=== PATIENT | male | born 1985 | race Two or more races ===

== ENCOUNTER 2021-01-03 19:09 | Outpatient (REF) | payer OTHER, MEDICARE, MEDICAID, SELFPAY ==
--- NOTE | ~2021-01-03 | MR_ITS ---
EXAMINATION: MR SHOULDER WITHOUT CONTRAST, LEFT CLINICAL INFORMATION: Left shoulder pain and weakness. COMPARISON: Left shoulder radiographs dated 07/25/2020 and left clavicle radiographs dated 08/08/2020 TECHNIQUE: Multisequence MR imaging of the left shoulder was performed without contrast on a high-field strength scanner. FINDINGS: ROTATOR CUFF: Intact. No muscle atrophy or fatty infiltration. BICEPS: Normal. CORACOACROMIAL ARCH: The undersurface of the acromion is curved with no subacromial spur. [id number] acromioclavicular osteoarthritis. Prominent associated marrow and capsular edema. Mild subchondral cystic change. No acute fracture. LABRUM/CAPSULE: Thin fluid signal extending through the undersurface of the superior labrum, posterosuperior labrum, and posterior labrum consistent with a nondisplaced undersurface tear. There is a small paralabral cyst at the posterior labrum measuring up to 0.3 cm. GLENOHUMERAL JOINT/MARROW: Normal. MR/MR shoulder LT wo con IMPRESSION: 1. Nondisplaced undersurface tear of the superior, posterosuperior, and posterior labrum. Small posterior paralabral cyst. 2. Kvjj-[id number] acromioclavicular osteoarthritis with prominent marrow and capsular edema. Edema may be related to degenerative arthritis or indicate a nondisplaced capsular injury. No associated fracture. 3. Intact rotator cuff.
== END 2021-01-03 19:10 | disposition home or self-care (01) ==
LOC: HO.MRI 19:09
PROVIDERS: Visit Provider Internal Medicine
DX: M25.512 Pain in left shoulder (principal)
CPT/HCPCS: 73221

== ENCOUNTER → 2021-01-07 09:22 | Outpatient (BNVA) | payer MEDICARE, MEDICAID, SELFPAY | PROVIDERS: PCP Internal Medicine; Visit Provider Orthopaedic Surgery | DX: S49.90XA Unspecified injury of shoulder and upper arm, unspecified arm, initial encounter (principal); E11.9 Type 2 diabetes mellitus without complications | CPT/HCPCS: 20600; 20605; J1100 ==

== ENCOUNTER 2021-07-25 11:25 | Emergency (ER) | payer MEDICARE, MEDICAID, SELFPAY ==
[2021-07-25 11:34] VITALS: BP 119/73; PULSE 109; RESP 18; TEMP 37.1; O2SAT 98; BMI 25.0
[2021-07-25 12:21] LABS: Glucose, Whole Blood 323 mg/dL (60-115)
[2021-07-25] MEDS: chlordiazePOXIDE HCl 25 MG CAPSULE 50 MG PO (13:20)
--- NOTE | 2021-07-25 13:21 | ED_ITS ---
HPI - Psych General Chief Complaint: Psychiatric Symptoms Stated Complaint: crisis, withdrawal - alcohol, pcp Time Seen by Provider: 07/25/21 11:44 Source: patient Mode of arrival: ambulatory Limitations: no limitations History of Present Illness HPI Narrative: Patient presents to the ED for alcohol withdrawal symptoms and wanted detox. Patient denies any suicidal or homicidal ideation. Patient denies hearing voices or seeing things. Related Data Home Medications Medication Instructions Recorded Confirmed aripiprazole 5 mg tablet (Abilify) 5 mg PO DAILY 01/07/21 07/25/21 melatonin 1 mg tablet 1 mg PO BEDTIME PRN 01/07/21 07/25/21 metformin 1,000 mg tablet 1,000 mg PO BID 01/07/21 07/25/21 Allergies Allergy/AdvReac Type Severity Reaction Status Date / Time haloperidol Allergy Mild ITCHING Verified 07/25/21 11:33 Review of Systems Review of Systems: Yes all other systems are reviewed and are negative Constitutional: Constitutional: Reports as per HPI and Reports no additional constitutional complaints Eyes: Eyes: Reports as per HPI and Reports no additional eye complaints ENT: Reports system reviewed and no additional complaints, except as documented and Reports as per HPI Cardiovascular: Cardiovascular: Reports as per HPI and Reports no additional cardiovascular complaints Respiratory: Respiratory: Reports as per HPI and Reports no additional respiratory complaints Gastrointestinal: Gastrointestinal: Reports as per HPI and Reports no additional gastrointestinal complaints Musculoskeletal: Musculoskeletal: Reports no additional musculoskeletal complaints and Reports as per HPI Neurologic: Reports system reviewed and no additional complaints, except as documented and Reports as per HPI Psychiatric: Psychiatric: Reports no additional psychiatric complaints and Reports as per HPI Comments: Wants detox [facility] Past Medical History Medical History Depression Diabetes Surgical History H/O circumcision Family History Family History (Updated 01/07/21 @ 09:29 by RY Aquino) Mother No problems noted. Father No problems noted. Social History Social History (Updated 01/07/21 @ 09:30 by RY Aquino) Alcohol intake: current Substance Use Type: Marijuana Advance Directives: No Advance Directives Information Provided: No Current occupational status: unemployed and disabled Physical Exam Vital Signs: Vital Signs: Last Vital Signs Temp 98.8 F 07/25/21 11:34 Pulse 109 H 07/25/21 11:34 Resp 18 07/25/21 11:34 BP 119/73 07/25/21 11:34 Pulse Ox 98 07/25/21 11:34 Body Mass Index 25.0 Const: General: cooperative, healthy appearing, comfortable, no acute distress, well developed, alert, awake and Physically active Orientation/consciousness: patient oriented x3 HENMT: Head: Yes normal to inspection, Yes No palpable skull fracture present, Yes normocephalic, Yes atraumatic and No abrasion Eyes: General: appearance normal, both eyes and all related structures Neck: Neck: Yes normal visual inspection, Yes full ROM, Yes no lymphadenopathy, Yes no meningeal signs, Yes trachea midline, Yes supple and No tender Chest: Chest palpation & inspection: normal inspection of the chest and normal palpation of entire chest wall Resp: Effort & Inspection: normal respiratory effort and able to speak in complete sentences Auscultation: clear to auscultation bilaterally Cardio: Jugular venous distension: no JVD Heart sounds: S1 normal heart sound present and S2 normal heart sound present GI: Inspection: Yes normal to inspection and No abdominal wall ecchymosis Palpation (GI): Soft to palpation, not firm, nontender and no guarding : General: No CVA tenderness and Yes no CVA tenderness Back/Spine/Pelvis: Back: no CVA tenderness, No CVA tenderness and No back tenderness Skin: General skin exam: no rashes or lesions noted and elasticity normal Neuro: General: patient oriented x3, gait normal, no meningeal signs and CN's II-XI intact bilaterally Cranial nerves: Yes CN's II-XII intact bilaterally Extrem: General: Yes normal to inspection and Yes full ROM Psych: Appearance: grossly normal, well kempt and not disheveled Course Course Course Narrative: Patient will have labs drawn and be evaluated by refinery operator vapor recovery unit. Reevaluation(s) Reevaluation #1: Patient medically cleared. Patient seen by our refinery operator vapor recovery unit Yahir and patient has a bed for detox program in the morning. Patient will be discharged after he received dinner from ED. Time: 18:09 MDM - Psych MDM Narrative Medical decision making narrative: Alcohol abuse Lab Data Result diagrams: 07/25/21 14:23 07/25/21 14:23 Labs: Lab Results 07/25/21 07/25/21 07/25/21 Range/Units 12:18 13:18 13:18 WBC (4.8-10.8) X10*3/uL RBC (4.60-5.80) X10*6/uL Hgb (14.0-18.0) g/dl Hct (42-52) % MCV (80-98) fL MCH (27.0-33.0) pg MCHC (31.0-36.0) g/dl RDW (11.0-16.0) % Plt Count (160-400) X10*3/uL MPV (9.4-12.4) fL Immature Gran % (Auto) (0.0-0.4) % Neut % (Auto) (45-73) % Lymph % (Auto) (20-40) % [place] % (Auto) (2-11) % Eos % (Auto) (0-4) % Baso % (Auto) (0-2) % Lymph # (Auto) (1.2-4.9) X10*3/uL [place] # (Auto) (0.1-1.2) X10*3/uL Eos # (Auto) (0.0-0.4) X10*3/uL Baso # (Auto) (0.0-0.2) X10*3/uL Abs Immat Gran (auto) (0.00-0.03) X10*3/uL Absolute Neuts (auto) (2.0-8.3) X10*3/uL Absolute Nucleated RBC (0.0-0.012) X10*3/uL Nucleated RBC % (auto) (0.0-0.2) /100WBC Sodium (135-145) mmol/L Potassium (3.3-5.1) mmol/L Chloride (96-108) mmol/L Carbon Dioxide (22-29) mmol/L Anion Gap (12-20) BUN (9-16) mg/dL Creatinine (0.5-1.4) mg/dL Estim Creat Clear Calc Estimated GFR POC Glucose 323 H (60-115) mg/dL Random Glucose (60-115) mg/dL Calcium (8.4-10.2) mg/dL Total Bilirubin (0.0-1.0) mg/dL Direct Bilirubin (0.0-0.5) mg/dL AST (5-37) U/L ALT (0-40) U/L Alkaline Phosphatase (39-117) U/L Total Protein (6.5-8.0) g/dL Albumin (3.5-5.0) g/dL Urine Color Urine Appearance Urine pH (5.0-8.0) Ur Specific [place] (1.005-1.025) Urine Protein (NEG-TRACE) MG/DL Urine Glucose (UA) (NEG) MG/DL Urine Ketones (NEG) MG/DL Urine Blood (NEG) Urine Nitrite (NEG) Ur Leukocyte Esterase (NEG) Urine RBC (0) /HPF Urine WBC (0-4) /HPF Ur Squamous Epith Cells /LPF Urine Bacteria /LPF Urine Opiates Screen Not Detected (Not Detect) Urine Fentanyl Screen Not Detected (Not Detect) Ur Barbiturates Screen Not Detected (Not Detect) Ur Phencyclidine Scrn POSITIVE H (Not Detect) Ur Amphetamines Screen Not Detected (Not Detect) U Benzodiazepines Scrn Not Detected (Not Detect) Urine Cocaine Screen POSITIVE H (Not Detect) U Marijuana (THC) Screen Not Detected (Not Detect) Ethyl Alcohol mg/dL COVID-19 (LACI) Negative (Negative) COVID-19 Clin Com See Note 07/25/21 07/25/21 07/25/21 Range/Units 13:18 14:23 14:23 WBC 9.3 (4.8-10.8) X10*3/uL RBC 6.26 H (4.60-5.80) X10*6/uL Hgb 17.7 (14.0-18.0) g/dl Hct 53.2 H (42-52) % MCV 85.0 (80-98) fL MCH 28.3 (27.0-33.0) pg MCHC 33.3 (31.0-36.0) g/dl RDW 12.9 (11.0-16.0) % Plt Count 179 (160-400) X10*3/uL MPV 11.3 (9.4-12.4) fL Immature Gran % (Auto) 0.3 (0.0-0.4) % Neut % (Auto) 62.8 (45-73) % Lymph % (Auto) 28.2 (20-40) % Bow[place] % (Auto) 5.9 (2-11) % Eos % (Auto) 2.5 (0-4) % Baso % (Auto) 0.3 (0-2) % Lymph # (Auto) 2.6 (1.2-4.9) X10*3/uL [place] # (Auto) 0.6 (0.1-1.2) X10*3/uL Eos # (Auto) 0.2 (0.0-0.4) X10*3/uL Baso # (Auto) 0.0 (0.0-0.2) X10*3/uL Abs Immat Gran (auto) 0.03 (0.00-0.03) X10*3/uL Absolute Neuts (auto) 5.9 (2.0-8.3) X10*3/uL Absolute Nucleated RBC 0.000 (0.0-0.012) X10*3/uL Nucleated RBC % (auto) 0.0 (0.0-0.2) /100WBC Sodium 138 (135-145) mmol/L Potassium 4.3 (3.3-5.1) mmol/L Chloride 98 (96-108) mmol/L Carbon Dioxide 25 (22-29) mmol/L Anion Gap 19 (12-20) BUN 18 H (9-16) mg/dL Creatinine 1.17 (0.5-1.4) mg/dL Estim Creat Clear Calc 78.0 Estimated GFR > 60 POC Glucose (60-115) mg/dL Random Glucose 359 H* (60-115) mg/dL Calcium 10.3 H (8.4-10.2) mg/dL Total Bilirubin 0.8 (0.0-1.0) mg/dL Direct Bilirubin 0.2 (0.0-0.5) mg/dL AST 13 (5-37) U/L ALT 20 (0-40) U/L Alkaline Phosphatase 114 (39-117) U/L Total Protein 7.5 (6.5-8.0) g/dL Albumin 4.6 (3.5-5.0) g/dL Urine Color YELLOW Urine Appearance CLEAR Urine pH 6.0 (5.0-8.0) Ur Specific [place] 1.015 (1.005-1.025) Urine Protein NEG (NEG-TRACE) MG/DL Urine Glucose (UA) >=1000 H (NEG) MG/DL Urine Ketones 5 (NEG) MG/DL Urine Blood NEG (NEG) Urine Nitrite NEG (NEG) Ur Leukocyte Esterase NEG (NEG) Urine RBC 0 (0) /HPF Urine WBC 0-2 (0-4) /HPF Ur Squamous Epith Cells TRACE /LPF Urine Bacteria NONE /LPF Urine Opiates Screen (Not Detect) Urine Fentanyl Screen (Not Detect) Ur Barbiturates Screen (Not Detect) Ur Phencyclidine Scrn (Not Detect) Ur Amphetamines Screen (Not Detect) U Benzodiazepines Scrn (Not Detect) Urine Cocaine Screen (Not Detect) U Marijuana (THC) Screen (Not Detect) Ethyl Alcohol mg/dL COVID-19 (LACI) (Negative) COVID-19 Clin Com 07/25/21 07/25/21 Range/Units 14:23 17:51 WBC (4.8-10.8) X10*3/uL RBC (4.60-5.80) X10*6/uL Hgb (14.0-18.0) g/dl Hct (42-52) % MCV (80-98) fL MCH (27.0-33.0) pg MCHC (31.0-36.0) g/dl RDW (11.0-16.0) % Plt Count (160-400) X10*3/uL MPV (9.4-12.4) fL Immature Gran % (Auto) (0.0-0.4) % Neut % (Auto) (45-73) % Lymph % (Auto) (20-40) % Bowman % (Auto) (2-11) % Eos % (Auto) (0-4) % Baso % (Auto) (0-2) % Lymph # (Auto) (1.2-4.9) X10*3/uL [place] # (Auto) (0.1-1.2) X10*3/uL Eos # (Auto) (0.0-0.4) X10*3/uL Baso # (Auto) (0.0-0.2) X10*3/uL Abs Immat Gran (auto) (0.00-0.03) X10*3/uL Absolute Neuts (auto) (2.0-8.3) X10*3/uL Absolute Nucleated RBC (0.0-0.012) X10*3/uL Nucleated RBC % (auto) (0.0-0.2) /100WBC Sodium (135-145) mmol/L Potassium (3.3-5.1) mmol/L Chloride (96-108) mmol/L Carbon Dioxide (22-29) mmol/L Anion Gap (12-20) BUN (9-16) mg/dL Creatinine (0.5-1.4) mg/dL Estim Creat Clear Calc Estimated GFR POC Glucose (60-115) mg/dL Random Glucose (60-115) mg/dL Calcium (8.4-10.2) mg/dL Total Bilirubin (0.0-1.0) mg/dL Direct Bilirubin (0.0-0.5) mg/dL AST (5-37) U/L ALT (0-40) U/L Alkaline Phosphatase (39-117) U/L Total Protein (6.5-8.0) g/dL Albumin (3.5-5.0) g/dL Urine Color YELLOW Urine Appearance CLEAR Urine pH 6.0 (5.0-8.0) Ur Specific [place] 1.020 (1.005-1.025) Urine Protein NEG (NEG-TRACE) MG/DL Urine Glucose (UA) >=1000 H (NEG) MG/DL Urine Ketones 15 (NEG) MG/DL Urine Blood NEG (NEG) Urine Nitrite NEG (NEG) Ur Leukocyte Esterase NEG (NEG) Urine RBC (0) /HPF Urine WBC (0-4) /HPF Ur Squamous Epith Cells /LPF Urine Bacteria /LPF Urine Opiates Screen (Not Detect) Urine Fentanyl Screen (Not Detect) Ur Barbiturates Screen (Not Detect) Ur Phencyclidine Scrn (Not Detect) Ur Amphetamines Screen (Not Detect) U Benzodiazepines Scrn (Not Detect) Urine Cocaine Screen (Not Detect) U Marijuana (THC) Screen (Not Detect) Ethyl Alcohol < 10 mg/dL COVID-19 (LACI) (Negative) COVID-19 Clin Com Discharge Plan Discharge Clinical Impression: Alcohol abuse Patient Disposition: Home, Self-Care Instructions: Abuse of Alcohol (ED) Additional Instructions: Please follow-up with the detox program have a bed for in the morning. Return to the ED immediately for any suicidal/homicidal ideation, auditory/visual hallucinations, any physical complaints, or any other concerning symptoms. Please follow up with PCP. Print Language: Maldivian
[2021-07-25 13:31] LABS: Appearance Urine CLEAR; Color Urine YELLOW; Glucose Urine UA >=1000 MG/DL (NEG); Leukocyte Esterase Urine NEG (NEG); Nitrite Urine NEG (NEG); Specific Gravity - Urine 1.015 (1.005-1.025); Urine Blood NEG (NEG); Urine Ketones 5 MG/DL (NEG); Urine Protein NEG (NEG-TRACE)
[2021-07-25 13:48] LABS: Amphetamine Screen Urine Not Detected (Not Detect); Barbiturates, Urine Not Detected (Not Detect); Benzodiazepines Screen Urine Not Detected (Not Detect); Cannabinoid Screen Urine Not Detected (Not Detect); Cocaine Screen Urine POSITIVE (Not Detect); Fentanyl, urine Not Detected (Not Detect); Opiate Screen Urine Not Detected (Not Detect); Phencyclidine Screen Urine POSITIVE (Not Detect)
[2021-07-25] MEDS: Nicotine Polacrilex 2 MG GUM BUCCAL (13:50)
[2021-07-25 13:51] LABS: RBC Urine 0 /HPF (0); Squamous Epithelial Cell Urine TRACE /LPF; WBC Urine 0-2 /HPF (0-4)
[2021-07-25 13:52] LABS: COVID-19 Test Negative (Negative); IDNOW Serial# 9DD0AD1C
[2021-07-25 14:33] LABS: MANUAL DIFF FLAG NO
[2021-07-25 14:35] LABS: Basophils Percent Auto 0.3 % (0-2); Eosinophils Absolute Auto 0.2 X10*3/uL (0.0-0.4); Eosinophils Percent Auto 2.5 % (0-4); Hematocrit 53.2 % (42-52); Hemoglobin 17.7 g/dl (14.0-18.0); Imm Gran Abs Auto 0.03 X10*3/uL (0.00-0.03); Imm Gran Pct Auto 0.3 % (0.0-0.4); Lymphocytes Absolute Auto 2.6 X10*3/uL (1.2-4.9); Lymphocytes Percent Auto 28.2 % (20-40); Mean Corpuscular HGB Conc 33.3 g/dl (31.0-36.0); Mean Corpuscular Hemoglobin 28.3 pg (27.0-33.0); Mean Platelet Volume 11.3 fL (9.4-12.4); Monocytes Absolute Auto 0.6 X10*3/uL (0.1-1.2); Monocytes Percent Auto 5.9 % (2-11); Neutrophils Absolute Auto 5.9 X10*3/uL (2.0-8.3); Neutrophils Percent Auto 62.8 % (45-73); Platelet Count 179 X10*3/uL (160-400); Red Blood Count 6.26 X10*6/uL (4.60-5.80); Red Cell Distribution Width 12.9 % (11.0-16.0); White Blood Count 9.3 X10*3/uL (4.8-10.8)
[2021-07-25 14:48] LABS: Ethanol < 10 mg/dL
[2021-07-25 15:09] LABS: Alanine Aminotransferase 20 U/L (0-40); Albumin Level 4.6 g/dL (3.5-5.0); Alkaline Phosphatase 114 U/L (39-117); Anion Gap 19 (12-20); Aspartate Amino Transferase 13 U/L (5-37); Bilirubin Direct 0.2 mg/dL (0.0-0.5); Bilirubin Total 0.8 mg/dL (0.0-1.0); Blood Urea Nitrogen 18 mg/dL (9-16); Calcium 10.3 mg/dL (8.4-10.2); Carbon Dioxide 25 mmol/L (22-29); Chloride 98 mmol/L (96-108); Estimated Glomerular Filt Rate > 60; Glucose Random 359 mg/dL (60-115); Potassium 4.3 mmol/L (3.3-5.1); Sodium 138 mmol/L (135-145); Total Protein 7.5 g/dL (6.5-8.0)
--- NOTE | 2021-07-25 17:06 | MHC.CARE ---
CARE team met with pt seeking detox. Pt reports he used PCP, cocaine and alcohol. Pt reports he is seeking detox services. When this advertising writer asked if he withdrawing pt states I have diarrhea .Pt will meet with Yahir on the recovery team and determine level of services. CARE team is available as needed.
--- NOTE | 2021-07-25 17:47 | MHC.RECOVSUP ---
? Reason for consult Recovery Support o Current location: [facility] o Identified substance use concern: Alcohol - Seeking ATS (detox) - Support ? Intervention: o Community resources provided o Harm reduction discussion ? Plan: <del>o</del> <del>Referral</del> <del>to</del> <del>[facility]</del> <del>o</del> <del>Bed</del> <del>search</del> <del>in</del> <del>progress</del> <del>to</del> <del>o</del> <del>Follow</del> <del>up</del> <del>tomorrow</del> <del>o</del> <del>Patient</del> <del>awaiting</del> <del>crisis</del> <del>evaluation</del> o Patient to follow up with [facility] after discharge ? Additional information: Patient stated that he wants to go to detox.. Anand Stevens, and Brandon all said tomorrow. Patient was given resources where to go in the morning to get assistance tomorrow morning
[2021-07-25 18:01] LABS: Appearance Urine CLEAR; Color Urine YELLOW; Glucose Urine UA >=1000 MG/DL (NEG); Leukocyte Esterase Urine NEG (NEG); Nitrite Urine NEG (NEG); Urine Blood NEG (NEG); Urine Ketones 15 MG/DL (NEG); Urine Protein NEG (NEG-TRACE)
[2021-07-25 18:20] LABS: RBC Urine 0 /HPF (0); WBC Urine 0 /HPF (0-4)
[2021-07-25 18:31] LABS: Amphetamine Screen Urine Not Detected (Not Detect); Barbiturates, Urine Not Detected (Not Detect); Benzodiazepines Screen Urine Not Detected (Not Detect); Cannabinoid Screen Urine POSITIVE (Not Detect); Cocaine Screen Urine POSITIVE (Not Detect); Fentanyl, urine Not Detected (Not Detect); Opiate Screen Urine Not Detected (Not Detect); Phencyclidine Screen Urine POSITIVE (Not Detect)
== END 2021-07-25 19:09 | disposition home or self-care (01) ==
PROVIDERS: Physician Assistant; Emergency Provider Emergency Medicine; PCP Internal Medicine
DX: F10.139 Alcohol abuse with withdrawal, unspecified (principal); F12.90 Cannabis use, unspecified, uncomplicated; Z20.822 Contact with and (suspected) exposure to COVID-19; Z79.899 Other long term (current) drug therapy
CPT/HCPCS: 36415; 80053; 80307; 81001; 82077; 82248; 82947; 85025; 87635; 99283

== ENCOUNTER 2021-07-29 12:46 | Emergency (ER) | payer MEDICARE, MEDICAID, SELFPAY ==
--- NOTE | 2021-07-29 14:29 | ED.GENADULT ---
HPI - General Adult General Chief complaint: ETOH/Substance Use Stated complaint: Crisis Time Seen by Provider: 07/29/21 13:58 Source: patient Mode of arrival: ambulatory Limitations: no limitations History of Present Illness HPI narrative: 36-year-old male who presents emergency department for evaluation alcohol use disorder and requesting detox. The patient states that he has been drinking heavily since he was 13 years old. He states that his only period of sobriety was when he was incarcerated for 3 and half years from [id number]. The patient states that last night he drank a pt of Paula evangelina, a sleeve of Fireball whiskey nips, and a 6 pack of Heineken beer. Patient states his last drink was at midnight. He does not feel like he is withdrawing at this time but is very thirsty. The patient was seen here in the emergency department on 07/25/2021 with alcohol withdrawal symptoms and requesting detox. The patient was seen at that time by 1 of our field hockey and lacrosse coach is an there was a detox bed for the patient in the morning however the patient states that he was kicked out of the program and did not complete the treatment plan. The patient had a laboratory evaluation at time which revealed an elevated glucose of 359, normal LFTs, alcohol level below detectable limits, urine tox screen positive for PCP, cocaine and marijuana. Related Data Home Medications Medication Instructions Recorded Confirmed aripiprazole 5 mg tablet (Abilify) 5 mg PO DAILY 01/07/21 07/29/21 melatonin 1 mg tablet 1 mg PO BEDTIME PRN 01/07/21 07/29/21 metformin 1,000 mg tablet 1,000 mg PO BID 01/07/21 07/29/21 Allergies Allergy/AdvReac Type Severity Reaction Status Date / Time haloperidol Allergy Mild ITCHING Verified 07/25/21 11:33 [facility] Past Medical History Medical History (Updated 07/29/21 @ 20:54 by Sloan Padilla MD) Depression Diabetes Surgical History H/O circumcision Family History Family History (Updated 01/07/21 @ 09:29 by Ailyn Avila [facility]) Mother No problems noted. Father No problems noted. Social History Social History (Updated 01/07/21 @ 09:30 by Ailyn Avila Candice) Alcohol intake: current Substance Use Type: Marijuana Advance Directives: No Advance Directives Information Provided: No Current occupational status: unemployed and disabled Physical Exam Vital Signs: Vital Signs: Last Vital Signs Temp 97 F 07/29/21 17:09 Pulse 80 07/29/21 17:09 Resp 16 07/29/21 17:09 BP 108/64 07/29/21 17:09 Pulse Ox 96 07/29/21 17:09 Body Mass Index 28.8 Course Course Course Narrative: 36-year-old male with a history of diabetes who presents emergency department for evaluation of alcohol use disorder and requesting detox. The patient states he drank a large amount of alcohol yesterday with his last drink being at midnight. The patient's physical examination was unremarkable. Patient's laboratory evaluation did reveal an elevated glucose of 420, the patient has been noncompliant with his medical regimen. Given this elevation, the patient will be treated with normal saline IV x2 L and regular insulin 8 units IV. The patient's alcohol level was below detectable limits. The patient's urine tox screen was positive for cocaine, benzodiazepines and PCP. 2047: The patient's repeat point of care glucose was 233. The patient remained stable and has no signs of alcohol withdrawal. There is no field hockey and lacrosse coach available this evening to help the patient get into an alcohol detox program. The patient will be transferred back to the [facility] and will be evaluated by the[facility] in to see if they can get him into a detox program this evening. 2111: Physician observation started at 2111. Patient placed in physician observation because the patient needed more time to see Behavioral Health for help getting into an appropriate detox facility. At the time observation patient's vitals were stable, patient is alert and oriented with no evidence of alcohol withdrawal. Neuro: nonfocal, CV RRR, Lungs clear. The patient will be signed out to my colleague, Dr. Vogel. Medical Decision Making Lab Data Result diagrams: 07/29/21 15:18 07/29/21 15:18 Labs: Lab Results 07/29/21 07/29/21 07/29/21 Range/Units 15:00 15:00 15:18 WBC 8.6 (4.8-10.8) X10*3/uL RBC 5.99 H (4.60-5.80) X10*6/uL Hgb 16.9 (14.0-18.0) g/dl Hct 51.2 (42-52) % MCV 85.5 (80-98) fL MCH 28.2 (27.0-33.0) pg MCHC 33.0 (31.0-36.0) g/dl RDW 13.0 (11.0-16.0) % Plt Count 172 (160-400) X10*3/uL MPV 11.8 (9.4-12.4) fL Immature Gran % (Auto) 0.2 (0.0-0.4) % Neut % (Auto) 62.5 (45-73) % Lymph % (Auto) 26.0 (20-40) % [place] % (Auto) 6.6 (2-11) % Eos % (Auto) 4.5 H (0-4) % Baso % (Auto) 0.2 (0-2) % Lymph # (Auto) 2.2 (1.2-4.9) X10*3/uL [place] # (Auto) 0.6 (0.1-1.2) X10*3/uL Eos # (Auto) 0.4 (0.0-0.4) X10*3/uL Baso # (Auto) 0.0 (0.0-0.2) X10*3/uL Abs Immat Gran (auto) 0.02 (0.00-0.03) X10*3/uL Absolute Neuts (auto) 5.4 (2.0-8.3) X10*3/uL Absolute Nucleated RBC 0.000 (0.0-0.012) X10*3/uL Nucleated RBC % (auto) 0.0 (0.0-0.2) /100WBC Sodium (135-145) mmol/L Potassium (3.3-5.1) mmol/L Chloride (96-108) mmol/L Carbon Dioxide (22-29) mmol/L Anion Gap (12-20) BUN (9-16) mg/dL Creatinine (0.5-1.4) mg/dL Estim Creat Clear Calc Estimated GFR POC Glucose (60-115) mg/dL Random Glucose (60-115) mg/dL Calcium (8.4-10.2) mg/dL Total Bilirubin (0.0-1.0) mg/dL AST (5-37) U/L ALT (0-40) U/L Alkaline Phosphatase (39-117) U/L Total Protein (6.5-8.0) g/dL Albumin (3.5-5.0) g/dL Lipase (8-78) U/L Urine Opiates Screen Not Detected (Not Detect) Urine Fentanyl Screen Not Detected (Not Detect) Ur Barbiturates Screen Not Detected (Not Detect) Ur Phencyclidine Scrn POSITIVE H (Not Detect) Ur Amphetamines Screen Not Detected (Not Detect) U Benzodiazepines Scrn POSITIVE H (Not Detect) Urine Cocaine Screen POSITIVE H (Not Detect) U Marijuana (THC) Screen Not Detected (Not Detect) Ethyl Alcohol mg/dL COVID-19 (LACI) Negative (Negative) COVID-19 Clin Com See Note 07/29/21 07/29/21 07/29/21 Range/Units 15:18 15:18 18:24 WBC (4.8-10.8) X10*3/uL RBC (4.60-5.80) X10*6/uL Hgb (14.0-18.0) g/dl Hct (42-52) % MCV (80-98) fL MCH (27.0-33.0) pg MCHC (31.0-36.0) g/dl RDW (11.0-16.0) % Plt Count (160-400) X10*3/uL MPV (9.4-12.4) fL Immature Gran % (Auto) (0.0-0.4) % Neut % (Auto) (45-73) % Lymph % (Auto) (20-40) % [place] % (Auto) (2-11) % Eos % (Auto) (0-4) % Baso % (Auto) (0-2) % Lymph # (Auto) (1.2-4.9) X10*3/uL [place] # (Auto) (0.1-1.2) X10*3/uL Eos # (Auto) (0.0-0.4) X10*3/uL Baso # (Auto) (0.0-0.2) X10*3/uL Abs Immat Gran (auto) (0.00-0.03) X10*3/uL Absolute Neuts (auto) (2.0-8.3) X10*3/uL Absolute Nucleated RBC (0.0-0.012) X10*3/uL Nucleated RBC % (auto) (0.0-0.2) /100WBC Sodium 134 L (135-145) mmol/L Potassium 4.9 (3.3-5.1) mmol/L Chloride 99 (96-108) mmol/L Carbon Dioxide 25 (22-29) mmol/L Anion Gap 15 (12-20) BUN 15 (9-16) mg/dL Creatinine 1.02 (0.5-1.4) mg/dL Estim Creat Clear Calc 92.4 Estimated GFR > 60 POC Glucose 342 H (60-115) mg/dL Random Glucose 420 H* (60-115) mg/dL Calcium 10.1 (8.4-10.2) mg/dL Total Bilirubin 0.9 (0.0-1.0) mg/dL AST 14 (5-37) U/L ALT 23 (0-40) U/L Alkaline Phosphatase 106 (39-117) U/L Total Protein 6.6 (6.5-8.0) g/dL Albumin 4.2 (3.5-5.0) g/dL Lipase 147 H (8-78) U/L Urine Opiates Screen (Not Detect) Urine Fentanyl Screen (Not Detect) Ur Barbiturates Screen (Not Detect) Ur Phencyclidine Scrn (Not Detect) Ur Amphetamines Screen (Not Detect) U Benzodiazepines Scrn (Not Detect) Urine Cocaine Screen (Not Detect) U Marijuana (THC) Screen (Not Detect) Ethyl Alcohol < 10 mg/dL COVID-19 (LACI) (Negative) COVID-19 Clin Com 07/29/21 Range/Units 19:26 WBC (4.8-10.8) X10*3/uL RBC (4.60-5.80) X10*6/uL Hgb (14.0-18.0) g/dl Hct (42-52) % MCV (80-98) fL MCH (27.0-33.0) pg MCHC (31.0-36.0) g/dl RDW (11.0-16.0) % Plt Count (160-400) X10*3/uL MPV (9.4-12.4) fL Immature Gran % (Auto) (0.0-0.4) % Neut % (Auto) (45-73) % Lymph % (Auto) (20-40) % [place] % (Auto) (2-11) % Eos % (Auto) (0-4) % Baso % (Auto) (0-2) % Lymph # (Auto) (1.2-4.9) X10*3/uL [place] # (Auto) (0.1-1.2) X10*3/uL Eos # (Auto) (0.0-0.4) X10*3/uL Baso # (Auto) (0.0-0.2) X10*3/uL Abs Immat Gran (auto) (0.00-0.03) X10*3/uL Absolute Neuts (auto) (2.0-8.3) X10*3/uL Absolute Nucleated RBC (0.0-0.012) X10*3/uL Nucleated RBC % (auto) (0.0-0.2) /100WBC Sodium (135-145) mmol/L Potassium (3.3-5.1) mmol/L Chloride (96-108) mmol/L Carbon Dioxide (22-29) mmol/L Anion Gap (12-20) BUN (9-16) mg/dL Creatinine (0.5-1.4) mg/dL Estim Creat Clear Calc Estimated GFR POC Glucose 233 H (60-115) mg/dL Random Glucose (60-115) mg/dL Calcium (8.4-10.2) mg/dL Total Bilirubin (0.0-1.0) mg/dL AST (5-37) U/L ALT (0-40) U/L Alkaline Phosphatase (39-117) U/L Total Protein (6.5-8.0) g/dL Albumin (3.5-5.0) g/dL Lipase (8-78) U/L Urine Opiates Screen (Not Detect) Urine Fentanyl Screen (Not Detect) Ur Barbiturates Screen (Not Detect) Ur Phencyclidine Scrn (Not Detect) Ur Amphetamines Screen (Not Detect) U Benzodiazepines Scrn (Not Detect) Urine Cocaine Screen (Not Detect) U Marijuana (THC) Screen (Not Detect) Ethyl Alcohol mg/dL COVID-19 (LACI) (Negative) COVID-19 Clin Com Discharge Plan Discharge Clinical Impression: Alcohol use disorder, Acute hyperglycemia, Noncompliance with medication regimen Patient Disposition: Home, Self-Care Instructions: Abuse of Alcohol (ED), Diabetic Hyperglycemia (ED)
[2021-07-29 14:37] VITALS: BP 114/80; PULSE 103; RESP 16; TEMP 36.9; O2SAT 95; BMI 28.8
--- NOTE | 2021-07-29 15:12 | PC.NURSE ---
one of clients support services [facility] called and left some phone numbers for us:benedict office [phone] for for yamile carter, gustavo baig or Bre Lozada. 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
[2021-07-29 15:24] LABS: MANUAL DIFF FLAG NO
[2021-07-29 15:28] LABS: Basophils Percent Auto 0.2 % (0-2); Eosinophils Absolute Auto 0.4 X10*3/uL (0.0-0.4); Eosinophils Percent Auto 4.5 % (0-4); Hematocrit 51.2 % (42-52); Hemoglobin 16.9 g/dl (14.0-18.0); Imm Gran Abs Auto 0.02 X10*3/uL (0.00-0.03); Imm Gran Pct Auto 0.2 % (0.0-0.4); Lymphocytes Absolute Auto 2.2 X10*3/uL (1.2-4.9); Mean Corpuscular Hemoglobin 28.2 pg (27.0-33.0); Mean Corpuscular Volume 85.5 fL (80-98); Mean Platelet Volume 11.8 fL (9.4-12.4); Monocytes Absolute Auto 0.6 X10*3/uL (0.1-1.2); Monocytes Percent Auto 6.6 % (2-11); Neutrophils Absolute Auto 5.4 X10*3/uL (2.0-8.3); Neutrophils Percent Auto 62.5 % (45-73); Platelet Count 172 X10*3/uL (160-400); Red Blood Count 5.99 X10*6/uL (4.60-5.80); White Blood Count 8.6 X10*3/uL (4.8-10.8)
[2021-07-29 15:33] LABS: COVID-19 Test Negative (Negative)
[2021-07-29 15:38] LABS: Ethanol < 10 mg/dL
[2021-07-29 15:40] LABS: Amphetamine Screen Urine Not Detected (Not Detect); Barbiturates, Urine Not Detected (Not Detect); Benzodiazepines Screen Urine POSITIVE (Not Detect); Cannabinoid Screen Urine Not Detected (Not Detect); Cocaine Screen Urine POSITIVE (Not Detect); Fentanyl, urine Not Detected (Not Detect); Opiate Screen Urine Not Detected (Not Detect); Phencyclidine Screen Urine POSITIVE (Not Detect)
[2021-07-29 16:15] LABS: Alanine Aminotransferase 23 U/L (0-40); Albumin Level 4.2 g/dL (3.5-5.0); Alkaline Phosphatase 106 U/L (39-117); Anion Gap 15 (12-20); Aspartate Amino Transferase 14 U/L (5-37); Bilirubin Total 0.9 mg/dL (0.0-1.0); Blood Urea Nitrogen 15 mg/dL (9-16); Calcium 10.1 mg/dL (8.4-10.2); Carbon Dioxide 25 mmol/L (22-29); Chloride 99 mmol/L (96-108); Creatinine Clr Calc Pharmacy 92.4; Estimated Glomerular Filt Rate > 60; Glucose Random 420 mg/dL (60-115); Lipase 147 U/L (8-78); Potassium 4.9 mmol/L (3.3-5.1); Sodium 134 mmol/L (135-145); Total Protein 6.6 g/dL (6.5-8.0)
[2021-07-29 17:09] VITALS: BP 108/64; PULSE 80; RESP 16; TEMP 36.1; O2SAT 96
--- NOTE | 2021-07-29 18:02 | MHC.RECOVSUP ---
Recovery Support note: Patient is a 36 year old Latvian speaking male who presented to [facility] ED reporting substance use and interest in going to detox. Patient reports he has been drinking a significant amount of alcohol daily and also using cocaine and PCP. Patient was here four days ago with a similar presentation. ATS Bedsearch exhausted, no beds available at this time. Discussed this with patient. Patient accepted information on outpatient resources including AA, [facility] and ATS. Encouraged patient to contact [facility] outreach support to establish a plan. This teletypewriter operator contacted [facility] combination man bakery machine mechanic supervisor and discussed this situation. [facility] plans to discuss his case and come up with a plan on how to support this patient. Discussed case with CARE Team.
[2021-07-29 18:29] LABS: Glucose, Whole Blood 342 mg/dL (60-115)
[2021-07-29] MEDS: 0.9 % Sodium Chloride 1,000 ML 999 ML IV ×2 (18:32→19:29)
[2021-07-29] MEDS: Insulin Regular, Human 100 UNIT/ML 3 ML VIAL 8 UNIT IVPUSH (18:32)
[2021-07-29 19:31] LABS: Glucose, Whole Blood 233 mg/dL (60-115)
--- NOTE | 2021-07-29 20:58 | PC.NURSE ---
Patient just got transferred from main ED, received 2 liter of IV fluid, POC 190, patient calm and quiet, no distress observed/reported, N is here in building to assess him shortly, will continue to monitor.
[2021-07-29 21:24] LABS: Glucose, Whole Blood 194 mg/dL (60-115)
--- NOTE | 2021-07-29 22:02 | HO.SUDE ---
Pt was sleeping when this policy writer typist attempted to complete JUAN ANTONIO evaluation and would not wake up to verbal or physical stimuli/prompts. Information below gathered from medical record and ED physician report. [facility] graphic pre press trades worker will be evaluating patient this evening. History of substance use Alcohol: since age 13, heavy daily use of hard liquor and beer, longest period of sobriety while incarcerated [id number], last use 07/29/21 ~12am PCP: first use unknown, regular use, reported last use 3 days ago Cocaine: first use unknown, regular use, reported last use 3 days ago Marijuana: first use unknown, regular use, reported last use 3 days ago TOX SCREEN: positive for PCP, cocaine, and marijuana; BAL less than 10 History of family substance use Unable to obtain information Psychiatric history Has endorsed anxiety and depression in the past Treatment history Seen in ED on 07/25/21, admitted to detox on 07/26/21 and was kicked out of the program shortly after Unable to obtain other treatment history at this time HIV, Hep C, and TB risk factors No active diagnoses indicated in medical record, no documented history of IVDU DSM 5 diagnosis F10.20 Alcohol use disorder, moderate F32.9 Unspecified depressive disorder
--- NOTE | 2021-07-30 06:26 | PC.NURSE ---
Patient slept through the night, patient was drowsy and can not engage with BHN during assessment, patient will reevaluated in the morning, behavior appropriate, med rec completed pending providers approval, will continue to monitor.
[2021-07-30 06:36] LABS: Glucose, Whole Blood 251 mg/dL (60-115)
[2021-07-30 06:42] VITALS: BP 103/60; PULSE 65; RESP 16; TEMP 36.8; O2SAT 98
--- NOTE | 2021-07-30 07:07 | PC.NURSE ---
patient appears to remain at rest presently respirations are even and unlabored, appears in no distress
[2021-07-30] MEDS: ARIPiprazole 5 MG TABLET PO (10:19)
[2021-07-30] MEDS: metFORMIN HCl 1,000 MG TABLET 1000 MG PO (10:19)
== END 2021-07-30 12:04 | disposition home or self-care (01) ==
PROVIDERS: Internal Medicine; Emergency Provider Emergency Medicine Emergency Medical Services; PCP Internal Medicine
DX: F10.10 Alcohol abuse, uncomplicated (principal); E11.65 Type 2 diabetes mellitus with hyperglycemia; Y90.0 Blood alcohol level of less than 20 mg/100 ml; Z20.822 Contact with and (suspected) exposure to COVID-19; F12.90 Cannabis use, unspecified, uncomplicated; Z79.899 Other long term (current) drug therapy; Z91.14 Patient's other noncompliance with medication regimen
CPT/HCPCS: 36415; 80053; 80307; 82077; 82947; 83690; 85025; 87635; 96361; 96374; 99284

== ENCOUNTER 2021-09-29 23:40 | Emergency (ER) | payer MEDICARE, MEDICAID, SELFPAY ==
--- NOTE | ~2021-09-29 | XR_ITS ---
EXAMINATION: XR ANKLE, LEFT CLINICAL INFORMATION: Fall COMPARISON: None TECHNIQUE: AP, lateral, and mortise views of the left ankle. FINDINGS: Osseous alignment is anatomic. No acute fracture is seen. There is mild soft tissue swelling laterally. XR/XR ankle LT min 3V IMPRESSION: No acute osseous findings.
[2021-09-30 01:03] VITALS: BP 152/102; PULSE 112; RESP 16; TEMP 36.2; O2SAT 98; BMI 25.2
[2021-09-30 02:40] VITALS: BP 123/76; PULSE 102; RESP 18; TEMP 36.4; O2SAT 98
[2021-09-30 04:15] VITALS: BP 122/78; PULSE 101; RESP 18; O2SAT 98
--- NOTE | 2021-09-30 04:38 | ED_ITS ---
HPI - Extremity Injury (Lower) General Chief Complaint: Extremity Injury, Lower Stated Complaint: sprained left ankle Time Seen by Provider: 09/30/21 04:38 Source: patient Mode of arrival: ambulatory Limitations: no limitations History of Present Illness HPI Narrative: Patient comes emergency room complaining of left ankle pain. Patient states he was out drinking, has missed a step, now complaining of posterior ankle pain. Patient denies hitting his head, no loss of consciousness. Related Data Home Medications Medication Instructions Recorded Confirmed aripiprazole 5 mg tablet (Abilify) 5 mg PO DAILY 01/07/21 07/29/21 melatonin 1 mg tablet 1 mg PO BEDTIME PRN 01/07/21 07/29/21 metformin 1,000 mg tablet 1,000 mg PO BID 01/07/21 07/29/21 aripiprazole 5 mg tablet (Abilify) 5 mg PO DAILY 07/30/21 07/30/21 melatonin 1 mg tablet 1 mg PO BEDTIME PRN 07/30/21 07/30/21 metformin 1,000 mg tablet 1 tab PO BID 07/30/21 07/30/21 Previous Rx's Medication Instructions Recorded ketorolac 10 mg tablet 10 mg PO TID PRN 5 Days tab 09/30/21 Allergies Allergy/AdvReac Type Severity Reaction Status Date / Time haloperidol Allergy Mild ITCHING Verified 07/25/21 11:33 Review of Systems Review of Systems: Constitutional : No Weight loss, No Fever, No Chills, No Night Sweats, No Fatigue, No Malaise ENT/Mouth : No Hearing loss, No Ear Pain, No Nasal Congestion, No Sinus Pain, No Hoarseness, No sore throat, No Rhinorrhea, No Swallowing Difficulty Eyes: No Eye Pain, No Swelling, No Redness, No Foreign Body, No Discharge, No Vision Changes Cardiovascular : No Chest Pain, No SOB, No Dyspnea on Exertion, No Orthopnea, No Edema, No Palpitations Respiratory : No Cough, No Sputum, No Wheezing, No Smoke Exposure, No Dyspnea Gastrointestinal : No Nausea, No Vomiting, No Diarrhea, No Constipation, No abdominal Pain, No Hematochezia, No Melena Genitourinary : no irregular bleeding, No Dysuria, No Urinary Frequency, No Hematuria, No Urinary Incontinence, No Urgency, No Flank Pain, No Urinary Flow Changes, No Hesitancy Musculoskeletal : Complaining of posterior ankle pain on the left, unable to bear weight, No Myalgias, No Joint Swelling Skin : No Skin Lesions, No rash Neuro : No Weakness, No Numbness, No Paresthesias, No Loss of Consciousness, No Dizziness, No Headache Psych : No Anxiety/Panic, No Depression, No SI/HI/AH/VH, No Social Issues, Heme/Lymph: No Bruising, No Bleeding,No Lymphadenopathy Endocrine : No Polyuria, No Polydipsia, No Temperature Intolerance [facility] Past Medical History Medical History Depression Diabetes Surgical History H/O circumcision Family History Family History (Updated 01/07/21 @ 09:29 by RY Aquino) Mother No problems noted. Father No problems noted. Social History Social History (Updated 01/07/21 @ 09:30 by RY Aquino) Alcohol intake: current Substance Use Type: Marijuana Advance Directives: No Advance Directives Information Provided: Yes Current occupational status: unemployed and disabled Physical Exam Vital Signs: Vital Signs: Last Vital Signs Temp 97.5 F 09/30/21 02:40 Pulse 101 H 09/30/21 04:15 Resp 18 09/30/21 04:15 BP 122/78 09/30/21 04:15 Pulse Ox 98 09/30/21 04:15 Body Mass Index 25.2 Const: Other: Appearance: Alert. Oriented X3. No acute distress. Eyes: Pupils equal, round and reactive to light. ENT: Pharynx normal. Neck: Normal inspection. Neck supple. No lymph nodes noted. No crepitus CVS: Normal heart rate and rhythm. Pulses normal. Normal S1 and S2 Respiratory: No respiratory distress. Breath sounds normal. No Wheezing. No rales Abdomen: Soft and nontender. No rigidity. No distention. good BS x4 Skin: Skin warm and dry. Normal skin color. Normal skin turgor. Extremities: No lower extremity edema. Negative tonsil test, patient has good reflexes. Neuro: Oriented X 3. No motor deficit. No sensory deficit. Moving all extermities. No slurred speech. Course Course Course Narrative: I discussed the physical exam and x-rays with the patient, no acute fractures. Patient may have an Achilles tendon injury, I do not suspect rupture at this time. Patient was provided with crutches, 1 dose of IM Toradol given for pain relief. Patient instructed to follow-up with orthopedics Discharge Plan Discharge Clinical Impression: Achilles tendon injury Patient Disposition: Home, Self-Care Instructions: Achilles Tendinitis (ED) Additional Instructions: Please follow-up with your primary care physician tomorrow. If you have any worsening or new symptoms, please return to the emergency room or call 911 Prescriptions: New ketorolac 10 mg tablet 10 mg PO TID PRN (Reason: pain) 5 Days RF: 0 No Action metformin 1,000 mg tablet 1 tab PO BID RF: 0 aripiprazole [Abilify] 5 mg Tablet 5 mg PO DAILY RF: 0 melatonin 1 mg Tablet 1 mg PO BEDTIME PRN (Reason: Insomnia) RF: 0 Referrals: Tigre Peres PA-C [Physician Elementary Classroom Teacher] - 2 days
[2021-09-30] MEDS: Ketorolac Tromethamine 60 MG/2 ML VIAL IM (04:48)
== END 2021-09-30 04:56 | disposition home or self-care (01) ==
PROVIDERS: Emergency Provider Emergency Medicine
DX: S93.402A Sprain of unspecified ligament of left ankle, initial encounter (principal); M25.572 Pain in left ankle and joints of left foot; W18.30XA Fall on same level, unspecified, initial encounter; Y93.9 Activity, unspecified; Y92.9 Unspecified place or not applicable; Y99.9 Unspecified external cause status; Z79.899 Other long term (current) drug therapy
CPT/HCPCS: 73610; 96372; 99284; J1885

== ENCOUNTER 2022-03-01 09:35 | Emergency (ER) | payer MEDICARE, MEDICAID, SELFPAY ==
[2022-03-01 09:41] VITALS: BP 140/82; PULSE 102; RESP 20; TEMP 36.1; O2SAT 99; BMI 25.6
--- NOTE | 2022-03-01 10:18 | ED.PSYCH ---
HPI - Psych General Chief Complaint: Psychiatric Symptoms Stated Complaint: Crisis Time Seen by Provider: 03/01/22 10:01 Source: patient Mode of arrival: ambulatory Limitations: no limitations History of Present Illness HPI Narrative: 37-year-old male presents for suicidally ideation and homicidal ideation. Patient states that he has distress around events with his girlfriend, and states ?why did she have to do that to me question-conrad?. Patient has a plan to hang himself. He feels homicidal to everybody. States he is having visual hallucinations of robots. States he has a history of depression and schizophrenia but is not taking his meds. States he lives alone, and feels that he is lonely. Used PCP at 06:00 this morning prior to coming in, drank 2 beers. States he has no psychiatrist or therapist. States he has never been hospitalized for suicidal ideation in the past. Patient is tearful during my interview Related Data Home Medications Medication Instructions Recorded Confirmed aripiprazole 5 mg tablet (Abilify) 5 mg PO DAILY 01/07/21 07/29/21 melatonin 1 mg tablet 1 mg PO BEDTIME PRN 01/07/21 07/29/21 metformin 1,000 mg tablet 1,000 mg PO BID 01/07/21 07/29/21 aripiprazole 5 mg tablet (Abilify) 5 mg PO DAILY 07/30/21 07/30/21 melatonin 1 mg tablet 1 mg PO BEDTIME PRN 07/30/21 07/30/21 metformin 1,000 mg tablet 1 tab PO BID 07/30/21 07/30/21 Previous Rx's Medication Instructions Recorded ketorolac 10 mg tablet 10 mg PO TID PRN 5 Days tab 09/30/21 Allergies Allergy/AdvReac Type Severity Reaction Status Date / Time haloperidol Allergy Mild ITCHING Verified 07/25/21 11:33 Review of Systems Review of Systems: Constitutional : No Weight loss, No Fever, No Chills, No Night Sweats,No Fatigue, No Malaise ENT/Mouth : No Hearing loss, No Ear Pain, No Nasal Congestion, NoSinus Pain, No Hoarseness, No sore throat, No Rhinorrhea, NoSwallowing Difficulty Eyes: No Eye Pain, No Swelling, No Redness, No Foreign Body, NoDischarge, No Vision Changes Cardiovascular : No Chest Pain, No SOB, No Dyspnea on Exertion, NoOrthopnea, No Edema, No Palpitations Respiratory : No Cough, No Sputum, No Wheezing, No Smoke Exposure, No Dyspnea Gastrointestinal : No Nausea, No Vomiting, No Diarrhea, NoConstipation, No abdominal Pain, No Hematochezia, No Melena Genitourinary : no dysuria, No Urinary Frequency, No Hematuria, No Urinary Incontinence, No Urgency, No FlankPain, No Urinary Flow Changes, No Hesitancy Musculoskeletal : No joint pain, No Myalgias, No Joint Swelling Skin : No Skin Lesions, No rash Neuro : No Weakness, No Numbness, No Paresthesias, No Loss ofConsciousness, No Dizziness, No Headache Psych : SI with plan to hang self, HI to everyone, visual hallucinations Endocrine : No Polyuria, No Polydipsia, No Temperature Intolerance PMFSH Past Medical History Medical History Depression Diabetes Surgical History H/O circumcision Family History Family History (Updated 01/07/21 @ 09:29 by RY Aquino) Mother No problems noted. Father No problems noted. Social History Social History (Updated 01/07/21 @ 09:30 by RY Aquino) Alcohol intake: current Substance Use Type: Marijuana Advance Directives: No Advance Directives Information Provided: No Current occupational status: unemployed and disabled Physical Exam Vital Signs: Vital Signs: Last Vital Signs Temp 96.9 F 03/01/22 09:41 Pulse 102 H 03/01/22 09:41 Resp 20 03/01/22 09:41 BP 140/82 H 03/01/22 09:41 Pulse Ox 99 03/01/22 09:41 BMI result Body Mass Index 25.6 Const: General: cooperative, no acute distress, well developed, alert and awake Nutritional Appearance: well nourished Orientation/consciousness: patient oriented x3 Limitations: no limitations HEENT: Head: Yes normal to inspection, Yes normocephalic and Yes atraumatic Ears: hearing grossly normal bilaterally, external ears normal, TM's normal bilaterally and EAC's normal General nose exam: Normal external nose present Face and sinus: Yes normal facial exam and Yes sinuses nontender Mouth: Normal oral and palatal mucosa present Throat: Yes posterior oropharynx normal Eyes: Conjunctivae: conjunctivae normal Pupils: Equal, round and reactive pupils present EOM: EOMs intact bilaterally Neck: Neck: Yes full ROM, Yes no lymphadenopathy and Yes supple Resp: Effort & Inspection: normal respiratory effort and able to speak in complete sentences Auscultation: clear to auscultation bilaterally, no crackles, no rales, no rhonchi and no wheezes Cardio: Rate: regular rate Rhythm: regular rhythm Heart sounds: S1 normal heart sound present and S2 normal heart sound present GI: Inspection: Yes normal to inspection Palpation (GI): Soft to palpation, nontender, no guarding and not rigid Percussion: Yes normal to percussion Auscultation: normal bowel sounds Skin: General skin exam: no rashes or lesions noted Neuro: General: patient oriented x3, tone normal and moves all extremities Cranial nerves: Yes Equal, round and reactive pupils present Extrem: General: Yes normal to inspection and Yes full ROM Psych: Appearance: disheveled Mental Status: mental status grossly normal Speech and movement: Normal speech and movement present Affect: Sad affect present, Anxious affect present and Irritable affect present Attitude: cooperative Thought content: Suicidality present, Homicidality present and Hallucination(s) present visual Course Course Course Narrative: 29-year-old male presents for suicidal ideation with a plan, homicidal ideation and visual hallucinations after distress about his girlfriend. Patient did take PCP and drink beer prior to arrival. On exam, patient is tearful, physical exam shows no abnormalities. Will get COVID, labs, urine, drug screen, consulted care team and N Reevaluation(s) Reevaluation #1: Patient's blood sugars 246, he has elevated LFTs, urine positive for PCP, cocaine, marijuana. Patient COVID negative. Patient is medically cleared, awaiting care team and behavioral health evaluation Reevaluation #2: Patient placed in physician observation at this time, awaiting crisis evaluation MDM - Psych Lab Data Result diagrams: 03/01/22 10:46 03/01/22 10:46 Labs: Lab Results 03/01/22 03/01/22 03/01/22 Range/Units 10:46 10:46 10:46 WBC 7.0 (4.8-10.8) X10*3/uL RBC 6.40 H (4.60-5.80) X10*6/uL Hgb 17.7 (14.0-18.0) g/dl Hct 54.7 H (42.0-52.0) % MCV 85.5 (80.0-98.0) fL MCH 27.7 (27.0-33.0) pg MCHC 32.4 (31.0-36.0) g/dl RDW 14.0 (11.0-16.0) % Plt Count 170 (160-400) X10*3/uL MPV 11.1 (9.4-12.4) fL Immature Gran % (Auto) 0.1 (0.0-0.4) % Neut % (Auto) 61.0 (45-73) % Lymph % (Auto) 29.3 (20-40) % [place] % (Auto) 7.5 (2-11) % Eos % (Auto) 1.8 (0-4) % Baso % (Auto) 0.3 (0-2) % Lymph # (Auto) 2.1 (1.2-4.9) X10*3/uL [place] # (Auto) 0.5 (0.1-1.2) X10*3/uL Eos # (Auto) 0.1 (0.0-0.4) X10*3/uL Baso # (Auto) 0.0 (0.0-0.2) X10*3/uL Abs Immat Gran (auto) 0.01 (0.00-0.03) X10*3/uL Absolute Neuts (auto) 4.3 (2.0-8.3) x10*3/uL Absolute Nucleated RBC 0.000 (0.0-0.012) X10*3/uL Nucleated RBC % (auto) 0.0 (0.0-0.2) /100WBC Smear Tech's Comments VERIFIED Sodium 137 (135-145) mmol/L Potassium 4.4 (3.3-5.1) mmol/L Chloride 99 (96-108) mmol/L Carbon Dioxide 29 (22-29) mmol/L Anion Gap 13 (12-20) BUN 10 (9-16) mg/dL Creatinine 0.86 (0.5-1.4) mg/dL Estim Creat Clear Calc 105.0 Estimated GFR > 60 Random Glucose 246 H D (60-115) mg/dL Calcium 10.5 H (8.4-10.2) mg/dL Total Bilirubin 1.3 H (0.0-1.0) mg/dL AST 30 D (5-37) U/L ALT 41 H (0-40) U/L Alkaline Phosphatase 126 H (39-117) U/L Total Protein 8.1 H D (6.5-8.0) g/dL Albumin 5.0 (3.5-5.0) g/dL Salicylates < 5.0 L (15-30) mg/dL Urine Opiates Screen (Not Detect) Urine Fentanyl Screen (Not Detect) Acetaminophen < 1 (<30) mcg/mL Ur Barbiturates Screen (Not Detect) Ur Phencyclidine Scrn (Not Detect) Ur Amphetamines Screen (Not Detect) U Benzodiazepines Scrn (Not Detect) Urine Cocaine Screen (Not Detect) U Marijuana (THC) Screen (Not Detect) Ethyl Alcohol < 10 mg/dL COVID-19 ([facility]ACI) (Negative) COVID-19 Clin Com 03/01/22 03/01/22 Range/Units 10:46 11:20 WBC (4.8-10.8) X10*3/uL RBC (4.60-5.80) X10*6/uL Hgb (14.0-18.0) g/dl Hct (42.0-52.0) % MCV (80.0-98.0) fL MCH (27.0-33.0) pg MCHC (31.0-36.0) g/dl RDW (11.0-16.0) % Plt Count (160-400) X10*3/uL MPV (9.4-12.4) fL Immature Gran % (Auto) (0.0-0.4) % Neut % (Auto) (45-73) % Lymph % (Auto) (20-40) % [place] % (Auto) (2-11) % Eos % (Auto) (0-4) % Baso % (Auto) (0-2) % Lymph # (Auto) (1.2-4.9) X10*3/uL [place] # (Auto) (0.1-1.2) X10*3/uL Eos # (Auto) (0.0-0.4) X10*3/uL Baso # (Auto) (0.0-0.2) X10*3/uL Abs Immat Gran (auto) (0.00-0.03) X10*3/uL Absolute Neuts (auto) (2.0-8.3) x10*3/uL Absolute Nucleated RBC (0.0-0.012) X10*3/uL Nucleated RBC % (auto) (0.0-0.2) /100WBC Smear Tech's Comments Sodium (135-145) mmol/L Potassium (3.3-5.1) mmol/L Chloride (96-108) mmol/L Carbon Dioxide (22-29) mmol/L Anion Gap (12-20) BUN (9-16) mg/dL Creatinine (0.5-1.4) mg/dL Estim Creat Clear Calc Estimated GFR Random Glucose (60-115) mg/dL Calcium (8.4-10.2) mg/dL Total Bilirubin (0.0-1.0) mg/dL AST (5-37) U/L ALT (0-40) U/L Alkaline Phosphatase (39-117) U/L Total Protein (6.5-8.0) g/dL Albumin (3.5-5.0) g/dL Salicylates (15-30) mg/dL Urine Opiates Screen Not Detected (Not Detect) Urine Fentanyl Screen Not Detected (Not Detect) Acetaminophen (<30) mcg/mL Ur Barbiturates Screen Not Detected (Not Detect) Ur Phencyclidine Scrn POSITIVE H (Not Detect) Ur Amphetamines Screen Not Detected (Not Detect) U Benzodiazepines Scrn Not Detected (Not Detect) Urine Cocaine Screen POSITIVE H (Not Detect) U Marijuana (THC) Screen POSITIVE H (Not Detect) Ethyl Alcohol mg/dL COVID-19 (LACI) Negative (Negative) COVID-19 Clin Com See Note Discharge Plan Discharge Clinical Impression: Suicidal ideation, Homicidal ideation, Multiple substance abuse Patient Disposition: Still a Patient Prescriptions: No Action metformin 1,000 mg tablet 1 tab PO BID 0RF aripiprazole [Abilify] 5 mg Tablet 5 mg PO DAILY 0RF melatonin 1 mg Tablet 1 mg PO BEDTIME PRN (Reason: Insomnia) 0RF ketorolac 10 mg tablet 10 mg PO TID PRN (Reason: pain) 5 Days 0RF
--- NOTE | 2022-03-01 10:29 | PC.NURSE ---
client reports no history of psych hospitaliztions. patient relates recent girlfriend problems as precipitant. concurs hx of depression. patient denies recent med adherence i forget to take them . patient reports recent PCP use, and etoh use this morning. patient continued to cry when questioned. once provider leaves, behavior is noisy and juvenile, seemingly flirting with staff. in my perception patient seems intrusive.
[2022-03-01 11:11] LABS: COVID-19 Test Negative (Negative); IDNOW Serial# 16C4AD1C
[2022-03-01 11:15] LABS: Basophils Percent Auto 0.3 % (0-2); Eosinophils Absolute Auto 0.1 X10*3/uL (0.0-0.4); Eosinophils Percent Auto 1.8 % (0-4); Hematocrit 54.7 % (42.0-52.0); Hemoglobin 17.7 g/dl (14.0-18.0); Imm Gran Abs Auto 0.01 X10*3/uL (0.00-0.03); Imm Gran Pct Auto 0.1 % (0.0-0.4); Lymphocytes Absolute Auto 2.1 X10*3/uL (1.2-4.9); Lymphocytes Percent Auto 29.3 % (20-40); MANUAL DIFF FLAG SCAN; Mean Corpuscular HGB Conc 32.4 g/dl (31.0-36.0); Mean Corpuscular Hemoglobin 27.7 pg (27.0-33.0); Mean Corpuscular Volume 85.5 fL (80.0-98.0); Mean Platelet Volume 11.1 fL (9.4-12.4); Monocytes Absolute Auto 0.5 X10*3/uL (0.1-1.2); Monocytes Percent Auto 7.5 % (2-11); Neutrophils Absolute Auto 4.3 x10*3/uL (2.0-8.3); PLT CLUMP 1; SCAN SMEAR FLAG 1
--- NOTE | 2022-03-01 11:18 | PC.NURSE ---
client continues to exhibit constant talking, intrusive with female staff difficult to assess if this is due to patient being under the influence or tori of some type.
[2022-03-01 11:24] LABS: Ethanol < 10 mg/dL; Platelet Count 170 X10*3/uL (160-400); SLIDE REVIEW VERIFIED
[2022-03-01 11:34] LABS: Acetaminophen LAB < 1 mcg/mL (<30); Alanine Aminotransferase 41 U/L (0-40); Alkaline Phosphatase 126 U/L (39-117); Anion Gap 13 (12-20); Aspartate Amino Transferase 30 U/L (5-37); Bilirubin Total 1.3 mg/dL (0.0-1.0); Blood Urea Nitrogen 10 mg/dL (9-16); Calcium 10.5 mg/dL (8.4-10.2); Carbon Dioxide 29 mmol/L (22-29); Chloride 99 mmol/L (96-108); Estimated Glomerular Filt Rate > 60; Glucose Random 246 mg/dL (60-115); Potassium 4.4 mmol/L (3.3-5.1); Salicylate < 5.0 mg/dL (15-30); Sodium 137 mmol/L (135-145); Total Protein 8.1 g/dL (6.5-8.0)
[2022-03-01 11:41] LABS: Amphetamine Screen Urine Not Detected (Not Detect); Barbiturates, Urine Not Detected (Not Detect); Benzodiazepines Screen Urine Not Detected (Not Detect); Cannabinoid Screen Urine POSITIVE (Not Detect); Cocaine Screen Urine POSITIVE (Not Detect); Fentanyl, urine Not Detected (Not Detect); Opiate Screen Urine Not Detected (Not Detect); Phencyclidine Screen Urine POSITIVE (Not Detect)
[2022-03-01] MEDS: LORazepam 1 MG TABLET 2 MG PO (12:17)
[2022-03-01] MEDS: Throat Lozenge, Medicated LOZENGE 1 LOZENGE MUCOUS MEM (18:41)
== END 2022-03-01 20:29 | disposition home or self-care (01) ==
PROVIDERS: Physician Assistant; Emergency Provider Emergency Medicine; PCP Internal Medicine
DX: F33.1 Major depressive disorder, recurrent, moderate (principal); R44.1 Visual hallucinations; R45.850 Homicidal ideations; R45.851 Suicidal ideations; F14.10 Cocaine abuse, uncomplicated; F12.10 Cannabis abuse, uncomplicated; Z20.822 Contact with and (suspected) exposure to COVID-19; Z79.899 Other long term (current) drug therapy
CPT/HCPCS: 80053; 80143; 80179; 80307; 82077; 85025; 87635; 99284

== ENCOUNTER 2022-04-06 00:14 | Emergency (ER) | payer MEDICARE, MEDICAID, SELFPAY ==
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
[2022-04-06 01:23] VITALS: BP 131/69; PULSE 93; RESP 18; TEMP 36.7; O2SAT 97; BMI 24.2
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
[2022-04-06] MEDS: Ibuprofen 600 MG TABLET PO (07:53)
== END 2022-04-06 07:59 | disposition home or self-care (01) ==
PROVIDERS: Emergency Provider Emergency Medicine; PCP Internal Medicine
DX: S40.022A Contusion of left upper arm, initial encounter (principal); S80.02XA Contusion of left knee, initial encounter; M79.602 Pain in left arm; M79.642 Pain in left hand; M25.552 Pain in left hip; M79.605 Pain in left leg; V19.9XXA Pedal cyclist (driver) (passenger) injured in unspecified traffic accident, initial encounter; Y93.9 Activity, unspecified; Y92.410 Unspecified street and highway as the place of occurrence of the external cause; Y99.9 Unspecified external cause status; Z79.899 Other long term (current) drug therapy
CPT/HCPCS: 73030; 73060; 73090; 73120; 73502; 73552; 99282; 99283

== ENCOUNTER 2022-06-03 06:53 | Emergency (ER) | payer MEDICARE, MEDICAID, SELFPAY ==
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
[2022-06-03 07:28] VITALS: BP 140/116; PULSE 99; RESP 18; TEMP 35.6; O2SAT 96; BMI 24.2
[2022-06-03 07:54] LABS: COVID-19 Test Negative (Negative)
--- NOTE | 2022-06-03 08:44 | ED.URI ---
HPI - URI/Sore Throat General Chief Complaint: Upper Respiratory Symptoms Stated Complaint: Cough Time Seen by Provider: 06/03/22 07:24 Source: patient Mode of arrival: ambulatory Limitations: no limitations History of Present Illness HPI Narrative: Patient comes emergency room complaining of cough for 3 days. Patient states he was exposed to COVID-19 approximately 1 week ago. Patient denies fever or chills, states he has been wheezing occasionally, no significant shortness of breath. Related Data Home Medications Medication Instructions Recorded Confirmed metformin 1,000 mg tablet 1 tab PO BID 07/30/21 03/01/22 aripiprazole 10 mg tablet 1 tab PO QAM 03/01/22 03/01/22 diphenhydramine HCl 50 mg capsule 1 cap PO BEDTIME 03/01/22 03/01/22 (Banophen) insulin detemir U-100 100 unit/mL 25 unit subcut BEDTIME 03/01/22 03/01/22 (3 mL) subcutaneous pen (Levemir FlexTouch U-100 Insulin) nicotine (polacrilex) 2 mg gum 1 gum PO Q2H PRN Nicotine Cravings 03/01/22 03/01/22 simvastatin 20 mg tablet 1 tab PO DAILY 03/01/22 03/01/22 Previous Rx's Medication Instructions Recorded benzonatate 100 mg capsule 100 mg PO TID PRN cough #10 caps 06/03/22 guaifenesin 400 mg tablet 400 mg PO Q6H PRN cough 4 days #20 06/03/22 tabs Allergies Allergy/AdvReac Type Severity Reaction Status Date / Time haloperidol Allergy Mild ITCHING Verified 07/25/21 11:33 Review of Systems Review of Systems: Constitutional : No Weight loss, No Fever, No Chills, No Night Sweats, No Fatigue, No Malaise ENT/Mouth : No Hearing loss, No Ear Pain, No Nasal Congestion, No Sinus Pain, No Hoarseness, No sore throat, No Rhinorrhea, No Swallowing Difficulty Eyes: No Eye Pain, No Swelling, No Redness, No Foreign Body, No Discharge, No Vision Changes Cardiovascular : No Chest Pain, No SOB, No Dyspnea on Exertion, No Orthopnea, No Edema, No Palpitations Respiratory : Complaining coughing, occasional wheezing, no dyspnea Gastrointestinal : No Nausea, No Vomiting, No Diarrhea, No Constipation, No abdominal Pain, No Hematochezia, No Melena Genitourinary : no irregular bleeding, No Dysuria, No Urinary Frequency, No Hematuria, No Urinary Incontinence, No Urgency, No Flank Pain, No Urinary Flow Changes, No Hesitancy Musculoskeletal : No joint pain, No Myalgias, No Joint Swelling Skin : No Skin Lesions, No rash Neuro : No Weakness, No Numbness, No Paresthesias, No Loss of Consciousness, No Dizziness, No Headache Psych : No Anxiety/Panic, No Depression, No SI/HI/AH/VH, No Social Issues, Heme/Lymph: No Bruising, No Bleeding,No Lymphadenopathy Endocrine : No Polyuria, No Polydipsia, No Temperature Intolerance PMFSH Past Medical History Medical History Depression Diabetes Surgical History H/O circumcision Family History Family History Mother No problems noted. Father No problems noted. Social History Social History Alcohol intake: current Substance Use Type: Marijuana Advance Directives: No Advance Directives Information Provided: No Current occupational status: unemployed and disabled Physical Exam Vital Signs: Vital Signs: Last Vital Signs Temp 96.1 F L 06/03/22 07:28 Pulse 99 06/03/22 07:28 Resp 18 06/03/22 07:28 BP 140/116 H 06/03/22 07:28 Pulse Ox 96 06/03/22 07:28 O2 Del Method 06/03/22 07:28 BMI result Body Mass Index 24.2 Const: Other: Appearance: Alert. Oriented X3. No acute distress. Well-appearing Eyes: Pupils equal, round and reactive to light. ENT: Pharynx normal. Neck: Normal inspection. Neck supple. No lymph nodes noted. No crepitus CVS: Normal heart rate and rhythm. Pulses normal. Normal S1 and S2 Respiratory: No respiratory distress. Breath sounds normal. No Wheezing. No rales Abdomen: Soft and nontender. No rigidity. No distention. Skin: Skin warm and dry. Normal skin color. Normal skin turgor. Extremities: No lower extremity edema. No Lacerations. No Rash Neuro: Oriented X 3. No motor deficit. No sensory deficit. Moving all extremities. No slurred speech. CN 2 through 12 grossly intact Psych: calm, cooperative, normal affect Course Course Course Narrative: Patient tested negative for COVID-19, chest x-ray negative for pulmonary process Patient likely having a viral URI. MDM - URI/Sore Throat Lab Data Labs: Lab Results 06/03/22 Range/Units 07:29 COVID-19 ([facility]) Negative (Negative) COVID-19 Clin Com See Note Discharge Plan Discharge Clinical Impression: Upper respiratory infection Patient Disposition: Home, Self-Care Instructions: Acute Cough (ED) Additional Instructions: Please follow-up with your primary care physician tomorrow. If you have any worsening or new symptoms, please return to the emergency room or call 911 Prescriptions: New benzonatate 100 mg capsule 100 mg PO TID PRN (Reason: cough) Qty: 10 0RF guaifenesin 400 mg tablet 400 mg PO Q6H PRN (Reason: cough) 4 Days Qty: 20 0RF No Action metformin 1,000 mg tablet 1 tab PO BID aripiprazole 10 mg tablet 1 tab PO QAM diphenhydramine HCl [Banophen] 50 mg capsule 1 cap PO BEDTIME nicotine (polacrilex) 2 mg gum 1 gum PO Q2H PRN (Reason: Nicotine Cravings) simvastatin 20 mg tablet 1 tab PO DAILY Levemir FlexTouch U-100 Insuln 100 unit/mL (3 mL) insulin pen 25 unit subcut BEDTIME
== END 2022-06-03 08:52 | disposition home or self-care (01) ==
LOC: HO.ED 08:50
PROVIDERS: Emergency Provider Emergency Medicine; PCP Internal Medicine
DX: J06.9 Acute upper respiratory infection, unspecified (principal); Z20.822 Contact with and (suspected) exposure to COVID-19; E11.9 Type 2 diabetes mellitus without complications; F32.A Depression, unspecified; F12.90 Cannabis use, unspecified, uncomplicated; Z79.02 Long term (current) use of antithrombotics/antiplatelets; Z79.4 Long term (current) use of insulin
CPT/HCPCS: 71045; 87635; 99282; 99283

== ENCOUNTER 2022-09-01 07:07 | Emergency (ER) | payer MEDICARE, MEDICAID, SELFPAY ==
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
--- NOTE | 2022-09-01 07:47 | ECG_ITS ---
Test Reason : AMS Blood Pressure : / mmHG Vent. Rate : 085 BPM Atrial Rate : 085 BPM P-R Int : 148 ms QRS Dur : 080 ms QT Int : 346 ms P-R-T Axes : 073 083 043 degrees QTc Int : 411 ms Normal sinus rhythm Normal ECG No previous ECGs available Referred By: Branden Unger Electronically Signed By:USAMA PENNY MD
--- NOTE | 2022-09-01 07:55 | ED_ITS ---
HPI - Altered Mental Status General Chief Complaint: General Medical Stated Complaint: AMS,? DM ISSUE,BS 397,PINPOINT PUPILS PER EMS Time Seen by Provider: 09/01/22 07:22 Source: EMS, RN notes reviewed and old records reviewed Mode of arrival: EMS Limitations: altered mental status History of Present Illness HPI narrative: 37-year-old male with a past medical history of hyperglycemia and substance abuse presents to the emergency department today with altered mental status. HPI, review of systems, and physical exam may be limited secondary to the patient's altered mental status MD complaint: altered mental status Onset (ago): unknown Severity: moderate Consistency of symptoms: constant Context: unknown Related Data Home Medications Medication Instructions Recorded Confirmed metformin 1,000 mg tablet 1 tab PO BID 07/30/21 03/01/22 aripiprazole 10 mg tablet 1 tab PO QAM 03/01/22 03/01/22 diphenhydramine HCl 50 mg capsule 1 cap PO BEDTIME 03/01/22 03/01/22 (Banophen) insulin detemir U-100 100 unit/mL 25 unit subcut BEDTIME 03/01/22 03/01/22 (3 mL) subcutaneous pen (Levemir FlexTouch U-100 Insulin) nicotine (polacrilex) 2 mg gum 1 gum PO Q2H PRN Nicotine Cravings 03/01/22 03/01/22 simvastatin 20 mg tablet 1 tab PO DAILY 03/01/22 03/01/22 Previous Rx's Medication Instructions Recorded benzonatate 100 mg capsule 100 mg PO TID PRN cough #10 caps 06/03/22 guaifenesin 400 mg tablet 400 mg PO Q6H PRN cough 4 days #20 06/03/22 tabs Allergies Allergy/AdvReac Type Severity Reaction Status Date / Time haloperidol Allergy Mild ITCHING Verified 07/25/21 11:33 Review of Systems Review of Systems: Yes Unobtainable due to mental status PMFSH Past Medical History Medical History Depression Diabetes Surgical History H/O circumcision Family History Family History Mother No problems noted. Father No problems noted. Social History Social History Alcohol intake: current Alcohol intake frequency: 0-2 drinks per day Patient Tobacco Use Status: Current everyday Tobacco user Smoked in Last 30 Days: Yes Use of substances other than those prescribed or required for medical reasons: Yes Substance Use Type: Other Substance Use Type Other:: pcp Substance Use Frequency: Weekly Last Used Substance: Just Prior to Admission Any prior treatment program specific to substance use: No Advance Directives: No Advance Directives Information Provided: Yes Current occupational status: unemployed and disabled Physical Exam ED Vital Signs: Vital Signs - 24 hr 09/01/22 10:07 09/01/22 12:23 Temperature 98.4 F 98 F Pulse Rate 90 96 Respiratory Rate 18 14 Blood Pressure 120/69 140/74 H Pulse Oximetry 99 99 Oxygen Delivery Method Nasal Cannula Room Air Oxygen Flow Rate 2 BMI result Body Mass Index 25.4 Const General: lethargic and patient obtunded Nutritional Appearance: average body habitus Orientation/consciousness: patient obtunded and lethargic Limitations: altered mental status HENOR Head: Yes normal to inspection, Yes normocephalic, Yes atraumatic and No abras ion Ears: external ears normal General nose exam: Normal external nose present Face and sinus: Yes normal facial exam Mouth: Normal oral and palatal mucosa present Eyes Eyelids: Yes eyelids normal Conjunctivae: conjunctivae normal Sclerae: sclerae normal Pupils: Pupil size comments (2-3 mm) bilaterally Neck Neck: Yes normal visual inspection Chest Chest palpation & inspection: normal inspection of the chest Resp Effort & Inspection: normal respiratory effort, no cough and no respiratory distress Cardio Rate: regular rate Rhythm: regular rhythm Heart sounds: no murmurs GI Inspection: Yes normal to inspection Back/Spine/Pelvis Cervical Spine: No collar present Skin General skin exam: no rashes or lesions noted, no erythema and no pallor Neuro General: patient obtunded Course Reevaluation(s) Reevaluation #1: Patient more awake and vomiting Time: 09:32 Reevaluation #2: Patient is awake and alert. Asking for things to drink. Will discharge home at this time Time: 15:45 MDM - Altered Mental Status MDM Narrative Medical decision making narrative: 37-year-old male brought to the ED by EMS for altered mental status. Patient initially denied any substance use, however, later admitted to PCP abuse. Over the course of several hours, the patient gradually improved in his mental status. Noted were laboratory abnormalities of a creatinine of 1.46 and a glucose of 491. The patient did receive a dose of insulin, as well as IV fluids. The elevated creatinine most likely secondary to dehydration. Differential Diagnosis Differential diagnosis: Likely altered mental status, encephalopathy and overdose polysubstance Medical Records Attestation: I reviewed the patient's medical records. Medical records narrative: Previous ED visits were reviewed and include visits for altered mental status including polysubstance abuse, alcohol abuse, and hyperglycemia. Lab Data Attestation: I reviewed the patient's lab results. Lab results narrative: Significant/abnormal labs include WBC of 17.6, although no evidence of systemic infection.. Creatinine of 1.46 (increased from 0.86 in February of this year). Gl ucose of 491 Alcohol, Tylenol and aspirin levels are negative. As the patient's mental status continues to improve, we will consider discharging. Result diagrams: 09/01/22 09:44 09/01/22 09:44 Labs: Lab Results 09/01/22 09/01/22 09/01/22 Range/Units 09:44 09:44 09:44 WBC 17.6 H (4.8-10.8) X10*3/uL RBC 5.82 H (4.60-5.80) X10*6/uL Hgb 16.2 (14.0-18.0) g/dl Hct 50.1 (42.0-52.0) % MCV 86.1 (80.0-98.0) fL MCH 27.8 (27.0-33.0) pg MCHC 32.3 (31.0-36.0) g/dl RDW 12.6 (11.0-16.0) % Plt Count 183 (160-400) X10*3/uL MPV 11.9 (9.4-12.4) fL Immature Gran % (Auto) 0.7 H (0.0-0.4) % Neut % (Auto) 91.2 H (45-73) % Lymph % (Auto) 3.4 L (20-40) % [place] % (Auto) 4.5 (2-11) % Eos % (Auto) 0.0 (0-4) % Baso % (Auto) 0.2 (0-2) % Lymph # (Auto) 0.6 L (1.2-4.9) X10*3/uL [place] # (Auto) 0.8 (0.1-1.2) X10*3/uL Eos # (Auto) 0.0 (0.0-0.4) X10*3/uL Baso # (Auto) 0.0 (0.0-0.2) X10*3/uL Abs Immat Gran (auto) 0.13 H (0.00-0.03) X10*3/uL Absolute Neuts (auto) 16.0 H (2.0-8.3) x10*3/uL Absolute Nucleated RBC 0.000 (0.0-0.012) X10*3/uL Nucleated RBC % (auto) 0.0 (0.0-0.2) /100WBC Smear Tech's Comments VERIFIED Sodium 143 (135-145) mmol/L Potassium 4.6 (3.3-5.1) mmol/L Chloride 100 (96-108) mmol/L Carbon Dioxide 24 (22-29) mmol/L Anion Gap 24 H (12-20) BUN 21 H D (9-16) mg/dL Creatinine 1.46 H (0.5-1.4) mg/dL Estim Creat Clear Calc 55.2 Estimated GFR 54 Random Glucose 491 H* (60-115) mg/dL Calcium 10.1 (8.4-10.2) mg/dL Total Bilirubin 0.6 (0.0-1.0) mg/dL Direct Bilirubin 0.3 (0.0-0.5) mg/dL AST 76 H (5-37) U/L ALT 94 H (0-40) U/L Alkaline Phosphatase 139 H (39-117) U/L Total Protein 7.3 (6.5-8.0) g/dL Albumin 4.7 (3.5-5.0) g/dL Urine Color Yellow Urine Appearance Clear Urine pH 6.0 (5.0-9.0) Ur Specific [place] >= 1.030 H (1.005-1.025) Urine Protein Trace (Neg-Trace) mg/dL Urine Glucose (UA) >=1000 H (Negative) mg/dL Urine Ketones Trace (Negative) mg/dL Urine Blood Negative (Negative) Urine Nitrite Negative (Negative) Ur Leukocyte Esterase Negative (Negative) Urine RBC 0-2 (0-2) /HPF Urine WBC 0-5 (0-5) /HPF Ur Squamous Epith Cells 0-2 (0-2) /HPF Urine Bacteria None Seen (None Seen) Hyaline Casts 0-2 (0-2) /LPF Salicylates < 5.0 L (15-30) mg/dL Acetaminophen < 1 (<30) mcg/mL Ethyl Alcohol < 10 mg/dL Imaging Data CT scan - head: Radiologist's impression: Head: Motion artifact degrades the images at the vertex. These were repeated. No acute intracranial hemorrhage.? No extra-axial fluid collection. Navarrete-white matter differentiation is preserved without evidence of acute large vessel territory ischemia. Symmetric, concordant ventricles and sulci; no hydrocephalus.? No mass effect or midline shift. There is no abnormal attenuation within the brain parenchyma. The osseous structures and soft tissues are normal. No acute sinusitis. ? Cervical spine: Normal pre-vertebral soft tissues. No fracture seen. Normal alignment. Disk heights are maintained. Thyroid homogeneous with no nodules seen.? Lung apices are clear. No cervical lymphadenopathy, mass, or fluid collection. ECG Data ECG #1: Attestation: I personally reviewed and interpreted this ECG as follows: ECG interpretation date: 09/01/22 ECG interpretation time: 09:30 Interpretation: Normal sinus rhythm at 85, normal intervals, normal axis. J-point elevation is noted. No old EKG for comparison Critical Care Time Critical Care Time Critical Care Time: Yes Total Critical Care Time: 90 Attestation: The patient arrived to the ED with a critical illness, altered mental status, necessitating immediate assessment. Cardiopulmonary monitoring was initiated due to the potential for rapid decompensation of the patient's clinical condition. During the course of the patient?s stay, significant time was spent performing re-evaluations of the patient's hemodynamic and clinical status. The patient underwent multiple laboratory and radiographic studies to rule out significant illness or injury. All of the available current laboratory and radiographic studies obtained were reviewed. Old records were reviewed, including previous emergency department visits. Additionally, ancillary information available including EMS records. Sequential vital signs were obtained. Critical Care time of 90 minutes was performed exclusive of billable procedures Discharge Plan Discharge Clinical Impression: Substance abuse Patient Disposition: Home, Self-Care Instructions: Polysubstance Abuse (ED) Additional Instructions: You should avoid illicit and illegal drugs Prescriptions: No Action metformin 1,000 mg tablet 1 tab PO BID aripiprazole 10 mg tablet 1 tab PO QAM diphenhydramine HCl [Banophen] 50 mg capsule 1 cap PO BEDTIME nicotine (polacrilex) 2 mg gum 1 gum PO Q2H PRN (Reason: Nicotine Cravings) simvastatin 20 mg tablet 1 tab PO DAILY Levemir FlexTouch U-100 Insuln 100 unit/mL (3 mL) insulin pen 25 unit subcut BEDTIME benzonatate 100 mg capsule 100 mg PO TID PRN (Reason: cough) Qty: 10 0RF guaifenesin 400 mg tablet 400 mg PO Q6H PRN (Reason: cough) 4 Days Qty: 20 0RF
[2022-09-01 07:59] VITALS: BP 127/62; PULSE 88; O2SAT 98; BMI 25.4
[2022-09-01] MEDS: 0.9 % Sodium Chloride 1,000 ML 999 ML IV (08:07)
[2022-09-01 09:57] LABS: Basophils Percent Auto 0.2 % (0-2); Hematocrit 50.1 % (42.0-52.0); Hemoglobin 16.2 g/dl (14.0-18.0); Imm Gran Abs Auto 0.13 X10*3/uL (0.00-0.03); Imm Gran Pct Auto 0.7 % (0.0-0.4); Lymphocytes Absolute Auto 0.6 X10*3/uL (1.2-4.9); Lymphocytes Percent Auto 3.4 % (20-40); MANUAL DIFF FLAG SCAN; Mean Corpuscular HGB Conc 32.3 g/dl (31.0-36.0); Mean Corpuscular Hemoglobin 27.8 pg (27.0-33.0); Mean Corpuscular Volume 86.1 fL (80.0-98.0); Mean Platelet Volume 11.9 fL (9.4-12.4); Monocytes Absolute Auto 0.8 X10*3/uL (0.1-1.2); Monocytes Percent Auto 4.5 % (2-11); Neutrophils Percent Auto 91.2 % (45-73); PLT CLUMP 1; Red Blood Count 5.82 X10*6/uL (4.60-5.80); Red Cell Distribution Width 12.6 % (11.0-16.0); SCAN SMEAR FLAG 1
[2022-09-01 09:58] LABS: Appearance Urine Clear; Color Urine Yellow; Glucose Urine UA >=1000 mg/dL (Negative); Leukocyte Esterase Urine Negative (Negative); Nitrite Urine Negative (Negative); Specific Gravity - Urine >= 1.030 (1.005-1.025); UMIC TRIGGER UACC YES; Urine Blood Negative (Negative); Urine Ketones Trace mg/dL (Negative); Urine Protein Trace mg/dL (Neg-Trace)
[2022-09-01 10:00] LABS: Platelet Count 183 X10*3/uL (160-400); White Blood Count 17.6 X10*3/uL (4.8-10.8)
[2022-09-01 10:03] LABS: Bacteria Urine None Seen (None Seen); Hyaline Casts Urine 0-2 /LPF (0-2); RBC Urine 0-2 /HPF (0-2); Squamous Epithelial Cell Urine 0-2 /HPF (0-2); WBC Urine 0-5 /HPF (0-5)
[2022-09-01 10:07] VITALS: BP 120/69; PULSE 90; RESP 18; TEMP 36.9; O2SAT 99
--- NOTE | 2022-09-01 10:08 | PC.NURSE ---
pt told me that he used pcp today
[2022-09-01 10:13] LABS: Acetaminophen LAB < 1 mcg/mL (<30); Alanine Aminotransferase 94 U/L (0-40); Albumin Level 4.7 g/dL (3.5-5.0); Alkaline Phosphatase 139 U/L (39-117); Anion Gap 24 (12-20); Aspartate Amino Transferase 76 U/L (5-37); Bilirubin Direct 0.3 mg/dL (0.0-0.5); Bilirubin Total 0.6 mg/dL (0.0-1.0); Blood Urea Nitrogen 21 mg/dL (9-16); Calcium 10.1 mg/dL (8.4-10.2); Carbon Dioxide 24 mmol/L (22-29); Chloride 100 mmol/L (96-108); Creatinine Clr Calc Pharmacy 55.2; Estimated Glomerular Filt Rate 54; Ethanol < 10 mg/dL; Glucose Random 491 mg/dL (60-115); Potassium 4.6 mmol/L (3.3-5.1); Salicylate < 5.0 mg/dL (15-30); Sodium 143 mmol/L (135-145); Total Protein 7.3 g/dL (6.5-8.0)
[2022-09-01 10:42] LABS: SLIDE REVIEW VERIFIED
[2022-09-01] MEDS: ondansetron HCL 4 MG/2 ML VIAL IVPUSH (11:53)
[2022-09-01] MEDS: Insulin Lispro 100 UNIT/ML 3 ML VIAL 10 UNIT SUBCUT (11:54)
--- NOTE | 2022-09-01 12:14 | PC.NURSE ---
pt does not need any cardiac monitoring as this time per attending MD
[2022-09-01 12:23] VITALS: BP 140/74; PULSE 96; RESP 14; TEMP 36.6; O2SAT 99
[2022-09-01 16:22] VITALS: BP 105/66; PULSE 86; RESP 18; TEMP 36.8; O2SAT 100
== END 2022-09-01 16:29 | disposition home or self-care (01) ==
PROVIDERS: Emergency Provider Emergency Medicine
DX: F19.10 Other psychoactive substance abuse, uncomplicated (principal); E11.65 Type 2 diabetes mellitus with hyperglycemia; F17.200 Nicotine dependence, unspecified, uncomplicated; Z79.4 Long term (current) use of insulin; Z79.02 Long term (current) use of antithrombotics/antiplatelets; Z79.899 Other long term (current) drug therapy
CPT/HCPCS: 36415; 70450; 72125; 80053; 80143; 80179; 81001; 82077; 82248; 85025; 93005; 96361; 96374; 99284; J2405

== ENCOUNTER 2022-09-26 13:16 | Emergency (ER) | payer MEDICARE, MEDICAID, SELFPAY ==
--- NOTE | 2022-09-26 13:26 | ECG_ITS ---
Test Reason : HYPERGLYCEMIA Blood Pressure : / mmHG Vent. Rate : 083 BPM Atrial Rate : 083 BPM P-R Int : 140 ms QRS Dur : 084 ms QT Int : 340 ms P-R-T Axes : 052 087 035 degrees QTc Int : 399 ms Normal sinus rhythm Normal ECG When compared with ECG of 01-SEP-2022 09:21, T wave amplitude has decreased in Anterior leads Referred By: Paulina Leone Electronically Signed By:USAMA PENNY MD
[2022-09-26 13:34] VITALS: BP 116/77; PULSE 85; RESP 18; TEMP 36.7; O2SAT 97; BMI 25.9
[2022-09-26] MEDS: Lactated Ringers 1,000 ML 999 ML IV ×2 (13:46→15:50)
--- NOTE | 2022-09-26 13:49 | ED.GENADULT ---
HPI - General Adult General Chief complaint: General Medical Stated complaint: AMS,HIGH BS 410 PER EMS Time Seen by Provider: 09/26/22 13:18 Source: patient, EMS and old records reviewed Mode of arrival: EMS Limitations: no limitations History of Present Illness HPI narrative: 37 yo male with history of PCP use, ETOH use, DM on insulin who presents to the ER for evaluation of AMS and chest pain from home. He reportedly called 911 for chest pain and not feeling right after he used PCP last night. Patient was found to be hyperglycemic to 410 by EMS. An IV was established and he was given IV fluids. Patient is a poor historian. He reports he has not taken his insulin in ?a long time. ? he intermittently uses PCP, cocaine and alcohol. He reports intermittent substernal chest pain that come and go and are sharp. They had nonradiating. He denies any shortness of breath. He denies any IVDA. No fever or chills. MD complaint: Chest pain and drug use Onset (ago): unknown Location: chest Radiation: non-radiation Severity: moderate Quality: sharp Pain Consistency: intermittent Relieving factors: none Exacerbating factors: none Associated symptoms: confusion Treatments prior to arrival: other (IV fluids) Related Data Home Medications Medication Instructions Recorded Confirmed metformin 1,000 mg tablet 1 tab PO BID 07/30/21 09/26/22 aripiprazole 10 mg tablet 1 tab PO QAM 03/01/22 09/26/22 diphenhydramine HCl 50 mg capsule 1 cap PO BEDTIME 03/01/22 09/26/22 (Banophen) insulin detemir U-100 100 unit/mL 30 unit subcut BEDTIME 03/01/22 09/26/22 (3 mL) subcutaneous pen (Levemir FlexTouch U-100 Insulin) nicotine (polacrilex) 2 mg gum 1 gum PO Q2H PRN Nicotine Cravings 03/01/22 09/26/22 artificial tears solution eye drops 2 drp ophthalmic (eye) DAILY PRN 09/26/22 09/26/22 Dry Eye(S) insulin regular human 100 unit/mL 6 unit subcut DAILY 09/26/22 09/26/22 (3 mL) subcutaneous pen (Novolin R Flexpen) rosuvastatin 20 mg tablet 1 tab PO BEDTIME 09/26/22 09/26/22 Allergies Allergy/AdvReac Type Severity Reaction Status Date / Time haloperidol Allergy Mild ITCHING Verified 07/25/21 11:33 Review of Systems Review of Systems: Constitutional: No Fever, No Chills ENT/Mouth: No sore throat, No Rhinorrhea Eyes: No vision changes Cardiovascular: + Chest Pain, No SOB Respiratory: No Cough, No Sputum, No Wheezing, No dyspnea Gastrointestinal: No Nausea, No Vomiting, No Diarrhea, No abdominal Pain Musculoskeletal: No joint pain, No Myalgias Skin: No Skin Lesions, No rash Neuro: No Weakness, No Numbness, No Dizziness, + Headache Psych: No Anxiety/Panic, No Depression Heme/Lymph: No Bruising, No Lymphadenopathy Endocrine: + Polyuria, + Polydipsia PMFSH Past Medical History Medical History Depression Diabetes Surgical History H/O circumcision Family History Family History Mother No problems noted. Father No problems noted. Social History Social History Alcohol intake: current Alcohol intake frequency: 0-2 drinks per day Alcohol type: hard liquor Patient Tobacco Use Status: Current everyday Tobacco user Smoked in Last 30 Days: Yes Use of substances other than those prescribed or required for medical reasons: Yes Substance Use Type: Opiates Substance Use Frequency: Chronic Longstanding Last Used Substance: Just Prior to Admission Any prior treatment program specific to substance use: Yes Advance Directives: No Advance Directives Information Provided: Yes Current occupational status: unemployed and disabled Physical Exam ED Vital Signs: Vital Signs - 24 hr 09/26/22 13:34 Temperature 98.0 F Pulse Rate 85 Respiratory Rate 18 Blood Pressure 116/77 Pulse Oximetry 97 Oxygen Delivery Method Room Air BMI result Body Mass Index 25.9 Appearance: Alert. Oriented X3. No acute distress. Eyes: Pupils equal, round and reactive to light. ENT: Pharynx normal. Neck: Normal inspection. Neck supple. CVS: Normal heart rate and rhythm. Pulses normal. Respiratory: No respiratory distress. Breath sounds normal. Abdomen: Soft and nontender. +BS x4 Skin: Skin warm and dry. Normal skin color. Normal skin turgor. No rashes. Extremities: No lower extremity edema. Neuro/psych: Oriented X 3. No motor deficit. No sensory deficit. Confused at times, flight of ideas. Course Course Course Narrative: 37-year-old male with history of diabetes on insulin, polysubstance abuse and alcohol use who presents to the ER for evaluation of intermittent chest pain, altered mental status and hyperglycemia. Here for similar complaints at the end of August. On arrival to the ER he is awake and alert, oriented but intermittently confused and appears to be having some hallucinations. Admits to recent PCP use. Sugars in the 400s, IV fluids are infusing. Will rule out DKA although this does not appear to be the clinical presentation today. Will reassess after IV fluid hydration Reevaluation(s) Reevaluation #1: U tox is positive for PCP. Sugar in the 400s on his chemistry without anion gap, no acidosis. 2 L of LR have been ordered. Troponin is negative. No ischemic changes on EKG. Patient sleeping comfortably and easily arouses. Reevaluation #2: Glucose improved 270s with fluids. When awoken patient is intermittently having visual and tactile hallucinations consistent with PCP use. Will continue to monitor in the emergency department until sober. Will place patient in physician observation at this time Physician observation started at 5:05pm. Patient placed in physician observation because patient is awaiting sober re-evaluation. At the time observation was started patient's vital signs were stable. Patient is alert and oriented but intermittently hallucinating.. Neuro exam is non-focal. CV: RRR and lungs are clear. Will continue to monitor. Medications Administered Discontinued Medications Generic Name Dose Route Start Last Admin Trade Name Aminta PRN Reason Stop Dose Admin Lactated Ringer's 1,000 mls @ 999 mls/hr 09/26/22 13:30 09/26/22 15:00 Lr IV 09/26/22 14:30 Infused .Q1H1M RONNIE Infusion Lactated Ringer's 1,000 mls @ 999 mls/hr 09/26/22 15:45 09/26/22 15:50 Lr IV 09/26/22 16:45 999 mls/hr .Q1H1M RONNIE Administration Medical Decision Making Lab Data Result diagrams: 09/26/22 14:26 09/26/22 14:26 Labs: Lab Results 09/26/22 09/26/22 09/26/22 Range/Units 14:26 14:26 14:26 WBC 7.1 (4.8-10.8) X10*3/uL RBC 5.63 (4.60-5.80) X10*6/uL Hgb 15.5 (14.0-18.0) g/dl Hct 47.5 (42.0-52.0) % MCV 84.4 (80.0-98.0) fL MCH 27.5 (27.0-33.0) pg MCHC 32.6 (31.0-36.0) g/dl RDW 12.8 (11.0-16.0) % Plt Count 179 (160-400) X10*3/uL MPV 10.9 (9.4-12.4) fL Immature Gran % (Auto) 0.1 (0.0-0.4) % Neut % (Auto) 60.2 (45-73) % Lymph % (Auto) 30.6 (20-40) % Jackson % (Auto) 7.5 (2-11) % Eos % (Auto) 1.3 (0-4) % Baso % (Auto) 0.3 (0-2) % Lymph # (Auto) 2.2 (1.2-4.9) X10*3/uL Jackson # (Auto) 0.5 (0.1-1.2) X10*3/uL Eos # (Auto) 0.1 (0.0-0.4) X10*3/uL Baso # (Auto) 0.0 (0.0-0.2) X10*3/uL Abs Immat Gran (auto) 0.01 (0.00-0.03) X10*3/uL Absolute Neuts (auto) 4.3 (2.0-8.3) x10*3/uL Absolute Nucleated RBC 0.000 (0.0-0.012) X10*3/uL Nucleated RBC % (auto) 0.0 (0.0-0.2) /100WBC VBG pH (7.32-7.43) VBG pCO2 mmHg VBG pO2 mmHg VBG HCO3 (22-26) mmol/L VBG O2 Saturation % VBG Base Excess mmol/L Sodium 136 (135-145) mmol/L Potassium 4.5 (3.3-5.1) mmol/L Chloride 100 (96-108) mmol/L Carbon Dioxide 24 (22-29) mmol/L Anion Gap 17 (12-20) BUN 12 (9-16) mg/dL Creatinine 0.88 (0.5-1.4) mg/dL Estim Creat Clear Calc 87.8 Estimated GFR > 60 POC Glucose (60-115) mg/dL Random Glucose 406 H* (60-115) mg/dL Estimat Average Glucose mg/dL Hemoglobin A1c % % Calcium 9.4 D (8.4-10.2) mg/dL Magnesium 2.0 (1.6-2.6) mg/dL Total Bilirubin 0.5 (0.0-1.0) mg/dL Direct Bilirubin 0.2 (0.0-0.5) mg/dL AST 14 D (5-37) U/L ALT 22 (0-40) U/L Alkaline Phosphatase 144 H (39-117) U/L Troponin I High Sens < 3.5 (<3.5-35.0) ng/L Total Protein 6.6 (6.5-8.0) g/dL Albumin 4.1 (3.5-5.0) g/dL Urine Color Urine Appearance Urine pH (5.0-9.0) Ur Specific [place] (1.005-1.025) Urine Protein (Neg-Trace) mg/dL Urine Glucose (UA) (Negative) mg/dL Urine Ketones (Negative) mg/dL Urine Blood (Negative) Urine Nitrite (Negative) Ur Leukocyte Esterase (Negative) Urine RBC (0-2) /HPF Urine WBC (0-5) /HPF Ur Squamous Epith Cells (0-2) /HPF Urine Bacteria (None Seen) Hyaline Casts (0-2) /LPF Urine Opiates Screen (Not Detect) Urine Fentanyl Screen (Not Detect) Ur Barbiturates Screen (Not Detect) Ur Phencyclidine Scrn (Not Detect) Ur Amphetamines Screen (Not Detect) U Benzodiazepines Scrn (Not Detect) Urine Cocaine Screen (Not Detect) U Marijuana (THC) Screen (Not Detect) Ethyl Alcohol < 10 mg/dL Acetone, Qual Negative (Negative) 09/26/22 09/26/22 09/26/22 Range/Units 14:26 14:26 14:27 WBC (4.8-10.8) X10*3/uL RBC (4.60-5.80) X10*6/uL Hgb (14.0-18.0) g/dl Hct (42.0-52.0) % MCV (80.0-98.0) fL MCH (27.0-33.0) pg MCHC (31.0-36.0) g/dl RDW (11.0-16.0) % Plt Count (160-400) X10*3/uL MPV (9.4-12.4) fL Immature Gran % (Auto) (0.0-0.4) % Neut % (Auto) (45-73) % Lymph % (Auto) (20-40) % Jackson % (Auto) (2-11) % Eos % (Auto) (0-4) % Baso % (Auto) (0-2) % Lymph # (Auto) (1.2-4.9) X10*3/uL Jackson # (Auto) (0.1-1.2) X10*3/uL Eos # (Auto) (0.0-0.4) X10*3/uL Baso # (Auto) (0.0-0.2) X10*3/uL Abs Immat Gran (auto) (0.00-0.03) X10*3/uL Absolute Neuts (auto) (2.0-8.3) x10*3/uL Absolute Nucleated RBC (0.0-0.012) X10*3/uL Nucleated RBC % (auto) (0.0-0.2) /100WBC VBG pH (7.32-7.43) VBG pCO2 mmHg VBG pO2 mmHg VBG HCO3 (22-26) mmol/L VBG O2 Saturation % VBG Base Excess mmol/L Sodium (135-145) mmol/L Potassium (3.3-5.1) mmol/L Chloride (96-108) mmol/L Carbon Dioxide (22-29) mmol/L Anion Gap (12-20) BUN (9-16) mg/dL Creatinine (0.5-1.4) mg/dL Estim Creat Clear Calc Estimated GFR POC Glucose (60-115) mg/dL Random Glucose (60-115) mg/dL Estimat Average Glucose 321 mg/dL Hemoglobin A1c % 12.8 % Calcium (8.4-10.2) mg/dL Magnesium (1.6-2.6) mg/dL Total Bilirubin (0.0-1.0) mg/dL Direct Bilirubin (0.0-0.5) mg/dL AST (5-37) U/L ALT (0-40) U/L Alkaline Phosphatase (39-117) U/L Troponin I High Sens (<3.5-35.0) ng/L Total Protein (6.5-8.0) g/dL Albumin (3.5-5.0) g/dL Urine Color Yellow Urine Appearance Clear Urine pH 7.0 (5.0-9.0) Ur Specific [place] 1.025 (1.005-1.025) Urine Protein Negative (Neg-Trace) mg/dL Urine Glucose (UA) >=1000 H (Negative) mg/dL Urine Ketones Trace (Negative) mg/dL Urine Blood Negative (Negative) Urine Nitrite Negative (Negative) Ur Leukocyte Esterase Negative (Negative) Urine RBC 0-2 (0-2) /HPF Urine WBC 0-5 (0-5) /HPF Ur Squamous Epith Cells 0-2 (0-2) /HPF Urine Bacteria None Seen (None Seen) Hyaline Casts 0-2 (0-2) /LPF Urine Opiates Screen Not Detected (Not Detect) Urine Fentanyl Screen Not Detected (Not Detect) Ur Barbiturates Screen Not Detected (Not Detect) Ur Phencyclidine Scrn POSITIVE H (Not Detect) Ur Amphetamines Screen Not Detected (Not Detect) U Benzodiazepines Scrn Not Detected (Not Detect) Urine Cocaine Screen Not Detected (Not Detect) U Marijuana (THC) Screen Not Detected (Not Detect) Ethyl Alcohol mg/dL Acetone, Qual (Negative) 09/26/22 09/26/22 Range/Units 14:35 15:38 WBC (4.8-10.8) X10*3/uL RBC (4.60-5.80) X10*6/uL Hgb (14.0-18.0) g/dl Hct (42.0-52.0) % MCV (80.0-98.0) fL MCH (27.0-33.0) pg MCHC (31.0-36.0) g/dl RDW (11.0-16.0) % Plt Count (160-400) X10*3/uL MPV (9.4-12.4) fL Immature Gran % (Auto) (0.0-0.4) % Neut % (Auto) (45-73) % Lymph % (Auto) (20-40) % Jackson % (Auto) (2-11) % Eos % (Auto) (0-4) % Baso % (Auto) (0-2) % Lymph # (Auto) (1.2-4.9) X10*3/uL Jackson # (Auto) (0.1-1.2) X10*3/uL Eos # (Auto) (0.0-0.4) X10*3/uL Baso # (Auto) (0.0-0.2) X10*3/uL Abs Immat Gran (auto) (0.00-0.03) X10*3/uL Absolute Neuts (auto) (2.0-8.3) x10*3/uL Absolute Nucleated RBC (0.0-0.012) X10*3/uL Nucleated RBC % (auto) (0.0-0.2) /100WBC VBG pH 7.39 (7.32-7.43) VBG pCO2 36 mmHg VBG pO2 47 mmHg VBG HCO3 22 (22-26) mmol/L VBG O2 Saturation 80.0 % VBG Base Excess -1.8 mmol/L Sodium (135-145) mmol/L Potassium (3.3-5.1) mmol/L Chloride (96-108) mmol/L Carbon Dioxide (22-29) mmol/L Anion Gap (12-20) BUN (9-16) mg/dL Creatinine (0.5-1.4) mg/dL Estim Creat Clear Calc Estimated GFR POC Glucose 272 H (60-115) mg/dL Random Glucose (60-115) mg/dL Estimat Average Glucose mg/dL Hemoglobin A1c % % Calcium (8.4-10.2) mg/dL Magnesium (1.6-2.6) mg/dL Total Bilirubin (0.0-1.0) mg/dL Direct Bilirubin (0.0-0.5) mg/dL AST (5-37) U/L ALT (0-40) U/L Alkaline Phosphatase (39-117) U/L Troponin I High Sens (<3.5-35.0) ng/L Total Protein (6.5-8.0) g/dL Albumin (3.5-5.0) g/dL Urine Color Urine Appearance Urine pH (5.0-9.0) Ur Specific [place] (1.005-1.025) Urine Protein (Neg-Trace) mg/dL Urine Glucose (UA) (Negative) mg/dL Urine Ketones (Negative) mg/dL Urine Blood (Negative) Urine Nitrite (Negative) Ur Leukocyte Esterase (Negative) Urine RBC (0-2) /HPF Urine WBC (0-5) /HPF Ur Squamous Epith Cells (0-2) /HPF Urine Bacteria (None Seen) Hyaline Casts (0-2) /LPF Urine Opiates Screen (Not Detect) Urine Fentanyl Screen (Not Detect) Ur Barbiturates Screen (Not Detect) Ur Phencyclidine Scrn (Not Detect) Ur Amphetamines Screen (Not Detect) U Benzodiazepines Scrn (Not Detect) Urine Cocaine Screen (Not Detect) U Marijuana (THC) Screen (Not Detect) Ethyl Alcohol mg/dL Acetone, Qual (Negative) Discharge Plan Discharge Clinical Impression: Chronic hyperglycemia, Noncompliance with medication regimen, Phencyclidine (PCP) use disorder, moderate Patient Disposition: Still a Patient Prescriptions: No Action metformin 1,000 mg tablet 1 tab PO BID aripiprazole 10 mg tablet 1 tab PO QAM diphenhydramine HCl [Banophen] 50 mg capsule 1 cap PO BEDTIME nicotine (polacrilex) 2 mg gum 1 gum PO Q2H PRN (Reason: Nicotine Cravings) Levemir FlexTouch U-100 Insuln 100 unit/mL (3 mL) insulin pen 30 unit subcut BEDTIME artificial tears solution Drops 2 drp OPHTHALMIC (EYE) DAILY PRN (Reason: Dry Eye(S)) Novolin R Flexpen 100 unit/mL (3 mL) insulin pen 6 unit subcut DAILY rosuvastatin 20 mg tablet 1 tab PO BEDTIME
[2022-09-26 14:34] LABS: MANUAL DIFF FLAG NO
[2022-09-26 14:37] LABS: Basophils Percent Auto 0.3 % (0-2); Eosinophils Absolute Auto 0.1 X10*3/uL (0.0-0.4); Eosinophils Percent Auto 1.3 % (0-4); Hematocrit 47.5 % (42.0-52.0); Hemoglobin 15.5 g/dl (14.0-18.0); Imm Gran Abs Auto 0.01 X10*3/uL (0.00-0.03); Imm Gran Pct Auto 0.1 % (0.0-0.4); Lymphocytes Absolute Auto 2.2 X10*3/uL (1.2-4.9); Lymphocytes Percent Auto 30.6 % (20-40); Mean Corpuscular HGB Conc 32.6 g/dl (31.0-36.0); Mean Corpuscular Hemoglobin 27.5 pg (27.0-33.0); Mean Corpuscular Volume 84.4 fL (80.0-98.0); Mean Platelet Volume 10.9 fL (9.4-12.4); Monocytes Absolute Auto 0.5 X10*3/uL (0.1-1.2); Monocytes Percent Auto 7.5 % (2-11); Neutrophils Absolute Auto 4.3 x10*3/uL (2.0-8.3); Neutrophils Percent Auto 60.2 % (45-73); Platelet Count 179 X10*3/uL (160-400); Red Blood Count 5.63 X10*6/uL (4.60-5.80); Red Cell Distribution Width 12.8 % (11.0-16.0); White Blood Count 7.1 X10*3/uL (4.8-10.8)
[2022-09-26 14:38] LABS: Appearance Urine Clear; Color Urine Yellow; Glucose Urine UA >=1000 mg/dL (Negative); Leukocyte Esterase Urine Negative (Negative); Nitrite Urine Negative (Negative); Specific Gravity - Urine 1.025 (1.005-1.025); UMIC TRIGGER UACC YES; Urine Blood Negative (Negative); Urine Ketones Trace mg/dL (Negative); Urine Protein Negative (Neg-Trace)
[2022-09-26 14:40] LABS: Venous Blood Gas Refer to POC result
--- NOTE | 2022-09-26 14:40 | PHA.MEDREC ---
Pharmacy Consult ? Medication Reconciliation Pharmacy has completed the medication reconciliation. Patient had list of medications, looks like its from a facility but does not say which
[2022-09-26 14:41] LABS: VBG Base Excess -1.8 mmol/L; VBG HCO3 22 mmol/L (22-26); VBG pCO2 36 mmHg; VBG pH 7.39 (7.32-7.43); VBG pO2 47 mmHg
[2022-09-26 14:45] LABS: Bacteria Urine None Seen (None Seen); Hyaline Casts Urine 0-2 /LPF (0-2); RBC Urine 0-2 /HPF (0-2); Squamous Epithelial Cell Urine 0-2 /HPF (0-2); WBC Urine 0-5 /HPF (0-5)
[2022-09-26 14:58] LABS: Amphetamine Screen Urine Not Detected (Not Detect); Barbiturates, Urine Not Detected (Not Detect); Benzodiazepines Screen Urine Not Detected (Not Detect); Cannabinoid Screen Urine Not Detected (Not Detect); Cocaine Screen Urine Not Detected (Not Detect); Fentanyl, urine Not Detected (Not Detect); Opiate Screen Urine Not Detected (Not Detect); Phencyclidine Screen Urine POSITIVE (Not Detect)
[2022-09-26 15:08] LABS: Troponin-I High Sensitivity < 3.5 ng/L (<3.5-35.0)
[2022-09-26 15:14] LABS: Estimated Average Glucose 321 mg/dL; Hemoglobin A1c % 12.8 %
[2022-09-26 15:24] LABS: Alanine Aminotransferase 22 U/L (0-40); Albumin Level 4.1 g/dL (3.5-5.0); Alkaline Phosphatase 144 U/L (39-117); Anion Gap 17 (12-20); Aspartate Amino Transferase 14 U/L (5-37); Bilirubin Direct 0.2 mg/dL (0.0-0.5); Bilirubin Total 0.5 mg/dL (0.0-1.0); Blood Urea Nitrogen 12 mg/dL (9-16); Calcium 9.4 mg/dL (8.4-10.2); Carbon Dioxide 24 mmol/L (22-29); Chloride 100 mmol/L (96-108); Creatinine Clr Calc Pharmacy 87.8; Estimated Glomerular Filt Rate > 60; Ethanol < 10 mg/dL; Potassium 4.5 mmol/L (3.3-5.1); Sodium 136 mmol/L (135-145); Total Protein 6.6 g/dL (6.5-8.0)
[2022-09-26 15:29] LABS: Glucose Random 406 mg/dL (60-115)
[2022-09-26 15:42] LABS: Glucose, Whole Blood 272 mg/dL (60-115)
[2022-09-26 15:49] LABS: Acetone, serum QL Negative (Negative)
[2022-09-26 18:43] LABS: Glucose, Whole Blood 238 mg/dL (60-115)
--- NOTE | 2022-09-26 19:11 | MHC.RECOVSUP ---
? Reason for consult Recovery support o Current location: [email or web address] o Identified substance use concern: PCP - Seeking ATS (detox) - Support ? Intervention: o Community resources provided o Harm reduction discussion ? Plan: o Patient to follow up with [facility] after discharge ? 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 I recommended [facility].. Patient agree that that what he needs.. Patient was given resources to follow up on Thursday.. Due to the weekend..
== END 2022-09-26 19:49 | disposition home or self-care (01) ==
PROVIDERS: Physician Assistant; Emergency Provider Emergency Medicine Emergency Medical Services; PCP Internal Medicine
DX: R07.89 Other chest pain (principal); E11.65 Type 2 diabetes mellitus with hyperglycemia; F16.10 Hallucinogen abuse, uncomplicated; Z79.4 Long term (current) use of insulin; Z91.14 Patient's other noncompliance with medication regimen; Z79.899 Other long term (current) drug therapy
CPT/HCPCS: 36415; 80048; 80076; 80307; 81001; 82009; 82077; 82803; 82947; 83036; 83735; 84484; 85025; 93005; 96360; 99284

== ENCOUNTER 2022-10-07 10:13 | Outpatient (REF) | payer MEDICARE, MEDICAID, SELFPAY ==
[2022-10-07 12:09] LABS: HBsAGNum1 0.45 S/CO (0.00-0.99); HIV AB/AG Nonreactive (Nonreactive); Hepatitis B Surface Antigen Negative (Negative); ~Hepatitis B Surface Antibody REACTIVE (Nonreactive)
[2022-10-07 12:10] LABS: ~HepC Num1 0.05 S/CO (0.00-0.79); ~Hepatitis C Antibody Nonreactive (Nonreactive)
[2022-10-08 08:38] LABS: Syphilis Screen Nonreactive (Nonreactive)
[2022-10-11 19:29] LABS: Glutamic acid decarboxylase Ab <5 IU/mL (<5)
== END 2022-10-07 10:14 | disposition home or self-care (01) ==
LOC: HO.LAB 10:13
PROVIDERS: Absent Provider Internal Medicine; PCP Internal Medicine; Visit Provider Family Medicine
DX: Z11.4 Encounter for screening for human immunodeficiency virus [HIV] (principal); F19.90 Other psychoactive substance use, unspecified, uncomplicated; E10.65 Type 1 diabetes mellitus with hyperglycemia
CPT/HCPCS: 86341; 86706; 86780; 86803; 87340; 87389

== ENCOUNTER 2022-11-15 21:58 | Emergency (ER) | payer MEDICARE, MEDICAID, SELFPAY ==
[2022-11-15 22:15] VITALS: BP 121/74; PULSE 105; RESP 18; TEMP 36.1; O2SAT 97; BMI 22.6
--- NOTE | 2022-11-15 23:12 | ED.WOUNDLAC ---
HPI - Wound/Laceration General Chief Complaint: Wound/Laceration Stated Complaint: ingrown hair on leg Time Seen by Provider: 11/15/22 23:05 Source: patient Mode of arrival: ambulatory Limitations: no limitations History of Present Illness HPI narrative: 37-year-old male presents with 2 abscesses on his lower extremities, 1 on each inner thigh. He tried to drain the pus however he feels like there is an ingrown hair on the left wound. He does not report any fevers or chills, does not report any IVDA. Onset (ago): day(s) Extremity Location: bilateral: thigh Patient tetanus UTD: Yes Associated symptoms: pain Related Data Home Medications Medication Instructions Recorded Confirmed metformin 1,000 mg tablet 1 tab PO BID 07/30/21 09/26/22 aripiprazole 10 mg tablet 1 tab PO QAM 03/01/22 09/26/22 diphenhydramine HCl 50 mg capsule 1 cap PO BEDTIME 03/01/22 09/26/22 (Banophen) insulin detemir U-100 100 unit/mL 30 unit subcut BEDTIME 03/01/22 09/26/22 (3 mL) subcutaneous pen (Levemir FlexTouch U-100 Insulin) nicotine (polacrilex) 2 mg gum 1 gum PO Q2H PRN Nicotine Cravings 03/01/22 09/26/22 artificial tears solution eye drops 2 drp ophthalmic (eye) DAILY PRN 09/26/22 09/26/22 Dry Eye(S) insulin regular human 100 unit/mL 6 unit subcut DAILY 09/26/22 09/26/22 (3 mL) subcutaneous pen (Novolin R FlexPen) rosuvastatin 20 mg tablet 1 tab PO BEDTIME 09/26/22 09/26/22 Previous Rx's Medication Instructions Recorded doxycycline monohydrate 100 mg 100 mg PO BID 10 days #20 caps 11/16/22 capsule fluconazole 150 mg tablet 150 mg PO Q3D 2 doses #2 tabs 11/16/22 (Diflucan) Allergies Allergy/AdvReac Type Severity Reaction Status Date / Time haloperidol Allergy Mild ITCHING Verified 11/15/22 22:18 Review of Systems Review of Systems: Constitutional: No Fever, No Chills Cardiovascular: No Chest Pain, No SOB Respiratory: No Cough, No Dyspnea Gastrointestinal: No Nausea, No Vomiting, No Diarrhea, No abdominal Pain Musculoskeletal: No joint pain, No Myalgias, No Joint Swelling Skin: Positive abscess, positive groin rash Neuro: No Weakness, No Numbness, No Paresthesias, No Dizziness, No Headache Yes all other systems are reviewed and are negative [facility] Past Medical History Attestation statement: The following information was validated with the patient. Source: old records reviewed Medical History Depression Diabetes Surgical History H/O circumcision Family History Family History Mother No problems noted. Father No problems noted. Social History Social History Alcohol intake: current Alcohol intake frequency: 0-2 drinks per day Alcohol type: hard liquor Patient Tobacco Use Status: Current everyday Tobacco user Substance Use Type: Opiates Advance Directives: No Current occupational status: unemployed and disabled Physical Exam Vital Signs: Vital Signs: Last Vital Signs Temp 97.3 F 11/16/22 00:00 Pulse 98 11/16/22 00:00 Resp 18 11/16/22 00:00 BP 127/84 11/16/22 00:00 Pulse Ox 97 11/16/22 00:00 O2 Del Method 11/16/22 00:00 BMI result Body Mass Index 22.6 Appearance: Alert. Oriented X3. No acute distress. Eyes: Pupils equal, round and reactive to light. ENT: Pharynx normal. Neck: Normal inspection. CVS: Normal heart rate and rhythm. Respiratory: No respiratory distress. Abdomen: Soft and nontender. Skin: 2 cm indurated abscess to the left inner thigh, 1 cm flat soft abscess to the right thigh, rash to the groin consistent with fungal infection Extremities: No lower extremity edema. Gait well-balanced well coordinated. Neuro: No motor deficit. No sensory deficit. Cranial nerves 2-12 intact. Course Course Course Narrative: 37-year-old male presents with abscesses to bilateral inner thighs and rash to his groin. States that he tried to express the fluid from the abscess on the left inner thigh, however feels like there is an ingrown hair inside. Was unable to express any pus from the site. he does not report any fevers or chills, does not report IVDA. He has an inguinal rash that he has had for several months, feels like it is jock itch. I did attempt to drain this pustule on the left inner thigh, no purulent drainage but an ingrown hair was removed. Culture taken of the right inner thigh wound. Will treat with doxycycline and give Diflucan for his groin rash. Patient understands that if the culture comes back with bacteria not susceptible to doxycycline, that the medication will change. Patient verbalized understanding of and agrees to plan of care discharge home. Verbalized understanding of symptoms indicating need for emergent intervention. Medications Administered Discontinued Medications Generic Name Dose Route Start Last Admin Trade Name Freq PRN Reason Stop Dose Admin Doxycycline Monohydrate 100 mg 11/15/22 23:12 11/15/22 23:35 Doxycycline Monohydrate 100 Mg Capsule PO 11/15/22 23:13 100 mg ONCE ONE Administration Lidocaine HCl 5 ml 11/15/22 23:12 11/16/22 00:18 Lidocaine Hcl 2 % Mpf 5 Ml Vial INFILTRATI 11/15/22 23:13 5 ml ONCE ONE Administration Medical Decision Making Differential Diagnosis Differential Diagnoses: The differential diagnosis associated with the presentation includes Admission/Observation Consideration of admission/observation: Escalation of care including admission/observation considered Admission not required or considered External Record Review External record reviewed: Outpatient record and Prior outpatient labs Prescription Management I considered prescription management with: Antibiotic and Other (Antifungal) Procedures Abscess I/D Site: lower extremity Side (if applicable): left Local Anesthetic: lidocaine 1% Amount of anesthesia used (mL): 4 Technique: incised with blade Sent for culture/gram staining?: Yes Irrigation: No Packing used?: none Discharge Plan Discharge Clinical Impression: Abscess, Ingrown hair Patient Disposition: Home, Self-Care Instructions: Abscess (ED), Incision and Drainage (ED) Additional Instructions: You were evaluated for an ingrown hair. We took a culture. Your culture results are pending. Please take doxycycline 100 mg every 12 hours for the next 10 days. If the culture returns, and this antibiotic is not appropriate, we will change your antibiotic. Thank you for choosing this emergency department for evaluation. Please follow-up with primary care physician as needed. Return to the emergency department for any new, concerning, or worsening symptoms. Prescriptions: New doxycycline monohydrate 100 mg capsule 100 mg PO BID 10 Days Qty: 20 0RF fluconazole [Diflucan] 150 mg tablet 150 mg PO Q3D Qty: 2 0RF Rx Instructions: may repeat second dose 72 hrs after first dose if symptoms persist No Action metformin 1,000 mg tablet 1 tab PO BID aripiprazole 10 mg tablet 1 tab PO QAM diphenhydramine HCl [Banophen] 50 mg capsule 1 cap PO BEDTIME nicotine (polacrilex) 2 mg gum 1 gum PO Q2H PRN (Reason: Nicotine Cravings) Levemir FlexTouch U-100 Insuln 100 unit/mL (3 mL) insulin pen 30 unit subcut BEDTIME artificial tears solution Drops 2 drp OPHTHALMIC (EYE) DAILY PRN (Reason: Dry Eye(S)) Novolin R FlexPen 100 unit/mL (3 mL) insulin pen 6 unit subcut DAILY rosuvastatin 20 mg tablet 1 tab PO BEDTIME Interventions: ED Discharge Assessment Last Done: 11/16/22 00:45 Discharge Date/Time: 11/16/22 00:46
[2022-11-15] MEDS: Doxycycline Monohydrate 100 MG CAPSULE PO (23:35)
[2022-11-16] VITALS: BP 127/84; PULSE 98; RESP 18; TEMP 36.3; O2SAT 97
[2022-11-16] MEDS: Lidocaine HCl 2 % MPF 5 ML VIAL INFILTRATI (00:18)
== END 2022-11-16 00:46 | disposition home or self-care (01) ==
PROVIDERS: Emergency Provider Emergency Medicine; PCP Internal Medicine
DX: L02.416 Cutaneous abscess of left lower limb (principal); L02.415 Cutaneous abscess of right lower limb; L73.1 Pseudofolliculitis barbae; E11.9 Type 2 diabetes mellitus without complications; F16.20 Hallucinogen dependence, uncomplicated; F17.200 Nicotine dependence, unspecified, uncomplicated; Z79.84 Long term (current) use of oral hypoglycemic drugs; Z79.02 Long term (current) use of antithrombotics/antiplatelets; Z79.899 Other long term (current) drug therapy
CPT/HCPCS: 10060; 87070; 87077; 87186; 87205; 99283; 99284

== ENCOUNTER 2022-12-29 23:22 | Emergency (ER) | payer MEDICARE, MEDICAID, SELFPAY ==
[2022-12-29 23:31] VITALS: BMI 23.6
[2022-12-29 23:43] VITALS: BP 125/81; PULSE 104; RESP 18; TEMP 36.6; O2SAT 96
--- NOTE | 2022-12-29 23:44 | ED_ITS ---
HPI - Psych General Chief Complaint: Psychiatric Symptoms Stated Complaint: crisis Time Seen by Provider: 12/29/22 23:26 Source: patient and EMS Mode of arrival: EMS Limitations: other (manic ) History of Present Illness HPI Narrative: This is a 37-year-old male history of PCP use disorder, presenting to the emergency department with suicidal ideation & homicidal ideations without plan. According to EMS patient walked in to [facility], stated he was suicidal and he was advised to come into the emergency department for evaluation. EMS reports fluctuant mood and affect his entire way here. Patient is a poor historian but admits to homicidal ideations, anxiety, and depression. Patient states he is feeling things crawling up his left leg and he was brought here the [employer] bus. Denies visual hallucinations. Patient states that he used heroin, cocaine, PCP today. Last drink was yesterday he states he was highly intoxicated. Patient is extremely agitated rocking back and forth chair during history taking. Denies medical complaints at this time Related Data Home Medications Medication Instructions Recorded Confirmed nicotine (polacrilex) 2 mg gum 1 gum PO Q2H PRN Nicotine Cravings 03/01/22 12/30/22 insulin detemir U-100 100 unit/mL 34 unit subcut QA 12/30/22 12/30/22 (3 mL) subcutaneous pen (Levemir FlexTouch U-100 Insulin) metformin 500 mg tablet 2 tab PO BID 12/30/22 12/30/22 multivitamin 1 tab PO QAM 12/30/22 12/30/22 rosuvastatin 20 mg tablet 1 tab PO QAM 12/30/22 12/30/22 terbinafine HCl 250 mg tablet 1 tab PO DAILY 12/30/22 12/30/22 Allergies Allergy/AdvReac Type Severity Reaction Status Date / Time haloperidol Allergy Mild ITCHING Verified 11/15/22 22:18 Review of Systems Review of Systems: Constitutional : No Fever, No Chills ENT/Mouth : No Ear Pain, No Nasal Congestion, No sore throat Eyes: No Eye Pain, No Swelling, No Redness Cardiovascular : No Chest Pain, No SOB Respiratory : No Cough, No Sputum, No Dyspnea Gastrointestinal : No Nausea, No Vomiting, No Diarrhea, No Hematochezia, No Melena Genitourinary : No Dysuria, No Urinary Frequency, No Hematuria Musculoskeletal : No Myalgias Skin : No Skin Lesions, No rash Neuro : No Weakness, No Numbness, No Paresthesias, No Dizziness, No Headache Psych : positive Anxiety, positive Depression, positive SI/HI Heme/Lymph: No Lymphadenopathy Endocrine : No Polyuria, No Polydipsia All other systems reviewed and are negative Yes all other systems are reviewed and are negative Neurologic: Reports behavioral changes Psychiatric: Psychiatric: Reports anxiety, Reports behavioral changes, Reports depression, Reports tactile hallucinations, Reports homicidal ideation and Reports suicidal ideation [facility] Past Medical History Attestation statement: The following information was validated with the patient. Source: old records reviewed and nursing notes reviewed Medical History Depression Diabetes Surgical History H/O circumcision Family History Family History Mother No problems noted. Father No problems noted. Social History Social History Alcohol intake: current Alcohol intake frequency: 0-2 drinks per day Alcohol type: hard liquor Patient Tobacco Use Status: Current everyday Tobacco user Substance Use Type: Opiates Advance Directives: No Advance Directives Information Provided: Yes Current occupational status: unemployed and disabled Physical Exam Vital Signs: Vital Signs: Last Vital Signs Temp 97.9 F 12/29/22 23:43 Pulse 104 H 12/29/22 23:43 Resp 18 12/29/22 23:43 BP 125/81 12/29/22 23:43 Pulse Ox 96 12/29/22 23:43 O2 Del Method 12/29/22 23:43 BMI result Body Mass Index 23.6 vss slightly tachycardic likely secondary to anxiety Appearance: Alert.? Oriented X3.? No acute distress.? Head: Normocephalic, atraumatic, no step-offs or deformities Eyes: Pupils equal, round and reactive to light.? ENT: Pharynx normal.? Neck: Normal inspection.? Neck supple.? CVS: Normal heart rate and rhythm.? Pulses normal.? Respiratory: No respiratory distress.? Breath sounds normal.? Abdomen: Soft and nontender.? Skin: Skin warm and dry.? Normal skin color.? Normal skin turgor.? Extremities: No lower extremity edema.? No calf ttp. 5/5 strength to bilateral upper and lower extremities Neuro: Oriented X 3.? No motor deficit.? No sensory deficit. CN 2-12 intact Const: Other: Appearance: Alert.? Oriented X3.? + anxious, agitated, rocking back and forth in chair.? Head: Normocephalic, atraumatic, no step-offs or deformities Eyes: Pupils equal, round and reactive to light.? ENT: Pharynx normal.? Neck: Normal inspection.? Neck supple.? CVS: Normal heart rate and rhythm.? Pulses normal.? Respiratory: No respiratory distress.? Breath sounds normal.? Abdomen: Soft and nontender.? Skin: Skin warm and dry.? Normal skin color.? Normal skin turgor.? Extremities: No lower extremity edema.? No calf ttp. 5/5 strength to bilateral upper and lower extremities Back: No midline tenderness, no C-spine tenderness, full range of motion, no CVA tenderness bilaterally Neuro: Oriented X 3.? No motor deficit.? No sensory deficit. CN 2-12 intact Course Reevaluation(s) Reevaluation #1: UA without infection. Patient's urine toxicology positive for PCP, marijuana. COVID negative. Patient's labs are pending however patient extremely agitated at this time. Will hold on labs as patient is having a difficult time following commands and due to staffing a potted is not safe to obtain labs at this time. At this time patient will be placed into observation to allow more time to be evaluated by the care team. At time observation was started patient agitated however following commands, vital signs stable. Laboratory studies pending. Night doctor aware. Time: 01:10 Medications Administered Discontinued Medications Generic Name Dose Route Start Last Admin Trade Name Freq PRN Reason Stop Dose Admin Diphenhydramine HCl 50 mg 12/30/22 00:39 12/30/22 00:46 Diphenhydramine Hcl 25 Mg Capsule PO 12/30/22 00:40 50 mg ONCE ONE Administration Lorazepam 2 mg 12/30/22 00:39 12/30/22 00:46 Lorazepam 1 Mg Tablet PO 12/30/22 00:40 2 mg ONCE ONE Administration Olanzapine 5 mg 12/30/22 00:39 12/30/22 00:46 Olanzapine 5 Mg Tablet PO 12/30/22 00:40 5 mg ONCE ONE Administration Medical Decision Making Medical Decision Making [facility] Narrative: 79-year-old male presents for suicidal ideations, homicidal ideations, hallucinations. Cocaine, heroin, PCP use today. Physical exam positive for anxiousness, agitation, rocking back and forth in chair? Likely polysubstance use verses started intoxication. Less likley electrolyte imbalances or metabolic issues. Plan: Labs, imaging, medical clearance evaluation by care team Differential Diagnosis Differential Diagnoses: The differential diagnosis associated with the prese ntation includes Likely polysubstance use verses started intoxication. Less likley electrolyte imbalances or metabolic issues. Admission/Observation Consideration of admission/observation: Escalation of care including admission/observation considered Likely psychiatric admission Lab Data [facility] Lab Attestation statement: I reviewed the patient's lab results. Labs: Lab Results 12/30/22 12/30/22 12/30/22 Range/Units 00:03 00:03 00:03 POC Glucose (60-115) mg/dL Urine Color Yellow Urine Appearance Clear Urine pH 6.5 (5.0-9.0) Ur Specific [place] >= 1.030 H (1.005-1.025) Urine Protein Negative (Neg-Trace) mg/dL Urine Glucose (UA) >=1000 H (Negative) mg/dL Urine Ketones Trace (Negative) mg/dL Urine Blood Negative (Negative) Urine Nitrite Negative (Negative) Ur Leukocyte Esterase Negative (Negative) Urine Opiates Screen Not Detected (Not Detect) Urine Fentanyl Screen Not Detected (Not Detect) Ur Barbiturates Screen Not Detected (Not Detect) Ur Phencyclidine Scrn POSITIVE H (Not Detect) Ur Amphetamines Screen Not Detected (Not Detect) U Benzodiazepines Scrn Not Detected (Not Detect) Urine Cocaine Screen Not Detected (Not Detect) U Marijuana (THC) Screen POSITIVE H (Not Detect) COVID-19 (LACI) Negative (Negative) COVID-19 Clin Com See Note 12/30/22 Range/Units 01:00 POC Glucose 201 H (60-115) mg/dL Urine Color Urine Appearance Urine pH (5.0-9.0) Ur Specific [place] (1.005-1.025) Urine Protein (Neg-Trace) mg/dL Urine Glucose (UA) (Negative) mg/dL Urine Ketones (Negative) mg/dL Urine Blood (Negative) Urine Nitrite (Negative) Ur Leukocyte Esterase (Negative) Urine Opiates Screen (Not Detect) Urine Fentanyl Screen (Not Detect) Ur Barbiturates Screen (Not Detect) Ur Phencyclidine Scrn (Not Detect) Ur Amphetamines Screen (Not Detect) U Benzodiazepines Scrn (Not Detect) Urine Cocaine Screen (Not Detect) U Marijuana (THC) Screen (Not Detect) COVID-19 (LACI) (Negative) COVID-19 Clin Com Core Measures AMI core measures followed: Yes Measure exclusions: not indicated Critical Care Time Critical Care Time Critical Care Time: No Discharge Plan Discharge Clinical Impression: Polysubstance abuse Patient Disposition: Still a Patient Prescriptions: No Action nicotine (polacrilex) 2 mg gum 1 gum PO Q2H PRN (Reason: Nicotine Cravings) Levemir FlexTouch U-100 Insuln 100 unit/mL (3 mL) insulin pen 34 unit subcut QAM multivitamin Tablet 1 tab PO QAM metformin 500 mg tablet 2 tab PO BID terbinafine HCl 250 mg tablet 1 tab PO DAILY rosuvastatin 20 mg tablet 1 tab PO QAM Interventions: [place]-Suicide Risk Severity Scale Last Done: 12/30/22 00:32
[2022-12-30] MEDS: diphenhydrAMINE HCL 25 MG CAPSULE 50 MG PO (00:46)
[2022-12-30] MEDS: LORazepam 1 MG TABLET 2 MG PO (00:46)
[2022-12-30] MEDS: OLANZapine 5 MG TABLET PO (00:46)
[2022-12-30 00:49] LABS: Appearance Urine Clear; Color Urine Yellow; Glucose Urine UA >=1000 mg/dL (Negative); Leukocyte Esterase Urine Negative (Negative); Nitrite Urine Negative (Negative); PH 6.5 (5.0-9.0); Specific Gravity - Urine >= 1.030 (1.005-1.025); UMIC TRIGGER UACC YES; Urine Blood Negative (Negative); Urine Ketones Trace mg/dL (Negative); Urine Protein Negative (Neg-Trace)
[2022-12-30 00:51] LABS: COVID-19 Test Negative (Negative); IDNOW Serial# 16C4AD1C
[2022-12-30 00:57] LABS: Amphetamine Screen Urine Not Detected (Not Detect); Barbiturates, Urine Not Detected (Not Detect); Benzodiazepines Screen Urine Not Detected (Not Detect); Cannabinoid Screen Urine POSITIVE (Not Detect); Cocaine Screen Urine Not Detected (Not Detect); Fentanyl, urine Not Detected (Not Detect); Opiate Screen Urine Not Detected (Not Detect); Phencyclidine Screen Urine POSITIVE (Not Detect)
[2022-12-30 01:04] LABS: Glucose, Whole Blood 201 mg/dL (60-115)
[2022-12-30 01:07] LABS: Bacteria Urine None Seen (None Seen); Hyaline Casts Urine 0-2 /LPF (0-2); RBC Urine 0-2 /HPF (0-2); Squamous Epithelial Cell Urine 0-2 /HPF (0-2); WBC Urine 0-5 /HPF (0-5)
[2022-12-30 04:12] LABS: MANUAL DIFF FLAG NO
[2022-12-30 04:13] LABS: Basophils Percent Auto 0.4 % (0-2); Eosinophils Absolute Auto 0.1 X10*3/uL (0.0-0.4); Eosinophils Percent Auto 1.8 % (0-4); Hematocrit 47.6 % (42.0-52.0); Hemoglobin 15.3 g/dl (14.0-18.0); Imm Gran Abs Auto 0.02 X10*3/uL (0.00-0.03); Imm Gran Pct Auto 0.3 % (0.0-0.4); Lymphocytes Absolute Auto 2.5 X10*3/uL (1.2-4.9); Lymphocytes Percent Auto 34.7 % (20-40); Mean Corpuscular HGB Conc 32.1 g/dl (31.0-36.0); Mean Corpuscular Hemoglobin 27.1 pg (27.0-33.0); Mean Corpuscular Volume 84.4 fL (80.0-98.0); Mean Platelet Volume 10.9 fL (9.4-12.4); Monocytes Absolute Auto 0.7 X10*3/uL (0.1-1.2); Monocytes Percent Auto 9.5 % (2-11); Neutrophils Absolute Auto 3.8 x10*3/uL (2.0-8.3); Neutrophils Percent Auto 53.3 % (45-73); Platelet Count 152 X10*3/uL (160-400); Red Blood Count 5.64 X10*6/uL (4.60-5.80); Red Cell Distribution Width 13.2 % (11.0-16.0); White Blood Count 7.1 X10*3/uL (4.8-10.8)
[2022-12-30 04:33] LABS: Ethanol < 10 mg/dL
[2022-12-30 04:41] LABS: Acetaminophen LAB < 17 mcg/mL (<30); Alanine Aminotransferase 25 U/L (0-40); Albumin Level 3.8 g/dL (3.5-5.0); Alkaline Phosphatase 93 U/L (39-117); Anion Gap 12 (12-20); Aspartate Amino Transferase 21 U/L (5-37); Bilirubin Total 0.9 mg/dL (0.0-1.0); Blood Urea Nitrogen 13 mg/dL (9-16); Carbon Dioxide 23 mmol/L (22-29); Chloride 107 mmol/L (96-108); Creatinine Clr Calc Pharmacy 127.3; Estimated Glomerular Filt Rate > 60; Glucose Random 197 mg/dL (60-115); Magnesium 1.9 mg/dL (1.6-2.6); Potassium 3.4 mmol/L (3.3-5.1); Salicylate < 5.0 mg/dL (15-30); Sodium 139 mmol/L (135-145); Total Protein 5.9 g/dL (6.5-8.0)
--- NOTE | 2022-12-30 04:58 | PC.NURSE ---
Patient at the time arrival loud and disruptive, compliant with record changer, provider notified/ordered Ativan 2 mg PO , Benadryl 50 mg PO, and Olanzapine 5 mg PO administered at 0046 with + effect, slept through the night, POC at 0100 was 201, med rec completed/pending provider's approval, VSS, care consult ordered/pending evaluation, will continue to monitor.
--- NOTE | 2022-12-30 07:38 | PHA.MEDREC ---
Pharmacy Consult ? Medication Reconciliation Pharmacy has completed the medication reconciliation. Reviewed med rec done by
--- NOTE | 2022-12-30 07:49 | PC.NURSE ---
patient appears to remain asleep at present respirations are even and unlabored patient appears in no distress.
[2022-12-30 12:15] VITALS: BP 108/73; PULSE 90; RESP 20; TEMP 36.3; O2SAT 99
[2022-12-30 12:16] LABS: Glucose, Whole Blood 230 mg/dL (60-115)
[2022-12-30] MEDS: Multivitamin TABLET 1 TAB PO (12:40)
[2022-12-30] MEDS: metFORMIN HCl 1,000 MG TABLET 1000 MG PO (12:40)
[2022-12-30] MEDS: Insulin Glargine,Hum.rec.anlog 100 UNIT/ML 10 ML VIAL 24 UNIT SUBCUT (12:56)
== END 2022-12-30 13:14 | disposition home or self-care (01) ==
PROVIDERS: Physician Assistant; Emergency Provider Internal Medicine
DX: F33.1 Major depressive disorder, recurrent, moderate (principal); R45.850 Homicidal ideations; F17.200 Nicotine dependence, unspecified, uncomplicated; Z71.6 Tobacco abuse counseling; Z79.899 Other long term (current) drug therapy; Z20.822 Contact with and (suspected) exposure to COVID-19; Z20.828 Contact with and (suspected) exposure to other viral communicable diseases
CPT/HCPCS: 36415; 80053; 80143; 80179; 80307; 81001; 82077; 82947; 83735; 85025; 87635; 99284

== ENCOUNTER 2023-05-06 16:43 | Emergency (ER) | payer MEDICARE, MEDICAID, SELFPAY ==
[2023-05-06 17:01] VITALS: BP 101/65; PULSE 98; RESP 18; TEMP 36.8; O2SAT 96; BMI 23.2
--- NOTE | 2023-05-06 17:03 | ED_ITS ---
HPI - Back Pain/Injury General Chief Complaint: Back Pain/Injury Stated Complaint: Back/side pain Time Seen by Provider: 05/06/23 17:03 Source: patient, RN notes reviewed and old records reviewed Mode of arrival: ambulatory History of Present Illness HPI Narrative: 38-year-old male with past medical history of depression, diabetes, presents the ED complaining of right-sided low back pain x3 days. 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, denies known injury/trauma or fall, radiation of pain down lower extremities, numbness, tingling, weakness, urinary incontinence/retention, fever, hematuria MD elicited complaint: back pain Related Data Home Medications Medication Instructions Recorded Confirmed nicotine (polacrilex) 2 mg gum 1 gum PO Q2H PRN Nicotine Cravings 03/01/22 12/30/22 insulin detemir U-100 100 unit/mL 34 unit subcut QA 12/30/22 12/30/22 (3 mL) subcutaneous pen (Levemir FlexTouch U-100 Insulin) metformin 500 mg tablet 2 tab PO BID 12/30/22 12/30/22 multivitamin 1 tab PO QAM 12/30/22 12/30/22 rosuvastatin 20 mg tablet 1 tab PO QAM 12/30/22 12/30/22 terbinafine HCl 250 mg tablet 1 tab PO DAILY 12/30/22 12/30/22 Allergies Allergy/AdvReac Type Severity Reaction Status Date / Time haloperidol Allergy Mild ITCHING Verified 05/06/23 17:03 Review of Systems Review of Systems: Constitutional: No Fever, No Chills ENT/Mouth: No Ear Pain, No Nasal Congestion, No sore throat, No Rhinorrhea, No Swallowing Difficulty Cardiovascular: No Chest Pain, No SOB Respiratory: No Cough, No Sputum Gastrointestinal: No Nausea, No Vomiting, No Diarrhea, No Constipation, No Abdominal pain Genitourinary: No Dysuria, No Hematuria, No Urinary Incontinence/retention, No Urgency, No Flank Pain Musculoskeletal: +joint pain, No Myalgias, No Joint Swelling Skin: No Skin Lesions, No rash Neuro: No Weakness, No Numbness, No Paresthesias Yes all other systems are reviewed and are negative Constitutional: Constitutional: Reports as per [facility] Past Medical History Attestation statement: The following information was validated with the patient. Source: old records reviewed Medical History Depression Diabetes Surgical History H/O circumcision Family History Family History Mother No problems noted. Father No problems noted. Social History Social History Alcohol intake: current Alcohol intake frequency: holidays/special occasions only Alcohol type: hard liquor Patient Tobacco Use Status: Current everyday Tobacco user Smoked in Last 30 Days: Yes Use of substances other than those prescribed or required for medical reasons: Yes Substance Use Type: Marijuana Substance Use Type Other:: PCP Substance Use Frequency: Daily Last Used Substance: Hours (ago) Advance Directives: No Advance Directives Information Provided: Yes Current occupational status: unemployed and disabled Physical Exam Vital Signs: Vital Signs: Last Vital Signs Temp 98.2 F 05/06/23 17:01 Pulse 98 05/06/23 17:01 Resp 18 05/06/23 17:01 BP 101/65 05/06/23 17:01 Pulse Ox 96 05/06/23 17:01 O2 Del Method Room Air 05/06/23 17:01 BMI result Body Mass Index 23.2 Const: General: cooperative, healthy appearing and no acute distress Orientation/consciousness: patient oriented x3 Limitations: no limitations HEENT: Head: Yes normal to inspection and Yes atraumatic Ears: hearing grossly normal bilaterally General nose exam: Normal external nose present Face and sinus: Yes normal facial exam Eyes: General: appearance normal, both eyes and all related structures EOM: EOMs intact bilaterally Neck: Neck: Yes normal visual inspection and Yes no meningeal signs Resp: Effort & Inspection: normal respiratory effort and no respiratory distress Cardio: Rate: regular rate Heart sounds: S1 normal heart sound present and S2 normal heart sound present GI: Inspection: Yes normal to inspection Palpation (GI): Soft to palpation, nontender, no guarding and not rigid : General: Yes CVA tenderness on the right Back/Spine/Pelvis: Other: No midline cervical/thoracic/lumbar spinous tenderness/step-off or deformity. + right-sided paraspinal/MSK tenderness to palpation reproducing subjective complaint. No rash/erythema or flail chest Back: CVA tenderness Skin: Rashes: no rashes Wounds: no wounds Neuro: Other: Strength intact throughout. No saddle anesthesia. Sensation intact to light touch. Neurovascular intact distally General: patient oriented x3, gait normal, tone normal, moves all extremities, no meningeal signs and no focal motor deficits Gait exam (Neuro): Normal gait present Motor exam (neuro): 5/5 motor strength present throughout Extrem: General: Yes normal to inspection Course Course Course Narrative: [id number]--UA not infected. >> Patient became visibly upset and waiting room, started throwing and ripping papers and walked out/eloped Medical Decision Making Medical Decision Making [facility] Narrative: 38-year-old male with past medical history of depression, diabetes, presents the ED complaining of right-sided low back pain x3 days. On exam vital signs stable, NAD, nontoxic appearing, physical exam as noted above with right CVAT/reproducible MSK tenderness, no midline spinous tenderness or red flag symptoms. Ambulating with steady gait. No saddle anesthesia. Concern for MSK pain/strain vs possible renal stone/pyelo although a lower suspicion. Unlikely cauda equina/cord compression or epidural abscess or dissection Plan: UA, pain control with IM Toradol/p.o. Flexeril, Lidoderm patch Please refer to course for remaining clinical decision making, interpretation of labs/imaging results, and discussions with consultants and/or family members. Differential Diagnosis Differential Diagnoses: The differential diagnosis associated with the presentation includes As above Lab Data [facility] Lab Attestation statement: I reviewed the patient's lab results. Labs: Lab Results 05/06/23 Range/Units 17:39 Urine Color Yellow Urine Appearance Clear Urine pH 5.5 (5.0-9.0) Ur Specific [place] >= 1.030 H (1.005-1.025) Urine Protein Negative (Neg-Trace) mg/dL Urine Glucose (UA) >=1000 H (Negative) mg/dL Urine Ketones 15 (Negative) mg/dL Urine Blood Negative (Negative) Urine Nitrite Negative (Negative) Ur Leukocyte Esterase Negative (Negative) Urine RBC 0-2 (0-2) /HPF Urine WBC 0-5 (0-5) /HPF Ur Squamous Epith Cells 0-2 (0-2) /HPF Urine Bacteria None Seen (None Seen) Hyaline Casts 0-2 (0-2) /LPF External Record Review External record reviewed: Inpatient record, Office record, Outpatient record, Prior outpatient labs, Prior outpatient radiology, Primary care record and Outside ED record Tests considered The following testing was considered but not selected: As above Prescription Management I considered prescription management with: Pain Medication Discharge Plan Discharge Clinical Impression: Back pain Patient Disposition: Elopement Prescriptions: No Action nicotine (polacrilex) 2 mg gum 1 gum PO Q2H PRN (Reason: Nicotine Cravings) Levemir FlexTouch U100 Insulin 100 unit/mL (3 mL) insulin pen 34 unit subcut QAM multivitamin Tablet 1 tab PO QAM metformin 500 mg tablet 2 tab PO BID terbinafine HCl 250 mg tablet 1 tab PO DAILY rosuvastatin 20 mg tablet 1 tab PO QAM Interventions: ED Discharge Assessment Last Done: 05/06/23 18:46 Discharge Date/Time: 05/06/23 18:50
[2023-05-06 18:08] LABS: Appearance Urine Clear; Color Urine Yellow; Glucose Urine UA >=1000 mg/dL (Negative); Leukocyte Esterase Urine Negative (Negative); Nitrite Urine Negative (Negative); PH 5.5 (5.0-9.0); Specific Gravity - Urine >= 1.030 (1.005-1.025); UMIC TRIGGER UACC YES; Urine Blood Negative (Negative); Urine Ketones 15 mg/dL (Negative); Urine Protein Negative (Neg-Trace)
[2023-05-06 18:13] LABS: Bacteria Urine None Seen (None Seen); Hyaline Casts Urine 0-2 /LPF (0-2); RBC Urine 0-2 /HPF (0-2); Squamous Epithelial Cell Urine 0-2 /HPF (0-2); WBC Urine 0-5 /HPF (0-5)
== END 2023-05-06 18:50 | disposition left against medical advice (07) ==
LOC: HO.ED 18:49
PROVIDERS: Physician Assistant; Emergency Provider Emergency Medicine
DX: M54.9 Dorsalgia, unspecified (principal); F17.210 Nicotine dependence, cigarettes, uncomplicated; Z79.899 Other long term (current) drug therapy
CPT/HCPCS: 81001; 99282

== ENCOUNTER 2023-05-07 07:50 | Emergency (ER) | payer MEDICARE, MEDICAID, SELFPAY ==
--- NOTE | ~2023-05-07 | CT_ITS ---
EXAMINATION: CT ABDOMEN AND PELVIS WITHOUT CONTRAST CLINICAL INFORMATION: Right flank pain. COMPARISON: None available. TECHNIQUE: Multidetector volumetric imaging was performed from the superior aspect of the liver through the pubic symphysis. Sagittal and coronal reformatted images were obtained on the technologist's workstation. Lack of intravenous and oral contrast limits visceral evaluation. This CT examination was performed using dose optimization techniques as appropriate, variously including the following: *Automated exposure control *Adjustment of mA and/or kV according to patient size (this includes techniques or standardized protocols for targeted exams where dose is matched to indication/reason for exam; i.e. extremities or head) *Use of iterative reconstruction technique DLP: 338 mGy-cm FINDINGS: LUNG BASES: The visualized lung bases are unremarkable. LIVER, GALLBLADDER, AND BILIARY TREE: Unremarkable. PANCREAS: Unremarkable. SPLEEN: Unremarkable. ADRENAL GLANDS: Unremarkable. KIDNEYS AND URETERS: The kidneys are normal in size, shape, and attenuation. No hydronephrosis, hydroureter, or calculi seen. No perinephric stranding. BLADDER: Moderately distended without focal mural or intraluminal abnormality. GASTROINTESTINAL TRACT: The stomach, small bowel and appendix are unremarkable. Mild to moderate stool seen throughout the colon distally to the rectum. No focal abnormality. ABDOMINAL WALL: No significant hernia is appreciated. LYMPH NODES: No lymphadenopathy. VASCULAR: Unremarkable. PELVIC VISCERA: Unremarkable. OSSEOUS STRUCTURES: L5-S1 transitional anatomy without other significant abnormality. CT/CT abdomen pelvis wo IV con IMPRESSION: 1. No acute intra-abdominal/pelvic abnormality to explain the patient's symptoms. No nephrolithiasis or hydroureteronephrosis. Moderate distention of the urinary bladder without focal abnormality. Correlate with urine output. 2. Mild to moderate colonic stool burden. Correlate with stool output.
[2023-05-07 08:01] VITALS: BP 87/48; PULSE 81; RESP 18; TEMP 36.6; O2SAT 96; BMI 22.5
--- NOTE | 2023-05-07 08:07 | PC.NURSE ---
Pt stated he has a Hx of kidney stone 6 years ago.
[2023-05-07 08:08] VITALS: BP 100/69
--- NOTE | 2023-05-07 08:54 | ED_ITS ---
HPI - Abdominal Pain General Chief Complaint: Abdominal Pain Stated Complaint: Bilat flank pain Time Seen by Provider: 05/07/23 08:27 Source: patient and RN notes reviewed Mode of arrival: ambulatory Limitations: no limitations History of Present Illness HPI narrative: This is a 38-year-old male, with a past medical history of diabetes, presenting to the emergency department for evaluation of right-sided flank pain and nausea x4 days. Patient describes his pain as pressure and waxing and waning in severity. Patient denies any recent trauma or injury to the right side of his back. Patient reports that he woke up 4 days ago and noticed pain in his right flank which has been increasing in severity since. Patient reports that the pain radiates into his right upper quadrant. Denies any fevers, chills, vomi ting, diarrhea or constipation. Patient admits to having dysuria, denies hematuria, urinary frequency or urgency. Denies penile discharge. Patient is sexually active, denies concerns for STIs at this time. He has tried taking ibuprofen for his symptoms which has provided him without any relief. No abdominal surgeries. He has a history of kidney stones as a child and symptoms feel similar. No other complaints or concerns at this time. MD elicited complaint: flank pain Pertinent past history: kidney stones Onset (ago): day(s) Pain Consistency: constant Location: R flank Severity: moderate Quality: stabbing, fullness and other (Pressure) Radiation: R flank Migration to: RUQ Exacerbating factors: nothing Relieving factors: movement Associated symptoms: nausea and dysuria Related Data Home Medications Medication Instructions Recorded Confirmed nicotine (polacrilex) 2 mg gum 1 gum PO Q2H PRN Nicotine Cravings 03/01/22 12/30/22 insulin detemir U-100 100 unit/mL 34 unit subcut QA 12/30/22 12/30/22 (3 mL) subcutaneous pen (Levemir FlexTouch U-100 Insulin) metformin 500 mg tablet 2 tab PO BID 12/30/22 12/30/22 multivitamin 1 tab PO QAM 12/30/22 12/30/22 rosuvastatin 20 mg tablet 1 tab PO QAM 12/30/22 12/30/22 terbinafine HCl 250 mg tablet 1 tab PO DAILY 12/30/22 12/30/22 Previous Rx's Medication Instructions Recorded acetaminophen 325 mg capsule 650 mg PO QID PRN pain #30 caps 05/07/23 (Tylenol) cyclobenzaprine 5 mg tablet 5 mg PO DAILY #10 tabs 05/07/23 ondansetron 4 mg disintegrating 4 mg PO Q6-8H PRN nausea and 05/07/23 tablet vomiting #14 tabs Allergies Allergy/AdvReac Type Severity Reaction Status Date / Time haloperidol Allergy Mild ITCHING Verified 05/06/23 17:03 Review of Systems Review of Systems Constitutional: No Weight loss, No Fever, No Chills, No Night Sweats, No Fatigue, No Malaise ENT/Mouth: No Hearing loss, No Ear Pain, No Nasal Congestion, No Sinus Pain, No Hoarseness, No sore throat, No Rhinorrhea, No Swallowing Difficulty Eyes: No Eye Pain, No Swelling, No Redness, No Foreign Body, No Discharge, No Vision Changes Cardiovascular: No Chest Pain, No SOB, No Dyspnea on Exertion, No Orthopnea, No Edema, No Palpitations Respiratory: No Cough, No Sputum, No Wheezing, No Smoke Exposure, No Dyspnea Gastrointestinal: + Nausea, No Vomiting, No Diarrhea, No Constipation, + Abdominal pain, No Hematochezia, No Melena Genitourinary: No irregular bleeding, No Dysuria, No Urinary Frequency, No Hematuria, No Urinary Incontinence/retention, No Urgency, No Flank Pain, No Urinary Flow Changes, No Hesitancy Musculoskeletal: No joint pain, No Myalgias, No Joint Swelling Skin: No Skin Lesions, No rash Neuro: No Weakness, No Numbness, No Paresthesias, No Loss of Consciousness, No Dizziness, No Headache Psych: No Anxiety/Panic, No Depression, No SI/HI/AH/VH, No Social Issues, Heme/Lymph: No Bruising, No Bleeding,No Lymphadenopathy Endocrine: No Polyuria, No Polydipsia, No Temperature Intolerance Yes all other systems are reviewed and are negative Constitutional: Reports as per HPI [facility] Past Medical History Medical History Depression Diabetes Surgical History H/O circumcision Family History Family History Mother No problems noted. Father No problems noted. Social History Social History Alcohol intake: current Alcohol intake frequency: holidays/special occasions only Alcohol type: hard liquor Patient Tobacco Use Status: Current everyday Tobacco user Smoked in Last 30 Days: Yes Use of substances other than those prescribed or required for medical reasons: Yes Substance Use Type: Marijuana Substance Use Type Other:: PCP Substance Use Frequency: Daily Last Used Substance: Hours (ago) Advance Directives: No Advance Directives Information Provided: Yes Current occupational status: unemployed and disabled Physical Exam ED Vital Signs: Vital Signs - 24 hr 05/07/23 08:01 05/07/23 08:08 Temperature 97.9 F Pulse Rate 81 Respiratory Rate 18 Blood Pressure 87/48 L 100/69 Pulse Oximetry 96 Oxygen Delivery Method Room Air BMI result Body Mass Index 22.5 Const General: cooperative, comfortable and no acute distress Orientation/consciousness: patient oriented x3 Limitations: no limitations HENMT Head: Yes normal to inspection, Yes normocephalic and Yes atraumatic Ears: hearing grossly normal bilaterally General nose exam: Normal external nose present Face and sinus: Yes normal facial exam Mouth: Normal oral and palatal mucosa present, oropharynx normal and moist m ucous membranes Throat: Yes posterior oropharynx normal Eyes General: appearance normal, both eyes and all related structures Eyelids: Yes eyelids normal Conjunctivae: conjunctivae normal Sclerae: sclerae normal Pupils: Equal, round and reactive pupils present EOM: EOMs intact bilaterally Neck Neck: Yes normal visual inspection, Yes full ROM and Yes no lymphadenopathy Lymphatic: no lymphadenopathy noted Chest Chest palpation & inspection: normal inspection of the chest Resp Effort & Inspection: normal respiratory effort and able to speak in complete sentences Auscultation: clear to auscultation bilaterally, no crackles, no rales, no rhonchi and no wheezes Cardio Rate: regular rate Rhythm: regular rhythm Heart sounds: S1 normal heart sound present and S2 normal heart sound present GI Other: Abdomen is soft, with tenderness to palpation in the right upper quadrant and epigastrium, however reports worsening in the right flank region Normoactive bowel sounds present in all 4 quadrants. Inspection: Yes normal to inspection Other: CVA tenderness on the right. Skin General skin exam: no rashes or lesions noted Trauma: no lacerations or abrasions Wounds: no wounds Neuro General: patient oriented x3 and moves all extremities Cranial nerves: Yes Equal, round and reactive pupils present Extrem General: Yes normal to inspection Right upper extremity: normal to inspection Left upper extremity: normal to inspection Right lower extremity: normal to inspection Left lower extremity: normal to inspection Course Reevaluation(s) Reevaluation #1: CT abdomen and pelvis revealing no acute intra-abdominal pelvic abnormality. No nephrolithiasis or hydro ureter nephrosis. Moderate distention of the urinary bladder without focal abnormality. Will obtain post void bladder scan - which was empty. There is mild to moderate colonic stool burden. No Leukocytosis, elevated glucose at 281> advised patient to take insulin at home. Lipase level mildly elevated however no left upper quadrant pain. Urine shows mild dehydration, and urine glucose. Obtain chlamydia/gonorrhea testing. Patient seen and re-evaluated, patient's symptoms improved. Patient able to eat and drained and is feeling completely better. Would like to be discharged home. Given negative workup, symptoms consistent with musculoskeletal pain/spasm given right-sided lumbar paraspinal muscle tenderness. Patient will be treated with pain medication and muscle relaxants. Also given medication for nausea. Patient given return precautions if any new or worsening symptoms occur. Patient understands and agrees with plan. Patient stable for discharge. Time: 10:23 Medical Decision Making Medical Decision Making [facility] Narrative: 38-year-old male presenting to the emergency department for evaluation of right flank pain x4 days. On arrival, patient mildly hypotensive at 87/48, however repeat was 100/69. Patient is afebrile. Patient was seen yesterday for the similar symptoms was thought that this was musculoskeletal. Patient does have right-sided lumbar paraspinal muscle tenderness. Given dysuria, positive CVA tenderness on the right and right upper quadrant pain, worsened right flank, I think it is reasonable to get basic labs, UA, CT abdomen without pelvis to rule out nephrolithiasis/pyelonephritis. Patient endorses nausea, no vomiting. Plan: Labs, UA, IV fluids, pain medication, CT abdomen and pelvis. Differential Diagnosis Differential Diagnoses: The differential diagnosis associated with the presentation includes Nephrolithiasis, pyelonephritis, urinary tract infection, musculoskeletal pain. Admission/Observation Consideration of admission/observation: Escalation of care including admission/observation considered Escalation of care mission in observation was considered given right-sided flank pain and hypotension however improved after receiving fluids. Lab Data [facility] Lab Attestation statement: I reviewed the patient's lab results. See above 05/07/23 09:21 05/07/23 09:21 Labs: Lab Results 05/07/23 05/07/23 05/07/23 Range/Units 09:21 09:21 09:21 WBC 6.9 (4.8-10.8) X10*3/uL RBC 6.57 H (4.60-5.80) X10*6/uL Hgb 18.1 H (14.0-18.0) g/dl Hct 55.8 H (42.0-52.0) % MCV 84.9 (80.0-98.0) fL MCH 27.5 (27.0-33.0) pg MCHC 32.4 (31.0-36.0) g/dl RDW 13.1 (11.0-16.0) % Plt Count 181 (160-400) X10*3/uL MPV 10.9 (9.4-12.4) fL Immature Gran % (Auto) 0.1 (0.0-0.4) % Neut % (Auto) 72.1 (45-73) % Lymph % (Auto) 21.0 (20-40) % [place] % (Auto) 4.8 (2-11) % Eos % (Auto) 1.7 (0-4) % Baso % (Auto) 0.3 (0-2) % Lymph # (Auto) 1.4 (1.2-4.9) X10*3/uL [place] # (Auto) 0.3 (0.1-1.2) X10*3/uL Eos # (Auto) 0.1 (0.0-0.4) X10*3/uL Baso # (Auto) 0.0 (0.0-0.2) X10*3/uL Abs Immat Gran (auto) 0.01 (0.00-0.03) X10*3/uL Absolute Neuts (auto) 5.0 (2.0-8.3) x10*3/uL Absolute Nucleated RBC 0.000 (0.0-0.012) X10*3/uL Nucleated RBC % (auto) 0.0 (0.0-0.2) /100WBC Sodium 138 (135-145) mmol/L Potassium 4.5 D (3.3-5.1) mmol/L Chloride 102 (96-108) mmol/L Carbon Dioxide 27 (22-29) mmol/L Anion Gap 14 (12-20) BUN 18 H (9-16) mg/dL Creatinine 0.82 (0.5-1.4) mg/dL Estim Creat Clear Calc 108.2 Estimated GFR > 60 Random Glucose 281 H (60-115) mg/dL Calcium 10.3 H D (8.4-10.2) mg/dL Total Bilirubin 1.2 H (0.0-1.0) mg/dL Direct Bilirubin 0.4 (0.0-0.5) mg/dL AST 21 (5-37) U/L ALT 32 (0-40) U/L Alkaline Phosphatase 118 H (39-117) U/L Total Protein 7.2 (6.5-8.0) g/dL Albumin 4.5 (3.5-5.0) g/dL Lipase 177 H (8-78) U/L Urine Color Yellow Urine Appearance Clear Urine pH 5.5 (5.0-9.0) Ur Specific [place] >= 1.030 H (1.005-1.025) Urine Protein Negative (Neg-Trace) mg/dL Urine Glucose (UA) >=1000 H (Negative) mg/dL Urine Ketones 80 (Negative) mg/dL Urine Blood Negative (Negative) Urine Nitrite Negative (Negative) Ur Leukocyte Esterase Negative (Negative) Urine RBC 0-2 (0-2) /HPF Urine WBC 0-5 (0-5) /HPF Ur Squamous Epith Cells 0-2 (0-2) /HPF Urine Bacteria None Seen (None Seen) Hyaline Casts 0-2 (0-2) /LPF Chlam trachomat DNA PCR (Not Detect.) N.gonorrhoeae DNA (PCR) (Not Detect.) 05/07/23 Range/Units 09:21 WBC (4.8-10.8) X10*3/uL RBC (4.60-5.80) X10*6/uL Hgb (14.0-18.0) g/dl Hct (42.0-52.0) % MCV (80.0-98.0) fL MCH (27.0-33.0) pg MCHC (31.0-36.0) g/dl RDW (11.0-16.0) % Plt Count (160-400) X10*3/uL MPV (9.4-12.4) fL Immature Gran % (Auto) (0.0-0.4) % Neut % (Auto) (45-73) % Lymph % (Auto) (20-40) % [place] % (Auto) (2-11) % Eos % (Auto) (0-4) % Baso % (Auto) (0-2) % Lymph # (Auto) (1.2-4.9) X10*3/uL [place] # (Auto) (0.1-1.2) X10*3/uL Eos # (Auto) (0.0-0.4) X10*3/uL Baso # (Auto) (0.0-0.2) X10*3/uL Abs Immat Gran (auto) (0.00-0.03) X10*3/uL Absolute Neuts (auto) (2.0-8.3) x10*3/uL Absolute Nucleated RBC (0.0-0.012) X10*3/uL Nucleated RBC % (auto) (0.0-0.2) /100WBC Sodium (135-145) mmol/L Potassium (3.3-5.1) mmol/L Chloride (96-108) mmol/L Carbon Dioxide (22-29) mmol/L Anion Gap (12-20) BUN (9-16) mg/dL Creatinine (0.5-1.4) mg/dL Estim Creat Clear Calc Estimated GFR Random Glucose (60-115) mg/dL Calcium (8.4-10.2) mg/dL Total Bilirubin (0.0-1.0) mg/dL Direct Bilirubin (0.0-0.5) mg/dL AST (5-37) U/L ALT (0-40) U/L Alkaline Phosphatase (39-117) U/L Total Protein (6.5-8.0) g/dL Albumin (3.5-5.0) g/dL Lipase (8-78) U/L Urine Color Urine Appearance Urine pH (5.0-9.0) Ur Specific [place] (1.005-1.025) Urine Protein (Neg-Trace) mg/dL Urine Glucose (UA) (Negative) mg/dL Urine Ketones (Negative) mg/dL Urine Blood (Negative) Urine Nitrite (Negative) Ur Leukocyte Esterase (Negative) Urine RBC (0-2) /HPF Urine WBC (0-5) /HPF Ur Squamous Epith Cells (0-2) /HPF Urine Bacteria (None Seen) Hyaline Casts (0-2) /LPF Chlam trachomat DNA PCR NOT DETECTED (Not Detect.) N.gonorrhoeae DNA (PCR) NOT DETECTED (Not Detect.) Radiology Impression Discussion of test interpretation with radiology: I have reviewed the radiologist's reading. Radiologist Impression: EXAMINATION: CT ABDOMEN AND PELVIS WITHOUT CONTRAST? CLINICAL INFORMATION: Right flank pain.? COMPARISON: None available. TECHNIQUE: Multidetector volumetric imaging was performed from the superior aspect of the liver through the pubic symphysis. Sagittal and coronal reformatted images were obtained on the technologist's workstation. Lack of intravenous and oral contrast limits visceral evaluation. This CT examination was performed using dose optimization techniques as appropriate, variously including the following: *Automated exposure control *Adjustment of mA and/or kV according to patient size (this includes techniques or standardized protocols for targeted exams where dose is matched to indication/reason for exam; i.e. extremities or head) *Use of iterative reconstruction technique DLP: 338 mGy-cm FINDINGS: LUNG BASES: The visualized lung bases are unremarkable.? LIVER, GALLBLADDER, AND BILIARY TREE: Unremarkable. PANCREAS: Unremarkable.? SPLEEN: Unremarkable.? ADRENAL GLANDS: Unremarkable.? KIDNEYS AND URETERS: The kidneys are normal in size, shape, and attenuation. No hydronephrosis, hydroureter, or calculi seen. No perinephric stranding. ? BLADDER: Moderately distended without focal mural or intraluminal abnormality.? GASTROINTESTINAL TRACT: The stomach, small bowel and appendix are unremarkable. Mild to moderate stool seen throughout the colon distally to the rectum. No focal abnormality.? ABDOMINAL WALL: No significant hernia is appreciated.? LYMPH NODES: No lymphadenopathy. VASCULAR: Unremarkable. PELVIC VISCERA: Unremarkable.? OSSEOUS STRUCTURES: L5-S1 transitional anatomy without other significant abnormality. CT/CT abdomen pelvis wo IV con IMPRESSION: 1. No acute intra-abdominal/pelvic abnormality to explain the patient's symptoms. No nephrolithiasis or hydroureteronephrosis. Moderate distention of the urinary bladder without focal abnormality. Correlate with urine output. 2. Mild to moderate colonic stool burden. Correlate with stool output. ? ? Dictated By: Dany Brewer MD Chronic Conditions Patient?s care impacted by: Diabetes Medications Administered Discontinued Medications Generic Name Dose Route Start Last Admin Trade Name Freq PRN Reason Stop Dose Admin Sodium Chloride 1,000 mls @ 999 mls/hr 05/07/23 08:52 05/07/23 10:25 Ns IV 05/07/23 09:52 Infused .Q1H1M ONE Infusion Ketorolac Tromethamine 30 mg 05/07/23 08:52 05/07/23 09:29 Ketorolac Tromethamine 30 Mg/Ml Vial IVPUSH 05/07/23 08:53 30 mg ONCE ONE Administration Discharge Plan Discharge Clinical Impression: Back pain Patient Disposition: Home, Self-Care Instructions: Back Pain (ED) Additional Instructions: Your CT scan did not show any kidney stones. It did show that you have slight constipation. Your symptoms are likely due to his musculoskeletal pain. Gentle stretching, heat or ice, and massage can help with your symptoms. Your labs and urine were reassuring today. We are sending your urine out for further testing, we will call you with any abn ormal results. Please take prescribed medications as directed. Please be aware that muscle relaxants can cause drowsiness, do not drink alcohol or drive while taking this medication. Follow-up with your primary care physician. If any new or worsening symptoms occur please return for re-evaluation. Prescriptions: New acetaminophen [Tylenol] 325 mg capsule 650 mg PO QID PRN (Reason: pain) Qty: 30 0RF cyclobenzaprine 5 mg tablet 5 mg PO DAILY Qty: 10 0RF ondansetron 4 mg tablet,disintegrating 4 mg PO Q6-8H PRN (Reason: nausea and vomiting) Qty: 14 0RF No Action nicotine (polacrilex) 2 mg gum 1 gum PO Q2H PRN (Reason: Nicotine Cravings) Levemir FlexTouch U100 Insulin 100 unit/mL (3 mL) insulin pen 34 unit subcut QAM multivitamin Tablet 1 tab PO QAM metformin 500 mg tablet 2 tab PO BID terbinafine HCl 250 mg tablet 1 tab PO DAILY rosuvastatin 20 mg tablet 1 tab PO QAM Stand Alone Forms: Work/School Release Interventions: ED Discharge Assessment Last Done: 05/07/23 11:02 Discharge Date/Time: 05/07/23 11:03
[2023-05-07] MEDS: 0.9 % Sodium Chloride 1,000 ML 999 ML IV (09:28)
[2023-05-07] MEDS: Ketorolac Tromethamine 30 MG/ML VIAL IVPUSH (09:29)
[2023-05-07 09:30] LABS: MANUAL DIFF FLAG NO
[2023-05-07 09:33] LABS: Basophils Percent Auto 0.3 % (0-2); Eosinophils Absolute Auto 0.1 X10*3/uL (0.0-0.4); Eosinophils Percent Auto 1.7 % (0-4); Hemoglobin 18.1 g/dl (14.0-18.0); Imm Gran Abs Auto 0.01 X10*3/uL (0.00-0.03); Imm Gran Pct Auto 0.1 % (0.0-0.4); Lymphocytes Absolute Auto 1.4 X10*3/uL (1.2-4.9); Mean Corpuscular HGB Conc 32.4 g/dl (31.0-36.0); Mean Corpuscular Hemoglobin 27.5 pg (27.0-33.0); Mean Corpuscular Volume 84.9 fL (80.0-98.0); Mean Platelet Volume 10.9 fL (9.4-12.4); Monocytes Absolute Auto 0.3 X10*3/uL (0.1-1.2); Monocytes Percent Auto 4.8 % (2-11); Neutrophils Percent Auto 72.1 % (45-73); Platelet Count 181 X10*3/uL (160-400); Red Blood Count 6.57 X10*6/uL (4.60-5.80); Red Cell Distribution Width 13.1 % (11.0-16.0); White Blood Count 6.9 X10*3/uL (4.8-10.8)
[2023-05-07 09:37] LABS: Hematocrit 55.8 % (42.0-52.0)
[2023-05-07 09:39] LABS: Appearance Urine Clear; Color Urine Yellow; Glucose Urine UA >=1000 mg/dL (Negative); Leukocyte Esterase Urine Negative (Negative); Nitrite Urine Negative (Negative); PH 5.5 (5.0-9.0); Specific Gravity - Urine >= 1.030 (1.005-1.025); UMIC TRIGGER UACC YES; Urine Blood Negative (Negative); Urine Ketones 80 mg/dL (Negative); Urine Protein Negative (Neg-Trace)
[2023-05-07 09:45] LABS: Bacteria Urine None Seen (None Seen); Hyaline Casts Urine 0-2 /LPF (0-2); RBC Urine 0-2 /HPF (0-2); Squamous Epithelial Cell Urine 0-2 /HPF (0-2); WBC Urine 0-5 /HPF (0-5)
[2023-05-07 09:52] LABS: Alanine Aminotransferase 32 U/L (0-40); Albumin Level 4.5 g/dL (3.5-5.0); Alkaline Phosphatase 118 U/L (39-117); Anion Gap 14 (12-20); Aspartate Amino Transferase 21 U/L (5-37); Bilirubin Direct 0.4 mg/dL (0.0-0.5); Bilirubin Total 1.2 mg/dL (0.0-1.0); Blood Urea Nitrogen 18 mg/dL (9-16); Calcium 10.3 mg/dL (8.4-10.2); Carbon Dioxide 27 mmol/L (22-29); Chloride 102 mmol/L (96-108); Creatinine Clr Calc Pharmacy 108.2; Estimated Glomerular Filt Rate > 60; Glucose Random 281 mg/dL (60-115); Lipase 177 U/L (8-78); Potassium 4.5 mmol/L (3.3-5.1); Sodium 138 mmol/L (135-145); Total Protein 7.2 g/dL (6.5-8.0)
[2023-05-07 11:37] LABS: CT PCR NOT DETECTED (Not Detect.); NG PCR NOT DETECTED (Not Detect.)
== END 2023-05-07 11:03 | disposition home or self-care (01) ==
PROVIDERS: Physician Assistant Medical; Emergency Provider Emergency Medicine
DX: M54.50 Low back pain, unspecified (principal); R10.2 Pelvic and perineal pain; R30.0 Dysuria; R10.9 Unspecified abdominal pain; Z79.899 Other long term (current) drug therapy
CPT/HCPCS: 0353U; 36415; 51798; 74176; 80048; 80076; 81001; 83690; 85025; 96361; 96374; 99284; 99285; J1885

== ENCOUNTER 2023-05-09 09:19 | Emergency (ER) | payer MEDICARE, MEDICAID, SELFPAY ==
[2023-05-09 09:24] VITALS: BP 105/70; BP 112/66; PULSE 84; PULSE 88; RESP 19; TEMP 36.7; O2SAT 96; O2SAT 97; BMI 25.1
--- NOTE | 2023-05-09 09:45 | PC.NURSE ---
Pt here per EMS, He could not afford to get his pain medications prescribed from here 2 days ago, so he called to get brought back to receive more pain medications Pt ambulated out of house for EMS, is currently belly sleeping in bed at ED.
--- NOTE | 2023-05-09 10:22 | ED.BACK ---
HPI - Back Pain/Injury General Chief Complaint: Abdominal Pain Stated Complaint: R flank pain x6 days, needs pain meds/seen recent Time Seen by Provider: 05/09/23 09:57 Source: patient Mode of arrival: ambulatory Limitations: no limitations History of Present Illness HPI Narrative: 38 year old male with history of depression, diabetes, and polysubastance abuse presents to the ED complaining of right sided back/side pain x5 days, unchanged since being evaluated in the ED 2 days ago. Patient evaluated here for this twice this past week and reports the pain is the same. No pain radiation. 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 Has been taking Motrin 800mg at home with minimal relief. Denies fever, chills, neck pain, bowel/ bladder incontinence or retention, saddle paresthesias, weakness/ numbness/ tingling to LE, or IVDU. Denies any trauma/ fall or recent heavy lifting/ pulling/ pushing. MD elicited complaint: back pain Related Data Home Medications Medication Instructions Recorded Confirmed nicotine (polacrilex) 2 mg gum 1 gum PO Q2H PRN Nicotine Cravings 03/01/22 12/30/22 insulin detemir U-100 100 unit/mL 34 unit subcut QAM 12/30/22 12/30/22 (3 mL) subcutaneous pen (Levemir FlexTouch U-100 Insulin) metformin 500 mg tablet 2 tab PO BID 12/30/22 12/30/22 multivitamin 1 tab PO QAM 12/30/22 12/30/22 rosuvastatin 20 mg tablet 1 tab PO QAM 12/30/22 12/30/22 terbinafine HCl 250 mg tablet 1 tab PO DAILY 12/30/22 12/30/22 Previous Rx's Medication Instructions Recorded acetaminophen 325 mg capsule 650 mg PO QID PRN pain #30 caps 05/07/23 (Tylenol) cyclobenzaprine 5 mg tablet 5 mg PO DAILY #10 tabs 05/07/23 ondansetron 4 mg disintegrating 4 mg PO Q6-8H PRN nausea and 05/07/23 tablet vomiting #14 tabs Allergies Allergy/AdvReac Type Severity Reaction Status Date / Time haloperidol Allergy Mild ITCHING Verified 05/09/23 09:28 Review of Systems Review of Systems: Constitutional: No Fever, No Chills, No Night Sweats, No Fatigue, No Malaise Cardiovascular: No Chest Pain, No SOB, No Edema, No Palpitations Respiratory: No Cough, No Sputum, No Wheezing Gastrointestinal: No Nausea, No Vomiting, No Diarrhea, No Constipation, No Abdominal pain Genitourinary: No irregular bleeding, No Dysuria, No Urinary Frequency, No Hematuria, No Urinary Incontinence/retention, No Urgency, No Flank Pain, No Urinary Flow Changes, No Hesitancy Musculoskeletal: + joint pain, + Myalgias, No Joint Swelling Skin: No Skin Lesions, No rash Neuro: No Weakness, No Numbness, No Paresthesias Yes all other systems are reviewed and are negative Constitutional: Constitutional: Reports as per [facility] Past Medical History Attestation statement: The following information was validated with the patient. Source: old records reviewed and nursing notes reviewed Medical History Depression Diabetes Surgical History H/O circumcision Family History Family History Mother No problems noted. Father No problems noted. Social History Social History Alcohol intake: current Alcohol intake frequency: holidays/special occasions only Alcohol type: hard liquor Patient Tobacco Use Status: Current everyday Tobacco user Substance Use Type: Marijuana Advance Directives: No Advance Directives Information Provided: Yes Current occupational status: unemployed and disabled Physical Exam Vital Signs: Vital Signs: Last Vital Signs Temp 98.1 F 05/09/23 14:43 Pulse 86 05/09/23 14:43 Resp 18 05/09/23 14:43 BP 94/54 L 05/09/23 14:43 Pulse Ox 96 05/09/23 14:43 O2 Del Method Room Air 05/09/23 14:43 BMI result Body Mass Index 25.1 Const: General: cooperative, healthy appearing, alert and awake Nutritional Appearance: average body habitus Orientation/consciousness: patient oriented x3 Limitations: no limitations HEENT: Head: Yes normal to inspection and Yes atraumatic Ears: hearing grossly normal bilaterally General nose exam: Normal external nose present Face and sinus: Yes normal facial exam Eyes: General: appearance normal, both eyes and all related structures Pupils: Equal, round and reactive pupils present EOM: EOMs intact bilaterally Neck: Neck: Yes normal visual inspection, Yes no meningeal signs and No midline deformity Chest: Chest palpation & inspection: normal inspection of the chest, no crepitus, tenderness rib (right anterior lateral ribs) and No rash Resp: Effort & Inspection: normal respiratory effort and no respiratory distress Auscultation: clear to auscultation bilaterally Cardio: Rate: regular rate Heart sounds: S1 normal heart sound present and S2 normal heart sound present Peripheral pulses: Peripheral pulses 2+ throughout GI: Other: Abdomen without erythema, ecchymosis, or obvious masses/ deformity, + diffusely tender to palpation, nonfocal. No rebound tenderness or guarding. Inspection: Yes normal to inspection Palpation (GI): Soft to palpation, Tenderness to palpation present (GI), no guarding, not rigid, hepatosplenomegaly present and no pulsatile masses : General: Yes no CVA tenderness Back/Spine/Pelvis: Other: Back without erythema, ecchymosis, obvious deformity, no midline spinous tenderness, no step offs, + diffuse msk tenderness to palpation to the upper thoracic and lower lumbar region. Neurovascularly intact. No flail chest Back: no CVA tenderness, No mass, No erythema, No ecchymosis and back tenderness Thoracic/Lumbar Spine: thoracic and lumbar spine normal to inspection Skin: General skin exam: no rashes or lesions noted Rashes: no rashes Wounds: no wounds Neuro: Other: Strength intact throughout. No saddle anesthesia. Sensation intact to light touch. Neurovascular intact distally General: patient oriented x3, gait normal, tone normal, moves all extremities, no meningeal signs, no focal motor deficits and CN's II-XI intact bilaterally Cranial nerves: Yes CN's II-XII intact bilaterally and Yes Equal, round and reactive pupils present Gait exam (Neuro): Normal gait present Motor exam (neuro): 5/5 motor strength present throughout Extrem: General: Yes normal to inspection and Yes no pedal edema Course Course Course Narrative: XR ribs RT min 3V w CXR1V IMPRESSION: No acute parenchymal disease within the chest. ? No definite acute displaced right rib fracture. ? Sclerotic lesion involving anterior aspect of the eighth rib for which further evaluation could be performed with CT scan. If osteoid osteoma is truly questioned then 3 phase bone scan could be performed. >> will obtain CT chest for further evaluation -[id number]--patient is sleeping comfortably in stretcher. 1500--CT chest wo IV con IMPRESSION: 1.? No acute abnormality. 2.? 5 mm sclerotic focus within the lateral aspect of the T9 rib corresponding to the density on radiographs. The appearance is characteristic for a bone island. No further follow up necessary 3.? Incidental note made of a 5 mm hypodensity in the left lobe of the thyroid. Given its small size no follow-up is necessary. 4.? No Coronary artery calcifications. ? Fleischner guidelines were followed. > results discussed with patient, he is lying comfortably in stretcher, ambulating in the ED with steady gait. Previously prescribed prescriptions are waiting for him at the pharmacy. Feel safe for discharge home at this time Results discussed with patient including worrisome signs and symptoms and strict return precautions, and when to return to the emergency department. They verbalized understanding and feel safe for discharge at this time. Medications Administered Discontinued Medications Generic Name Dose Route Start Last Admin Trade Name Freq PRN Reason Stop Dose Admin Cyclobenzaprine HCl 10 mg 05/09/23 10:44 05/09/23 10:51 Cyclobenzaprine Hcl 10 Mg Tablet PO 05/09/23 10:45 10 mg ONCE ONE Administration Ketorolac Tromethamine 30 mg 05/09/23 10:44 05/09/23 10:51 Ketorolac Tromethamine 30 Mg/Ml Vial IM 05/09/23 10:45 30 mg ONCE ONE Administration Lidocaine 1 patch 05/09/23 10:44 05/09/23 10:51 Lidocaine 4 % Patch Adh..Patch TRANSDERMA 05/09/23 10:45 1 patch ONCE ONE Administration Protocol Medical Decision Making Medical Decision Making MDM Narrative: 38 year old male with history of depression, diabetes, and polysubastance abuse presents to the ED complaining of right sided back/side pain x5 days, unchanged since being evaluated in the ED 2 days ago. Vital signs are stable. Physical exam significant for diffuse msk tenderness to palpation to the right upper thoracic and lower lumbar region, soft abdomen, diffusely tender to palpation. + right anterior lateral rib tenderness without evidence of flail chest or trauma. Clinical suspicion for msk strain vs rib fracture/contusion. Lower suspicion for cauda equina, epidural abscess, spinal fracture, cord compression. Low suspicion for appendicitis/diverticulitis, cholecystitis/ascites or other intra-abdominal pathology with recent negative CT from 05/07, and pain being unchanged. Plan: pain control, XR right ribs Patient's exam shows diffusely tender abdomen however patient states this pain is unchanged since evaluation 2 days ago and had a negative CT scan. Will hold off of re-scanning patient at this time. Results discussed with patient including worrisome signs and symptoms and strict return precautions, and when to return to the emergency department. They verbalized understanding and feel safe for discharge at this time. Differential Diagnosis Differential Diagnoses: The differential diagnosis associated with the presentation includes as above Admission/Observation Consideration of admission/observation: Escalation of care including admission/observation considered Lab Data Labs: Lab Results 05/09/23 Range/Units 11:00 Urine Color Yellow Urine Appearance Clear Urine pH 5.5 (5.0-9.0) Ur Specific [place] >= 1.030 H (1.005-1.025) Urine Protein Negative (Neg-Trace) mg/dL Urine Glucose (UA) >=1000 H (Negative) mg/dL Urine Ketones >=160 (Negative) mg/dL Urine Blood Negative (Negative) Urine Nitrite Negative (Negative) Ur Leukocyte Esterase Negative (Negative) Urine RBC 0-2 (0-2) /HPF Urine WBC 0-5 (0-5) /HPF Ur Squamous Epith Cells 0-2 (0-2) /HPF Urine Bacteria None Seen (None Seen) Hyaline Casts 0-2 (0-2) /LPF Independent Interpretation I performed an independent interpretation of an: Plain X-Ray Radiology Impression Discussion of test interpretation with radiology: I have reviewed the radiologist's reading. External Record Review External record reviewed: Inpatient record, Outpatient record, Prior outpatient labs and Prior outpatient radiology Tests considered The following testing was considered but not selected: As above Prescription Management I considered prescription management with: Pain Medication Chronic Conditions Patient?s care impacted by: Diabetes and Other (polysubstance abuse) Social Determinants Patient?s care significantly limited by Social Determinants of Health including: Low income Discharge Plan Discharge Clinical Impression: Muscle ache, Flank pain Patient Disposition: Home, Self-Care Instructions: Acute Abdominal Pain (ED), Musculoskeletal Pain (ED) Additional Instructions: Your urine was negative for infection. Your chest xray showed a bony lesion on your 8th rib which was confirmed with CT scan. Please follow up with your PCP for further work up regarding this finding. You CT scan also showed a nodule on your thyroid. Please follow up with an chief hydroelectric station operator regarding this finding. Your pain is likely musculoskeletal in nature. Please pick up worker the pain medication and muscle relaxers that were sent to your pharmacy two days ago. Return to the ED if your back pain worsens. XR ribs RT min 3V w CXR1V IMPRESSION: No acute parenchymal disease within the chest. ? No definite acute displaced right rib fracture. ? Sclerotic lesion involving anterior aspect of the eighth rib for which further evaluation could be performed with CT scan. If osteoid osteoma is truly questioned then 3 phase bone scan could be performed. CT chest wo IV con IMPRESSION: 1.? No acute abnormality. 2.? 5 mm sclerotic focus within the lateral aspect of the T9 rib corresponding to the density on radiographs. The appearance is characteristic for a bone island. No further follow up necessary 3.? Incidental note made of a 5 mm hypodensity in the left lobe of the thyroid. Given its small size no follow-up is necessary. 4.? No Coronary artery calcifications. ? ? Prescriptions: No Action nicotine (polacrilex) 2 mg gum 1 gum PO Q2H PRN (Reason: Nicotine Cravings) Levemir FlexTouch U100 Insulin 100 unit/mL (3 mL) insulin pen 34 unit subcut QAM multivitamin Tablet 1 tab PO QAM metformin 500 mg tablet 2 tab PO BID terbinafine HCl 250 mg tablet 1 tab PO DAILY rosuvastatin 20 mg tablet 1 tab PO QAM acetaminophen [Tylenol] 325 mg capsule 650 mg PO QID PRN (Reason: pain) Qty: 30 0RF cyclobenzaprine 5 mg tablet 5 mg PO DAILY Qty: 10 0RF ondansetron 4 mg tablet,disintegrating 4 mg PO Q6-8H PRN (Reason: nausea and vomiting) Qty: 14 0RF Referrals: [facility] [Provider Group] - 1 week Physician,Unknown J [Primary Care Provider] - Interventions: ED Discharge Assessment Last Done: 05/09/23 15:35 Discharge Date/Time: 05/09/23 15:34
[2023-05-09 14:43] VITALS: BP 94/54; PULSE 86; RESP 18; TEMP 36.7; O2SAT 96
--- NOTE | 2023-05-09 15:34 | PC.NURSE ---
Patient did not want to wait for discharge to be completed by provider and left ama
== END 2023-05-09 15:34 | disposition home or self-care (01) ==
PROVIDERS: Emergency Provider Emergency Medicine Emergency Medical Services
DX: R10.9 Unspecified abdominal pain (principal); M79.18 Myalgia, other site; E11.9 Type 2 diabetes mellitus without complications; F17.200 Nicotine dependence, unspecified, uncomplicated; F12.90 Cannabis use, unspecified, uncomplicated; Z79.4 Long term (current) use of insulin; Z79.899 Other long term (current) drug therapy
CPT/HCPCS: 71101; 71250; 81001; 99284; J1885

== ENCOUNTER 2023-11-04 03:07 | Emergency (ER) | payer MEDICARE, MEDICAID, SELFPAY ==
--- NOTE | ~2023-11-04 | XR_ITS ---
EXAMINATION: XR FOOT, LEFT CLINICAL INFORMATION: Pain COMPARISON: None available. TECHNIQUE: AP, lateral, and oblique views of the left foot. FINDINGS: The bones and soft tissues are normal. No fracture. Alignment is anatomic. Joint spaces are maintained. XR/XR foot LT 2V IMPRESSION: No significant abnormality identified.
--- NOTE | ~2023-11-04 | XR_ITS ---
EXAMINATION: XR HAND, LEFT CLINICAL INFORMATION: Left hand pain. Injury. COMPARISON: None available. TECHNIQUE: PA, lateral, and oblique views of the left hand. XR/XR hand LT min 3V FINDINGS/IMPRESSION: Examination demonstrates a minimally displaced fracture at the base of the left fifth proximal phalanx, appreciated on lateral view only. The fracture plane may possibly extend to the joint space. Associated soft tissue swelling. No other fracture or dislocation is identified. Joint spaces otherwise appear maintained. Bony mineralization appears preserved. No erosion or soft tissue calcification is noted.
[2023-11-04 03:35] VITALS: BP 101/60; PULSE 101; RESP 16; TEMP 36.6; O2SAT 98; BMI 21.6
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
--- NOTE | 2023-11-04 06:59 | PC.NURSE ---
Pt is easily arousable with verbal stimuli and oncoming provider was in to see the pt.
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
== END 2023-11-04 08:22 | disposition home or self-care (01) ==
PROVIDERS: Emergency Provider Emergency Medicine Emergency Medical Services
DX: S62.617A Displaced fracture of proximal phalanx of left little finger, initial encounter for closed fracture (principal); M79.672 Pain in left foot; E11.9 Type 2 diabetes mellitus without complications; Y04.2XXA Assault by strike against or bumped into by another person, initial encounter; Y93.9 Activity, unspecified; Y92.9 Unspecified place or not applicable; Y99.9 Unspecified external cause status
CPT/HCPCS: 29130; 73130; 73620; 99283; 99284

== ENCOUNTER 2024-01-03 02:34 | Emergency (ER) | payer MEDICARE, MEDICAID, SELFPAY ==
[2024-01-03 02:47] VITALS: BP 104/67; PULSE 103; RESP 12; TEMP 36.2; O2SAT 100; BMI 29.3
[2024-01-03 03:08] VITALS: BP 107/71; PULSE 94; TEMP 37; O2SAT 99
[2024-01-03 03:13] VITALS: PULSE 96
--- NOTE | 2024-01-03 03:14 | PC.NURSE ---
Patient presenting to ED for increased depression. Patient denies SI/HI. Patient reports he is a daily drinker, states he drinks on average 1 pint of vodka and beer daily and smokes marijuana and crack and takes opioids. Patient reports taking unknown opio prior coming to ED. Patient changed over into behavioral pod attire, belongings secured by security. Patient placed on monitoring analyst, VSS. Patient reports pain in left eye. Call blandon placed into patient's reach.
--- NOTE | 2024-01-03 03:23 | ECG_ITS ---
Test Reason : ETOH Blood Pressure : / mmHG Vent. Rate : 099 BPM Atrial Rate : 099 BPM P-R Int : 140 ms QRS Dur : 082 ms QT Int : 344 ms P-R-T Axes : 070 085 056 degrees QTc Int : 441 ms Normal sinus rhythm Normal ECG When compared with ECG of 26-SEP-2022 13:53, No significant change was found Referred By: Generic ED Physician Electronically Signed By:AGNES MORENO MD
[2024-01-03 04:05] LABS: Hematocrit 43.6 % (42.0-52.0); Hemoglobin 14.2 g/dl (14.0-18.0); Mean Corpuscular HGB Conc 32.6 g/dl (31.0-36.0); Mean Corpuscular Hemoglobin 27.9 pg (27.0-33.0); Mean Corpuscular Volume 85.7 fL (80.0-98.0); Mean Platelet Volume 11.3 fL (9.4-12.4); Platelet Count 142 X10*3/uL (160-400); Red Blood Count 5.09 X10*6/uL (4.60-5.80); White Blood Count 5.4 X10*3/uL (4.8-10.8)
[2024-01-03 04:17] LABS: Amphetamine Screen Urine Not Detected (Not Detect); Barbiturates, Urine Not Detected (Not Detect); Benzodiazepines Screen Urine Not Detected (Not Detect); Cannabinoid Screen Urine Not Detected (Not Detect); Cocaine Screen Urine Not Detected (Not Detect); Fentanyl, urine Not Detected (Not Detect); Opiate Screen Urine Not Detected (Not Detect); Phencyclidine Screen Urine POSITIVE (Not Detect)
[2024-01-03 04:33] LABS: Troponin-I High Sensitivity < 2.7 ng/L (<3.5-35.0)
[2024-01-03 04:35] LABS: Anion Gap 15 (12-20); Blood Urea Nitrogen 18 mg/dL (9-16); Carbon Dioxide 24 mmol/L (22-29); Chloride 101 mmol/L (96-108); Creatinine Clr Calc Pharmacy 89.5; Estimated Glomerular Filt Rate > 60; Ethanol < 10 mg/dL; Glucose Random 523 mg/dL (60-115); Sodium 136 mmol/L (135-145)
--- NOTE | 2024-01-03 04:35 | PC.NURSE ---
Lab called with critical blood glucose level [phone]. Dr. Padilla notified.
--- NOTE | 2024-01-03 04:44 | ED_ITS ---
HPI - Psych General Chief Complaint: ETOH/Substance Use Stated Complaint: Crisis Time Seen by Provider: 01/03/24 04:43 Source: patient Mode of arrival: ambulatory Limitations: no limitations History of Present Illness HPI Narrative: 38-year-old male who presents emergency department for evaluation of depression. The patient told the triage nurse that he was feeling lost. He reported that he smoked marijuana, drinks 6 beers, did an opiate and also used PCP. He denied suicidal or homicidal ideation. He states that he was more depressed since his dog ran away. Patient is complaining of left eye pain he states that he rubbed his eye any is concerned that his eyes infected. Patient states he does have diabetes but he has not been taking his medications. He states that he takes pills but does not know the name of the pills that he is supposed to be taking. Related Data Home Medications Medication Instructions Recorded Confirmed nicotine (polacrilex) 2 mg gum 1 gum PO Q2H PRN Nicotine Cravings 03/01/22 12/30/22 insulin detemir U-100 100 unit/mL 34 unit subcut QAM 12/30/22 12/30/22 (3 mL) subcutaneous pen (Levemir FlexTouch U-100 Insulin) metformin 500 mg tablet 2 tab PO BID 12/30/22 12/30/22 multivitamin 1 tab PO QAM 12/30/22 12/30/22 rosuvastatin 20 mg tablet 1 tab PO QAM 12/30/22 12/30/22 terbinafine HCl 250 mg tablet 1 tab PO DAILY 12/30/22 12/30/22 Previous Rx's Medication Instructions Recorded acetaminophen 325 mg capsule 650 mg (2 x 325 mg) PO QID PRN 05/07/23 (Tylenol) pain #30 caps cyclobenzaprine 5 mg tablet 5 mg PO DAILY #10 tabs 05/07/23 ondansetron 4 mg disintegrating 4 mg PO Q6-8H PRN nausea and 05/07/23 tablet vomiting #14 tabs erythromycin 5 mg/gram (0.5 %) eye 0.5 inch ophthalmic (eye) TID 7 01/03/24 ointment days #3.5 grams ibuprofen 400 mg tablet 400 mg PO TID PRN fever or pain 01/03/24 #30 tabs metformin 500 mg tablet 1,000 mg (2 x 500 mg) PO BID 30 01/03/24 days #120 tabs Allergies Allergy/AdvReac Type Severity Reaction Status Date / Time haloperidol Allergy Mild ITCHING Verified 01/03/24 02:47 Review of Systems 2 Review of Systems: Yes all other systems are reviewed and are negative [facility] Past Medical History Medical History Ingrown hair Abscess Diabetes Depression Surgical History H/O circumcision Family History Family History Mother No problems noted. Father No problems noted. Social History Social History Alcohol intake: current Alcohol intake frequency: holidays/special occasions only Alcohol type: hard liquor Patient Tobacco Use Status: Current everyday Tobacco user Smoked in Last 30 Days: Yes Substance Use Type: Crack/Cocaine, Marijuana and Opiates Substance Use Frequency: Daily Advance Directives: No Advance Directives Information Provided: No Current occupational status: unemployed and disabled Physical Exam 2 Vital Signs: Vital Signs: Last Vital Signs Temp 97.6 F 01/03/24 06:28 Pulse 93 01/03/24 06:28 Resp 17 01/03/24 06:28 BP 112/79 01/03/24 06:28 Pulse Ox 98 01/03/24 06:28 O2 Del Method Room Air 01/03/24 06:28 BMI result Body Mass Index 29.3 Vital signs were normal Exam: General: At the time my evaluation patient is somnolent, he wakes up but then falls asleep Head: Normocephalic, atraumatic EENT: PERRL, left upper eyelid is swollen, left sclera is injected with no discharge, normal conjunctiva is normal. Fluorescein dye and Wood's lamp evaluation did reveal a small corneal abrasion Lung: breath sounds symmetric, no wheezing, rales or rhonchi Chest: symmetric movement, nontender Heart: regular rate and rhythm, normal S1, S2 no murmurs or rubs Abdomen: soft, non-tender, nondistended, normal bowel sounds Back: no vertebral tenderness, no CVAT Extremities: no deformities, moves all extremities symmetricallyth Neuro: Somnolent but arousable, oriented, normal speech, cranial nerves intact, moves all extremities symmetrically Psych: Somnolent, arousable, wants to be left alone so that he can sleep Medications Administered Discontinued Medications Generic Name Dose Route Start Last Admin Trade Name Aminta PRN Reason Stop Dose Admin Sodium Chloride 1,000 mls @ 999 mls/hr 01/03/24 04:50 01/03/24 06:19 Ns IV 01/03/24 05:50 Infused .Q1H1M STA Infusion Sodium Chloride 1,000 mls @ 999 mls/hr 01/03/24 05:00 01/03/24 06:22 Ns IV 01/03/24 06:00 999 mls/hr .Q1H1M STA Administration Ibuprofen 400 mg 01/03/24 04:50 01/03/24 05:09 Ibuprofen 600 Mg Tablet PO 01/03/24 04:51 400 mg ONCE STA Administration Insulin Human Regular 10 unit 01/03/24 04:50 01/03/24 05:10 Insulin Regular, Human 100 Unit/Ml 3 Ml Vial IVPUSH 01/03/24 04:51 10 unit ONCE ONE Administration Medical Decision Making Medical Decision Making MDM Narrative: 38-year-old male who presents emergency department for evaluation of depression, left eye pain, noncompliance with diabetic medications. Vital signs were unremarkable. Examination revealed that he was somnolent and wanted to be left alone, left eye exam did reveal swelling of the upper eyelid with injected sclera but no discharge. Differential diagnosis: ?Includes but is not limited to depression, anxiety, suicidal ideation, homicidal ideation, polysubstance use, alcohol intoxication, contusion to left eye, corneal abrasion, conjunctivitis Following evaluation was ordered: CBC, BMP, ethanol level, drug screen urine, troponin, EKG Patient was initially treated with the following: Ibuprofen 400 mg orally, normal saline IV x2, regular insulin 10 units IV Course: 06:55 My interpretation of the patient's laboratory evaluation is as follows: CBC was normal except for low platelet count of 142,000-this is chronic. BUN elevated 18. Glucose elevated 523. Troponin was below detectable limits Patient's EKG was unremarkable. Urine tox screen was positive for PCP only. Ethanol was below detectable limits. Patient's hyperglycemia is secondary to noncompliance with his medications. Patient's glucose did come down to 132 after receiving 1 L of normal saline IV and 10 units of regular insulin IV. Patient was given a prescription for metformin 1000 mg q.12 hours for 1 month. I did tell him it is important that he take his other diabetes medications as well. Patient was given prescription for erythromycin ointment 3 times a day to his left eye for 7 days and ibuprofen 400 mg 3 times a day as needed for pain. He was given printed and verbal instructions discharged home. Admission/Observation Consideration of admission/observation: Escalation of care including admission/observation considered Lab Data [facility] Lab Attestation statement: I reviewed the patient's lab results. 01/03/24 03:49 01/03/24 03:49 Labs: Lab Results 01/03/24 01/03/24 Range/Units 03:49 06:13 WBC 5.4 (4.8-10.8) X10*3/uL RBC 5.09 D (4.60-5.80) X10*6/uL Hgb 14.2 D (14.0-18.0) g/dl Hct 43.6 D (42.0-52.0) % MCV 85.7 (80.0-98.0) fL MCH 27.9 (27.0-33.0) pg MCHC 32.6 (31.0-36.0) g/dl RDW 14.0 (11.0-16.0) % Plt Count 142 L (160-400) X10*3/uL MPV 11.3 (9.4-12.4) fL Absolute Nucleated RBC 0.000 (0.0-0.012) X10*3/uL Nucleated RBC % (auto) 0.0 (0.0-0.2) /100WBC Sodium 136 (135-145) mmol/L Potassium 4.0 (3.3-5.1) mmol/L Chloride 101 (96-108) mmol/L Carbon Dioxide 24 (22-29) mmol/L Anion Gap 15 (12-20) BUN 18 H (9-16) mg/dL Creatinine 0.86 (0.5-1.4) mg/dL Estim Creat Clear Calc 89.5 Estimated GFR > 60 POC Glucose 132 H (60-115) mg/dL Random Glucose 523 H* (60-115) mg/dL Calcium 9.0 D (8.4-10.2) mg/dL Troponin I High Sens < 2.7 (<3.5-35.0) ng/L Urine Opiates Screen Not Detected (Not Detect) Urine Fentanyl Screen Not Detected (Not Detect) Ur Barbiturates Screen Not Detected (Not Detect) Ur Phencyclidine Scrn POSITIVE H (Not Detect) Ur Amphetamines Screen Not Detected (Not Detect) U Benzodiazepines Scrn Not Detected (Not Detect) Urine Cocaine Screen Not Detected (Not Detect) U Marijuana (THC) Screen Not Detected (Not Detect) Ethyl Alcohol < 10 mg/dL Independent Interpretation I performed an independent interpretation of an: EKG Interpretation: My interpretation patient's 12 EKG done at 03:24 hours is as follows: Normal sinus rhythm rate of 99, normal DC interval, QRS duration QTC interval, no ST segment elevation, no ST segment depression, J-point elevation only, no significant T-wave abnormalities, no PACs, no PVCs Discharge Plan Discharge Clinical Impression: PCP (phencyclidine) abuse, Corneal abrasion, left, Acute hyperglycemia, Noncompliance with medication regimen Patient Disposition: Home, Self-Care Instructions: Corneal Abrasion (ED) Additional Instructions: Your fluorescein dye exam revealed an abrasion to your left cornea, this is what is causing your pain Use erythromycin ointment 3 times a day for 7 days to your left eye Take ibuprofen 200 mg pills, 2 pills every 6 hours as needed for pain or fever. Your urine tox screen was positive for PCP (phencyclidine). This is a dangerous drug in you should consider getting in a treatment program to help you stop using this drug. Take ibuprofen 400 mg pills, 1 pills every 6 hours as needed for pain. Your sugar was very high because you have not been taking your metformin. Take metformin 1000 mg twice a day. Continue taking your other diabetes medications as well. Follow-up with your doctor in 2 days. Please return to the emergency department if your symptoms get worse or if you develop any symptoms that are concerning to you. Prescriptions: New erythromycin 5 mg/gram (0.5 %) ointment 0.5 inch ophthalmic (eye) TID 7 Days Qty: 3.5 0RF ibuprofen 400 mg tablet 400 mg PO TID PRN (Reason: fever or pain) Qty: 30 0RF metformin 500 mg tablet 1,000 mg PO BID 30 Days Qty: 120 0RF No Action nicotine (polacrilex) 2 mg gum 1 gum PO Q2H PRN (Reason: Nicotine Cravings) Levemir FlexTouch U100 Insulin 100 unit/mL (3 mL) insulin pen 34 unit subcut QAM multivitamin Tablet 1 tab PO QAM metformin 500 mg tablet 2 tab PO BID terbinafine HCl 250 mg tablet 1 tab PO DAILY rosuvastatin 20 mg tablet 1 tab PO QAM acetaminophen [Tylenol] 325 mg capsule 650 mg PO QID PRN (Reason: pain) Qty: 30 0RF cyclobenzaprine 5 mg tablet 5 mg PO DAILY Qty: 10 0RF ondansetron 4 mg tablet,disintegrating 4 mg PO Q6-8H PRN (Reason: nausea and vomiting) Qty: 14 0RF
[2024-01-03] MEDS: Ibuprofen 600 MG TABLET 400 MG PO (05:09)
[2024-01-03] MEDS: Insulin Regular, Human 100 UNIT/ML 3 ML VIAL 10 UNIT IVPUSH (05:10)
[2024-01-03] MEDS: 0.9 % Sodium Chloride 1,000 ML 999 ML IV ×2 (05:10→06:22)
--- NOTE | 2024-01-03 05:22 | PC.NURSE ---
20 G IV line established in R forearm, regular insulin 10 units administered via IV push, bolus of NS 1 L started and infusing w/o issues, patient medicated with Ibuprofen 400 mg mg PO for L eye pain. Call blandon in patient's reach, plan of care ongoing.
[2024-01-03 06:16] LABS: Glucose, Whole Blood 132 mg/dL (60-115)
[2024-01-03 06:22] VITALS: BP 113/83; PULSE 97; RESP 18; TEMP 36.9; O2SAT 96
[2024-01-03 06:28] VITALS: BP 112/79; PULSE 93; RESP 17; TEMP 36.4; O2SAT 98
== END 2024-01-03 07:00 | disposition home or self-care (01) ==
PROVIDERS: Emergency Provider Emergency Medicine Emergency Medical Services
DX: S05.02XA Injury of conjunctiva and corneal abrasion without foreign body, left eye, initial encounter (principal); F33.1 Major depressive disorder, recurrent, moderate; F12.90 Cannabis use, unspecified, uncomplicated; F16.10 Hallucinogen abuse, uncomplicated; E11.65 Type 2 diabetes mellitus with hyperglycemia; H57.12 Ocular pain, left eye; X58.XXXA Exposure to other specified factors, initial encounter; Y93.9 Activity, unspecified; Y92.9 Unspecified place or not applicable; Y99.8 Other external cause status; Z79.4 Long term (current) use of insulin; Z79.899 Other long term (current) drug therapy
CPT/HCPCS: 36415; 80048; 80307; 82947; 84484; 85027; 93005; 96361; 96374; 99284; 99285

== ENCOUNTER → 2024-01-03 03:23 | Outpatient (BNV) | payer MEDICARE, MEDICAID, SELFPAY | PROVIDERS: Emergency Provider Emergency Medicine Emergency Medical Services; Visit Provider Internal Medicine Cardiovascular Disease | DX: F10.10 Alcohol abuse, uncomplicated (principal) | CPT/HCPCS: 93010 ==

== ENCOUNTER 2024-01-19 16:10 | Emergency (ER) | payer MEDICARE, MEDICAID, SELFPAY ==
[2024-01-19 17:33] VITALS: BP 125/86; PULSE 101; RESP 16; TEMP 36.3; O2SAT 99; BMI 21.8
--- NOTE | 2024-01-19 17:42 | ED.GENADULT ---
HPI - General Adult General Chief complaint: Eye Problems Stated complaint: left eye sty Time Seen by Provider: 01/19/24 17:34 Source: patient Mode of arrival: ambulatory Limitations: no limitations History of Present Illness HPI narrative: 38-year-old male with past medical history of diabetes and depression and PCP use presents to ED for painful lump on left upper eyelid that is recurrent. Patient denies any eye pain, loss of vision, change in vision, recent trauma, nausea, vomiting, photophobia, or headache. Related Data Home Medications Medication Instructions Recorded Confirmed nicotine (polacrilex) 2 mg gum 1 gum PO Q2H PRN Nicotine Cravings 03/01/22 12/30/22 insulin detemir U-100 100 unit/mL 34 unit subcut QAM 12/30/22 12/30/22 (3 mL) subcutaneous pen (Levemir FlexTouch U-100 Insulin) metformin 500 mg tablet 2 tab PO BID 12/30/22 12/30/22 multivitamin 1 tab PO QAM 12/30/22 12/30/22 rosuvastatin 20 mg tablet 1 tab PO QAM 12/30/22 12/30/22 terbinafine HCl 250 mg tablet 1 tab PO DAILY 12/30/22 12/30/22 Previous Rx's Medication Instructions Recorded acetaminophen 325 mg capsule 650 mg (2 x 325 mg) PO QID PRN 05/07/23 (Tylenol) pain #30 caps cyclobenzaprine 5 mg tablet 5 mg PO DAILY #10 tabs 05/07/23 ondansetron 4 mg disintegrating 4 mg PO Q6-8H PRN nausea and 05/07/23 tablet vomiting #14 tabs erythromycin 5 mg/gram (0.5 %) eye 0.5 inch ophthalmic (eye) TID 7 01/03/24 ointment days #3.5 grams ibuprofen 400 mg tablet 400 mg PO TID PRN fever or pain 01/03/24 #30 tabs metformin 500 mg tablet 1,000 mg (2 x 500 mg) PO BID 30 01/03/24 days #120 tabs Allergies Allergy/AdvReac Type Severity Reaction Status Date / Time haloperidol Allergy Mild ITCHING Verified 01/03/24 02:47 Review of Systems Review of Systems: left eyelid painful bump Yes all other systems are reviewed and are negative PMFSH Past Medical History Medical History Ingrown hair Abscess Diabetes Depression Surgical History H/O circumcision Family History Family History Mother No problems noted. Father No problems noted. Social History Social History Alcohol intake: current Alcohol intake frequency: holidays/special occasions only Alcohol type: hard liquor Patient Tobacco Use Status: Current everyday Tobacco user Substance Use Type: Crack/Cocaine, Marijuana and Opiates Advance Directives: No Advance Directives Information Provided: No Current occupational status: unemployed and disabled Physical Exam ED Vital Signs: Vital Signs - 24 hr 01/19/24 17:33 Temperature 97.3 F Pulse Rate 101 H Respiratory Rate 16 Blood Pressure 125/86 Pulse Oximetry 99 Oxygen Delivery Method Room Air BMI result Body Mass Index 21.8 Const General: cooperative, healthy appearing, comfortable, no acute distress, well developed, alert, awake and Physically active Orientation/consciousness: oriented to person, oriented to place, oriented to time and patient oriented x3 HENMT Head: Yes normal to inspection, Yes No palpable skull fracture present, Yes normocephalic and Yes atraumatic Eyes Other: Vision normal General: appearance normal, both eyes and all related structures Visual Lu: normal visual lu by confrontation Alignment and Position: alignment normal Periorbital: periorbital findings normal Conjunctivae: conjunctivae normal Sclerae: sclerae normal Corneas: corneas normal Pupils: Equal, round and reactive pupils present EOM: EOMs intact bilaterally Eyes/upper lids images: 1. Positive for external stye 2. Positive for external stye Neck Neck: Yes normal visual inspection, Yes full ROM, Yes no lymphadenopathy, Yes no meningeal signs, Yes trachea midline, Yes supple, No anterior neck swelling and No tender Chest Chest palpation & inspection: normal inspection of the chest and normal palpation of entire chest wall Resp Effort & Inspection: normal respiratory effort and able to speak in complete sentences Auscultation: clear to auscultation bilaterally Cardio Jugular venous distension: no JVD Heart sounds: S1 normal heart sound present and S2 normal heart sound present GI Inspection: Yes normal to inspection Palpation (GI): Soft to palpation, not firm, nontender, no guarding and not rigid General: No CVA tenderness and Yes no CVA tenderness Back/Spine/Pelvis Back: no CVA tenderness, No CVA tenderness and No back tenderness Skin General skin exam: no rashes or lesions noted, elasticity normal and turgor normal Neuro General: oriented to person, oriented to place, oriented to time, patient oriented x3, gait normal, tone normal, moves all extremities, Normal light touch and pain sensation, no meningeal signs, no focal motor deficits, CN's II-XI intact bilaterally and normal sensation to monofilament Cranial nerves: Yes Equal, round and reactive pupils present Extrem General: Yes normal to inspection, Yes full ROM and Yes capillary refill normal Psych Appearance: grossly normal, well kempt and not disheveled Course Course Course Narrative: RME: 38 yold male presents to the ED for left eye styes Medical Decision Making Medical Decision Making MDM Narrative: 38-year-old male presents to ED for painful lump on left upper eyelid. Exam indicate stye. Patient informed and educated on warm compression and baby shampoo. According to up-to-date no antibiotics needed. 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 Patient explained worrisome signs and informed to return to the ED if he has them. Not suspecting orbital or preseptal cellulitis. Not suspecting conjunctivitis, or corneal abrasion. Differential Diagnosis Differential Diagnoses: The differential diagnosis associated with the presentation includes (Stye, she lays on, preseptal cellulitis) Admission/Observation Consideration of admission/observation: Escalation of care including admission/observation considered Independent Historian Clinical information obtained from an independent historian. History obtained from or confirmed by: Other (Patient) External Record Review External record reviewed: Other (Prior visits) Discharge Plan Discharge Clinical Impression: [employer] external Patient Disposition: Home, Self-Care Instructions: Stye (ED) Additional Instructions: Recommend [id number] baby shampoo on eyelid. Also recommend warm compress on left eye 4 times a day for 15 minutes. You need follow-up with eye doctor. Return to the ED immediately for loss of vision, change in vision, eye pain eye redness, eye discharge, headache, fever, chills, or any other concerning symptoms. Prescriptions: No Action nicotine (polacrilex) 2 mg gum 1 gum PO Q2H PRN (Reason: Nicotine Cravings) Levemir FlexTouch U100 Insulin 100 unit/mL (3 mL) insulin pen 34 unit subcut QAM multivitamin Tablet 1 tab PO QAM metformin 500 mg tablet 2 tab PO BID terbinafine HCl 250 mg tablet 1 tab PO DAILY rosuvastatin 20 mg tablet 1 tab PO QAM acetaminophen [Tylenol] 325 mg capsule 650 mg PO QID PRN (Reason: pain) Qty: 30 0RF cyclobenzaprine 5 mg tablet 5 mg PO DAILY Qty: 10 0RF ondansetron 4 mg tablet,disintegrating 4 mg PO Q6-8H PRN (Reason: nausea and vomiting) Qty: 14 0RF erythromycin 5 mg/gram (0.5 %) ointment 0.5 inch ophthalmic (eye) TID 7 Days Qty: 3.5 0RF ibuprofen 400 mg tablet 400 mg PO TID PRN (Reason: fever or pain) Qty: 30 0RF metformin 500 mg tablet 1,000 mg PO BID 30 Days Qty: 120 0RF Referrals: Bebeto Lea [Physician] - (Left eye stye) Stand Alone Forms: Work/School Release Interventions: ED Discharge Assessment Last Done: 01/19/24 18:14 Discharge Date/Time: 01/19/24 18:16 Print Language: Salvadorean
== END 2024-01-19 18:16 | disposition home or self-care (01) ==
PROVIDERS: Emergency Provider Emergency Medicine; PCP Internal Medicine
DX: H00.014 Hordeolum externum left upper eyelid (principal); Z79.899 Other long term (current) drug therapy; F17.200 Nicotine dependence, unspecified, uncomplicated
CPT/HCPCS: 99282

== ENCOUNTER 2024-04-19 12:48 | Emergency (ER) | payer MEDICARE, MEDICAID, SELFPAY ==
--- NOTE | ~2024-04-19 | XR_ITS ---
EXAMINATION: XR KNEE, LEFT CLINICAL INFORMATION: Pain after falling COMPARISON: None available. TECHNIQUE: Four views of the left knee. FINDINGS: No fracture or joint effusion. Alignment is anatomic. Joint spaces are maintained. No abnormal soft tissue calcification. XR/XR knee LT 2V IMPRESSION: Normal left knee.
--- NOTE | ~2024-04-19 | XR_ITS ---
EXAMINATION: XR RIBS, LEFT CLINICAL INFORMATION: Left-sided pain after falling COMPARISON: 05/09/2023 TECHNIQUE: 3 views of the left ribs were obtained. FINDINGS: Left ribs intact. No fracture or destructive process. Heart and pulmonary vessels normal. Lungs grossly clear. There is no pneumothorax. XR/XR ribs LT min 3V w CXR1V IMPRESSION: Unremarkable examination.
--- NOTE | ~2024-04-19 | XR_ITS ---
EXAMINATION: XR SHOULDER, LEFT CLINICAL INFORMATION: Pain after falling COMPARISON: None available. TECHNIQUE: AP external rotation, Grashey, scapular Y, and axillary views of the left shoulder. FINDINGS: The bones and soft tissues are normal. No fracture. Glenohumeral and acromioclavicular alignment is anatomic with normal joint space. No abnormal soft tissue calcifications. XR/XR shoulder LT min 2V IMPRESSION: Normal left shoulder.
[2024-04-19 13:00] VITALS: BP 122/76; PULSE 88; O2SAT 100
[2024-04-19 14:25] VITALS: BP 102/72; PULSE 88; RESP 20; TEMP 36.6; O2SAT 98; BMI 21.8
--- NOTE | 2024-04-19 14:34 | ED.FALL ---
HPI - Fall General Chief Complaint: Fall Stated Complaint: TRIP/FALL,L SIDE PAIN PER EMS Related Data Home Medications ?Medication ?Instructions ?Recorded ?Confirmed nicotine (polacrilex) 2 mg gum 1 gum PO Q2H PRN Nicotine Cravings 03/01/22 12/30/22 insulin detemir U-100 100 unit/mL 34 unit subcut QAM 12/30/22 12/30/22 (3 mL) subcutaneous pen (Levemir FlexTouch U-100 Insulin) metformin 500 mg tablet 2 tab PO BID 12/30/22 12/30/22 multivitamin 1 tab PO QAM 12/30/22 12/30/22 rosuvastatin 20 mg tablet 1 tab PO QAM 12/30/22 12/30/22 terbinafine HCl 250 mg tablet 1 tab PO DAILY 12/30/22 12/30/22 Previous Rx's ?Medication ?Instructions ?Recorded acetaminophen 325 mg capsule 650 mg (2 x 325 mg) PO QID PRN 05/07/23 (Tylenol) pain #30 caps cyclobenzaprine 5 mg tablet 5 mg PO DAILY #10 tabs 05/07/23 ondansetron 4 mg disintegrating 4 mg PO Q6-8H PRN nausea and 05/07/23 tablet vomiting #14 tabs erythromycin 5 mg/gram (0.5 %) eye 0.5 inch ophthalmic (eye) TID 7 01/03/24 ointment days #3.5 grams ibuprofen 400 mg tablet 400 mg PO TID PRN fever or pain 01/03/24 #30 tabs metformin 500 mg tablet 1,000 mg (2 x 500 mg) PO BID 30 01/03/24 days #120 tabs Allergies Allergy/AdvReac Type Severity Reaction Status Date / Time haloperidol Allergy Mild ITCHING Verified 04/19/24 14:26 ON LICENSE OF [facility] Past Medical History Medical History Ingrown hair Abscess Diabetes Depression Surgical History H/O circumcision Family History Family History Mother No problems noted. Father No problems noted. Social History Social History Alcohol intake: current Alcohol intake frequency: holidays/special occasions only Alcohol type: hard liquor Patient Tobacco Use Status: Current everyday Tobacco user Substance Use Type: Crack/Cocaine, Marijuana and Opiates Advance Directives: No Advance Directives Information Provided: No Do you have a plan to hurt others: No Plan Current occupational status: unemployed and disabled Physical Exam Vital Signs: Vital Signs: Last Vital Signs Temp 97.9 F 04/19/24 14:25 Pulse 88 04/19/24 14:25 Resp 20 04/19/24 14:25 BP 102/72 04/19/24 14:25 Pulse Ox 98 04/19/24 14:25 BMI result Body Mass Index 21.8 Course Course Course Narrative: This is a Rapid Medical Examination (RME) performed by Ron Haider PA-C in triage. Full HPI, ROS, assessment and treatment plan per primary provider in the Main ED. 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 No HS or LOC. Not on AC. reports left shoulder, left ribs, and left knee pain. Denies headache, dizziness. Lungs CTA bilaterally. No palpable skull fracture. Exam nonfocal. PERRLA. Plan: xrs ordered Reevaluation(s) Reevaluation #1: Patient left the ED without completing treatment. Medical Decision Making Lab Data Labs: Lab Results 04/19/24 Range/Units 14:32 POC Glucose 68 (60-115) mg/dL Discharge Plan Discharge Clinical Impression: Rib pain on left side Patient Disposition: Left W/O Completing Treatment Prescriptions: No Action nicotine (polacrilex) 2 mg gum 1 gum PO Q2H PRN (Reason: Nicotine Cravings) Levemir FlexTouch U100 Insulin 100 unit/mL (3 mL) insulin pen 34 unit subcut QAM multivitamin Tablet 1 tab PO QAM metformin 500 mg tablet 2 tab PO BID terbinafine HCl 250 mg tablet 1 tab PO DAILY rosuvastatin 20 mg tablet 1 tab PO QAM acetaminophen [Tylenol] 325 mg capsule 650 mg PO QID PRN (Reason: pain) Qty: 30 0RF cyclobenzaprine 5 mg tablet 5 mg PO DAILY Qty: 10 0RF ondansetron 4 mg tablet,disintegrating 4 mg PO Q6-8H PRN (Reason: nausea and vomiting) Qty: 14 0RF erythromycin 5 mg/gram (0.5 %) ointment 0.5 inch ophthalmic (eye) TID 7 Days Qty: 3.5 0RF ibuprofen 400 mg tablet 400 mg PO TID PRN (Reason: fever or pain) Qty: 30 0RF metformin 500 mg tablet 1,000 mg PO BID 30 Days Qty: 120 0RF Discharge Date/Time: 04/19/24 16:44
[2024-04-19 14:35] LABS: Glucose, Whole Blood 68 mg/dL (60-115)
== END 2024-04-19 16:44 | disposition left against medical advice (07) ==
PROVIDERS: Emergency Provider Emergency Medicine; PCP Internal Medicine
DX: S49.92XA Unspecified injury of left shoulder and upper arm, initial encounter (principal); R07.81 Pleurodynia; M25.562 Pain in left knee; M25.512 Pain in left shoulder; R53.83 Other fatigue; W01.10XA Fall on same level from slipping, tripping and stumbling with subsequent striking against unspecified object, initial encounter; Y93.9 Activity, unspecified; Y92.9 Unspecified place or not applicable; Y99.8 Other external cause status
CPT/HCPCS: 71101; 73030; 73560; 82947; 99281; 99283

== ENCOUNTER 2024-06-03 23:01 | Emergency (ER) | payer MEDICARE, MEDICAID, SELFPAY ==
[2024-06-03 23:08] VITALS: BP 132/72; BP 99/57; PULSE 101; PULSE 114; RESP 16; TEMP 36.8; O2SAT 96; O2SAT 97; BMI 23.4
--- NOTE | 2024-06-03 23:18 | ED.ALCOHOL ---
HPI - Alcohol General Chief Complaint: ETOH/Substance Use Stated Complaint: PCP Time Seen by Provider: 06/03/24 23:10 Source: patient Mode of arrival: EMS Limitations: no limitations History of Present Illness ED Provider: jarrod BELTRAN narrative: Patient's history of alcoholism and PCP abuse brought by EMS as he was acting up on the street patient is requesting to go to detox Related Data Home Medications ?Medication ?Instructions ?Recorded ?Confirmed nicotine (polacrilex) 2 mg gum 1 gum PO Q2H PRN Nicotine Cravings 03/01/22 12/30/22 insulin detemir U-100 100 unit/mL 34 unit subcut QAM 12/30/22 12/30/22 (3 mL) subcutaneous pen (Levemir FlexTouch U-100 Insulin) metformin 500 mg tablet 2 tab PO BID 12/30/22 12/30/22 multivitamin 1 tab PO QAM 12/30/22 12/30/22 rosuvastatin 20 mg tablet 1 tab PO QAM 12/30/22 12/30/22 terbinafine HCl 250 mg tablet 1 tab PO DAILY 12/30/22 12/30/22 Previous Rx's ?Medication ?Instructions ?Recorded acetaminophen 325 mg capsule 650 mg (2 x 325 mg) PO QID PRN 05/07/23 (Tylenol) pain #30 caps cyclobenzaprine 5 mg tablet 5 mg PO DAILY #10 tabs 05/07/23 ondansetron 4 mg disintegrating 4 mg PO Q6-8H PRN nausea and 05/07/23 tablet vomiting #14 tabs erythromycin 5 mg/gram (0.5 %) eye 0.5 inch ophthalmic (eye) TID 7 01/03/24 ointment days #3.5 grams ibuprofen 400 mg tablet 400 mg PO TID PRN fever or pain 01/03/24 #30 tabs metformin 500 mg tablet 1,000 mg (2 x 500 mg) PO BID 30 01/03/24 days #120 tabs Allergies Allergy/AdvReac Type Severity Reaction Status Date / Time haloperidol Allergy Mild ITCHING Verified 06/03/24 23:17 Review of Systems Review of Systems: Yes all other systems are reviewed and are negative PMFSH Past Medical History Medical History Ingrown hair Abscess Diabetes Depression Surgical History H/O circumcision Family History Family History Mother No problems noted. Father No problems noted. Social History Social History Alcohol intake: current Alcohol intake frequency: holidays/special occasions only Alcohol type: hard liquor Patient Tobacco Use Status: Current everyday Tobacco user Substance Use Type: Crack/Cocaine, Marijuana and Opiates Do you have a plan to hurt others: No Plan Current occupational status: unemployed and disabled Physical Exam ED Vital Signs: Vital Signs - 24 hr 06/03/24 23:08 Temperature 98.2 F Pulse Rate 101 H Respiratory Rate 16 Blood Pressure 99/57 L Pulse Oximetry 97 Oxygen Delivery Method Room Air BMI result Body Mass Index 23.4 Appearance: Alert. Oriented X3. No acute distress. etoh + Eyes: PERRLA, No Nystagmus ENT: Pharynx normal. Oral Mucosa moist Neck: Normal inspection. Neck supple. CVS: Normal heart rate and rhythm. Pulses normal. Respiratory: No respiratory distress. Equal air entry bilateral, no wheezing/rales/rhonchi Abdomen: Soft and nontender. Bowel sounds are present, no mass palpable, no CVA tenderness Skin: Skin warm and dry. Normal skin color. Normal skin turgor. Extremities: No lower extremity edema. No calf tenderness Neuro: Oriented X 3. No motor deficit. No sensory deficit.No cerebellar signs , cranial nerves II-XII intact Medical Decision Making Medical Decision Making [facility] Narrative: Patient's polysubstance abuse uses PCP and cocaine with history of diabetes noncompliant with medication comes here intoxicated. Patient is requesting to go to detox. Also noticed patient has a high blood sugar supposed to be on Levemir and metformin will give him insulin for now Differential Diagnosis Differential Diagnoses: The differential diagnosis associated with the presentation includes Lab Data [facility] Lab Attestation statement: I reviewed the patient's lab results. 06/03/24 23:43 06/03/24 23:43 Labs: Lab Results 06/03/24 06/03/24 Range/Units 23:43 23:56 WBC 5.2 (4.8-10.8) X10*3/uL RBC 5.15 (4.60-5.80) X10*6/uL Hgb 14.8 (14.0-18.0) g/dl Hct 43.9 (42.0-52.0) % MCV 85.2 (80.0-98.0) fL MCH 28.7 (27.0-33.0) pg MCHC 33.7 (31.0-36.0) g/dl RDW 12.2 (11.0-16.0) % Plt Count 175 (160-400) X10*3/uL MPV 10.7 (9.4-12.4) fL Immature Gran % (Auto) 0.2 (0.0-0.4) % Neut % (Auto) 46.0 (45-73) % Lymph % (Auto) 41.6 H (20-40) % [place] % (Auto) 8.7 (2-11) % Eos % (Auto) 2.9 (0-4) % Baso % (Auto) 0.6 (0-2) % Lymph # (Auto) 2.2 (1.2-4.9) X10*3/uL [place] # (Auto) 0.5 (0.1-1.2) X10*3/uL Eos # (Auto) 0.2 (0.0-0.4) X10*3/uL Baso # (Auto) 0.0 (0.0-0.2) X10*3/uL Abs Immat Gran (auto) 0.01 (0.00-0.03) X10*3/uL Absolute Neuts (auto) 2.4 (2.0-8.3) x10*3/uL Absolute Nucleated RBC 0.000 (0.0-0.012) X10*3/uL Nucleated RBC % (auto) 0.0 (0.0-0.2) /100WBC Sodium 139 (135-145) mmol/L Potassium 3.9 (3.3-5.1) mmol/L Chloride 104 (96-108) mmol/L Carbon Dioxide 22 (22-29) mmol/L Anion Gap 17 (12-20) BUN 10 (9-16) mg/dL Creatinine 0.81 (0.5-1.4) mg/dL Estim Creat Clear Calc 101.5 Estimated GFR > 60 Random Glucose 381 H* (60-115) mg/dL Calcium 10.1 D (8.4-10.2) mg/dL Magnesium 2.0 (1.6-2.6) mg/dL Total Bilirubin 0.6 (0.0-1.0) mg/dL AST 17 (5-37) U/L ALT 21 (0-40) U/L Alkaline Phosphatase 123 H (39-117) U/L Total Protein 6.6 (6.5-8.0) g/dL Albumin 4.3 (3.5-5.0) g/dL Urine Opiates Screen Not Detected (Not Detect) Ur Buprenorphine Scrn Not Detected (Not Detect) ng/mL Ur Oxycodone Screen Not Detected (Not Detect) ng/mL Urine Methadone Screen Not Detected (Not Detect) ng/mL Urine Fentanyl Screen Not Detected (Not Detect) Ur Barbiturates Screen Not Detected (Not Detect) Ur Phencyclidine Scrn POSITIVE H (Not Detect) Ur Amphetamines Screen Not Detected (Not Detect) U Benzodiazepines Scrn Not Detected (Not Detect) Urine Cocaine Screen POSITIVE H (Not Detect) U Marijuana (THC) Screen Not Detected (Not Detect) Ethyl Alcohol 69 mg/dL Independent Interpretation I performed an independent interpretation of an: Plain X-Ray Discharge Plan Discharge Clinical Impression: Phencyclidine (PCP) use disorder, moderate, Diabetes, Cocaine abuse Patient Disposition: Still a Patient Prescriptions: No Action nicotine (polacrilex) 2 mg gum 1 gum PO Q2H PRN (Reason: Nicotine Cravings) Levemir FlexTouch U100 Insulin 100 unit/mL (3 mL) insulin pen 34 unit subcut QAM multivitamin Tablet 1 tab PO QAM metformin 500 mg tablet 2 tab PO BID terbinafine HCl 250 mg tablet 1 tab PO DAILY rosuvastatin 20 mg tablet 1 tab PO QAM acetaminophen [Tylenol] 325 mg capsule 650 mg PO QID PRN (Reason: pain) Qty: 30 0RF cyclobenzaprine 5 mg tablet 5 mg PO DAILY Qty: 10 0RF ondansetron 4 mg tablet,disintegrating 4 mg PO Q6-8H PRN (Reason: nausea and vomiting) Qty: 14 0RF erythromycin 5 mg/gram (0.5 %) ointment 0.5 inch ophthalmic (eye) TID 7 Days Qty: 3.5 0RF ibuprofen 400 mg tablet 400 mg PO TID PRN (Reason: fever or pain) Qty: 30 0RF metformin 500 mg tablet 1,000 mg PO BID 30 Days Qty: 120 0RF Print Language: Citizen Of [place]
[2024-06-03 23:45] LABS: MANUAL DIFF FLAG NO
[2024-06-03 23:46] LABS: Basophils Percent Auto 0.6 % (0-2); Eosinophils Absolute Auto 0.2 X10*3/uL (0.0-0.4); Eosinophils Percent Auto 2.9 % (0-4); Hematocrit 43.9 % (42.0-52.0); Hemoglobin 14.8 g/dl (14.0-18.0); Imm Gran Abs Auto 0.01 X10*3/uL (0.00-0.03); Imm Gran Pct Auto 0.2 % (0.0-0.4); Lymphocytes Absolute Auto 2.2 X10*3/uL (1.2-4.9); Lymphocytes Percent Auto 41.6 % (20-40); Mean Corpuscular HGB Conc 33.7 g/dl (31.0-36.0); Mean Corpuscular Hemoglobin 28.7 pg (27.0-33.0); Mean Corpuscular Volume 85.2 fL (80.0-98.0); Mean Platelet Volume 10.7 fL (9.4-12.4); Monocytes Absolute Auto 0.5 X10*3/uL (0.1-1.2); Monocytes Percent Auto 8.7 % (2-11); Neutrophils Absolute Auto 2.4 x10*3/uL (2.0-8.3); Platelet Count 175 X10*3/uL (160-400); Red Blood Count 5.15 X10*6/uL (4.60-5.80); Red Cell Distribution Width 12.2 % (11.0-16.0); White Blood Count 5.2 X10*3/uL (4.8-10.8)
[2024-06-04] VITALS (7 sets, daily range): BP systolic 103–128; BP diastolic 59–79; PULSE 88–96; RESP 16–18; TEMP 36.8; O2SAT 95–100
[2024-06-04 00:04] LABS: Alanine Aminotransferase 21 U/L (0-40); Albumin Level 4.3 g/dL (3.5-5.0); Alkaline Phosphatase 123 U/L (39-117); Anion Gap 17 (12-20); Aspartate Amino Transferase 17 U/L (5-37); Bilirubin Total 0.6 mg/dL (0.0-1.0); Blood Urea Nitrogen 10 mg/dL (9-16); Calcium 10.1 mg/dL (8.4-10.2); Carbon Dioxide 22 mmol/L (22-29); Chloride 104 mmol/L (96-108); Creatinine Clr Calc Pharmacy 101.5; Estimated Glomerular Filt Rate > 60; Ethanol 69 mg/dL; Glucose Random 381 mg/dL (60-115); Potassium 3.9 mmol/L (3.3-5.1); Sodium 139 mmol/L (135-145); Total Protein 6.6 g/dL (6.5-8.0)
[2024-06-04 00:12] LABS: Amphetamine Screen Urine Not Detected (Not Detect); Barbiturates, Urine Not Detected (Not Detect); Benzodiazepines Screen Urine Not Detected (Not Detect); Buprenorphine Scr Not Detected (Not Detect); Cannabinoid Screen Urine Not Detected (Not Detect); Cocaine Screen Urine POSITIVE (Not Detect); Fentanyl, urine Not Detected (Not Detect); Methadone Screen, Urine Not Detected (Not Detect); Opiate Screen Urine Not Detected (Not Detect); Oxycodone Screen Urine Not Detected (Not Detect); Phencyclidine Screen Urine POSITIVE (Not Detect)
[2024-06-04] MEDS: Insulin Lispro 100 UNIT/ML 3 ML VIAL 14 UNIT SUBCUT (00:41)
[2024-06-04] MEDS: Insulin Glargine,Hum.rec.anlog 100 UNIT/ML 10 ML VIAL 20 UNIT SUBCUT (00:41)
--- NOTE | 2024-06-04 05:17 | PC.NURSE ---
Patient AGUSTIN, he was found by PD outside, on side walk semi-conscious. Patient admitted using PCP, cocaine, and ETOH around 8:00 pm. When EMS arrived patient was alert, but lethargic, POC 385. EMS established 20 G IV line in R AC and started NS IV. Patient received around 250 mL of NS in route to ED. Patient would like to to detox from ETOH/PCP. Patient denies SI/HI. Patient changed into a hospital attire by , technology education teacher. Labs drawn and sent to lab. Patient medicated per JAN. Plan of care ongoing.
[2024-06-04 06:53] LABS: Glucose, Whole Blood 120 mg/dL (60-115)
--- NOTE | 2024-06-04 07:16 | PC.NURSE ---
patient provided with breakfast tray
--- NOTE | 2024-06-04 09:08 | PC.NURSE ---
care team provider met with patient, no addiction RN on today, provided with detox resources, made aware of care team consult, awaiting disposition
== END 2024-06-04 09:52 | disposition still patient (30) ==
PROVIDERS: Emergency Provider Internal Medicine; PCP Internal Medicine
DX: F16.10 Hallucinogen abuse, uncomplicated (principal); F14.10 Cocaine abuse, uncomplicated; E11.9 Type 2 diabetes mellitus without complications; F10.20 Alcohol dependence, uncomplicated; Y90.3 Blood alcohol level of 60-79 mg/100 ml; F17.200 Nicotine dependence, unspecified, uncomplicated; Z79.4 Long term (current) use of insulin; Z79.84 Long term (current) use of oral hypoglycemic drugs; Z79.02 Long term (current) use of antithrombotics/antiplatelets; Z79.899 Other long term (current) drug therapy
CPT/HCPCS: 36415; 80053; 80307; 82947; 83735; 85025; 99284; 99285

== ENCOUNTER 2024-06-23 02:01 | Emergency (ER) | payer MEDICARE, MEDICAID, SELFPAY ==
--- NOTE | ~2024-06-23 | US_ITS ---
EXAMINATION: US SCROTUM CLINICAL INFORMATION: Bilateral testicular pain. COMPARISON: Current CT scan of abdomen and pelvis TECHNIQUE: A sonogram of the scrotum was performed assessing frank-scale appearance and color Doppler flow. Spectral Doppler analysis of the arterial and venous flow were performed in the testes bilaterally. FINDINGS: RIGHT: Right testicle measures 3.8 x 2.0 x 3.4 cm, volume 14 mL. No focal testicular parenchymal lesions are visualized. Spectral Doppler analysis of the arterial and venous flow is normal in the right testis. Right epididymal head is normal in size. No right hydrocele or varicocele is seen. Right epididymal Doppler flow is normal. Normal epididymal appendix seen LEFT: Left testicle measures 3.4 x 2.2 x 3.3 cm, volume 13 mL. No focal testicular parenchymal lesions are visualized. Spectral Doppler analysis of the arterial and venous flow is normal in the left testis. Left epididymal head is normal in size. No left hydrocele or varicocele is seen. Left epididymal Doppler flow is normal. US/US scrotum IMPRESSION: No abnormal findings, explaining patient's complaints
--- NOTE | ~2024-06-23 | CT_ITS ---
EXAMINATION: CT ABDOMEN AND PELVIS WITH CONTRAST CLINICAL INFORMATION: Right lower quadrant abdominal pain COMPARISON: None available. TECHNIQUE: Multidetector volumetric images were obtained from the superior aspect of the liver through the pubic symphysis following administration 85 mL of Omnipaque 350 intravenous contrast. Sagittal and coronal reformatted images were obtained on the technologist's workstation. Oral contrast: No This CT examination was performed using dose optimization techniques as appropriate, variously including the following: *Automated exposure control *Adjustment of mA and/or kV according to patient size (this includes techniques or standardized protocols for targeted exams where dose is matched to indication/reason for exam; i.e. extremities or head) *Use of iterative reconstruction technique DLP: mGy-cm FINDINGS: LUNG BASES: The visualized lung bases are unremarkable. LIVER, GALLBLADDER, AND BILIARY TREE: The liver is normal in size, shape, and attenuation. No focal hepatic lesion or biliary ductal dilatation is present. The gallbladder is unremarkable with no evidence of radiopaque gallstones, gallbladder wall thickening, or obvious pericholecystic inflammatory changes. PANCREAS: Unremarkable. SPLEEN: Unremarkable. ADRENAL GLANDS: Unremarkable. KIDNEYS AND URETERS: The kidneys are normal in size, shape, and attenuation. No hydronephrosis, hydroureter, or calculi seen. No perinephric stranding. BLADDER: Unremarkable. GASTROINTESTINAL TRACT: The small and large bowel are unremarkable. The appendix is unremarkable. ABDOMINAL WALL: No significant hernia is appreciated. LYMPH NODES: Normal. VASCULAR: Unremarkable. PELVIC VISCERA: Unremarkable. OSSEOUS STRUCTURES: Unremarkable. CT/CT abdomen pelvis w IV con IMPRESSION: No significant abnormality. Fleischner guidelines were followed.
--- NOTE | ~2024-06-23 | US_ITS ---
EXAMINATION: US SCROTUM CLINICAL INFORMATION: Bilateral testicular pain. COMPARISON: Current CT scan of abdomen and pelvis TECHNIQUE: A sonogram of the scrotum was performed assessing frank-scale appearance and color Doppler flow. Spectral Doppler analysis of the arterial and venous flow were performed in the testes bilaterally. FINDINGS: RIGHT: Right testicle measures 3.8 x 2.0 x 3.4 cm, volume 14 mL. No focal testicular parenchymal lesions are visualized. Spectral Doppler analysis of the arterial and venous flow is normal in the right testis. Right epididymal head is normal in size. No right hydrocele or varicocele is seen. Right epididymal Doppler flow is normal. Normal epididymal appendix seen LEFT: Left testicle measures 3.4 x 2.2 x 3.3 cm, volume 13 mL. No focal testicular parenchymal lesions are visualized. Spectral Doppler analysis of the arterial and venous flow is normal in the left testis. Left epididymal head is normal in size. No left hydrocele or varicocele is seen. Left epididymal Doppler flow is normal. US/US scrotum doppler IMPRESSION: No abnormal findings, explaining patient's complaints
[2024-06-23 02:11] VITALS: BP 106/71; PULSE 86; O2SAT 98
[2024-06-23 02:17] VITALS: BP 103/74; PULSE 82; RESP 18; TEMP 36.4; O2SAT 98
--- NOTE | 2024-06-23 02:18 | MHC.EDTECH ---
Pt biba for nerve pain. This tech assisted pt to change hospital gown. Vital signs taken and reported to primary RN. Pt resting quietly respirations even and unlabored.
[2024-06-23 02:37] VITALS: BP 103/74; PULSE 82; RESP 18; TEMP 36.4; O2SAT 98; BMI 21.4
[2024-06-23 02:58] LABS: MANUAL DIFF FLAG NO
[2024-06-23 02:59] LABS: Basophils Percent Auto 0.6 % (0-2); Eosinophils Absolute Auto 0.2 X10*3/uL (0.0-0.4); Eosinophils Percent Auto 4.2 % (0-4); Hematocrit 45.5 % (42.0-52.0); Hemoglobin 15.3 g/dl (14.0-18.0); Imm Gran Abs Auto 0.01 X10*3/uL (0.00-0.03); Imm Gran Pct Auto 0.2 % (0.0-0.4); Lymphocytes Absolute Auto 1.8 X10*3/uL (1.2-4.9); Lymphocytes Percent Auto 34.5 % (20-40); Mean Corpuscular HGB Conc 33.6 g/dl (31.0-36.0); Mean Corpuscular Hemoglobin 28.6 pg (27.0-33.0); Mean Platelet Volume 11.1 fL (9.4-12.4); Monocytes Absolute Auto 0.4 X10*3/uL (0.1-1.2); Monocytes Percent Auto 7.7 % (2-11); Neutrophils Absolute Auto 2.8 x10*3/uL (2.0-8.3); Neutrophils Percent Auto 52.8 % (45-73); Platelet Count 155 X10*3/uL (160-400); Red Blood Count 5.35 X10*6/uL (4.60-5.80); Red Cell Distribution Width 12.7 % (11.0-16.0); White Blood Count 5.2 X10*3/uL (4.8-10.8)
[2024-06-23 03:13] LABS: Alanine Aminotransferase 14 U/L (0-40); Albumin Level 3.8 g/dL (3.5-5.0); Alkaline Phosphatase 104 U/L (39-117); Anion Gap 12 (12-20); Aspartate Amino Transferase 12 U/L (5-37); Bilirubin Total 0.5 mg/dL (0.0-1.0); Blood Urea Nitrogen 10 mg/dL (9-16); Calcium 9.3 mg/dL (8.4-10.2); Carbon Dioxide 26 mmol/L (22-29); Chloride 105 mmol/L (96-108); Creatinine Clr Calc Pharmacy 74.5; Estimated Glomerular Filt Rate > 60; Glucose Random 343 mg/dL (60-115); Potassium 4.1 mmol/L (3.3-5.1); Sodium 139 mmol/L (135-145); Total Protein 6.1 g/dL (6.5-8.0)
--- NOTE | 2024-06-23 03:32 | PC.NURSE ---
pt currently comfortable appearing, resting in stretcher with eyes closed, respirations even and unlabored without any outward displays of discomfort. Call blandon in reach and RN will continue to monitor.
[2024-06-23] MEDS: Acetaminophen 325 MG TABLET 650 MG PO (05:15)
[2024-06-23] MEDS: Ibuprofen 600 MG TABLET PO (05:15)
[2024-06-23 05:44] VITALS: BP 92/68; PULSE 84; RESP 18; TEMP 36.7; O2SAT 97
[2024-06-23 07:08] LABS: Lipase 11 U/L (8-78); Magnesium 1.8 mg/dL (1.6-2.6)
--- NOTE | 2024-06-23 07:14 | ED_ITS ---
HPI - General Adult General Chief complaint: General Medical Stated complaint: neuropathy Time Seen by Provider: 06/23/24 06:32 Source: patient, EMS, RN notes reviewed and old records reviewed Mode of arrival: EMS History of Present Illness ED Provider: Keyla Tapia PA-C HPI narrative: 39-year-old male with a past medical history of depression, diabetes, substance abuse, presenting to the ED complaining of right groin pain radiating to testicles and bilateral LE x2 days. Denies known injury, trauma or fall. Reports intermittent dysuria. Denies nausea/vomiting, diarrhea, hematuria, incontinence/retention, penile discharge/lesions, concern for STI Related Data Home Medications ?Medication ?Instructions ?Recorded ?Confirmed nicotine (polacrilex) 2 mg gum 1 gum PO Q2H PRN Nicotine Cravings 03/01/22 12/30/22 insulin detemir U-100 100 unit/mL 34 unit subcut QAM 12/30/22 12/30/22 (3 mL) subcutaneous pen (Levemir FlexTouch U-100 Insulin) metformin 500 mg tablet 2 tab PO BID 12/30/22 12/30/22 multivitamin 1 tab PO QAM 12/30/22 12/30/22 rosuvastatin 20 mg tablet 1 tab PO QAM 12/30/22 12/30/22 terbinafine HCl 250 mg tablet 1 tab PO DAILY 12/30/22 12/30/22 Previous Rx's ?Medication ?Instructions ?Recorded acetaminophen 325 mg capsule 650 mg (2 x 325 mg) PO QID PRN 05/07/23 (Tylenol) pain #30 caps cyclobenzaprine 5 mg tablet 5 mg PO DAILY #10 tabs 05/07/23 ondansetron 4 mg disintegrating 4 mg PO Q6-8H PRN nausea and 05/07/23 tablet vomiting #14 tabs erythromycin 5 mg/gram (0.5 %) eye 0.5 inch ophthalmic (eye) TID 7 01/03/24 ointment days #3.5 grams ibuprofen 400 mg tablet 400 mg PO TID PRN fever or pain 01/03/24 #30 tabs metformin 500 mg tablet 1,000 mg (2 x 500 mg) PO BID 30 01/03/24 days #120 tabs acetaminophen 500 mg tablet 500 mg PO Q6H PRN fever or pain 06/23/24 (Tylenol Extra Strength) #14 tabs cyclobenzaprine 5 mg tablet 5 mg PO Q8H PRN pain (scale score 06/23/24 7-10) 5 days #14 tabs lidocaine 5 % topical patch 1 patch topical DAILY PRN pain #30 06/23/24 (Lidoderm) ea naproxen 500 mg tablet 500 mg PO BID PRN pain 10 days #20 06/23/24 tabs Allergies Allergy/AdvReac Type Severity Reaction Status Date / Time haloperidol Allergy Mild ITCHING Verified 06/23/24 02:38 Review of Systems 2 Review of Systems: Constitutional: No Fever, No Chills ENT/Mouth: No Ear Pain, No Nasal Congestion, No sore throat, No Rhinorrhea, No Swallowing Difficulty Cardiovascular: No Chest Pain, No SOB Respiratory: No Cough, No Sputum, No Wheezing Gastrointestinal: No Nausea, No Vomiting, No Diarrhea, No Constipation, + Abdominal pain Genitourinary: + testicular/scrotal pain, + Dysuria, No Urinary Frequency, No Hematuria, No Urinary Incontinence/retention, No Flank Pain, no penile discharge/lesions Musculoskeletal: No joint pain, No Myalgias, No Joint Swelling Skin: No Skin Lesions, No rash Neuro: No Weakness, No Numbness Yes all other systems are reviewed and are negative Constitutional: Constitutional: Reports as per HPI Neurologic: Denies Sensory deficit (Neuro) PENDING SALE TO [facility] Past Medical History Attestation statement: The following information was validated with the patient. Source: old records reviewed Medical History Ingrown hair Abscess Diabetes Depression Surgical History H/O circumcision Family History Family History Mother No problems noted. Father No problems noted. Social History Social History Alcohol intake: current Alcohol intake frequency: holidays/special occasions only Alcohol type: hard liquor Patient Tobacco Use Status: Current everyday Tobacco user Smoked in Last 30 Days: No Use of substances other than those prescribed or required for medical reasons: No Substance Use Type: Crack/Cocaine Advance Directives: No Advance Directives Information Provided: Yes Current occupational status: unemployed and disabled Physical Exam ED Vital Signs: Vital Signs - 24 hr 06/23/24 02:17 06/23/24 02:37 06/23/24 05:44 Temperature 97.5 F 97.5 F 98.0 F Pulse Rate 82 82 84 Respiratory Rate 18 18 18 Blood Pressure 103/74 103/74 92/68 Pulse Oximetry 98 98 97 Oxygen Delivery Method Room Air Room Air Room Air 06/23/24 09:19 06/23/24 09:52 Temperature 98.0 F Pulse Rate 77 77 Respiratory Rate 14 14 Blood Pressure 106/73 106/73 Pulse Oximetry 100 100 Oxygen Delivery Method Room Air Room Air BMI result Body Mass Index 21.4 Const General: cooperative, healthy appearing and no acute distress Orientation/consciousness: patient oriented x3 Limitations: no limitations HENMT Head: Yes normal to inspection and Yes atraumatic Ears: hearing grossly normal bilaterally General nose exam: Normal external nose present Face and sinus: Yes normal facial exam Eyes General: appearance normal, both eyes and all related structures EOM: EOMs intact bilaterally Neck Neck: Yes normal visual inspection and Yes no meningeal signs Resp Effort & Inspection: normal respiratory effort and no respiratory distress Auscultation: clear to auscultation bilaterally Cardio Rate: regular rate Heart sounds: S1 normal heart sound present and S2 normal heart sound present GI Inspection: Yes normal to inspection Palpation (GI): Soft to palpation, Tenderness to palpation present (GI) in the RLQ; with no rebound tenderness, no guarding and not rigid General: Yes CVA tenderness bilateral Male General Exam: Yes normal external exam Penis: normal penis and circumcised Scrotum: not erythematous and no scrotal swelling Testes: no testicular mass, no testicular swelling, testicular tenderness bilateral and normal testicular lie Back/Spine/Pelvis Back: CVA tenderness Skin Rashes: no rashes Wounds: no wounds Neuro Other: Strength intact throughout. No saddle anesthesia. Sensation intact to light touch. Neurovascular intact distally General: patient oriented x3, tone normal, moves all extremities and no meningeal signs Cranial nerves: Yes CN's II-XII intact bilaterally Motor exam (neuro): 5/5 motor strength present throughout Sensory Exam: No Sensory deficit (Neuro) Extrem General: Yes normal to inspection Course Course Course Narrative: -labs reassuring -UA negative. CT/NG negative 934--US scrotum doppler IMPRESSION: No abnormal findings, explaining patient's complaints CT abdomen pelvis w IV con IMPRESSION: No significant abnormality. Fleischner guidelines were followed > on re-evaluation patient sleeping comfortably, awoken and then starts complaining of pain. Discussed results and needed close follow-up with PCP. Results discussed with patient including worrisome signs and symptoms and strict return precautions, and when to return to the emergency department. They verbalized understanding and feel safe for discharge at this time. Medications Administered Discontinued Medications Generic Name Dose Route Start Last Admin Trade Name Aminta PRN Reason Stop Dose Admin Acetaminophen 650 mg 06/23/24 05:03 06/23/24 05:15 Acetaminophen 325 Mg Tablet PO 06/23/24 05:04 650 mg ONCE ONE Administration Cyclobenzaprine HCl 10 mg 06/23/24 09:32 06/23/24 09:50 Cyclobenzaprine Hcl 10 Mg Tablet PO 06/23/24 09:33 10 mg ONCE ONE Administration Ibuprofen 600 mg 06/23/24 05:03 06/23/24 05:15 Ibuprofen 600 Mg Tablet PO 06/23/24 05:04 600 mg ONCE ONE Administration Iohexol 85 ml 06/23/24 07:43 06/23/24 07:44 Iohexol 350 Mg/Ml 100 Ml Infus..Btl IV 06/23/24 07:44 85 ml ONCE ONE Administration Medical Decision Making Medical Decision Making MDM Narrative: 39-year-old male with a past medical history of depression, diabetes, substance abuse, presenting to the ED complaining of right groin pain radiating to testicles and bilateral LE x2 days. On exam vital signs stable, NAD, nontoxic appearing, abdomen soft with RLQ/suprapubic tenderness. Bilateral testicular tenderness appreciated without lesions/swelling or palpable hernia. Bilateral CVAT noted. No red flag symptoms, no midline spinous tenderness. No rash. Concern for appendicitis vs hernia vs testicular torsion vs orchitis/epididymitis vs renal stone or pyelo vs UTI. Lower suspicion for diverticulitis, cholecystitis/lithiasis, cauda equina/cord compression or epidural abscess Plan: Labs, UA, STI testing, CT AP, scrotal ultrasound, pain control, re- evaluate Please refer to course for remaining clinical decision making, interpretation of labs/imaging results, and discussions with consultants and/or family members. Differential Diagnosis Differential Diagnoses: The differential diagnosis associated with the presentation includes As above Admission/Observation Consideration of admission/observation: Escalation of care including admission/observation considered Lab Data MDM Lab Attestation statement: I reviewed the patient's lab results. 06/23/24 02:54 06/23/24 02:54 Labs: Lab Results 06/23/24 06/23/24 06/23/24 Range/Units 02:54 06:55 06:56 WBC 5.2 (4.8-10.8) X10*3/uL RBC 5.35 (4.60-5.80) X10*6/uL Hgb 15.3 (14.0-18.0) g/dl Hct 45.5 (42.0-52.0) % MCV 85.0 (80.0-98.0) fL MCH 28.6 (27.0-33.0) pg MCHC 33.6 (31.0-36.0) g/dl RDW 12.7 (11.0-16.0) % Plt Count 155 L (160-400) X10*3/uL MPV 11.1 (9.4-12.4) fL Immature Gran % (Auto) 0.2 (0.0-0.4) % Neut % (Auto) 52.8 (45-73) % Lymph % (Auto) 34.5 (20-40) % [place] % (Auto) 7.7 (2-11) % Eos % (Auto) 4.2 H (0-4) % Baso % (Auto) 0.6 (0-2) % Lymph # (Auto) 1.8 (1.2-4.9) X10*3/uL [place] # (Auto) 0.4 (0.1-1.2) X10*3/uL Eos # (Auto) 0.2 (0.0-0.4) X10*3/uL Baso # (Auto) 0.0 (0.0-0.2) X10*3/uL Abs Immat Gran (auto) 0.01 (0.00-0.03) X10*3/uL Absolute Neuts (auto) 2.8 (2.0-8.3) x10*3/uL Absolute Nucleated RBC 0.000 (0.0-0.012) X10*3/uL Nucleated RBC % (auto) 0.0 (0.0-0.2) /100WBC Sodium 139 (135-145) mmol/L Potassium 4.1 (3.3-5.1) mmol/L Chloride 105 (96-108) mmol/L Carbon Dioxide 26 (22-29) mmol/L Anion Gap 12 (12-20) BUN 10 (9-16) mg/dL Creatinine 1.12 (0.5-1.4) mg/dL Estim Creat Clear Calc 74.5 Estimated GFR > 60 Random Glucose 343 H (60-115) mg/dL Calcium 9.3 D (8.4-10.2) mg/dL Magnesium 1.8 (1.6-2.6) mg/dL Total Bilirubin 0.5 (0.0-1.0) mg/dL AST 12 (5-37) U/L ALT 14 (0-40) U/L Alkaline Phosphatase 104 (39-117) U/L Total Protein 6.1 L (6.5-8.0) g/dL Albumin 3.8 (3.5-5.0) g/dL Lipase 11 (8-78) U/L Urine Color Yellow Urine Appearance Clear Urine pH 7.5 (5.0-9.0) Ur Specific [place] >= 1.030 H (1.005-1.025) Urine Protein Negative (Neg-Trace) mg/dL Urine Glucose (UA) >=1000 H (Negative) mg/dL Urine Ketones Negative (Negative) mg/dL Urine Blood Negative (Negative) Urine Nitrite Negative (Negative) Ur Leukocyte Esterase Negative (Negative) Urine RBC 0-2 (0-2) /HPF Urine WBC 0-5 (0-5) /HPF Ur Squamous Epith Cells 0-2 (0-2) /HPF Urine Bacteria None Seen (None Seen) Hyaline Casts 0-2 (0-2) /LPF Chlam trachomat DNA PCR NOT DETECTED (Not Detect.) N.gonorrhoeae DNA (PCR) NOT DETECTED (Not Detect.) Independent Interpretation I performed an independent interpretation of an: Ultrasound and CT Scan Radiology Impression Discussion of test interpretation with radiology: I have reviewed the radiologist's reading. Independent Historian Clinical information obtained from an independent historian. History obtained from or confirmed by: EMS External Record Review External record reviewed: Inpatient record, Office record, Outpatient record, Prior outpatient labs, Prior outpatient radiology, Primary care record and Outside ED record Tests considered The following testing was considered but not selected: As above Prescription Management I considered prescription management with: Pain Medication and Antibiotic Chronic Conditions Patient?s care impacted by: Diabetes Discharge Plan Discharge Clinical Impression: Right groin pain Patient Disposition: Home, Self-Care Instructions: Abdominal Pain (ED) Additional Instructions: Your pain is likely musculoskeletal Your blood work, urine, CT scan and ultrasound were reassuring Flexeril is a muscle relaxer, take at night as it makes you drowsy, do not drive, drink alcohol, or operate machinery while taking it Naproxen as an anti-inflammatory / pain medication, take with food Lidoderm patches are numbing patches, apply to painful area In addition take Tylenol at home If symptoms persist or worsen, pain becomes unbearable, you developed urinary retention or incontinence, or weakness return to the ED Prescriptions: New acetaminophen [Tylenol Extra Strength] 500 mg tablet 500 mg PO Q6H PRN (Reason: fever or pain) Qty: 14 0RF lidocaine [Lidoderm] 5 % adhesive patch,medicated 1 patch topical DAILY MDD remove after 12 hours PRN (Reason: pain) Qty: 30 0RF Rx Instructions: leave on most painful area for up to 12 hrs naproxen 500 mg tablet 500 mg PO BID PRN (Reason: pain) 10 Days Qty: 20 0RF cyclobenzaprine 5 mg tablet 5 mg PO Q8H PRN (Reason: pain (scale score 7-10)) 5 Days Qty: 14 0RF No Action nicotine (polacrilex) 2 mg gum 1 gum PO Q2H PRN (Reason: Nicotine Cravings) Levemir FlexTouch U100 Insulin 100 unit/mL (3 mL) insulin pen 34 unit subcut QAM multivitamin Tablet 1 tab PO QAM metformin 500 mg tablet 2 tab PO BID terbinafine HCl 250 mg tablet 1 tab PO DAILY rosuvastatin 20 mg tablet 1 tab PO QAM acetaminophen [Tylenol] 325 mg capsule 650 mg PO QID PRN (Reason: pain) Qty: 30 0RF cyclobenzaprine 5 mg tablet 5 mg PO DAILY Qty: 10 0RF ondansetron 4 mg tablet,disintegrating 4 mg PO Q6-8H PRN (Reason: nausea and vomiting) Qty: 14 0RF erythromycin 5 mg/gram (0.5 %) ointment 0.5 inch ophthalmic (eye) TID 7 Days Qty: 3.5 0RF ibuprofen 400 mg tablet 400 mg PO TID PRN (Reason: fever or pain) Qty: 30 0RF metformin 500 mg tablet 1,000 mg PO BID 30 Days Qty: 120 0RF Referrals: [facility] General Surgeons [Provider Group] (as needed) Physician,Unknown J [Primary Care Provider] - Interventions: ED Discharge Assessment Last Done: 06/23/24 09:52 Discharge Date/Time: 06/23/24 10:02 Print Language: Portuguese
[2024-06-23 07:15] LABS: Appearance Urine Clear; Color Urine Yellow; Glucose Urine UA >=1000 mg/dL (Negative); Leukocyte Esterase Urine Negative (Negative); Nitrite Urine Negative (Negative); PH 7.5 (5.0-9.0); Specific Gravity - Urine >= 1.030 (1.005-1.025); UMIC TRIGGER UACC YES; Urine Blood Negative (Negative); Urine Ketones Negative (Negative); Urine Protein Negative (Neg-Trace)
[2024-06-23 07:20] LABS: Bacteria Urine None Seen (None Seen); Hyaline Casts Urine 0-2 /LPF (0-2); RBC Urine 0-2 /HPF (0-2); Squamous Epithelial Cell Urine 0-2 /HPF (0-2); WBC Urine 0-5 /HPF (0-5)
[2024-06-23] MEDS: iohexoL 350 MG/ML 100 ML INFUS..BTL 85 ML IV (07:44)
[2024-06-23 09:04] LABS: CT PCR NOT DETECTED (Not Detect.); NG PCR NOT DETECTED (Not Detect.)
[2024-06-23 09:19] VITALS: BP 106/73; PULSE 77; RESP 14; O2SAT 100
[2024-06-23] MEDS: Cyclobenzaprine HCl 10 MG TABLET PO (09:50)
[2024-06-23 09:52] VITALS: BP 106/73; PULSE 77; RESP 14; TEMP 36.7; O2SAT 100
== END 2024-06-23 10:02 | disposition home or self-care (01) ==
PROVIDERS: Physician Assistant; Emergency Provider Emergency Medicine
DX: R10.31 Right lower quadrant pain (principal); R10.2 Pelvic and perineal pain; N50.812 Left testicular pain; N50.811 Right testicular pain; M79.605 Pain in left leg; M79.604 Pain in right leg; Z20.2 Contact with and (suspected) exposure to infections with a predominantly sexual mode of transmission; Z79.899 Other long term (current) drug therapy
CPT/HCPCS: 36415; 74177; 76870; 80053; 81001; 81003; 83690; 83735; 85025; 87491; 87591; 93975; 99284; Q9967

== ENCOUNTER 2024-07-26 07:29 | Emergency (ER) | payer MEDICARE, MEDICAID, SELFPAY ==
--- NOTE | ~2024-07-26 | XR_ITS ---
EXAMINATION: XR HIP, LEFT CLINICAL INFORMATION: Pain status post fall COMPARISON: Left hip radiograph from 04/06/2022 TECHNIQUE: Single view of the pelvis 2 views of the left hip. FINDINGS: No acute visible fracture or dislocation. Slight degenerative arthropathy of the superior lateral margin of the right femoral acetabular joint. Joint spaces and alignment are maintained. Soft tissues are unremarkable. XR/XR hip LT w PEL1V IMPRESSION: 1. No acute visible fracture or dislocation. 2. Slight degenerative arthropathy of the superior lateral margin of the right femoral acetabular joint. Electronically signed by: Uma Patel MD 07/26/2024 09:14 AM EDT
--- NOTE | ~2024-07-26 | XR_ITS ---
EXAMINATION: XR KNEE, LEFT CLINICAL INFORMATION: Fall pain COMPARISON: Left knee radiograph from 04/19/2024 TECHNIQUE: Four views of the left knee. FINDINGS: No acute visible fracture or dislocation. Joint spaces and alignment are maintained. A fabella is noted in the posterior compartment. Trace knee joint effusion. Soft tissues are unremarkable. XR/XR knee LT 4V IMPRESSION: 1. No acute visible fracture or dislocation. 2. Trace knee joint effusion. Electronically signed by: Uma Patel MD 07/26/2024 09:15 AM EDT
--- NOTE | ~2024-07-26 | XR_ITS ---
EXAMINATION: XR HAND, LEFT CLINICAL INFORMATION: Pain status post fall COMPARISON: Left hand radiograph from 11/04/2023 TECHNIQUE: PA, lateral, and oblique views of the left hand. FINDINGS: Previously identified fracture at the base of the fifth proximal phalanx demonstrates interval healing. No acute visible fracture or dislocation. Negative ulnar variance. Joint spaces and alignment are maintained. Soft tissues are unremarkable. XR/XR hand LT min 3V IMPRESSION: 1. Previously identified fracture at the base of the fifth proximal phalanx demonstrates interval healing. 2. No acute visible fracture or dislocation. 3. Negative ulnar variance. Electronically signed by: Uma Patel MD 07/26/2024 09:13 AM EDT
[2024-07-26 07:34] VITALS: BP 117/73; PULSE 111; RESP 16; TEMP 36.1; O2SAT 100; BMI 19.5
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
[2024-07-26] MEDS: Acetaminophen 325 MG TABLET 975 MG PO (07:53)
[2024-07-26] MEDS: Diphth,Pertus(ACell),Tet Adult 0.5 ML SYRINGE IM (07:53)
[2024-07-26 07:58] VITALS: BP 120/81; PULSE 91; RESP 18; TEMP 36.6; O2SAT 100
[2024-07-26 10:16] VITALS: BP 110/77; PULSE 93; RESP 14; TEMP 36.2; O2SAT 100
[2024-07-26 11:17] VITALS: BP 110/77; PULSE 93; RESP 18; TEMP 36.6; O2SAT 100
== END 2024-07-26 11:19 | disposition home or self-care (01) ==
PROVIDERS: Emergency Provider Emergency Medicine; PCP Internal Medicine
DX: S80.212A Abrasion, left knee, initial encounter (principal); S70.02XA Contusion of left hip, initial encounter; S60.222A Contusion of left hand, initial encounter; S80.02XA Contusion of left knee, initial encounter; M79.642 Pain in left hand; M25.562 Pain in left knee; V19.40XA Pedal cycle driver injured in collision with unspecified motor vehicles in traffic accident, initial encounter; Y93.9 Activity, unspecified; Y92.488 Other paved roadways as the place of occurrence of the external cause; Y99.8 Other external cause status; Z23 Encounter for immunization; Z79.899 Other long term (current) drug therapy; F17.210 Nicotine dependence, cigarettes, uncomplicated
CPT/HCPCS: 73130; 73502; 73564; 90471; 90715; 99284

== ENCOUNTER 2024-09-01 15:18 | Outpatient (REF) | payer MEDICARE, MEDICAID, SELFPAY ==
[2024-09-01 17:02] LABS: MANUAL DIFF FLAG NO
[2024-09-01 17:08] LABS: Basophils Percent Auto 0.7 % (0-2); Eosinophils Absolute Auto 0.1 X10*3/uL (0.0-0.4); Eosinophils Percent Auto 1.6 % (0-4); Hematocrit 44.9 % (42.0-52.0); Hemoglobin 15.2 g/dl (14.0-18.0); Imm Gran Abs Auto 0.05 X10*3/uL (0.00-0.03); Imm Gran Pct Auto 0.8 % (0.0-0.4); Lymphocytes Absolute Auto 2.2 X10*3/uL (1.2-4.9); Lymphocytes Percent Auto 35.6 % (20-40); Mean Corpuscular HGB Conc 33.9 g/dl (31.0-36.0); Mean Corpuscular Hemoglobin 28.2 pg (27.0-33.0); Mean Corpuscular Volume 83.3 fL (80.0-98.0); Mean Platelet Volume 10.6 fL (9.4-12.4); Monocytes Absolute Auto 0.4 X10*3/uL (0.1-1.2); Neutrophils Absolute Auto 3.3 x10*3/uL (2.0-8.3); Neutrophils Percent Auto 54.3 % (45-73); Platelet Count 183 X10*3/uL (160-400); Red Blood Count 5.39 X10*6/uL (4.60-5.80); Red Cell Distribution Width 13.7 % (11.0-16.0); White Blood Count 6.1 X10*3/uL (4.8-10.8)
[2024-09-01 17:40] LABS: Alanine Aminotransferase 25 U/L (0-40); Albumin Level 4.2 g/dL (3.5-5.0); Alkaline Phosphatase 86 U/L (39-117); Anion Gap 10 (12-20); Aspartate Amino Transferase 26 U/L (5-37); Bilirubin Total 1.1 mg/dL (0.0-1.0); Blood Urea Nitrogen 12 mg/dL (9-16); Calcium 10.1 mg/dL (8.4-10.2); Carbon Dioxide 28 mmol/L (22-29); Chloride 104 mmol/L (96-108); Cholesterol 115 mg/dL (<200); Estimated Glomerular Filt Rate > 60; Glucose Random 151 mg/dL (60-115); HDL Cholesterol 62 mg/dL (>40); LDL Cholesterol Calculated 43 mg/dL (<100); Potassium 4.1 mmol/L (3.3-5.1); Sodium 138 mmol/L (135-145); Total Protein 6.7 g/dL (6.5-8.0); Triglycerides 50 mg/dL (<150)
[2024-09-01 17:50] LABS: TSH reflex Free T4 0.21 uIU/mL (0.32-4.0)
[2024-09-01 18:09] LABS: Estimated Average Glucose 252 mg/dL; Hemoglobin A1C 376.7004 umol/L; Hemoglobin A1c % 10.4 % (<6.0); Total Hemoglobin (HGBA1C) 4153.1702 umol/L
[2024-09-01 18:44] LABS: Free T4 (Free Thyroxine) 1.24 ng/dL (0.71-1.85)
[2024-09-01 18:49] LABS: Magnesium 2.1 mg/dL (1.6-2.6)
[2024-09-02 08:27] LABS: HIV AB/AG Nonreactive (Nonreactive); HIV Num 1 0.11 S/CO (0.00-0.99); ~HepC Num1 0.06 S/CO (0.00-0.79); ~Hepatitis C Antibody Nonreactive (Nonreactive)
[2024-09-02 13:12] LABS: Folate 13.3 ng/mL (> or = 4.0); Vitamin B12 601 pg/mL (200-900)
[2024-09-02 17:27] LABS: Triiodothyronine T3 Free 3.4 pg/mL (2.3-4.2)
[2024-09-13 10:41] LABS: Triiodothyronine T3 Total 108
== END 2024-09-01 15:19 | disposition home or self-care (01) ==
LOC: HO.HHCL 15:18
PROVIDERS: Nurse Practitioner; Visit Provider Internal Medicine
DX: Z00.00 Encounter for general adult medical examination without abnormal findings (principal); E10.65 Type 1 diabetes mellitus with hyperglycemia; R63.4 Abnormal weight loss; R20.2 Paresthesia of skin
CPT/HCPCS: 36415; 80053; 80061; 82607; 82746; 83036; 83735; 84439; 84443; 84480; 84481; 85025; 86803; 87389

== ENCOUNTER 2024-12-12 13:00 | Inpatient (IN) | payer MEDICARE, MEDICAID, SELFPAY ==
[2024-12-12] VITALS (7 sets, daily range): BP systolic 102–118; BP diastolic 59–74; PULSE 99–128; RESP 14–16; TEMP 36.3–36.8; O2SAT 97–98; BMI 20.2; BMI 19.4
--- NOTE | 2024-12-12 13:07 | ECG_ITS ---
Test Reason : hx of PCP use, med clearance Blood Pressure : */* mmHG Vent. Rate : 110 BPM Atrial Rate : 110 BPM P-R Int : 134 ms QRS Dur : 72 ms QT Int : 324 ms P-R-T Axes : 68 78 41 degrees QTcB Int : 438 ms Sinus tachycardia Otherwise normal ECG When compared with ECG of 03-Jan-2024 03:24, No significant change was found Referred By: Anastasiia Delgado Electronically Signed By: Ashok Bass
--- NOTE | 2024-12-12 13:07 | ED_ITS ---
HPI - General Adult General Chief complaint: Psychiatric Symptoms Stated complaint: Crisis Time Seen by Provider: 12/12/24 13:06 Source: patient Mode of arrival: ambulatory Limitations: no limitations History of Present Illness ED Provider: Anastasiia Delgado PA-C HPI narrative: Patient is a 39 year old assigned male at with a history of DM, PCP use, and depression presenting to the emergency department today with increased depression and increased anxiety. Patient states that he has been more depressed and stressed as of lately. Patient states that he has a history of suicide attempts and does not want to let his depression get that bad again this time. Patient denies any dizziness, lightheadedness, abdominal pain, nausea, vomiting, fever, chills, blurry vision, double vision, loss of vision, chest pain, difficulty breathing, shortness of breath, back pain, night sweats, pain with urination, increased urinary frequency, increased urinary urgency, blood in his urine or stool, syncope or a near syncopal episode, recent trauma or falls, bowel incontinence, bladder incontinence, or any other complaints at this time. Relieving factors: none Exacerbating factors: none Associated symptoms: denies other symptoms Treatments prior to arrival: none Related Data Home Medications ?Medication ?Instructions ?Recorded ?Confirmed nicotine (polacrilex) 2 mg gum 1 gum PO Q2H PRN Nicotine Cravings 03/01/22 12/12/24 multivitamin 1 tab PO QAM 12/30/22 12/12/24 rosuvastatin 20 mg tablet 1 tab PO QAM 12/30/22 12/12/24 aripiprazole 5 mg tablet 5 mg PO DAILY 12/12/24 12/12/24 hydroxyzine HCl 50 mg tablet 50 mg PO BEDTIME PRN Insomnia 12/12/24 12/12/24 insulin glargine-yfgn 100 unit/mL 34 unit subcut BEDTIME 12/12/24 12/12/24 (3 mL) subcutaneous pen insulin regular human 100 unit/mL 8 unit subcut TIDWMEAL 12/12/24 12/12/24 (3 mL) subcutaneous pen (Novolin R FlexPen) quetiapine 25 mg tablet 12.5 mg PO BID PRN Anxiety 12/12/24 12/12/24 Allergies Allergy/AdvReac Type Severity Reaction Status Date / Time haloperidol Allergy Mild ITCHING Verified 12/12/24 13:11 Review of Systems 2 Constitutional: Constitutional: Reports no additional constitutional complaints, Denies chills, Denies fever(s) and Denies night sweats Eyes: Eyes: Reports no additional eye complaints, Denies blurry vision, Denies change in vision, Denies diplopia, Denies eye discharge, Denies loss of vision and Denies eye pain ENT: Denies dizziness Cardiovascular: Cardiovascular: Reports no additional cardiovascular complaints, Denies chest pain, Denies lightheadedness, Denies Loss of Consciousness and Denies dyspnea Respiratory: Respiratory: Reports no additional respiratory complaints and Denies dyspnea Gastrointestinal: Gastrointestinal: Reports no additional gastrointestinal complaints, Denies abdominal pain, Denies melena, Denies hematochezia, Denies change in bowel habits and Denies change in stool character Genitourinary: Genitourinary: Reports no additional male genitourinary complaints, Denies hematuria, Denies oliguria, Denies difficulty urinating, Denies dysuria, Denies urinary frequency, Denies urinary hesitancy, Denies urinary incontinence and Denies urinary urgency Musculoskeletal: Musculoskeletal: Reports no additional musculoskeletal complaints, Denies numbness and Denies tingling Neurologic: Denies dizziness, Denies loss of vision, Denies numbness and Denies tingling Psychiatric: Psychiatric: Reports no additional psychiatric complaints and Reports depression Endocrine: Endocrine: Reports no additional endocrine complaints Hematologic/Lymphatic: Hematologic/Lymphatic: Reports no additional hematologic/lymphatic complaints Allergic/Immunologic: Allergic/Immunologic: Reports no additional allergic/immunologic complaints PMFSH Past Medical History Attestation statement: The following information was validated with the patient. Source: old records reviewed and nursing notes reviewed Medical History Ingrown hair Abscess Diabetes Depression Surgical History H/O circumcision Family History Family History Mother No problems noted. Father No problems noted. Social History Social History Alcohol intake: current Alcohol intake frequency: holidays/special occasions only Alcohol type: beer and hard liquor Patient Tobacco Use Status: Current everyday Tobacco user Smoked in Last 30 Days: Yes Use of substances other than those prescribed or required for medical reasons: Yes Substance Use Type: Heroin Substance Use Frequency: Daily Advance Directives: No Advance Directives Information Provided: Yes Current occupational status: unemployed and disabled Physical Exam ED Vital Signs: Vital Signs - 24 hr 12/12/24 13:10 12/12/24 13:11 12/12/24 14:05 Temperature 98.3 F Pulse Rate 114 H Respiratory Rate 16 14 16 Blood Pressure 112/68 Pulse Oximetry 98 Oxygen Delivery Method Room Air BMI result Body Mass Index 20.2 Const General: cooperative, no acute distress, alert and awake Nutritional Appearance: well nourished Orientation/consciousness: patient oriented x3 Limitations: no limitations HENMT Head: Yes normal to inspection and Yes atraumatic Ears: hearing grossly normal bilaterally and external ears normal General nose exam: Normal external nose present, no nasal discharge noted and no epistaxis Face and sinus: Yes normal facial exam, No abrasion and No laceration Mouth: Normal oral and palatal mucosa present, no drooling and no muffled voice Eyes General: appearance normal, both eyes and all related structures Periorbital: periorbital findings normal Eyelids: Yes eyelids normal Conjunctivae: conjunctivae normal Pupils: Equal, round and reactive pupils present EOM: EOMs intact bilaterally Neck Neck: Yes normal visual inspection, Yes full ROM and Yes no lymphadenopathy Chest Chest palpation & inspection: normal inspection of the chest Resp Effort & Inspection: normal respiratory effort and able to speak in complete sentences GI Inspection: Yes normal to inspection Neuro General: patient oriented x3 and moves all extremities Cranial nerves: Yes Equal, round and reactive pupils present Cognition (Neuro): normal cognition Extrem General: Yes normal to inspection, Yes full ROM and Yes capillary refill normal Psych Appearance: grossly normal Mental Status: mental status grossly normal Affect: Sad affect present Attitude: Guarded attititude/behavior present Medications Administered Generic Name Dose Route Start Last Admin Trade Name Freq PRN Reason Stop Dose Admin Atorvastatin Calcium 80 mg 12/12/24 15:45 12/12/24 15:51 Atorvastatin Calcium 80 Mg Tablet PO Not Given DAILY RONNIE Multivitamins/Vitamin C 1 tab 12/12/24 14:30 12/12/24 15:51 Multivitamin Tablet PO Not Given DAILY RONNIE Pt Own (Insulin 8 unit 12/12/24 17:00 12/12/24 16:37 Regular Human [ SUBCUT 8 unit Novolin R Flexpen] TIDWM RONNIE Administration 100 Unit/Ml (3 Ml) Ins Quetiapine Fumarate 12.5 mg 12/12/24 14:27 12/12/24 16:38 Quetiapine Fumarate 25 Mg Tablet PO 12.5 mg BID PRN Administration Anxiety Medical Decision Making Medical Decision Making [facility] Narrative: Patient is a 39 year old assigned male at with a history of DM, PCP use, and depression presenting to the emergency department today with increased depression and increased anxiety. Patient's physical exam was as noted in the physical exam portion of this note. Patient's blood work showed an elevated blood sugar but was otherwise unremarkable. Patient's EKG was unremarkable. I explained my physical exam findings as well as all test results to the patient. I answered all questions asked by the patient. Patient's med rec completed and ordered. Patient given his usual DM medication. Patient's disposition will be determined after CARE team evaluation. Differential Diagnosis Differential Diagnoses: The differential diagnosis associated with the presentation includes Anxiety Depression Admission/Observation Consideration of admission/observation: Escalation of care including admission/observation considered Disposition pending CARE team evaluation. Lab Data [facility] Lab Attestation statement: I reviewed the patient's lab results. My interpretation of these results are in the MDM Rationale portion of this note. 12/12/24 13:21 12/12/24 13:21 Labs: Lab Results 12/12/24 12/12/24 12/12/24 Range/Units 13:20 13:21 16:41 WBC 7.4 (4.8-10.8) X10*3/uL RBC 4.88 (4.60-5.80) X10*6/uL Hgb 13.9 L (14.0-18.0) g/dl Hct 41.7 L (42.0-52.0) % MCV 85.5 (80.0-98.0) fL MCH 28.5 (27.0-33.0) pg MCHC 33.3 (31.0-36.0) g/dl RDW 13.1 (11.0-16.0) % Plt Count 169 (160-400) X10*3/uL MPV 11.1 (9.4-12.4) fL Immature Gran % (Auto) 0.3 (0.0-0.4) % Neut % (Auto) 56.7 (45-73) % Lymph % (Auto) 31.6 (20-40) % [place] % (Auto) 9.8 (2-11) % Eos % (Auto) 1.2 (0-4) % Baso % (Auto) 0.4 (0-2) % Lymph # (Auto) 2.4 (1.2-4.9) X10*3/uL [place] # (Auto) 0.7 (0.1-1.2) X10*3/uL Eos # (Auto) 0.1 (0.0-0.4) X10*3/uL Baso # (Auto) 0.0 (0.0-0.2) X10*3/uL Abs Immat Gran (auto) 0.02 (0.00-0.03) X10*3/uL Absolute Neuts (auto) 4.2 (2.0-8.3) x10*3/uL Absolute Nucleated RBC 0.000 (0.0-0.012) X10*3/uL Nucleated RBC % (auto) 0.0 (0.0-0.2) /100WBC Sodium 136 (135-145) mmol/L Potassium 3.8 (3.3-5.1) mmol/L Chloride 99 (96-108) mmol/L Carbon Dioxide 27 (22-29) mmol/L Anion Gap 14 (12-20) BUN 12 (9-16) mg/dL Creatinine 0.79 (0.5-1.4) mg/dL Estim Creat Clear Calc 99.6 Estimated GFR > 60 POC Glucose 384 H* (60-115) mg/dL Random Glucose 446 H* (60-115) mg/dL Calcium 9.2 D (8.4-10.2) mg/dL Total Bilirubin 0.9 (0.0-1.0) mg/dL AST 28 (5-37) U/L ALT 22 (0-40) U/L Alkaline Phosphatase 117 (39-117) U/L Total Protein 6.5 (6.5-8.0) g/dL Albumin 3.9 (3.5-5.0) g/dL Hold Red Top See Note Urine Color Yellow Urine Appearance Clear Urine pH 6.0 (5.0-9.0) Ur Specific [place] >= 1.030 H (1.005-1.025) Urine Protein Negative (Neg-Trace) mg/dL Urine Glucose (UA) >=1000 H (Negative) mg/dL Urine Ketones 80 (Negative) mg/dL Urine Blood Negative (Negative) Urine Nitrite Negative (Negative) Ur Leukocyte Esterase Negative (Negative) Urine RBC 0-2 (0-2) /HPF Urine WBC 0-5 (0-5) /HPF Ur Squamous Epith Cells 0-2 (0-2) /HPF Urine Bacteria None Seen (None Seen) Hyaline Casts 0-2 (0-2) /LPF Salicylates < 5.0 L (15-30) mg/dL Urine Opiates Screen Not Detected (Not Detect) Ur Buprenorphine Scrn Not Detected (Not Detect) ng/mL Ur Oxycodone Screen Not Detected (Not Detect) ng/mL Urine Methadone Screen Not Detected (Not Detect) ng/mL Urine Fentanyl Screen POSITIVE H (Not Detect) Acetaminophen < 3 (<30) mcg/mL Ur Barbiturates Screen Not Detected (Not Detect) Ur Phencyclidine Scrn POSITIVE H (Not Detect) Ur Amphetamines Screen Not Detected (Not Detect) U Benzodiazepines Scrn Not Detected (Not Detect) Urine Cocaine Screen Not Detected (Not Detect) U Marijuana (THC) Screen Not Detected (Not Detect) Ethyl Alcohol < 10 mg/dL Independent Interpretation I performed an independent interpretation of an: EKG Interpretation: I independently interpreted this EKG and am in agreement with the below findings: Vent. Rate: 110 BPM Atrial Rate: 110 BPM P-R Int: 134 ms QRS Dur: 72 ms QT Int: 324 ms P-R-T Axes: 68 78 41 degrees QTcB Int: 438 ms Sinus tachycardia When compared with ECG of 03-Jan-2024 03:24, No significant change was found Referred By: Anastasiia Delgado Electronically Signed By: Ashok Bass Dictated By: Ashok Bass MD Signed By: Electronically signed by Ashok Bass MD 12/12/24 145 Chronic Conditions Patient?s care impacted by: Diabetes Discharge Plan Discharge Clinical Impression: Depression, Diabetes Patient Disposition: Still a Patient Prescriptions: No Action nicotine (polacrilex) 2 mg gum 1 gum PO Q2H PRN (Reason: Nicotine Cravings) multivitamin Tablet 1 tab PO QAM rosuvastatin 20 mg tablet 1 tab PO QAM quetiapine 25 mg tablet 12.5 mg PO BID PRN (Reason: Anxiety) hydroxyzine HCl 50 mg tablet 50 mg PO BEDTIME PRN (Reason: Insomnia) Novolin R FlexPen 100 unit/mL (3 mL) insulin pen 8 unit SUBCUT TIDWMEAL Rx Instructions: Take 8 units with meals (breakfast, lunch and dinner) aripiprazole 5 mg tablet 5 mg PO DAILY insulin glargine-yfgn 100 unit/mL (3 mL) insulin pen 34 unit SUBCUT BEDTIME Interventions: [place]-Suicide Risk Severity Scale Last Done: 12/12/24 13:12 Print Language: Panamanian
[2024-12-12 13:34] LABS: MANUAL DIFF FLAG NO
[2024-12-12 13:36] LABS: Appearance Urine Clear; Color Urine Yellow; Glucose Urine UA >=1000 mg/dL (Negative); Leukocyte Esterase Urine Negative (Negative); Nitrite Urine Negative (Negative); Specific Gravity - Urine >= 1.030 (1.005-1.025); UMIC TRIGGER UA YES; Urine Blood Negative (Negative); Urine Ketones 80 mg/dL (Negative); Urine Protein Negative (Neg-Trace)
[2024-12-12 13:41] LABS: Basophils Percent Auto 0.4 % (0-2); Eosinophils Absolute Auto 0.1 X10*3/uL (0.0-0.4); Eosinophils Percent Auto 1.2 % (0-4); Hematocrit 41.7 % (42.0-52.0); Hemoglobin 13.9 g/dl (14.0-18.0); Imm Gran Abs Auto 0.02 X10*3/uL (0.00-0.03); Imm Gran Pct Auto 0.3 % (0.0-0.4); Lymphocytes Absolute Auto 2.4 X10*3/uL (1.2-4.9); Lymphocytes Percent Auto 31.6 % (20-40); Mean Corpuscular HGB Conc 33.3 g/dl (31.0-36.0); Mean Corpuscular Hemoglobin 28.5 pg (27.0-33.0); Mean Corpuscular Volume 85.5 fL (80.0-98.0); Mean Platelet Volume 11.1 fL (9.4-12.4); Monocytes Absolute Auto 0.7 X10*3/uL (0.1-1.2); Monocytes Percent Auto 9.8 % (2-11); Neutrophils Absolute Auto 4.2 x10*3/uL (2.0-8.3); Neutrophils Percent Auto 56.7 % (45-73); Platelet Count 169 X10*3/uL (160-400); Red Blood Count 4.88 X10*6/uL (4.60-5.80); Red Cell Distribution Width 13.1 % (11.0-16.0); White Blood Count 7.4 X10*3/uL (4.8-10.8)
[2024-12-12 13:56] LABS: Acetaminophen LAB < 3 mcg/mL (<30); Salicylate < 5.0 mg/dL (15-30)
[2024-12-12 13:57] LABS: Alanine Aminotransferase 22 U/L (0-40); Albumin Level 3.9 g/dL (3.5-5.0); Alkaline Phosphatase 117 U/L (39-117); Anion Gap 14 (12-20); Aspartate Amino Transferase 28 U/L (5-37); Bilirubin Total 0.9 mg/dL (0.0-1.0); Blood Urea Nitrogen 12 mg/dL (9-16); Calcium 9.2 mg/dL (8.4-10.2); Carbon Dioxide 27 mmol/L (22-29); Chloride 99 mmol/L (96-108); Creatinine Clr Calc Pharmacy 99.6; Estimated Glomerular Filt Rate > 60; Ethanol < 10 mg/dL; Glucose Random 446 mg/dL (60-115); Potassium 3.8 mmol/L (3.3-5.1); Sodium 136 mmol/L (135-145); Total Protein 6.5 g/dL (6.5-8.0)
[2024-12-12 14:02] LABS: Amphetamine Screen Urine Not Detected (Not Detect); Barbiturates, Urine Not Detected (Not Detect); Benzodiazepines Screen Urine Not Detected (Not Detect); Buprenorphine Scr Not Detected (Not Detect); Cannabinoid Screen Urine Not Detected (Not Detect); Cocaine Screen Urine Not Detected (Not Detect); Fentanyl, urine POSITIVE (Not Detect); Methadone Screen, Urine Not Detected (Not Detect); Opiate Screen Urine Not Detected (Not Detect); Oxycodone Screen Urine Not Detected (Not Detect); Phencyclidine Screen Urine POSITIVE (Not Detect)
[2024-12-12 14:19] LABS: Bacteria Urine None Seen (None Seen); Hyaline Casts Urine 0-2 /LPF (0-2); RBC Urine 0-2 /HPF (0-2); Squamous Epithelial Cell Urine 0-2 /HPF (0-2); WBC Urine 0-5 /HPF (0-5)
--- NOTE | 2024-12-12 14:22 | PC.NURSE ---
Med rec completed with medications brought in by patient, medical record hx as well as patient recall
--- NOTE | 2024-12-12 15:21 | PHA.MEDREC ---
Addendum entered by Whit Wheat RPh 12/12/24 15:37: Med rec was reviewed by [facility]. Original Note: Pharmacy Consult ? Medication Reconciliation Pharmacy reviewed med rec done by nursing. Claims matched what was confirmed and nurses note they wrote state the patient brought in Rx bottles they were able to confirm the med rec with. I spoke with the patients nurse in pod to confirm the nicotine gum since we had no claims for that and she stated He said he was getting it from the program he was just in.
--- OUTSIDE RECORDS SUMMARY | 2024-12-12 15:32 | XMS_ITS | Encounter Summary ---
Author Organization [employer] Address [address] [facility] [address] [place] [address] Care Team Providers Care Wine Blender Name Role Phone Ely Lundberg MD Primary Care Provider [phone] Encounter Details Date Type Department Care Team ([facility] Contact Info) Description 12/12/2024 Orders Only GENERIC EXTERNAL DATA DEPARTMENT Provider, Generic External Data Social History Tobacco Use Types Packs/Day Years Used Date Smoking Tobacco: Every Day Cigarettes 0.5 14 Passive Smoke Exposure: Never Smokeless Tobacco: Never Alcohol Use Standard Drinks/Week Comments Yes 1 (1 standard drink = 0.6 oz pur e alcohol) Depression Answer Date Recorded Patient Health Questionnaire-9 Score 8 01/20/2024 Patient Health Questionnaire-9 Score 8 01/20/2024 Last PHQ-9: Questionnaire Data Not on file 0 01/20/2024 Housing Stability Answer Date Recorded What is your housing situation today? I have [employer] 01/12/[address] you li ve. Do you have problems with any of the following? None of the above 01/12/2024 Food Insecurity Answer Date Recorded Within the past 12 months, y ou worried that your food would run out before you got money to buy more: Never True 01/12/2024 Within the past 12 months,th e food you bought just didn't last and you didn't have enough money to get more: Never True 03/2024 Transportation Answer Date Recorded In the past 12 months, has l ack of transportation kept you from medical appts, meetings, work or from getting things needed for daily living? Yes, it has kept me from medical appointments or getting medications. 01/12/2024 Utilities Answer Date Recorded In the past 12 months, has t he electric, gas, oil or water company threatened to shut off services in your home? No 01/12/2024 Depression Answer Date Recorded Patient Health Questionnaire-2 Score 3 01/20/2024 Sex and Gender Information Value Date Recorded Sex Assigned at Male 09/08/2022 10:18 AM EDT Legal Sex Male 10:18 AM EDT Gender Identity Male 09/08/2022 10:18 AM EDT Sexual Orientation Straight 09/08/2022 10 :18 AM EDT documented as of this encounter Plan of Treatment Not on file documented as of this encounter Goals Goal Patient Goal Type Associated Problems Recent Progress Patient-Stated? Author Hemoglobin A1c < 7 Result Component 10.4( 3:20 PM EDT) No Jose Manuel Houser, PharmD documented as of this encounter Procedures Procedure Name Priority Date/Time Associated Diagnosis Comments HOLD RED TOP Routine 12/12/2024 1:21 PM EST ETHANOL Routine 12/12/2024 1:21 PM EST CBC WITH AUTO DIFFERENTIAL Routine 12/12/2024 1:21 PM EST ACETAMINOPHEN LEVEL Routine 12/12/2024 1 :21 PM EST SALICYLATE Routine 12/12/2024 1:21 PM EST COMPREHENSIVE METABOLIC PANEL Routine 12/12/2024 1:21 PM EST DRUG MONITOR, PANEL 1, SCREEN, URINE Routine 12/12/2024 1:20 PM EST URINALYSIS, COMPLETE Routine 12/12/2024 1:20 PM EST documented in this encounter Results * Ethanol (12/12/2024 1:21 PM EST) ETHANOL (MG/DL) IN SER/PLAS <10 mg/dL [facility] Comment:Serum/plasma ethanol results are to be used formedical/treatment purposes only. 12/12/2024 1:21 PM EST 12/12/2024 1:32 PM EST us Generic External Data Provider LAB BLOOD ORDERAB LES Final Result [facility] [address] [place] [address] [phone] * (ABNORMAL) Comprehensive Metabolic Panel (12/12/2024 1:21 PM EST) Sodium 136 135 - 145 mmol/L [facility] Potassium 3.8 3.3 - 5.1 mmol/L [facility] Chloride 99 96 - 108 mmol/L [facility] Carbon Dioxide 27 22 - 29 mmol/L [facility] Anion Gap 14 12 - 20 [facility] Urea Nitrogen (BUN) 12 9 - 16 mg/dL [facility] Creatinine, Serum 0.79 0.5 - 1.4 mg/dL [facility] Creatinine Clr Calc Pharmacy 99.6 [facility] Comment:eGFR (calculated fro m the MDRD study equation) and eCrCl(calculated from the Cockcroft-Gault equation) are based ondifferent parameters and may not yield comparable results.If eCrCl result is absurd, please check patient'sheight/weight. Estimated Glomerular Filt Rate >60 [facility] Comment:Chronic Kidney Disea se: Estimated GFR < 60 mL/min/1.25z6Fylsbx Kidney Disease: Estimated GFR < 15 mL/min/1.73m2 Glucose 446(HH) 60 - 115 mg/dL [facility] Comment:Critical value for t est(s): glur Results called to and readback by:ely Person calling:nicole Date: 12/12/24Time:1356 Calcium 9.2 8.4 - 10.2 mg/dL [facility] Bilirubin, Total 0.9 0.0 - 1.0 mg/dL [facility] Aspartate Amino Transferase 28 5 - 37 U/L [facility] Alanine Aminotransferase 22 0 - 40 U/L [facility] Total Protein 6.5 6.5 - 8.0 g/dL [facility] Albumin Level 3.9 3.5 - 5.0 g/dL [facility] Alkaline Phosphatase 117 39 - 117 U/L [facility] 12/12/2024 1:21 PM EST 12/12/2024 1:32 PM EST us Generic External Data Provider LAB BLOOD ORDERAB LES Final Result Performing Organization Address City/[facility]/ZIP Co de Phone Number [facility] [address] [place] [phone] * Acetaminophen level (12/12/2024 1:21 PM EST) Acetaminophen LAB <3 <30 mcg/mL [facility] 12/12/2024 1:21 PM EST 12/12/2024 1:32 PM EST us Generic External Data Provider LAB BLOOD ORDERAB LES Final Result Performing Organization Address [facility] Co de Phone Number [facility] [address] [place] [phone] * (ABNORMAL) Salicylate (12/12/2024 1:21 PM EST) Salicylate <5.0(L) 15 - 30 mg/dL [facility] 12/12/2024 1:21 PM EST 12/12/2024 1:32 PM EST Generic External Data Provider LAB BLOOD ORDERAB LES Final Result Performing Organization Address [facility] de Phone Number [facility] [address] [place] [phone] * Hold Red (12/12/2024 1:21 PM EST) Hold Red See Note [facility] Comment:Specimen held untest ed for 24 hours; Call to requestChemistry testing. 12/12/2024 1:21 PM EST 12/12/2024 1:43 PM EST us Generic External Data Provider LAB BLOOD ORDERAB LES Final Result [facility] [address] [place] [address] [phone] * (ABNORMAL) CBC auto differential (12/12/2024 1:21 PM EST) White Blood Count 7.4 4.8 - 10.8 X10*3/uL [facility] Red Blood Count 4.88 4.60 - 5.80 X10*6/uL [facility] Hemoglobin 13.9(L) 14.0 - 18.0 g/dl [facility] Hematocrit 41.7(L) 42.0 - 52.0 % [facility] Mean Corpuscular Volume 85.5 80.0 - 98.0 fL [facility] Mean Corpuscular Hemoglobin 28.5 27.0 - 33.0 pg [facility] Mean Corpuscular HGB Conc 33.3 31.0 - 36.0 g/dl [facility] Red Cell Distribution Width 13.1 11.0 - 16.0 % [facility] Platelet Count 169 160 - 400 X10*3/uL [facility] Mean Platelet Volume 11.1 9.4 - 12.4 fL [facility] Neutrophils Percent Auto 56.7 45 - 73 % [facility] Imm Gran Pct Auto 0.3 0.0 - 0.4 % [facility] Lymphocytes Percent Auto 31.6 20 - 40 % [facility] Monocytes Percent Auto 9.8 2 - 11 % [facility] Eosinophils Percent Auto 1.2 0 - 4 % [facility] Basophils Percent Auto 0.4 0 - 2 % [facility] NRBC Pct Auto 0.0 0.0 - 0.2 /100WBC [facility] Neutrophils Absolute Auto 4.2 2.0 - 8.3 x10*3/uL [facility] Imm Gran Abs Auto 0.02 0.00 - 0.03 X10*3/uL [facility] Lymphocytes Absolute Auto 2.4 1.2 - 4.9 X10*3/uL [facility] Monocytes Absolute Auto 0.7 0.1 - 1.2 X10*3/uL [facility] Eosinophils Absolute Auto 0.1 0.0 - 0.4 X10*3/uL [facility] Basophils Absolute Auto 0.0 0.0 - 0.2 X10*3/uL [facility] NRBC Abs Auto 0.000 0.0 - 0.012 X10*3/uL [facility] 12/12/2024 1:21 PM EST 12/12/2024 1:32 PM EST us Generic External Data Provider LAB BLOOD ORDERAB LES Final Result Performing Organization Address City/State/[facility] Co de Phone Number [facility] [address] [place] [phone] * (ABNORMAL) Drug Monitoring, Panel 1, Screen, Urine (12/12/2024 1:20 PM EST) Opiate Screen Urine Not Detected Not Detect [facility] Comment:Opiate cut-off is 30 0 ng/mL.Positive results are unconfirmed and should not be used fornon-medical purposes. Barbiturates, Urine Not Detected Not Detect [facility] Comment:Barbiturate cut-off is 200 ng/mL.Positive results are unconfirmed and should not be used fornon-medical purposes. Phencyclidine Screen Urine POSITIVE(A) Not Detect [facility] Comment:Phencyclidine cut-of f is 25 ng/mL.Positive results are unconfirmed and should not be used fornon-medical purposes. Amphetamine Screen Urine Not Detected Not Detect [facility] Comment:Amphetamine cut-off is 1000 ng/mL.Positive results are unconfirmed and should not be used fornon-medical purposes. Benzodiazepines Screen Urine Not Detected Not Detect [facility] Comment:Benzodiazepine cut-o ff is 200 ng/mL.Positive results are unconfirmed and should not be used fornon-medical purposes. Cocaine Screen Urine Not Detected Not Detect [facility] Comment:Cocaine cut-off is 3 00 ng/mL.Positive results are unconfirmed and should not be used fornon-medical purposes. Cannabinoid Screen Urine Not Detected Not Detect [facility] Comment:Cannabinoid cut-off is 50 ng/mL.Positive results are unconfirmed and should not be used fornon-medical purposes. Methadone Screen, Urine Not Detected Not Detect ng/mL [facility] Comment:Methadone cut-off is 300 ng/mL.Positive results are unconfirmed and should not be used fornon-medical purposes. FENTANYL URINE POSITIVE(A) Not Detect [facility] Comment:Fentanyl cut-off is 1 ng/mL.Positive results are unconfirmed and should not be used fornon-medical purposes. Oxycodone Urine Screen Not Detected Not Detect ng/mL [facility] Comment:Oxycodone cut-off is 100 ng/mL.Positive results are unconfirmed and should not be used fornon-medical purposes. Buprenorphine Screen Not Detected Not Detect ng/mL [facility] Comment:Buprenorphine cut-of f is 5 ng/mL.Positive results are unconfirmed and should not be used fornon-medical purposes. 12/12/2024 1:20 PM EST 12/12/2024 1:32 PM EST Generic External Data Provider LAB URINE ORDERAB LES Final Result [facility] [address] [place] [phone] * (ABNORMAL) Urinalysis Complete (12/12/2024 1:20 PM EST) Color Urine Yellow [facility] Appearance Urine Clear [facility] PH 6.0 5.0 - 9.0 [facility] Glucose Urine UA >=1000(A) Negative mg/dL [facility] Urine Blood Negative Negative [facility] Specific [place] - Urine >=1.030(H) 1.005 - 1.025 [facility] Urine Protein Negative Neg-Trace mg/dL [facility] Urine Ketones 80 Negative mg/dL [facility] Nitrite Urine Negative Negative [facility] Leukocyte Esterase Urine Negative Negative [facility] RBC Urine 0-2 0 - 2 /HPF [facility] Urine WBC 0-5 0 - 5 /HPF [facility] Urine Squamous Epithelial Cell 0-2 0 - 2 /HPF [facility] Urine Bacteria None Seen None Seen [facility] Hyaline Casts, Urine 0-2 0 - 2 /LPF [facility] 12/12/2024 1:20 PM EST 12/12/2024 1:32 PM EST us Generic External Data Provider LAB URINE ORDERAB LES Final Result [facility] [address] [place] [phone] documented in this encounter Visit Diagnoses Not on filedocumented in this encounter Additional Health Concerns Assessment Noted Time PHQ-9 Depression Total Score: 8 01/20/20 24 11:40 AM EDT documented as of this encounter Care Teams Wine Blender Relationship Specialty Start Date End Date Ely Lundberg MD [address] [place] [phone] PCP - General Internal Medicine 10/27/13 documented as of this encounter
--- OUTSIDE RECORDS SUMMARY | 2024-12-12 15:32 | XMS_ITS | Encounter Summary ---
Author Organization [employer] Address [address] [facility] [facility] [address] [place] [address] Care Team Providers Care Psych Arnp Name Role Phone Ely Lundberg MD Primary Care Provider Encounter Details Date Type Department Care Team (Late st Contact Info) Description 11/16/2022 Orders Only [facility] [address] [place] [address] Ely Lundberg MD [address] [place] [address] Encounter for counseling before starting and about pre-exposure prophylaxis for HIV (Primary Dx) Social History Tobacco Use Types Packs/Day Years Used Date Smoking Tobacco: Never Assessed Sex and Gender Information Value Date Recorded [...] 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
--- OUTSIDE RECORDS SUMMARY | 2024-12-12 15:32 | XMS_ITS | Clinical Summary ---
Author Organization [employer] Address [address] [facility] 7 [place] [address] Care Team Providers Care Sole Leveler Machine Name Role Phone Ely Lundberg MD Primary Care Provider Allergies Active Allergy Reactions Criticality Noted Date Comments Haloperidol Hives Low 04/12/2013 Medications * This document contains information received from the source organization and may not represent a complete record from that organization. diphenhydrAMINE (BENADryl) 25 MG capsule take 2 capsule by oral route at bedtime 02/13/20 22 Active Alcohol Swabs (Alcohol Prep) pads Apply 1 pad to skin 4 times every day Active Blood Pressure kit Use daily Active Blood Glucose Monitoring Suppl (FreeStyle Lite) device Inject under the skin if needed. Use as instructed Active polyvinyl alcohol-povidone PF (HypoTears) 1.4-0.6 % ophthalmic solution 1-2 drops if needed for wound care. 1-2 drops in affected eye(s) once daily or more as needed Active emtricitabine-ten ofovir AF (Descovy) 200-25 MG tabletIndications :On pre-exposure prophylaxis for HIV Take 1 tablet by mouth in the morning. 30 tablet 2 12/31/19 23 Active nicotine polacrilex (Nicorette) 2 MG gumIndications:Sm oking CHEW 1 PIECE OF GUM EVERY 2 HOURS DIRECTED NEEDED 30 each 2 01/17/20 23 Active cyclobenzaprine (Flexeril) 5 MG tablet Take 5 mg by mouth in the morning. 05/07/20 23 Active ARIPiprazole (Abilify) 5 MG tablet Take 5 mg by mouth in the morning. 04/30/20 23 Active FREESTYLE LITE test stripIndications: Type 1 diabetes mellitus with hyperglycemia ([facility]) TEST BLOOD SUGAR THREE TIMES DAILY 100 strip 11 07/08/20 Active TRUEplus Lancets 33G miscIndications:T ype 1 diabetes mellitus with hyperglycemia ([facility]/HCC) TEST BLOOD SUGAR THREE TIMES DAILY 100 each 11 07/08/20 23 Active diphenhydrAMINE (BENADryl) 25 MG tablet TAKE 1 TO 2 TABLETS BY MOUTH AT BEDTIME NEEDED FOR SLEEP 06/10/20 Active hydrOXYzine pamoate (Vistaril) 25 MG capsule TAKE 1 CAPSULE BY MOUTH TWICE A DAY IN THE AM AND 12PM 10/09/20 23 Active hydrOXYzine pamoate (Vistaril) 50 MG capsule Take 100 mg by mouth at bedtime. 10/09/20 23 Active Banophen 50 MG capsule Take 100 mg by mouth at bedtime. 10/09/20 23 Active atorvastatin (Lipitor) 40 MG tablet TAKE 1 TABLET BY MOUTH EVERY DAY AT NIGHT DIRECTED 10/09/20 23 Active Levemir FlexPen 100 UNIT/ML penIndications:Ty pe 2 diabetes mellitus without complications ([facility]) INJECT 34 UNITS SUBCUTANEOUSLY EVERY MORNING 15 mL 4 12/29/19 24 Active Acetaminophen Extra Strength 500 MG tablet TAKE 1 TABLET BY MOUTH EVERY 6 HOURS NEEDED FOR FEVER OR PAIN 06/23/20 24 Active naltrexone (Depade) 50 MG tablet 12/01/19 24 Active naloxone (Narcan) 4 mg/0.1 mL nasal spray 12/01/19 24 Active naproxen (Naprosyn) 500 MG tablet Take 500 mg by mouth if needed in the morning and at bedtime. 06/23/20 24 Active QUEtiapine (SEROquel) 25 MG tablet TAKE 1 TABLET BY MOUTH TWICE DAILY IN THE MORNING AND IN THE EVENING 07/14/20 24 Active hydrOXYzine HCl (Atarax) 50 MG tablet Take 50 mg by mouth if needed at bedtime. 07/14/20 24 Active rosuvastatin (Crestor) 20 MG tabletIndications :Mixed hyperlipidemia TAKE 1 TABLET BY MOUTH EVERY MORNING 90 tablet 1 08/31/20 24 Active gabapentin (Neurontin) 100 MG capsuleIndication s:Tingling in extremities TAKE 1 CAPSULE BY MOUTH EVERY 8 HOURS 90 capsule 09/26/20 24 Active insulin glargine (Basaglar KwikPen) 100 UNIT/ML penIndications:Ty pe 1 diabetes mellitus with hyperglycemia (CMS/HCC) Inject 34 Units under the skin at bedtime. 10.2 mL 11 09/29/20 24 025 Active insulin pen needle (B-D ULTRAFINE III SHORT PEN) 31G X 8 mm miscIndications:T ype 1 diabetes mellitus with hyperglycemia (CMS/HCC) Use as instructed 100 each 11 09/29/20 24 Active insulin regular (NovoLIN R FlexPen) 100 UNIT/ML penIndications:Ty pe 1 diabetes mellitus with hyperglycemia (CMS/HCC) Inject 8 Units under the skin with breakfast, with lunch, and with evening meal. 15 mL 4 09/29/20 24 Active Multiple Vitamin (Multivitamin) tablet TAKE 1 TABLET BY MOUTH EVERY MORNING 30 tablet 11 11/10/19 25 Active Insulin Glargine-yfgn (Roberto yfgn,) 100 UNIT/ML solution Inject 34 Units under the skin Once per day. 10 mL 11 10/23/20 24 025 Hospital, Clinic, or Other Facility Administered Medication Ordered Dose Route Frequency Start Date End Date Status insulin regular (HumuLIN R,NovoLIN R) injection 15 UnitsIndications:Type 1 diabetes mellitus with hyperglycemia (CMS/HCC) 15 Units SC Once 09/29/2024 A ctive Active Problems Problem Noted Date Diagnosed Date Diabetic ketoacidosis 09/16/2024 Abnormal liver function tests 03/03/2022 Diabetes mellitus 06/08/2015 History of drug abuse 06/07/2013 Mental disorder 06/07/2013 Encounters Date Type Department Care Team Description 12/12/2024 Orders Only GENERIC EXTERNAL DATA DEPARTMENT Provider, Generic External Data 12/12/2024 Patient Outreach [facility] [address] [place] [address] Huy Vazquez Recovery Supports 11/30/2024 Telephone [facility] [address] [place] [address] Ely Lundberg MD Med Refill 11/10/2024 Refill [facility] [address] [place] [address] Ely Lundberg MD 10/24/2024 Telephone [facility] [address] [place] [phone] Shantel Raymundo, urban planner 10/23/2024 Orders Only [facility] [address] [place] [address] Ely Lundberg MD Type 1 diabetes mellitus with hyperglycemia (CMS/HCC) (Primary Dx) 10/16/2024 Refill [facility] [address] [place] [address] Ely Lundberg MD 10/03/2024 Travel 09/29/2024 4:00 PM EST Office Visit [facility] [address] [place] [address] Ely Lundberg MD Type 1 diabetes mellitus with hyperglycemia (CMS/HCC) (Primary Dx); Low TSH level 09/29/2024 Travel 09/26/2024 Outside Procedure [facility] [address] [place] [address] Sylvia Torres, OD Presbyopia (Primary Dx) 09/24/2024 Refill [facility] [address] [place] [phone] Soni Cade, LEO Tingling in extremities 09/23/2024 10:15 AM EST Office Visit [facility] [address] [place] [address] Sylvia Torres, OD Myopia of both eyes (Primary Dx) 09/16/2024 1:30 PM EST Office Visit [facility] [address] [place] [address] Ayaan Coles DDS from Last 3 Months Immunizations Name Administration Dates Next Due Hep A, Adult 03/05/2009 Hep B, adult 03/05/2009,12/11/2008 Influenza injectable quadriv alent IIV4 with preservative 08/05/2018,10/22/2017 Influenza injectable quadriv alent preservative free 09/28/2022,08/04/2022,09/24/2021 Influenza, IIV3, injectable 09/13/2014 MMR 06/02/2016,04/24/2016 Moderna Covid-19 Vaccine 12+ 04/03/2021,03/06/20 21 Pneumococcal Conjugate PCV 20 03/10/2022 Pneumococcal Polysaccharide PPSV23 06/10/2011 Tdap 01/04/2020,05/26/2016 Varicella 04/24/2016 Family History Medical History Relation Name Comments Diabetes Maternal Grandmother Relation Name Status Comments Maternal Grandmother Social History Tobacco Use Types Packs/Day Years Used Date Smoking Tobacco: Every Day Cigarettes 0.5 14 Passive Smoke Exposure: Never Smokeless Tobacco: Never Tobacco Cessation:Ready to Q uit: Not Asked; Counseling Given: Not Answered Alcohol Use Standard Drinks/Week Comments Yes 1 [...] Orientation Straight 09/08/2022 10 :18 AM EDT Last Filed Vital Signs Vital Sign Reading Time Taken Comments Blood Pressure 129/79 09/29/2024 3:55 PM EST Pulse 126 09/29/2024 3:55 PM EST Temperature 36.7 ??C (98 ??F) 09/29/2024 3:55 PM EST Respiratory Rate 20 09/29/2024 3:55 PM EST Oxygen Saturation 97% 09/29/2024 3:55 PM EST Inhaled Oxygen Concentration - - Weight 51.7 kg (114 lb) 09/29/2024 3:55 PM EST Height 164 cm (5' 4.57 ) 09/29/2024 3:55 PM EST Body Mass Index 19.22 09/29/2024 3:55 PM EST Plan of Treatment Health Maintenance Due Date Last Done Comments Diabetes: Foot Exam 02/11/1994 Alcohol/Substance Use Screening 1996 Family Planning (PISQ) 02/11/1999 Hepatitis B Vaccines (3 of 3 - 19+ 3-dose series) 06/10/2009 03/05/2009, 12/11/2008 Diabetes: Urine Protein Screening 06/11/2023 06/11/2022 Dental Prophylaxis 04/30/2024 10/29/2023, 1 11/12/2021, 09/26/2019, Additional history exists COVID-19 Vaccine ( season) 2024 04/03/2021, 03/06/2021 Influenza Vaccine (#1) 2024 , 08/04/2022, 09/24/2021, Additional history exists Diabetes: Hemoglobin A1C 12/02/202409/01/2 024, 01/20/2024, 01/23/2023, Additional history exists SDOH Screening 01/11/2025 01/12/2024 Depression Screening 01/19/2025 01/20/2024, 01/20/20 Dental Oral Exam 03/17/2025 09/16/2024, , 09/12/2022, Additional history exists Eye Exam 08/15/2025 08/15/2024, 05/2024, 08/15/2024, Additional history exists Lipid Panel 09/01/2025 09/01/2024, 06/11/2022 Dental X-Ray: Bitewings 09/17/2025 09/16/20 24, 10/29/2023, 09/12/2022, Additional history exists Tobacco Screening 09/29/2025 09/29/2024 Dental X-Ray: Full Mouth 10/30/2026 023, 09/12/2022, 06/03/2019, Additional history exists Zoster Vaccines (1 of 2) 02/11/2034 DTaP/Tdap/Td Vaccines (4 - Td or Tdap) 07/26/2034 07/26/2024, 01/04/2020, 05/26/2016 RSV Patients and Patients Aged 60 years or older (1 - 1-dose 75+ series) 02/11/2059 Hepatitis A Vaccines Aged Out 03/05/2009 No long er eligible based on patient's age to complete this topic Pneumococcal Vaccine: Pediatrics (0 to 5 Years) and At-Risk Patients (6 to 49) Years) Completed 03/10/2022, 06/10/2011 HIV Screening Completed 09/01/2024, 09/10, 07/09/2022 Hepatitis C Screening Completed 09/01/2024 , 10/07/2022, 07/09/2022, Additional history exists HIB Vaccines Aged Out No longer eligi ble based on patient's age to complete this topic HPV Vaccines Aged Out No longer eligi ble based on patient's age to complete this topic IPV Vaccines Aged Out No longer eligi ble based on patient's age to complete this topic Meningococcal Vaccine Aged Out No demar todd eligible based on patient's age to complete this topic RSV under 20 months Aged Out No longe r eligible based on patient's age to complete this topic Rotavirus Vaccines Aged Out No longer eligible based on patient's age to complete this topic Goals Goal Patient Goal Type Associated Problems Recent Progress Patient-Stated? Author Hemoglobin A1c < 7 Result Component 10.4( 3:20 PM EDT) No Jose Manuel Houser, PharmD Procedures Procedure Name Priority Date/Time Associated Diagnosis Comments ETHANOL Routine 12/12/2024 1:21 PM EST COMPREHENSIVE METABOLIC PANEL Routine 12/12/2024 1:21 PM EST ACETAMINOPHEN LEVEL Routine 12/12/2024 1 :21 PM EST SALICYLATE Routine 12/12/2024 1:21 PM EST HOLD RED TOP Routine 12/12/2024 1:21 PM EST CBC WITH AUTO DIFFERENTIAL Routine 12/12/2024 1:21 PM EST DRUG MONITOR, PANEL 1, SCREEN, URINE Routine 12/12/2024 1:20 PM EST URINALYSIS, COMPLETE Routine 12/12/2024 1:20 PM EST POCT GLUCOSE Routine 09/29/2024 4:40 PM EST Type 1 diabetes mellitus with hyperglycemia (CMS/HCC) POCT GLUCOSE Routine 09/29/2024 4:21 PM EST Type 1 diabetes mellitus with hyperglycemia (CMS/HCC) ADJUNCTIVE GENERAL SERVICES - PROFESSIONAL VISITS - CASE PRESENTATION, SUBSEQUENT TO DETAILED AND EXTENSIVE TREATMENT PLANNING Routine 09/16/2024 1:30 PM EST INTRAORAL - PERIAPICAL EACH ADDITIONAL RADIOGRAPHIC IMAGE Routine 09/16/2024 1:30 PM EST INTRAORAL - PERIAPICAL FIRST RADIOGRAPHIC IMAGE Routine 09/16/2024 1:30 PM EST BITEWINGS - 4 RADIOGRAPHIC IMAGES Routine 09/16/2024 1:30 PM EST COMPREHENSIVE PERIODONTAL EVALUATION - NEW OR ESTABLISHED PATIENT Routine 09/16/2024 1:30 PM EST PERIODIC ORAL EVALUATION - ESTABLISHED PATIENT Routine 09/16/2024 1:30 PM EST 11 MDFL(V) RESIN-BASED COMPOSITE - 4 OR MORE SURFACES (ANTERIOR) Routine 09/16/2024 1:30 PM EST HEPATITIS C ANTIBODY Routine 09/01/2024 3:20 PM EDT Weight loss HIV 1/2 ANTIGEN/ANTIBODY, FOURTH GENERATION W/RFL Routine 09/01/2024 3:20 PM EDT Weight loss HEMOGLOBIN A1C Routine 09/01/2024 3:20 PM EDT Type 1 diabetes mellitus with hyperglycemia (CMS/HCC) Annual physical exam LIPID PANEL, STANDARD Routine 09/01/2024 3:20 PM EDT Type 1 diabetes mellitus with hyperglycemia (CMS/HCC) Annual physical exam PROPHYLAXIS - ADULT Routine 10/29/2023 9 :00 AM EST DIAGNOSTIC - DIAGNOSTIC IMAGING - INTRAORAL - COMPREHENSIVE SERIES OF RADIOGRAPHIC IMAGES Routine 10/29/2023 9:00 AM EST ALBUMIN, RANDOM URINE W/CREATININE Routine 06/11/2022 8:35 AM EDT from Last 3 Months or Most Recently Relevant to Health Maintenance Results * Hold Red (12/12/2024 1:21 PM EST) [facility] Hold Red See Note [facility] Comment:Specimen held untest ed for 24 hours; Call to requestChemistry testing. 12/12/2024 1:21 PM EST 12/12/2024 1:43 PM EST Generic External Data Provider LAB BLOOD ORDERAB LES Final Result Performing Organization Address City/[facility]/ZIP Co de Phone Number [facility] [address] [place] [address] [phone] * Ethanol (12/12/2024 1:21 PM EST) [facility] ETHANOL (MG/DL) IN SER/PLAS <10 mg/dL [facility] Comment:Serum/plasma ethanol results are to be used formedical/treatment purposes only. 12/12/2024 1:21 PM EST 12/12/2024 1:32 PM EST Generic External Data Provider LAB BLOOD ORDERAB LES Final Result Performing Organization Address City/[facility] Co de Phone Number [facility] [address] [place] [address] [phone] * (ABNORMAL) CBC auto differential (12/12/2024 1:21 PM EST) White Blood Count 7.4 4.8 - 10.8 X10*3/uL [facility] Red Blood Count 4.88 4.60 - 5.80 X10*6/uL [facility] Hemoglobin 13.9(L) 14.0 - 18.0 g/dl [facility] Hematocrit 41.7(L) 42.0 - 52.0 % [facility] Mean Corpuscular Volume 85.5 80.0 - 98.0 fL [facility] Mean Corpuscular Hemoglobin 28.5 27.0 - 33.0 pg [facility] Mean Corpuscular HGB Conc 33.3 31.0 - 36.0 g/dl [facility] Red Cell Distribution Width 13.1 11.0 - 16.0 % [facility] Platelet Count 169 160 - 400 X10*3/uL [facility] Mean Platelet Volume 11.1 9.4 - 12.4 fL [facility] Neutrophils Percent Auto 56.7 45 - 73 % [facility] Imm Gran Pct Auto 0.3 0.0 - 0.4 % [facility] Lymphocytes Percent Auto 31.6 20 - 40 % [facility] Monocytes Percent Auto 9.8 2 - 11 % [facility] Eosinophils Percent Auto 1.2 0 - 4 % [facility] Basophils Percent Auto 0.4 0 - 2 % [facility] NRBC Pct Auto 0.0 0.0 - 0.2 /100WBC [facility] Neutrophils Absolute Auto 4.2 2.0 - 8.3 x10*3/uL [facility] Imm Gran Abs Auto 0.02 0.00 - 0.03 X10*3/uL [facility] Lymphocytes Absolute Auto 2.4 1.2 - 4.9 X10*3/uL [facility] Monocytes Absolute Auto 0.7 0.1 - 1.2 X10*3/uL [facility] Eosinophils Absolute Auto 0.1 0.0 - 0.4 X10*3/uL [facility] Basophils Absolute Auto 0.0 0.0 - 0.2 X10*3/uL [facility] NRBC Abs Auto 0.000 0.0 - 0.012 X10*3/uL [facility] 12/12/2024 1:21 PM EST 12/12/2024 1:32 PM EST us Generic External Data Provider LAB BLOOD ORDERAB LES Final Result Performing Organization Address [facility]/ZIP Co de Phone Number [facility] [address] [place] [phone] * Acetaminophen level (12/12/2024 1:21 PM EST) Pathologist [facility] Acetaminophen LAB <3 <30 mcg/mL [facility] 12/12/2024 1:21 PM EST 12/12/2024 1:32 PM EST us Generic External Data Provider LAB BLOOD ORDERAB LES Final Result Performing Organization Address [facility] Co de Phone Number [facility] [address] [place] [phone] * (ABNORMAL) Salicylate (12/12/2024 1:21 PM EST) Pathologist [facility] Salicylate <5.0(L) 15 - 30 mg/dL [facility] 12/12/2024 1:21 PM EST 12/12/2024 1:32 PM EST us Generic External Data Provider LAB BLOOD ORDERAB LES Final Result Performing Organization Address [facility] Co de Phone Number [facility] [address] [place] [phone] * (ABNORMAL) Comprehensive Metabolic Panel (12/12/2024 1:21 PM EST) Pathologist [facility] Sodium 136 135 - 145 mmol/L [facility] Potassium 3.8 3.3 - 5.1 mmol/L [facility] Chloride 99 96 - 108 mmol/L [facility] Carbon Dioxide 27 22 - 29 mmol/L [facility] Anion Gap 14 12 - 20 [facility] Urea Nitrogen (BUN) 12 9 - 16 mg/dL [facility] Creatinine, Serum 0.79 0.5 - 1.4 mg/dL [facility] Creatinine Clr Calc Pharmacy 99.6 [facility] Comment:eGFR (calculated fro m the MDRD study equation) and eCrCl(calculated from the Cockcroft-Gault equation) are based ondifferent parameters and may not yield comparable results.If eCrCl result is absurd, please check patient'sheight/weight. Estimated Glomerular Filt Rate >60 [facility] Comment:Chronic Kidney Disea se: Estimated GFR < 60 mL/min/1.06g7Eamdpy Kidney Disease: Estimated GFR < 15 mL/min/1.73m2 Glucose 446(HH) 60 - 115 mg/dL [facility] Comment:Critical value for t est(s): glur Results called to and readback by:ely Person calling:nicole Date: 12/12/24Time:1356 Calcium 9.2 8.4 - 10.2 mg/dL [facility] Bilirubin, Total 0.9 0.0 - 1.0 mg/dL [facility] Aspartate Amino Transferase 28 5 - 37 U/L [facility] Alanine Aminotransferase 22 0 - 40 U/L [facility] Total Protein 6.5 6.5 - 8.0 g/dL [facility] Albumin Level 3.9 3.5 - 5.0 g/dL [facility] Alkaline Phosphatase 117 39 - 117 U/L [facility] 12/12/2024 1:21 PM EST 12/12/2024 1:32 PM EST us Generic External Data Provider LAB BLOOD ORDERAB LES Final Result [facility] [address] [place] [phone] * (ABNORMAL) Drug Monitoring, Panel 1, Screen, Urine (12/12/2024 1:20 PM EST) Opiate Screen Urine Not Detected Not Detect [facility] Comment:Opiate cut-off is 30 0 ng/mL.Positive results are unconfirmed and should not be used fornon-medical purposes. Barbiturates, Urine Not Detected Not Detect [facility] Comment:Barbiturate cut-off is 200 ng/mL.Positive results are unconfirmed and should not be used fornon-medical purposes. Phencyclidine Screen Urine POSITIVE(A) Not Detect [facility] Comment:Phencyclidine cut-of f is 25 ng/mL.Positive results are unconfirmed and should not be used fornon-medical purposes. Amphetamine Screen Urine Not Detected Not Detect [facility] Comment:Amphetamine cut-off is 1000 ng/mL.Positive results are unconfirmed and should not be used fornon-medical purposes. Benzodiazepines Screen Urine Not Detected Not Detect [facility] Comment:Benzodiazepine cut-o ff is 200 ng/mL.Positive results are unconfirmed and should not be used fornon-medical purposes. Cocaine Screen Urine Not Detected Not Detect [facility] Comment:Cocaine cut-off is 3 00 ng/mL.Positive results are unconfirmed and should not be used fornon-medical purposes. Cannabinoid Screen Urine Not Detected Not Detect [facility] Comment:Cannabinoid cut-off is 50 ng/mL.Positive results are unconfirmed and should not be used fornon-medical purposes. Methadone Screen, Urine Not Detected Not Detect ng/mL [facility] Comment:Methadone cut-off is 300 ng/mL.Positive results are unconfirmed and should not be used fornon-medical purposes. FENTANYL URINE POSITIVE(A) Not Detect [facility] Comment:Fentanyl cut-off is 1 ng/mL.Positive results are unconfirmed and should not be used fornon-medical purposes. Oxycodone Urine Screen Not Detected Not Detect ng/mL [facility] Comment:Oxycodone cut-off is 100 ng/mL.Positive results are unconfirmed and should not be used fornon-medical purposes. Buprenorphine Screen Not Detected Not Detect ng/mL [facility] Comment:Buprenorphine cut-of f is 5 ng/mL.Positive results are unconfirmed and should not be used fornon-medical purposes. 12/12/2024 1:20 PM EST 12/12/2024 1:32 PM EST Generic External Data Provider LAB URINE ORDERAB LES Final Result Performing Organization Address [facility] Co de Phone Number [facility] [address] [place] [phone] * (ABNORMAL) Urinalysis Complete (12/12/2024 1:20 PM EST) Color Urine Yellow [facility] Appearance Urine Clear [facility] PH 6.0 5.0 - 9.0 [facility] Glucose Urine UA >=1000(A) Negative mg/dL [facility] Urine Blood Negative Negative [facility] Specific Hartman - Urine >=1.030(H) 1.005 - 1.025 [facility] Urine Protein Negative Neg-Trace mg/dL [facility] Urine Ketones 80 Negative mg/dL [facility] Nitrite Urine Negative Negative [facility] Leukocyte Esterase Urine Negative Negative [facility] RBC Urine 0-2 0 - 2 /HPF [facility] Urine WBC 0-5 0 - 5 /HPF [facility] Urine Squamous Epithelial Cell 0-2 0 - 2 /HPF [facility] Urine Bacteria None Seen None Seen [facility] Hyaline Casts, Urine 0-2 0 - 2 /LPF [facility] 12/12/2024 1:20 PM EST 12/12/2024 1:32 PM EST us Generic External Data Provider LAB URINE ORDERAB LES Final Result Performing Organization Address [facility] Co de Phone Number [facility] [address] [place] [phone] [phone] * (ABNORMAL) POCT Glucose (09/29/2024 4:40 PM EST) Only the most recent of2 resultswithin the time period is included. Glucose Blood, POC 375(A) 60 - 200 mg/dL QC Media Lot # [id number] Lot# Expiration Date ,657,556 Blood Capillary blood specimen / Unknown 09/29/2024 4:40 PM EST Ely Lundberg MD POINT OF CARE TEST ENTER/ED IT ORDERABLES Final Result * Hepatitis C Ab (09/01/2024 3:20 PM EDT) Pathologist [facility] Hepatitis C Antibody Nonreactive Nonreactive [facility] Comment:Antibodies to HCV no t detected; does not exclude early acuteHCV infection. Blood Venous blood specimen / Unknown 09/01/2024 3:20 PM EDT 09/01/2024 4:56 PM EDT Ely Lundberg MD LAB BLOOD ORDERABLES Final Result [facility] [address] [place] [phone] * HIV-1/2 Antigen and Antibodies, Fourth Generation, with Reflexes (09/01/2024 3:20 PM EDT) [facility] HIV AB/AG Nonreactive Nonreactive [facility] Comment:HIV-1 p24 Ag and/or HIV-1/HIV-2 Ab not detected.A test result that is nonreactive does not exclude thepossibility of exposure to or infection with HIV-1 and/orHIV-2. Nonreactive results in this assay for individualswith prior exposure to HIV-1 and/or HIV-2 may be due toantigen and antibody levels that are below the limit ofdetection of this assay.The [employer] HIV Ag/Ab Combo assay result andsupplemental assay results should be interpreted inconjunction with the patient's clinical presentation,history and other laboratory results. If the results areinconsistent with clinical evidence, additional testing issuggested to confirm the result. Blood Venous blood specimen / Unknown 09/01/2024 3:20 PM EDT 09/01/2024 4:56 PM EDT us Ely Lundberg MD LAB BLOOD ORDERABLES Final Result Performing Organization Address [facility] Co de Phone Number [facility] [address] [place] [phone] * (ABNORMAL) Hemoglobin A1c (09/01/2024 3:20 PM EDT) Hemoglobin A1c 10.4(H) <6.0 % [facility] Comment:Hemoglobin A1C Refer ence Range Adults: 4.8 - 6.0 % Non diabetic: < 6.0 % Goal: < 7.0 %Additional Action Suggested: > 8.0 %Note: Hemoglobin A1c results are invalid for patients with abnormal amounts of HbF. Blood transfusions may impact the HbA1c concentration in the patient sample. Estimated Average Glucose 252 mg/dL [facility] Comment:eAG = Estimated ave rage glucose which is %A1C expressed asaverage glucose, using the formula of the Q1E-ZgjjozmBmwkruo Glucose study (ADAG), Diabetes Care, Vol.31,#8,Jun. 2007 Blood Venous blood specimen / Unknown 09/01/2024 3:20 PM EDT 09/01/2024 4:56 PM EDT us Ely Lundberg MD LAB BLOOD ORDERABLES Final Result Performing Organization Address [facility] Co de Phone Number [facility] [address] [place] [phone] * Lipid Panel, Standard (09/01/2024 3:20 PM EDT) Triglycerides 50 <150 mg/dL [facility] Comment:Desirable Triglyceri de: less than 150 mg/dLBorderline High Triglyceride 150-199 mg/dLHigh Triglyceride: 200-499 mg/dLVery High Triglyceride: greater than or equal to 5OO mg/dL Cholesterol 115 <200 mg/dL [facility] Comment:Desirable Cholestero l: less than 200 mg/dLBorderline High Cholesterol: 200-239 mg/dLHigh Cholesterol: greater than 239 mg/dL LDL Cholesterol Calculated 43 <100 mg/dL [facility] Comment:Desirable LDL: less than 100 mg/dLNear Optimal/Above Optimal LDL: 110- 129 mg/dLBorderline High LDL: 130-159 mg/dLHigh LDL: 160-189 mg/dLVery High LDL: greater than or equal to 190 mg/dL HDL Cholesterol 62 >40 mg/dL [facility] Comment:Desirable HDL: great er than 40 mg/dL Note: This HDL assay may give artificially low results in patients with liver disease. Blood Venous blood specimen / Unknown 09/01/2024 3:20 PM EDT 09/01/2024 4:56 PM EDT us Ely Lundberg MD LAB BLOOD ORDERABLES Final Result Performing Organization Address [facility] Co de Phone Number [facility] [address] [place] [phone] * ALBUMIN, RANDOM URINE W/CREATININE (06/11/2022 8:35 AM EDT) Microalbumin Urine 0.5 See Note: mg/dL [facility] Comment: Reference Range: ?? Reference Range Not established Microalb/Creat Ratio 11 <30 mcg/mg creat [facility] Comment: ?? The ADA defines abnormalities in albumin excretion as follows: ?? Albuminuria Category ?Result (mcg/mg creatinine) ?? Normal to Mildly increased ?? <30 Moderately increased ? 30-299 ?? Severely increased ? > OR = 300 ?? The ADA recommends that at least two of three specimens collected within a 3-6 month period be abnormal before considering a patient to be within a diagnostic category. Creatinine, Urine 45 20 - 320 mg/dL [facility] 06/11/2022 8:35 AM EDT us Ely Lundberg MD LAB URINE ORDERABLES Final Result Performing Organization Address [facility] Co de Phone Number [facility] [address] [place] [address], from Last 3 Months or Most Recently Relevant to Health Maintenance Insurance [facility] STANDARD [employer]IC[employer] Member Subscriber Plan / Payer (Ef fective 2022-Present) Name:Eliud Nuñez I Member ID:[id number] Relation to Subscriber:Self Name:Eliud Nuñez I Subscriber ID:[id number] Payer ID:STATE Group ID:[id number] Type:Medicare [facility] [address] [place] [phone] [facility]-[facility] [facility] MED[employer] STAND ADULT Care Teams Sole Leveler Machine Relationship Specialty Start Date End Date Ely Lundberg MD [address] [place] [phone] PCP - General Internal Medicine 10/27/13
--- OUTSIDE RECORDS SUMMARY | 2024-12-12 15:32 | XMS_ITS | Encounter Summary ---
Author Organization [employer] Address [address] [facility] 7 [place] [address] Care Team Providers Care Dockmaster Name Role Phone Ely Lundbegr MD Primary Care Provider [phone] Reason for Visit * Reason Onset Date Comments Med Refill 11/30/2024 Encounter Details Date Type Department Care Team (Late st Contact Info) Description 11/30/2024 Telephone [facility] MEDICINE [address] [place] [address] Ely Lundberg MD [address] [place] [address] Med Refill Social History Tobacco Use Types Packs/Day Years [...] AM EDT documented as of this encounter Miscellaneous Notes * Telephone Encounter - Nilda Guzman LPN - 12/02/2024 9:27 AM EST Abilify and Seroquel aren't prescribed by PCP other medications have refills. Please advise patientto call [facility] Pharmacy and transfer medications. * Telephone Encounter - Yaron Lin - 11/30/2024 10:52 AM EST TC from pt requesting medication refill. Medications needing refill : ARIPiprazole (Abilify) 5 MG tablet atorvastatin (Lipitor) 40 MG tablet Multiple Vitamin (Multivitamin) tablet QUEtiapine (SEROquel) 25 MG tablet insulin glargine (Basaglar KwikPen) 100 UNIT/ML pen insulin regular (NovoLIN R FlexPen) 100 UNIT/ML pen To be sent to: [facility], [place], [place] - [address] [place] [address] Pt is at a Rehab in [place] for about a Month and pt needs these medications to be sent to the Pharmacy over there. documented in this encounter Plan of Treatment Not on file documented as of this encounter Goals Goal Patient Goal Type Associated Problems Recent Progress Patient-Stated? Author Hemoglobin A1c < 7 Result Component 10.4( 4 3:20 PM EDT) No Jose Manuel Houser, MoisesD documented as of this encounter Visit Diagnoses Not on filedocumented in this encounter Additional Health Concerns Assessment Noted Time PHQ-9 Depression Total Score: 8 01/20/20 11:40 AM EDT documented as of this encounter Care Teams Dockmaster Relationship Specialty Start Date End Date Ely Lundberg MD [address] [place] [phone] PCP - General Internal Medicine 10/27/13 documented as of this encounter
--- OUTSIDE RECORDS SUMMARY | 2024-12-12 15:32 | XMS_ITS | Encounter Summary ---
Author Organization [employer] Address [address] [facility] [place] [address] Care Team Providers Care Cannon Crewmember Name Role Phone Ely Lundberg MD Primary Care Provider [phone] Encounter Details Date Type Department Care Team (Late st Contact Info) Description 10/15/2022 Orders Only [facility] MEDICINE [address] [place] [address] Ely Lundberg MD [address] [place] [address] Type 1 diabetes mellitus with hyperglycemia (CMS/HCC) (Primary Dx) Social History Tobacco Use Types Packs/Day Years Used Date Smoking Tobacco: Never Assessed Sex and Gender Information Value Date Recorded Sex Assigned at Male 09/08/2022 10:18 AM EDT Legal Sex Male 10:18 AM EDT Gender Identity Male 09/08/2022 10:18 AM EDT Sexual Orientation Straight 09/08/2022 10 :18 AM EDT COVID-19 Exposure Response Date Recorded In the last 10 days, have yo u been in contact with someone who was confirmed or suspected to have Coronavirus/COVID-19? No / Unsure 10/13/2022 2:07 PM EST documented as of this encounter Plan of Treatment Not on file documented as of this encounter Goals Goal Patient Goal Type Associated Problems Recent Progress Patient-Stated? Author Hemoglobin A1c < 7 Result Component 10.4( 4 3:20 PM EDT) No Jose Manuel Houser, PharmD documented as of this encounter Visit Diagnoses Diagnosis Type 1 diabetes mellitus with hyperglycemia (CMS/[facility])- Primary documented in this encounter Care Teams Cannon Crewmember Relationship Specialty Start Date End Date Ely Lundberg MD [address] [place] [phone] PCP - General Internal Medicine 10/27/13 documented as of this encounter
--- OUTSIDE RECORDS SUMMARY | 2024-12-12 15:32 | XMS_ITS | Encounter Summary ---
Author Organization [employer] Address 75 [facility] [place] [address] Care Team Providers Care Server Programmer Name Role Phone Ely Lundberg MD Primary Care Provider [phone]- [phone] Reason for Visit * Reason Comments Med Refill Encounter Details Date Type Department Care Team ([facility] st Contact Info) Description 10/16/2024 Refill [facility] MEDICINE [address] [place] [address] Ely Lundberg MD [address] [place] [address] Social History Tobacco Use Types Packs/Day Years [...] Result Component 10.4( 3:20 PM EDT) No Dellogono, Jose Manuel, PharmD documented as of this encounter Visit Diagnoses Not on filedocumented in this encounter Additional Health Concerns Assessment Noted Time PHQ-9 Depression Total Score: 8 01/20/20 11:40 AM EDT documented as of this encounter Care Teams Server Programmer Relationship Specialty Start Date End Date Ely Lundberg MD [address] [place] [address] PCP - General Internal Medicine 10/27/13 documented as of this encounter
--- OUTSIDE RECORDS SUMMARY | 2024-12-12 15:32 | XMS_ITS | Encounter Summary ---
Author Organization [employer] Address [address] [place] [address] [place] [address] Care Team Providers Care Well Drill Operator Cable Tool Name Role Phone Ely Lundberg MD Primary Care Provider Encounter Details Date Type Department Care Team (Latest Contact Info) Description 06/03/2019 Abstract [facility] CONVERSIONS Dental, Provider, DDS Social History Tobacco Use Types Packs/Day Years [...] on file documented as of this encounter Visit Diagnoses Not on filedocumented in this encounter Care Teams Well Drill Operator Cable Tool Relationship Specialty Start Date End Date Ely uLndberg MD [address] [place] [address] PCP - General Internal Medicine 10/27/13 documented as of this encounter
--- OUTSIDE RECORDS SUMMARY | 2024-12-12 15:32 | XMS_ITS | Encounter Summary ---
Author Organization [employer] Address 75 [facility] [place] [address] Care Team Providers Care Municipal Court Judge Name Role Phone Ely Lundberg MD Primary Care Provider [phone] Encounter Details Date Type Department Care Team ([facility] st Contact Info) Description 03/31/2024 Orders Only [facility] CHC MED & PEDS [address] [place], [place] [phone] Ely Lundberg MD [address] [place] [address] Social History Tobacco Use Types Packs/Day Years [...] Procedure Name Priority Date/Time Associated Diagnosis Comments GLUCOSE, WHOLE BLOOD Routine 06/04/2024 6:49 AM EDT XR RIBS 3 VIEWS LEFT W CHEST Routine 04/19/2024 3:08 PM EDT XR KNEE 1-2 VIEWS LEFT Routine 04/19/2024 3:08 PM EDT XR SHOULDER 2+ VIEWS LEFT Routine 04/19/2024 3:08 PM EDT GLUCOSE, WHOLE BLOOD Routine 04/19/2024 2:32 PM EDT documented in this encounter Results * (ABNORMAL) Glucose, Whole Blood (06/04/2024 6:49 AM EDT) Glucose, Whole Blood 120(H) 60 - 115 mg/dL [facility] Comment:METER #: [id number] 06/04/2024 6:49 AM EDT 06/04/2024 6:52 AM EDT us Generic External Data Provider LAB BLOOD ORDERAB LES Final Result [facility] [address] [place] [phone] * XR Ribs 3 Views Left w/ Chest (04/19/2024 3:08 PM EDT) Anatomical Region Laterality Modality Radiographic Jovana ging 04/19/2024 3:08 PM EDT Narrative 04/20/2024 1:37 PM EDT ? [facility] ?[address] ?[place] [address] ?XRay Report ? Signed ? Patient: Nuñez,Eliud ?MR#: [id number] ?? 1461 ? : 1985 ?Acct:[id number] ? Age/Sex: 39 / M ?ADM Date: 04/19/24 ? Loc: HO.ED ? Attending Dr: ? Ordering Physician: Allie Haider ?? Date of Service: 04/19/24 ?? Procedure(s): XR ribs LT min 3V w CXR1V ?? Accession Number(s): [id number] ? cc: Ely Lundberg MD; Allie Haider ? EXAMINATION: ?? XR RIBS, LEFT ? CLINICAL INFORMATION: ?? Left-sided pain after falling ? COMPARISON: ?? 05/09/2023 ? TECHNIQUE: ?? 3 views of the left ribs were obtained. ? FINDINGS: ?? Left ribs intact. No fracture or destructive process. Heart and ?? pulmonary vessels normal. Lungs grossly clear. There is no ?? pneumothorax. ? XR/XR ribs LT min 3V w CXR1V ?? IMPRESSION: ?? Unremarkable examination. ? Dictated By: ?Rashad Jean MD ? Signed By: ?<Electronically signed by Rashad Jean MD in OV> ?04/20/24 1333 ? DD/ 1508 ? TD/TT: ? Histology Technician: ? Procedure Note Donotuseinterpreter, Image - 04/20/[address] [address] XRay Report Signed Patient: Eliud NuñezMR#: [id number] 1461 : 1985Acct:[id number] Age/Sex: 39 / MADM Date: 04/19/24 Loc: HO.ED Attending Dr: Ordering Physician: Allie Haider Date of Service: 04/19/24 Procedure(s): XR ribs LT min 3V w CXR1V Accession Number(s): [id number] cc: Ely Lundberg MD; Allie Haider EXAMINATION: XR RIBS, LEFT CLINICAL INFORMATION: Left-sided pain after falling COMPARISON: 05/09/2023 TECHNIQUE: 3 views of the left ribs were obtained. FINDINGS: Left ribs intact. No fracture or destructive process. Heart and pulmonary vessels normal. Lungs grossly clear. There is no pneumothorax. XR/XR ribs LT min 3V w CXR1V IMPRESSION: Unremarkable examination. Dictated By: Rashad Jean MD Signed By: <Electronically signed by Rashad Jean MD in OV> 04/20/24 1333 DD/ 1508 TD/TT: Histology Technician: [facility] External Provider IMG XR PROCEDURES Final Result * XR Knee 1-2 Views Left (04/19/2024 3:08 PM EDT) Anatomical Region Laterality Modality Lower Extremities, Knee Left [facility] 04/19/2024 3:08 PM EDT Narrative 04/20/2024 1:35 PM EDT ? [facility] ?[address] ?[place] [address] ?XRay Report ? Signed ? Patient: Nuñez,Eliud ?MR#: [id number] ?? 1461 ? : 1985 ?Acct:[id number] ? Age/Sex: 39 / M ?ADM Date: 04/19/ ? Loc: HO.ED ? Attending Dr: ? Ordering Physician: Dayo Pizano MD ?? Date of Service: 04/19/24 ?? Procedure(s): XR knee LT 2V ?? Accession Number(s): [id number] ? cc: Ely Lundberg MD; Dayo Pizano MD ? EXAMINATION: ?? XR KNEE, LEFT ? CLINICAL INFORMATION: ?? Pain after falling ? COMPARISON: ?? None available. ? TECHNIQUE: ?? Four views of the left knee. ? FINDINGS: ?? No fracture or joint effusion. Alignment is anatomic. Joint spaces are ?? maintained. No abnormal soft tissue calcification. ? XR/XR knee LT 2V ?? IMPRESSION: ?? Normal left knee. ? Dictated By: ?Rashad Jean MD ? Signed By: ?<Electronically signed by Rashad Jean MD in OV> ?04/20/24 1332 ? DD/ 1508 ? TD/TT: ? Histology Technician: ? Procedure Note Karla, Image - 04/20/[address] [address] XRay Report Signed Patient: Eliud NuñezMR#: [id number] 1461 : 1985Acct:[id number] Age/Sex: 39 / MADM Date: 04/19/24 Loc: HO.ED Attending Dr: Ordering Physician: Dayo Pizano MD Date of Service: 04/19/24 Procedure(s): XR knee LT 2V Accession Number(s): [id number] cc: Ely Lundberg MD; Dayo Pizano MD EXAMINATION: XR KNEE, LEFT CLINICAL INFORMATION: Pain after falling COMPARISON: None available. TECHNIQUE: Four views of the left knee. FINDINGS: No fracture or joint effusion. Alignment is anatomic. Joint spaces are maintained. No abnormal soft tissue calcification. XR/XR knee LT 2V IMPRESSION: Normal left knee. Dictated By: Rashad Jean MD Signed By: <Electronically signed by Rashad Jean MD in OV> 04/20/24 1332 DD/ 1508 TD/TT: Histology Technician: us [facility] External Provider IMG XR PROCEDURES Final Result * XR Shoulder 2+ Views Left (04/19/2024 3:08 PM EDT) Anatomical Region Laterality Modality Upper Extremities, Shoulder Left Radi ographic Imaging 04/19/2024 3:08 PM EDT Narrative 04/20/2024 1:32 PM EDT ? [facility] ?[address] ?[place], [place] [address] ?XRay Report ? Signed ? Patient: Eliud Nuñez ?MR#: [id number] ?? 1461 ? : 1985 ?Acct:[id number] ? Age/Sex: 39 / M ?ADM Date: 04/19/24 ? Loc: HO.ED ? Attending Dr: ? Ordering Physician: Dayo Pizano MD ?? Date of Service: 04/19/24 ?? Procedure(s): XR shoulder LT min 2V ?? Accession Number(s): [id number] ? cc: Ely Lundberg MD; Dayo Pizano MD ? EXAMINATION: ?? XR SHOULDER, LEFT ? CLINICAL INFORMATION: ?? Pain after falling ? COMPARISON: ?? None available. ? TECHNIQUE: ?? AP external rotation, Grashey, scapular Y, and axillary views of the ?? left shoulder. ? FINDINGS: ?? The bones and soft tissues are normal. No fracture. Glenohumeral and ?? acromioclavicular alignment is anatomic with normal joint space. No ?? abnormal soft tissue calcifications. ? XR/XR shoulder LT min 2V ?? IMPRESSION: ?? Normal left shoulder. ? Dictated By: ?Rashad Jean MD ? Signed By: ?<Electronically signed by Rashad Jean MD in OV> ?04/20/24 1328 ? DD/ 1508 ? TD/TT: ? Histology Technician: ? Procedure Note Kwesi Acosta - 04/20/[address] [address] XRay Report Signed Patient: lEiud NuñezMR#: [id number] 1461 : 1985Acct:[id number] Age/Sex: 39 / MADM Date: 04/19/24 Loc: HO.ED Attending Dr: Ordering Physician: Dayo Pizano MD Date of Service: 04/19/24 Procedure(s): XR shoulder LT min 2V Accession Number(s): [id number] cc: Ely Lundberg MD; Dayo Pizano MD EXAMINATION: XR SHOULDER, LEFT CLINICAL INFORMATION: Pain after falling COMPARISON: None available. TECHNIQUE: AP external rotation, Grashey, scapular Y, and axillary views of the left shoulder. FINDINGS: The bones and soft tissues are normal. No fracture. Glenohumeral and acromioclavicular alignment is anatomic with normal joint space. No abnormal soft tissue calcifications. XR/XR shoulder LT min 2V IMPRESSION: Normal left shoulder. Dictated By: Rashad Jean MD Signed By: <Electronically signed by Rashad Jean MD in OV> 04/20/24 1328 DD/ 1508 TD/TT: Histology Technician: [facility] External Provider IMG XR PROCEDURES Final Result * Glucose, Whole Blood (04/19/2024 2:32 PM EDT) Glucose, Whole Blood 68 60 - 115 mg/dL [facility] Comment:METER #: [id number] 04/19/2024 2:32 PM EDT 04/19/2024 2:35 PM EDT Generic External Data Provider LAB BLOOD ORDERAB LES Final Result [facility] [address] [place] [phone] documented in this encounter Visit Diagnoses Not on filedocumented in this encounter Additional Health Concerns Assessment Noted Time PHQ-9 Depression Total Score: 8 01/20/20 24 11:40 AM EDT documented as of this encounter Care Teams Municipal Court Judge Relationship Specialty Start Date End Date Ely Lundberg MD [address] [place] [address] PCP - General Internal Medicine 10/27/13 documented as of this encounter
--- OUTSIDE RECORDS SUMMARY | 2024-12-12 15:32 | XMS_ITS | Encounter Summary ---
Author Organization [employer] Address 75 [facility] 7 [place] [address] Care Team Providers Care State Trooper Name Role Phone Ely Lundberg MD Primary Care Provider [phone] Reason for Visit * Reason Comments [facility] Encounter Details Date Type Department Care Team (Late st Contact Info) Description 12/12/[address] [facility] MEDICINE [address] [place] [address] Huy Vazquez [address] [place] [address] [facility] Social History Tobacco Use Types Packs/Day Years [...] is your housing situation today? I have garrypapi love 01/12/[address] you [...] AM EDT documented as of this encounter Progress Notes * Huy Vazquez - 12/12/2024 11:56 AM EST I met with Eliud today. Setting: in person at [facility] Recovery Wellness Goals worked on: Physical Health/Mental Health and Social Stability Action taken/next steps: Attended alcohol and drug free activity Additional comments: Pt came to the recovery center we offered the calendar of the different groupswe provide,also we talked about all services that we provide in our organization. Huy Vazquez documented in this encounter Plan of Treatment [...] documented as of this encounter Care Teams State Trooper Relationship Specialty Start Date End Date Ely Lundberg MD [address] [place] [address] PCP - General Internal Medicine 10/27/13 documented as of this encounter
--- OUTSIDE RECORDS SUMMARY | 2024-12-12 15:32 | XMS_ITS | Encounter Summary ---
Author Organization [employer] Address [address] [place] [address] [place] [address] Care Team Providers Care Ophthalmic Nurse Name Role Phone Ely Lundberg MD Primary Care Provider [phone]- [phone] Encounter Details Date Type Department Care Team (Latest Contact Info) Description 09/12/2022 Abstract [facility] CONVERSIONS Dental, Provider, DDS Social History [...] on filedocumented in this encounter Care Teams Ophthalmic Nurse Relationship Specialty Start Date End Date Ely Lundberg MD [address] [place] [address] PCP - General Internal Medicine 10/27/13 documented as of this encounter
--- OUTSIDE RECORDS SUMMARY | 2024-12-12 15:32 | XMS_ITS | Encounter Summary ---
Author Organization [employer] Address [address] [place] [address] [place] [address] Care Team Providers Care Instrument Technician Apprentice Name Role Phone Ely Lundberg MD Primary Care Provider Encounter Details Date Type Department Care Team ([facility] st Contact Info) Description 12/03/2022 Telephone [facility] CHC MED & PEDS [address] [place] [address] Ely Lundberg MD [address] [place] [address] Social History Tobacco Use Types Packs/Day Years [...] on filedocumented in this encounter Care Teams Instrument Technician Apprentice Relationship Specialty Start Date End Date Ely Lundberg MD [address] [place] [address] PCP - General Internal Medicine 10/27/13 documented as of this encounter
--- OUTSIDE RECORDS SUMMARY | 2024-12-12 15:32 | XMS_ITS | Encounter Summary ---
Author Organization [employer] Address [address] [facility] 7 [place] [address] Care Team Providers Care Offal Worker Name Role Phone Ely Lundberg MD Primary Care Provider [phone]- [phone] Reason for Visit * Reason Onset Date Comments Med Refill 10/19/2023 Encounter Details Date Type Department Care Team (Late st Contact Info) Description 10/19/2023 Telephone [facility] MEDICINE [address] [place] [address] Ely Lundberg MD [address] [place] [address] Med Refill Social History Tobacco Use Types [...] encounter Miscellaneous Notes * Telephone Encounter - Luna Orona - 10/19/2023 11:31 AM EST Tc from pt requesting a refill for Levemir FlexPen 100 UNIT/ML pen and insulin regular (NovoLIN R) 100 UNIT/ML pen documented in this encounter Plan of Treatment [...] Assessment Noted Time PHQ-9 Depression Total Score: 12 023 10:20 AM EST documented as of this encounter Care Teams Offal Worker Relationship Specialty Start Date End Date Ely Lundberg MD [address] [place] [address] PCP - General Internal Medicine 10/27/13 documented as of this encounter
--- OUTSIDE RECORDS SUMMARY | 2024-12-12 15:32 | XMS_ITS | Encounter Summary ---
Author Organization [employer] Address [address] [place] [address] [address] [address] Care Team Providers Care Ditching Machine Engineer Name Role Phone Ely Lundberg MD Primary Care Provider [phone] Reason for Referral * Consultation (Routine) - Pending Review Specialty Diagnoses / Procedures Referred By John weiner Referred To Contact Pharmacy Diagnoses Type 1 diabetes mellitus with hyperglycemia (CMS/HCC) Ely Lundberg MD [address] [place] [id number] Phone: tel: fax: Referral ID Status Reason Start Date Expiration Date Visits Requested Visits Authorized [id number] Pending Review Continuity of Care 10/24/2025 6 6 Scheduling Instructions Please provide education on Management and treatment of this pt w/ type 1 Diabetes. Encounter Details Date Type Department Care Team (Late st Contact Info) Description 10/23/2024 Orders Only [facility] [address] [place], [place] [phone] Ely Lundberg MD [address] [place] [address] Type 1 diabetes mellitus with hyperglycemia (CMS/HCC) [...] as of this encounter Plan of Treatment Scheduled Referrals Name Type Priority Associated Diagnoses Orde r Schedule Referral to Pharmacy MTM Outpatient Referral Routine Type 1 diabetes mellitus with hyperglycemia (CMS/HCC) Ordered: 10/24/2024 documented as of this encounter Goals Goal Patient Goal Type Associated Problems Recent Progress Patient-Stated? Author Hemoglobin A1c < 7 Result Component 10.4( 3:20 PM EDT) No Dellogflaquita, Jose Manuel, PharmD documented as of this encounter Visit Diagnoses Diagnosis Type 1 diabetes mellitus with hyperglycemia (CMS/HCC)- Primary documented in this encounter Additional Health Concerns Assessment Noted Time PHQ-9 Depression Total Score: 8 01/20/20 24 11:40 AM EDT documented as of this encounter Care Teams Ditching Machine Engineer Relationship Specialty Start Date End Date Ely Lundberg MD [address] [place] [id number] PCP - General Internal Medicine 10/27/13 documented as of this encounter
--- OUTSIDE RECORDS SUMMARY | 2024-12-12 15:32 | XMS_ITS | Encounter Summary ---
Author Organization [employer] Address [address] [facility] 7 [place] [address] Care Team Providers Care Supervisor Component Assembler Name Role Phone Ely Lundberg MD Primary Care Provider [phone] Reason for Visit * Reason Onset Date Comments Results 09/05/2024 Encounter Details Date Type Department Care Team ([facility] Contact Info) Description 09/05/2024 Telephone [facility] [address] [place] [address] Ely Lundberg MD [address] [place] [address] Results Social History Tobacco Use Types Packs/Day Years [...] encounter Miscellaneous Notes * Telephone Encounter - Gloria Howell - 09/05/2024 4:11 PM EDT Tc from pt returning call for lab results Callback number [phone] documented in this encounter Plan of Treatment [...] documented as of this encounter Care Teams Supervisor Component Assembler Relationship Specialty Start Date End Date Ely Lundberg MD [address] [place] [id number] PCP - General Internal Medicine 10/27/13 documented as of this encounter
--- NOTE | 2024-12-12 16:29 | PC.NURSE ---
Pt's own Novolin brought to pharmacy
[2024-12-12] MEDS: INSULIN REGULAR HUMAN 100 UNIT/ML 8 EACH SUBCUT (16:37)
[2024-12-12] MEDS: QUEtiapine Fumarate 25 MG TABLET 12.5 MG PO (16:38)
[2024-12-12 16:45] LABS: Glucose, Whole Blood 384 mg/dL (60-115)
[2024-12-12 19:53] LABS: Glucose, Whole Blood 327 mg/dL (60-115)
[2024-12-12 20:26] LABS: Glucose, Whole Blood 387 mg/dL (60-115)
[2024-12-12] MEDS: Insulin Glargine,Hum.rec.anlog 100 UNIT/ML 10 ML VIAL 34 UNIT SUBCUT (20:53)
[2024-12-12] MEDS: atenoloL 25 MG TABLET PO (21:33)
--- NOTE | 2024-12-12 21:37 | PC.NURSE ---
Addendum entered by Tea Mcwilliams RN 12/13/24 06:44: Since pt had been running high blood sugars POC was obtained this morning outside regular hours while pt was having a snack. Blood sugar found to be 274. No insulin will be give at this time. Original Note: Orthostatic VS obtained supine: BP 106/59, HR 99 sit: BP 109/69, HR 110 stand: BP 102/65, HR 126 Blood sugar obtained: 387 scheduled insulin glargine 34 units adminsitered. made aware via [employer]. Per Charlette Parks NP, administered atenolol to lower HR. Atenolol administered per JAN.
--- NOTE | 2024-12-12 22:51 | PC.ADMIT ---
Eliud got admitted to [facility]3 from [facility] POD on 12/12/2024 20:00 for the treatment of SI with no plan. Pt was at [facility] when he left and self presented to the ED reporting feelings of depression having increased. Precipitants of this admission include recent familial life stressors including a friend and family member passing away. Pt reports a history of previous SI attempts but does not want to get to that point again . Pt recently used PCP and fentanyl and tox screen came positive for those substances. Pt is denying current SI/HI (no plan or intent) and denies AH/VH. During admission process pt is AOx4, calm, cooperative, easily engaged, polite, but sleepy requesting to be allowed to go to bed anny. Poor and appetite are described as poor . EKG showing tachycardia but pt was medically cleared by ED provider who was not concerned about EKG stating it's due to recent PCP use. Orthostatic VS obtained (see other nurses note for more info), pt given Atenolol for high HR. Blood sugar in the 400s while in the POD. Pt has his own insulin pen in the med room. Skin check completed with no significant findings.
[2024-12-13 06:40] LABS: Glucose, Whole Blood 276 mg/dL (60-115)
[2024-12-13 08:00] VITALS: BP 104/65; PULSE 88; RESP 18; TEMP 37.1; O2SAT 99
[2024-12-13 08:20] LABS: Glucose, Whole Blood 422 mg/dL (60-115)
[2024-12-13] MEDS: Atorvastatin Calcium 80 MG TABLET PO (08:46)
[2024-12-13] MEDS: Multivitamin TABLET 1 TAB PO (08:46)
[2024-12-13] MEDS: INSULIN REGULAR HUMAN 100 UNIT/ML 8 EACH SUBCUT ×2 (08:46→17:14)
[2024-12-13] MEDS: ARIPiprazole 5 MG TABLET PO (08:46)
--- NOTE | 2024-12-13 10:11 | P.HPPS_ITS ---
HPI Date of Service: 12/13/24 Chief Complaint: SI Sources of Information: patient interviewed, chart reviewed and crisis/core team assessment reviewed HPI Subjective Notes: Paez Warning (given and shows udnerstanding), Conditional Voluntary and Section 12B Narrative: Mr. Nuñez is a 39 year-old male with hx of PCP, alcohol use and recent opioid use who self presented to [facility] ED reporting increased depression. He had reported hx of suicide attempts some years ago and reported he did not want to get to that point. His utox was positive for fentanyl, PCP. BAL was less than 10. Pt noted to have elevated BS up to 440. His A1C is 12% On the unit, pt reports loose stools, abdominal cramps, rhinorrhea. He reports using fentanyl. When asked about amount, he reports I don't know. This health science writer noted that from all the times he has been in the hospital this is the first time he has used opiods. This health science writer asked when did he start using but he was very evasive with his answers, again reporting he did not know. This health science writer offered either methadone or suboxone as taper or MAT. However, pt reports he had suboxone once and went into precipitated withdrawal and reports he has not tried methadone but reports he has heard withdrawal from methadone can be even worse. He signed a 3 day notice. He is in bed, unwell physically, which suspect is mostly related to opioid withdrawal than viral illness. He denies hx of visual or auditory hallucinations. He reports he sees psychiatric provider through [facility]. He reports he has been on abilify for some years and it has been helpful for his mood. He asks if this medication can be adjusted. He met with BRIGID Ware to discuss referrals for OP psychiatric services he declined other referrals. In terms of his medical health, and worsening management of DM, he reports taking medications as prescribed. He agreed to meet with hospitalist to discuss adjustments to his insulin regimen. Past Psychiatric History: Inpt: none OP: EDWIGE, Marlena James Past medication trials: abilify Medical Evaluation Reviewed: Yes PMFSH Medical History Ingrown hair Abscess Diabetes Depression Surgical History H/O circumcision Diagnostics Vital Signs (24Hr): Vital Signs - 24 hr 12/12/24 13:10 12/12/24 13:11 12/12/24 14:05 Temperature 98.3 F Pulse Rate 114 H Respiratory Rate 16 14 16 Blood Pressure 112/68 Pulse Oximetry 98 Oxygen Delivery Method Room Air 12/12/24 20:00 12/12/24 20:00 12/12/24 21:16 Temperature 97.3 F Pulse Rate 128 H 99 126 H Respiratory Rate 16 Blood Pressure 118/74 106/59 L 102/65 Pulse Oximetry 97 Oxygen Delivery Method Room Air 12/12/24 21:33 12/12/24 21:46 12/12/24 21:46 Temperature Pulse Rate 126 H 110 H 126 H Respiratory Rate Blood Pressure 102/65 109/69 102/65 Pulse Oximetry Oxygen Delivery Method 12/13/24 08:00 Temperature 98.7 F Pulse Rate 88 Respiratory Rate 18 Blood Pressure 104/65 Pulse Oximetry 99 Oxygen Delivery Method Room Air BMI result Body Mass Index 19.4 Labs 12/12/24 13:21 12/13/24 09:58 Labs: Laboratory Results - last 48 hr 12/12/24 12/12/24 12/12/24 13:20 13:21 16:41 WBC 7.4 RBC 4.88 Hgb 13.9 L Hct 41.7 L MCV 85.5 MCH 28.5 MCHC 33.3 RDW 13.1 Plt Count 169 MPV 11.1 Immature Gran % (Auto) 0.3 Neut % (Auto) 56.7 Lymph % (Auto) 31.6 [place] % (Auto) 9.8 Eos % (Auto) 1.2 Baso % (Auto) 0.4 Lymph # (Auto) 2.4 [place] # (Auto) 0.7 Eos # (Auto) 0.1 Baso # (Auto) 0.0 Abs Immat Gran (auto) 0.02 Absolute Neuts (auto) 4.2 Absolute Nucleated RBC 0.000 Nucleated RBC % (auto) 0.0 Sodium 136 Potassium 3.8 Chloride 99 Carbon Dioxide 27 Anion Gap 14 BUN 12 Creatinine 0.79 Estim Creat Clear Calc 99.6 Estimated GFR > 60 POC Glucose 384 H* Random Glucose 446 H* Calcium 9.2 D Total Bilirubin 0.9 AST 28 ALT 22 Alkaline Phosphatase 117 Total Protein 6.5 Albumin 3.9 Hold Red Top See Note Urine Color Yellow Urine Appearance Clear Urine pH 6.0 Ur Specific [place] >= 1.030 H Urine Protein Negative Urine Glucose (UA) >=1000 H Urine Ketones 80 Urine Blood Negative Urine Nitrite Negative Ur Leukocyte Esterase Negative Urine RBC 0-2 Urine WBC 0-5 Ur Squamous Epith Cells 0-2 Urine Bacteria None Seen Hyaline Casts 0-2 Salicylates < 5.0 L Urine Opiates Screen Not Detected Ur Buprenorphine Scrn Not Detected Ur Oxycodone Screen Not Detected Urine Methadone Screen Not Detected Urine Fentanyl Screen POSITIVE H Acetaminophen < 3 Ur Barbiturates Screen Not Detected Ur Phencyclidine Scrn POSITIVE H Ur Amphetamines Screen Not Detected U Benzodiazepines Scrn Not Detected Urine Cocaine Screen Not Detected U Marijuana (THC) Screen Not Detected Ethyl Alcohol < 10 12/12/24 12/12/24 12/13/24 19:50 20:22 06:36 WBC RBC Hgb Hct MCV MCH MCHC RDW Plt Count MPV Immature Gran % (Auto) Neut % (Auto) Lymph % (Auto) [place] % (Auto) Eos % (Auto) Baso % (Auto) Lymph # (Auto) [place] # (Auto) Eos # (Auto) Baso # (Auto) Abs Immat Gran (auto) Absolute Neuts (auto) Absolute Nucleated RBC Nucleated RBC % (auto) Sodium Potassium Chloride Carbon Dioxide Anion Gap BUN Creatinine Estim Creat Clear Calc Estimated GFR POC Glucose 327 H 387 H* 276 H Random Glucose Calcium Total Bilirubin AST ALT Alkaline Phosphatase Total Protein Albumin Hold Red Top Urine Color Urine Appearance Urine pH Ur Specific [place] Urine Protein Urine Glucose (UA) Urine Ketones Urine Blood Urine Nitrite Ur Leukocyte Esterase Urine RBC Urine WBC Ur Squamous Epith Cells Urine Bacteria Hyaline Casts Salicylates Urine Opiates Screen Ur Buprenorphine Scrn Ur Oxycodone Screen Urine Methadone Screen Urine Fentanyl Screen Acetaminophen Ur Barbiturates Screen Ur Phencyclidine Scrn Ur Amphetamines Screen U Benzodiazepines Scrn Urine Cocaine Screen U Marijuana (THC) Screen Ethyl Alcohol 12/13/24 07:58 WBC RBC Hgb Hct MCV MCH MCHC RDW Plt Count MPV Immature Gran % (Auto) Neut % (Auto) Lymph % (Auto) [place] % (Auto) Eos % (Auto) Baso % (Auto) Lymph # (Auto) [place] # (Auto) Eos # (Auto) Baso # (Auto) Abs Immat Gran (auto) Absolute Neuts (auto) Absolute Nucleated RBC Nucleated RBC % (auto) Sodium Potassium Chloride Carbon Dioxide Anion Gap BUN Creatinine Estim Creat Clear Calc Estimated GFR POC Glucose 422 H* Random Glucose Calcium Total Bilirubin AST ALT Alkaline Phosphatase Total Protein Albumin Hold Red Top Urine Color Urine Appearance Urine pH Ur Specific [place] Urine Protein Urine Glucose (UA) Urine Ketones Urine Blood Urine Nitrite Ur Leukocyte Esterase Urine RBC Urine WBC Ur Squamous Epith Cells Urine Bacteria Hyaline Casts Salicylates Urine Opiates Screen Ur Buprenorphine Scrn Ur Oxycodone Screen Urine Methadone Screen Urine Fentanyl Screen Acetaminophen Ur Barbiturates Screen Ur Phencyclidine Scrn Ur Amphetamines Screen U Benzodiazepines Scrn Urine Cocaine Screen U Marijuana (THC) Screen Ethyl Alcohol Meds/Allergies Meds Home Medications ?Medication ?Instructions ?Recorded ?Confirmed ?Type nicotine (polacrilex) 2 mg gum 1 gum PO Q2H PRN Nicotine Cravings 03/01/22 12/12/24 History multivitamin 1 tab PO QAM 12/30/22 12/12/24 History rosuvastatin 20 mg tablet 1 tab PO QAM 12/30/22 12/12/24 History aripiprazole 5 mg tablet 5 mg PO DAILY 12/12/24 12/12/24 History hydroxyzine HCl 50 mg tablet 50 mg PO BEDTIME PRN Insomnia 12/12/24 12/12/24 History insulin glargine-yfgn 100 unit/mL 34 unit subcut BEDTIME 12/12/24 12/12/24 History (3 mL) subcutaneous pen insulin regular human 100 unit/mL 8 unit subcut TIDWMEAL 12/12/24 12/12/24 History (3 mL) subcutaneous pen (Novolin R FlexPen) quetiapine 25 mg tablet 12.5 mg PO BID PRN Anxiety 12/12/24 12/12/24 History Allergies Allergies Allergy/AdvReac Type Severity Reaction Status Date / Time haloperidol Allergy Mild ITCHING Verified 12/12/24 13:11 Mental Status Exam Mental Status Exam Narrative: Appearance: wearing hospital gown, hygiene is fair, physically uncomfortable due to opioid withdrawal Behavior: engagement limited due to being physically uncomfortable Psychomotor: no agitation or retardation noted Speech: clear, regular rate/rhythm/volume, spontaneous TP: linear TC: feeling physically unwell Mood: not well Affect: congruent SI: denies HI: denies VH/AH: none Delusions: none Insight/judgment: poor x 2. Memory/cog: alert, oriented x 4. grossly intact to conversational testing. Assessment & Plan Assessment & Plan (1) Mood disorder: Status: Acute Code(s): F39 - Unspecified mood [affective] disorder (2) Opioid use disorder, mild, abuse: Status: Acute Code(s): F11.10 - Opioid abuse, uncomplicated (3) Phencyclidine (PCP) use disorder, moderate: Status: Acute Code(s): F16.20 - Hallucinogen dependence, uncomplicated Plan Mr. Nuñez is a 39 year-old male with hx of mostly PCP, recent use of fentanyl (unclear extend and duration as he will not disclose this information but this is the first time he is positive in more than 11 times since 2020 he has been in our ED). He initially reported depression and suicidal. He does denies any suicidal ideation. He signed a 3 day notice. He currently presents with symptoms consistent with opioid withdrawal including rhinorrhea, loose stools, abdominal cramps, muscle aches. He declines MAT. He did agree to meet with addiction medicine to further discussed treatment options. His DM is also uncontrolled with A1C 12% He agreed to meet with hospitalist to discuss adjustments to medication regimen. He is vague and limited historian to explore at more depth his underlying mental illness. He does report he has been on abilify for some years with good effect and asks if it can be increased. Will increase to 10mg po daily. He has OP psych services and hopes to continue it. PLAN 1. Admit to M3, CV, signed 3 day. 15 minutes checks. 2. Increase abilify 10mg po daily 3. Add comfort meds for opioid withdrawal- baclofen, loperamide, bentyl for abdominal cramps 4. Aftercare planning. 5. Narcan to be given at discharge Patient educated on: diagnosis and medication risk/benefits Reason for continued inpatient stay Substantial Risk for: harm to self Statement Statement: I have reviewed the history and physical and performed a pertinent examination on my patient. No changes have occurred unless specified. If the History and Physical was not performed prior to admission, the Hospitalist's service will be consulted for completing the admission physical. Time Spent With Patient Time: Total time managing care of this patient today ____ minutes.
[2024-12-13 10:33] LABS: Estimated Average Glucose 321 mg/dL; Hemoglobin A1C 481.4044 umol/L; Hemoglobin A1c % 12.8 % (<6.0); Total Hemoglobin (HGBA1C) 4122.8291 umol/L
[2024-12-13 10:52] LABS: Alanine Aminotransferase 31 U/L (0-40); Alkaline Phosphatase 110 U/L (39-117); Anion Gap 13 (12-20); Aspartate Amino Transferase 28 U/L (5-37); Bilirubin Total 0.8 mg/dL (0.0-1.0); Blood Urea Nitrogen 16 mg/dL (9-16); Calcium 9.6 mg/dL (8.4-10.2); Carbon Dioxide 29 mmol/L (22-29); Chloride 103 mmol/L (96-108); Cholesterol 141 mg/dL (<200); Creatinine Clr Calc Pharmacy 99.8; Estimated Glomerular Filt Rate > 60; Glucose Random 286 mg/dL (60-115); HDL Cholesterol 48 mg/dL (>40); LDL Cholesterol Calculated 59 mg/dL (<100); Sodium 141 mmol/L (135-145); Total Protein 6.7 g/dL (6.5-8.0); Triglycerides 172 mg/dL (<150)
[2024-12-13 11:08] LABS: Thyroid Stimulating Hormone 0.29 uIU/mL (0.32-4.0)
[2024-12-13 11:10] LABS: Vitamin B12 991 pg/mL (200-900)
[2024-12-13 11:52] LABS: Glucose, Whole Blood 282 mg/dL (60-115)
[2024-12-13] MEDS: Acetaminophen 325 MG TABLET 650 MG PO (11:52)
[2024-12-13 13:48] LABS: T4 Thyroxine 7.5 ug/dL (4.5-12.0)
[2024-12-13] MEDS: Baclofen 10 MG TABLET PO ×2 (13:58→21:27)
[2024-12-13] MEDS: Loperamide HCl 2 MG CAPSULE 4 MG PO (13:58)
[2024-12-13] MEDS: Dicyclomine HCl 10 MG CAPSULE PO (14:22)
[2024-12-13 17:10] LABS: Glucose, Whole Blood 443 mg/dL (60-115)
[2024-12-13 19:10] VITALS: BP 107/57; PULSE 92; TEMP 37.3; O2SAT 97
[2024-12-13 21:12] LABS: Glucose, Whole Blood 371 mg/dL (60-115)
[2024-12-13] MEDS: hydrOXYzine HCL 50 MG TABLET PO (21:27)
[2024-12-13] MEDS: traZODone HCL 50 MG TABLET PO (21:27)
[2024-12-13] MEDS: QUEtiapine Fumarate 25 MG TABLET 12.5 MG PO (21:27)
[2024-12-13] MEDS: Insulin Glargine,Hum.rec.anlog 100 UNIT/ML 10 ML VIAL 34 UNIT SUBCUT (21:29)
[2024-12-13] MEDS: Insulin Lispro 100 UNIT/ML 3 ML VIAL SUBCUT (21:30)
--- NOTE | 2024-12-14 02:40 | PM.EVENT ---
Event Note Date of Service: 12/14/24 Event Note: consult for DM management. increased lantus by 2U QHS, reevaluate need for another adjustment in 2 days. Time Spent With Patient Time: Total time managing care of this patient today ____ minutes.
[2024-12-14 07:38] VITALS: BP 109/59; PULSE 120; RESP 16; TEMP 36.4; O2SAT 97
[2024-12-14 07:55] LABS: Glucose, Whole Blood 254 mg/dL (60-115)
[2024-12-14] MEDS: ARIPiprazole 10 MG TABLET PO (08:24)
[2024-12-14] MEDS: Baclofen 10 MG TABLET PO ×2 (08:24→21:10)
[2024-12-14] MEDS: Multivitamin TABLET 1 TAB PO (08:24)
[2024-12-14] MEDS: Atorvastatin Calcium 80 MG TABLET PO (08:24)
[2024-12-14] MEDS: Insulin Lispro 100 UNIT/ML 3 ML VIAL SUBCUT ×3 (08:33→17:09)
--- NOTE | 2024-12-14 10:06 | HO.PSYCHPN ---
Subjective Subjective Date of Service: 12/14/24 Reason For Visit: SI Subjective Notes: 3 Day Interim History: Pt much more alert, and able to participate in interview. He reports he feels much better in terms of s/s of opioid withdrawal including no longer having abdominal cramps, loose stool or muscle aches. He met with this sign writer letterer or painter and BRIGID Ware to discuss dispo. He reports he is attempting to get into residential substance use treatment program. We discussed starting medication for depression, but he will like to wait for now to add another medication. He notes that with cocaine and PCP use, his mood is usually very irritable. He was tearful at times thinking of multiple relapses and trying to do the right thing. He is working with his traffic officer, who is also helping him find programs for dual dx. He reports he slept much better, trazodone did help- will schedule it. No behavioral concerns. Medication Compliance: Yes Side effects from medications: No Review of Systems Constitutional: Reports no additional constitutional complaints, Denies chills, Denies fever(s) and Denies night sweats Eyes: Reports no additional eye complaints, Denies blurry vision, Denies change in vision, Denies diplopia, Denies eye discharge, Denies loss of vision and Denies eye pain Denies dizziness Cardiovascular: Reports no additional cardiovascular complaints, Denies chest pain, Denies lightheadedness, Denies Loss of Consciousness and Denies dyspnea Respiratory: Reports no additional respiratory complaints and Denies dyspnea Gastrointestinal: Reports no additional gastrointestinal complaints, Denies abdominal pain, Denies melena, Denies hematochezia, Denies change in bowel habits and Denies change in stool character Genitourinary: Reports no additional male genitourinary complaints, Denies hematuria, Denies oliguria, Denies difficulty urinating, Denies dysuria, Denies urinary frequency, Denies urinary hesitancy, Denies urinary incontinence and Denies urinary urgency Musculoskeletal: Reports no additional musculoskeletal complaints, Denies numbness and Denies tingling Denies dizziness, Denies loss of vision, Denies numbness and Denies tingling Psychiatric: Reports no additional psychiatric complaints and Reports depression Endocrine: Reports no additional endocrine complaints Hematologic/Lymphatic: Reports no additional hematologic/lymphatic complaints Allergic/Immunologic: Reports no additional allergic/immunologic complaints Mental Status Exam Mental Status Exam Narrative: Appearance: casually groomed, improved hygiene, in NAD Behavior: cooperative Psychomotor: no agitation or retardation noted Speech: clear, regular rate/rhythm/volume, spontaneous TP: linear TC: feeling better physically but asking for help Mood: much better Affect: congruent, brighter SI: denies HI: denies VH/AH: none Delusions: none Insight/judgment: poor x 2. Memory/cog: alert, oriented x 4. grossly intact to conversational testing. Diagnostics Vital Signs (24Hr): Vital Signs - 24 hr 12/13/24 19:10 12/14/24 07:38 Temperature 99.1 F 97.6 F Pulse Rate 92 120 H Respiratory Rate 16 Blood Pressure 107/57 L 109/59 L Pulse Oximetry 97 97 Oxygen Delivery Method Room Air Room Air BMI result Body Mass Index 19.4 Labs 12/12/24 13:21 12/13/24 09:58 Labs: Laboratory Results - last 48 hr 12/12/24 12/12/24 12/12/24 13:20 13:21 16:41 WBC 7.4 RBC 4.88 Hgb 13.9 L Hct 41.7 L MCV 85.5 MCH 28.5 MCHC 33.3 RDW 13.1 Plt Count 169 MPV 11.1 Immature Gran % (Auto) 0.3 Neut % (Auto) 56.7 Lymph % (Auto) 31.6 [place] % (Auto) 9.8 Eos % (Auto) 1.2 Baso % (Auto) 0.4 Lymph # (Auto) 2.4 [place] # (Auto) 0.7 Eos # (Auto) 0.1 Baso # (Auto) 0.0 Abs Immat Gran (auto) 0.02 Absolute Neuts (auto) 4.2 Absolute Nucleated RBC 0.000 Nucleated RBC % (auto) 0.0 Sodium 136 Potassium 3.8 Chloride 99 Carbon Dioxide 27 Anion Gap 14 BUN 12 Creatinine 0.79 Estim Creat Clear Calc 99.6 Estimated GFR > 60 POC Glucose 384 H* Random Glucose 446 H* Estimat Average Glucose Hemoglobin A1c % Calcium 9.2 D Total Bilirubin 0.9 AST 28 ALT 22 Alkaline Phosphatase 117 Total Protein 6.5 Albumin 3.9 Triglycerides Cholesterol LDL Cholesterol, Calc HDL Cholesterol Vitamin B12 TSH Thyroxine (T4) Hold Red Top See Note Urine Color Yellow Urine Appearance Clear Urine pH 6.0 Ur Specific [place] >= 1.030 H Urine Protein Negative Urine Glucose (UA) >=1000 H Urine Ketones 80 Urine Blood Negative Urine Nitrite Negative Ur Leukocyte Esterase Negative Urine RBC 0-2 Urine WBC 0-5 Ur Squamous Epith Cells 0-2 Urine Bacteria None Seen Hyaline Casts 0-2 Salicylates < 5.0 L Urine Opiates Screen Not Detected Ur Buprenorphine Scrn Not Detected Ur Oxycodone Screen Not Detected Urine Methadone Screen Not Detected Urine Fentanyl Screen POSITIVE H Acetaminophen < 3 Ur Barbiturates Screen Not Detected Ur Phencyclidine Scrn POSITIVE H Ur Amphetamines Screen Not Detected U Benzodiazepines Scrn Not Detected Urine Cocaine Screen Not Detected U Marijuana (THC) Screen Not Detected Ethyl Alcohol < 10 12/12/24 12/12/24 12/13/24 19:50 20:22 06:36 WBC RBC Hgb Hct MCV MCH MCHC RDW Plt Count MPV Immature Gran % (Auto) Neut % (Auto) Lymph % (Auto) [place] % (Auto) Eos % (Auto) Baso % (Auto) Lymph # (Auto) [place] # (Auto) Eos # (Auto) Baso # (Auto) Abs Immat Gran (auto) Absolute Neuts (auto) Absolute Nucleated RBC Nucleated RBC % (auto) Sodium Potassium Chloride Carbon Dioxide Anion Gap BUN Creatinine Estim Creat Clear Calc Estimated GFR POC Glucose 327 H 387 H* 276 H Random Glucose Estimat Average Glucose Hemoglobin A1c % Calcium Total Bilirubin AST ALT Alkaline Phosphatase Total Protein Albumin Triglycerides Cholesterol LDL Cholesterol, Calc HDL Cholesterol Vitamin B12 TSH Thyroxine (T4) Hold Red Top Urine Color Urine Appearance Urine pH Ur Specific [place] Urine Protein Urine Glucose (UA) Urine Ketones Urine Blood Urine Nitrite Ur Leukocyte Esterase Urine RBC Urine WBC Ur Squamous Epith Cells Urine Bacteria Hyaline Casts Salicylates Urine Opiates Screen Ur Buprenorphine Scrn Ur Oxycodone Screen Urine Methadone Screen Urine Fentanyl Screen Acetaminophen Ur Barbiturates Screen Ur Phencyclidine Scrn Ur Amphetamines Screen U Benzodiazepines Scrn Urine Cocaine Screen U Marijuana (THC) Screen Ethyl Alcohol 12/13/24 12/13/24 12/13/24 07:58 09:58 11:48 WBC RBC Hgb Hct MCV MCH MCHC RDW Plt Count MPV Immature Gran % (Auto) Neut % (Auto) Lymph % (Auto) [place] % (Auto) Eos % (Auto) Baso % (Auto) Lymph # (Auto) [place] # (Auto) Eos # (Auto) Baso # (Auto) Abs Immat Gran (auto) Absolute Neuts (auto) Absolute Nucleated RBC Nucleated RBC % (auto) Sodium 141 Potassium 4.0 Chloride 103 Carbon Dioxide 29 Anion Gap 13 BUN 16 Creatinine 0.76 Estim Creat Clear Calc 99.8 Estimated GFR > 60 POC Glucose 422 H* 282 H Random Glucose 286 H Estimat Average Glucose 321 Hemoglobin A1c % 12.8 H Calcium 9.6 Total Bilirubin 0.8 AST 28 ALT 31 Alkaline Phosphatase 110 Total Protein 6.7 Albumin 4.0 Triglycerides 172 H Cholesterol 141 LDL Cholesterol, Calc 59 HDL Cholesterol 48 Vitamin B12 991 H TSH 0.29 L Thyroxine (T4) 7.5 Hold Red Top Urine Color Urine Appearance Urine pH Ur Specific [place] Urine Protein Urine Glucose (UA) Urine Ketones Urine Blood Urine Nitrite Ur Leukocyte Esterase Urine RBC Urine WBC Ur Squamous Epith Cells Urine Bacteria Hyaline Casts Salicylates Urine Opiates Screen Ur Buprenorphine Scrn Ur Oxycodone Screen Urine Methadone Screen Urine Fentanyl Screen Acetaminophen Ur Barbiturates Screen Ur Phencyclidine Scrn Ur Amphetamines Screen U Benzodiazepines Scrn Urine Cocaine Screen U Marijuana (THC) Screen Ethyl Alcohol 12/13/24 12/13/24 12/14/24 17:06 21:06 07:48 WBC RBC Hgb Hct MCV MCH MCHC RDW Plt Count MPV Immature Gran % (Auto) Neut % (Auto) Lymph % (Auto) [place] % (Auto) Eos % (Auto) Baso % (Auto) Lymph # (Auto) [place] # (Auto) Eos # (Auto) Baso # (Auto) Abs Immat Gran (auto) Absolute Neuts (auto) Absolute Nucleated RBC Nucleated RBC % (auto) Sodium Potassium Chloride Carbon Dioxide Anion Gap BUN Creatinine Estim Creat Clear Calc Estimated GFR POC Glucose 443 H* 371 H* 254 H Random Glucose Estimat Average Glucose Hemoglobin A1c % Calcium Total Bilirubin AST ALT Alkaline Phosphatase Total Protein Albumin Triglycerides Cholesterol LDL Cholesterol, Calc HDL Cholesterol Vitamin B12 TSH Thyroxine (T4) Hold Red Top Urine Color Urine Appearance Urine pH Ur Specific [place] Urine Protein Urine Glucose (UA) Urine Ketones Urine Blood Urine Nitrite Ur Leukocyte Esterase Urine RBC Urine WBC Ur Squamous Epith Cells Urine Bacteria Hyaline Casts Salicylates Urine Opiates Screen Ur Buprenorphine Scrn Ur Oxycodone Screen Urine Methadone Screen Urine Fentanyl Screen Acetaminophen Ur Barbiturates Screen Ur Phencyclidine Scrn Ur Amphetamines Screen U Benzodiazepines Scrn Urine Cocaine Screen U Marijuana (THC) Screen Ethyl Alcohol Medications Medications Current Medications Acetaminophen (Acetaminophen 325 Mg Tablet) 650 mg PO Q6H PRN PRN Reason: Headache/Pain Mild Scale (1-3) Last Admin: 12/13/24 11:52 Dose: 650 mg Al Hydroxide/Mg Hydroxide (Magnesium Hydrox/Alum Hydrox 30 Ml Oral.Susp) 30 ml PO Q6H PRN PRN Reason: Heartburn/Nausea Aripiprazole (Aripiprazole 10 Mg Tablet) 10 mg PO DAILY [facility] Last Admin: 12/14/24 08:24 Dose: 10 mg Atorvastatin Calcium (Atorvastatin Calcium 80 Mg Tablet) 80 mg PO DAILY [facility] Last Admin: 12/14/24 08:24 Dose: 80 mg Baclofen (Baclofen 10 Mg Tablet) 10 mg PO BID [facility] Last Admin: 12/14/24 08:24 Dose: 10 mg Dextrose (Dextrose 50 % 25 Gm/50 Ml Syringe) 25 gm IVPUSH Q15M PRN; Protocol PRN Reason: per Hypoglycemia Standing Ord. Glucose (Glucose Gel 15 Gm Gel..Gram.) 15 gm PO Q15M PRN; Protocol PRN Reason: per Hypoglycemia Standing Ord. Hydroxyzine HCl (Hydroxyzine Hcl 50 Mg Tablet) 50 mg PO BEDTIME PRN PRN Reason: Insomnia Last Admin: 12/13/24 21:27 Dose: 50 mg Hydroxyzine HCl (Hydroxyzine Hcl 25 Mg Tablet) 25 mg PO Q6H PRN PRN Reason: Anxiety Insulin Glargine (Insulin Glargine,Hum.Rec.Anlog 100 Unit/Ml 10 Ml Vial) 36 unit SUBCUT BEDTIME [facility] Insulin Human Lispro (Insulin Lispro 100 Unit/Ml 3 Ml Vial) 0 unit SUBCUT QIDACHS [facility]; Protocol Stop: 12/14/24 17:29 Last Admin: 12/14/24 08:33 Dose: 6 unit Loperamide HCl (Loperamide Hcl 2 Mg Capsule) 2 mg PO Q4H PRN PRN Reason: Loose Stool Magnesium Hydroxide (Milk Of Magnesia 30 Ml Oral.Susp) 30 ml PO DAILY PRN PRN Reason: Constipation Multivitamins/Vitamin C (Multivitamin Tablet) 1 tab PO DAILY [facility] Last Admin: 12/14/24 08:24 Dose: 1 tab Nicotine (Nicotine 21 Mg Patch.Td24) 21 mg TRANSDERMA DAILY PRN PRN Reason: nicotine cravings Nicotine Polacrilex (Nicotine Polacrilex 2 Mg Gum) 2 mg BUCCAL Q2H PRN PRN Reason: Nicotine Cravings Pt Own (Insulin Regular Human [ Novolin R Flexpen] 100 Unit/Ml (3 Ml) Ins 8 unit SUBCUT TIDWM RONNIE Last Admin: 12/13/24 17:14 Dose: 8 unit Quetiapine Fumarate (Quetiapine Fumarate 25 Mg Tablet) 12.5 mg PO BID PRN PRN Reason: Anxiety Last Admin: 12/13/24 21:27 Dose: 12.5 mg Trazodone HCl (Trazodone Hcl 50 Mg Tablet) 50 mg PO BEDTIME MRX1 PRN PRN Reason: Insomnia Last Admin: 12/13/24 21:27 Dose: 50 mg Allergies Allergies Allergy/AdvReac Type Severity Reaction Status Date / Time haloperidol Allergy Mild ITCHING Verified 12/12/24 13:11 Assessment & Plan Assessment & Plan (1) Mood disorder: Status: Acute Code(s): F39 - Unspecified mood [affective] disorder (2) Opioid use disorder, mild, abuse: Status: Acute Code(s): F11.10 - Opioid abuse, uncomplicated Assessment and Plan: pt clarified today that use of opioid has been very sporadic, it is not his drug of choice, he reports helps him calm down when he uses cocaine or PCP, but also notes that he has had accidental OD. WIll give narcan at time of discharge nonetheless. (3) Phencyclidine (PCP) use disorder, moderate: Status: Acute Code(s): F16.20 - Hallucinogen dependence, uncomplicated Plan Mr. Nuñez is a 39 year-old male with hx of mostly PCP, recent use of fentanyl (unclear extend and duration as he will not disclose this information but this is the first time he is positive in more than 11 times since 2020 he has been in our ED). He initially reported depression and suicidal. He does denies any suicidal ideation. He signed a 3 day notice. He currently presents with symptoms consistent with opioid withdrawal including rhinorrhea, loose stools, abdominal cramps, muscle aches. He declines MAT. He did agree to meet with addiction medicine to further discussed treatment options. His DM is also uncontrolled with A1C 12% He agreed to meet with hospitalist to discuss adjustments to medication regimen. He is vague and limited historian to explore at more depth his underlying mental illness. He does report he has been on abilify for some years with good effect and asks if it can be increased. Will increase to 10mg po daily. He has OP psych services and hopes to continue it. PLAN 2/5 continue current medications. BP low, elevated HR, negative Ortho HOTN. encourage to drink at least 1 L of fluids. No further medication changes at this time. Pt had signed 3 day, looking forward to be discharged on 12/16/2024. schedule trazodone 50mg po qhs. Reason for continued inpatient stay Substantial Risk for: inability to function Time Spent With Patient Time: Total time managing care of this patient today ____ minutes.
[2024-12-14] MEDS: INSULIN REGULAR HUMAN 100 UNIT/ML 8 EACH SUBCUT ×3 (10:17→17:11)
[2024-12-14 10:22] LABS: Glucose, Whole Blood 283 mg/dL (60-115)
[2024-12-14 11:23] VITALS: BP 92/55; PULSE 111; RESP 14; TEMP 37.1
[2024-12-14 12:02] LABS: Glucose, Whole Blood 276 mg/dL (60-115)
--- NOTE | 2024-12-14 14:01 | MHC.RECOVRN ---
Attempted to meet with pt in [id number] after receiving Addiction Medicine consult for opioid/PCP use. Pt laying in bed, eyes closed, wakes to voice. Introduced self, pt politely declines to speak at this time. Pt does report he feels alright in regard to opiate withdrawal. Reports mild body aches. Pt provided with written resources including information on [facility], inpatient and outpatient treatment options, recovery coaching, and HFH. Pt plans to review resources and is open to meeting with t/w tomorrow. Suri Dunne APRN, aware.
[2024-12-14 16:46] LABS: Glucose, Whole Blood 234 mg/dL (60-115)
[2024-12-14 19:40] VITALS: BP 112/64; PULSE 108; RESP 16; TEMP 36.9; O2SAT 100
[2024-12-14 21:03] LABS: Glucose, Whole Blood 341 mg/dL (60-115)
[2024-12-14] MEDS: Insulin Glargine,Hum.rec.anlog 100 UNIT/ML 10 ML VIAL 36 UNIT SUBCUT (21:09)
[2024-12-14] MEDS: hydrOXYzine HCL 50 MG TABLET PO (21:10)
[2024-12-14] MEDS: traZODone HCL 50 MG TABLET PO (21:10)
[2024-12-15] MEDS: QUEtiapine Fumarate 25 MG TABLET 12.5 MG PO ×2 (00:22→22:13)
[2024-12-15] MEDS: traZODone HCL 50 MG TABLET PO ×2 (00:23→22:13)
[2024-12-15 07:00] VITALS: BMI 19.7
[2024-12-15 08:00] VITALS: BP 110/72; PULSE 116; RESP 16; TEMP 36.8; O2SAT 98
[2024-12-15 08:09] LABS: Glucose, Whole Blood 270 mg/dL (60-115)
[2024-12-15] MEDS: Atorvastatin Calcium 80 MG TABLET PO (08:18)
[2024-12-15] MEDS: ARIPiprazole 10 MG TABLET PO (08:18)
[2024-12-15] MEDS: Multivitamin TABLET 1 TAB PO (08:18)
[2024-12-15] MEDS: Baclofen 10 MG TABLET PO ×2 (08:18→22:13)
[2024-12-15] MEDS: INSULIN REGULAR HUMAN 100 UNIT/ML 8 EACH SUBCUT ×3 (08:29→17:14)
--- NOTE | 2024-12-15 11:45 | PM.PSYDC ---
DS: Providers Provider Date of Service: 12/15/24 Date of admission: 12/12/24 18:55 Date of discharge: 12/16/24 Primary care physician: Ely Lundberg MD Consults: 12/13/24 13:00 Addiction Medicine Routine Consulting Provider: Addiction Covering Reason for consultation: opioid/pcp use Has provider been notified: Yes 12/13/24 13:02 Consult to Hospitalist Routine Comment: Consulting Provider: [facility] Hospitalists Reason For Exam: uncontrolled dm DS: Diagnosis Discharge Diagnosis (1) Mood disorder: Status: Acute (2) Opioid use disorder, mild, abuse: Status: Acute (3) Phencyclidine (PCP) use disorder, moderate: Status: Acute DS: Medications Discharge Medications Home Medications: Home Medications ?Medication ?Instructions ?Recorded ?Confirmed nicotine (polacrilex) 2 mg gum 1 gum PO Q2H PRN Nicotine Cravings 03/01/22 12/12/24 rosuvastatin 20 mg tablet 1 tab PO QAM 12/30/22 12/12/24 hydroxyzine HCl 50 mg tablet 50 mg PO BEDTIME PRN Insomnia 12/12/24 12/12/24 insulin regular human 100 unit/mL 8 unit subcut TIDWMEAL 12/12/24 12/12/24 (3 mL) subcutaneous pen (Novolin R FlexPen) quetiapine 25 mg tablet 12.5 mg PO BID PRN Anxiety 12/12/24 12/12/24 Previous Rx's ?Medication ?Instructions ?Recorded aripiprazole 10 mg tablet 10 mg PO DAILY 30 days #30 tabs 12/15/24 baclofen 10 mg tablet 10 mg PO BID 30 days #60 tabs 12/15/24 insulin glargine-yfgn 100 unit/mL 36 unit (0.36 mL) subcut BEDTIME 12/15/24 (3 mL) subcutaneous pen 30 days #10.8 mL naloxone 4 mg/actuation nasal 4 mg intranasal Q2M PRN opioid 12/15/24 spray (Narcan) overdose #2 ea trazodone 50 mg tablet 50 mg PO BEDTIME 30 days #30 tabs 12/15/24 Mental Status Exam Mental Status Exam Narrative: Appearance: casually groomed, improved hygiene, in NAD Behavior: cooperative Psychomotor: no agitation or retardation noted Speech: clear, regular rate/rhythm/volume, spontaneous TP: linear TC: feeling better Mood: i feel normal Affect: congruent, brighter SI: denies HI: denies VH/AH: none Delusions: none Insight/judgment: poor x 2. Memory/cog: alert, oriented x 4. grossly intact to conversational testing. Data Data Completed and Pending Completed studies during hospitalization [Text1]: 12/12/24 12/12/24 12/12/24 13:20 13:21 16:41 WBC 7.4 RBC 4.88 Hgb 13.9 L Hct 41.7 L MCV 85.5 MCH 28.5 MCHC 33.3 RDW 13.1 Plt Count 169 MPV 11.1 Immature Gran % (Auto) 0.3 Neut % (Auto) 56.7 Lymph % (Auto) 31.6 [place] % (Auto) 9.8 Eos % (Auto) 1.2 Baso % (Auto) 0.4 Lymph # (Auto) 2.4 [place] # (Auto) 0.7 Eos # (Auto) 0.1 Baso # (Auto) 0.0 Abs Immat Gran (auto) 0.02 Absolute Neuts (auto) 4.2 Absolute Nucleated RBC 0.000 Nucleated RBC % (auto) 0.0 Sodium 136 Potassium 3.8 Chloride 99 Carbon Dioxide 27 Anion Gap 14 BUN 12 Creatinine 0.79 Estim Creat Clear Calc 99.6 Estimated GFR > 60 POC Glucose 384 H* Random Glucose 446 H* Estimat Average Glucose Hemoglobin A1c % Calcium 9.2 D Total Bilirubin 0.9 AST 28 ALT 22 Alkaline Phosphatase 117 Total Protein 6.5 Albumin 3.9 Triglycerides Cholesterol LDL Cholesterol, Calc HDL Cholesterol Vitamin B12 TSH Thyroxine (T4) Hold Red Top See Note Urine Color Yellow Urine Appearance Clear Urine pH 6.0 Ur Specific [place] >= 1.030 H Urine Protein Negative Urine Glucose (UA) >=1000 H Urine Ketones 80 Urine Blood Negative Urine Nitrite Negative Ur Leukocyte Esterase Negative Urine RBC 0-2 Urine WBC 0-5 Ur Squamous Epith Cells 0-2 Urine Bacteria None Seen Hyaline Casts 0-2 Salicylates < 5.0 L Urine Opiates Screen Not Detected Ur Buprenorphine Scrn Not Detected Ur Oxycodone Screen Not Detected Urine Methadone Screen Not Detected Urine Fentanyl Screen POSITIVE H Acetaminophen < 3 Ur Barbiturates Screen Not Detected Ur Phencyclidine Scrn POSITIVE H Ur Amphetamines Screen Not Detected U Benzodiazepines Scrn Not Detected Urine Cocaine Screen Not Detected U Marijuana (THC) Screen Not Detected Ethyl Alcohol < 10 12/12/24 12/12/24 12/13/24 19:50 20:22 06:36 WBC RBC Hgb Hct MCV MCH MCHC RDW Plt Count MPV Immature Gran % (Auto) Neut % (Auto) Lymph % (Auto) [place] % (Auto) Eos % (Auto) Baso % (Auto) Lymph # (Auto) [place] # (Auto) Eos # (Auto) Baso # (Auto) Abs Immat Gran (auto) Absolute Neuts (auto) Absolute Nucleated RBC Nucleated RBC % (auto) Sodium Potassium Chloride Carbon Dioxide Anion Gap BUN Creatinine Estim Creat Clear Calc Estimated GFR POC Glucose 327 H 387 H* 276 H Random Glucose Estimat Average Glucose Hemoglobin A1c % Calcium Total Bilirubin AST ALT Alkaline Phosphatase Total Protein Albumin Triglycerides Cholesterol LDL Cholesterol, Calc HDL Cholesterol Vitamin B12 TSH Thyroxine (T4) Hold Red Top Urine Color Urine Appearance Urine pH Ur Specific [place] Urine Protein Urine Glucose (UA) Urine Ketones Urine Blood Urine Nitrite Ur Leukocyte Esterase Urine RBC Urine WBC Ur Squamous Epith Cells Urine Bacteria Hyaline Casts Salicylates Urine Opiates Screen Ur Buprenorphine Scrn Ur Oxycodone Screen Urine Methadone Screen Urine Fentanyl Screen Acetaminophen Ur Barbiturates Screen Ur Phencyclidine Scrn Ur Amphetamines Screen U Benzodiazepines Scrn Urine Cocaine Screen U Marijuana (THC) Screen Ethyl Alcohol 12/13/24 12/13/24 12/13/24 07:58 09:58 11:48 WBC RBC Hgb Hct MCV MCH MCHC RDW Plt Count MPV Immature Gran % (Auto) Neut % (Auto) Lymph % (Auto) [place] % (Auto) Eos % (Auto) Baso % (Auto) Lymph # (Auto) [place] # (Auto) Eos # (Auto) Baso # (Auto) Abs Immat Gran (auto) Absolute Neuts (auto) Absolute Nucleated RBC Nucleated RBC % (auto) Sodium 141 Potassium 4.0 Chloride 103 Carbon Dioxide 29 Anion Gap 13 BUN 16 Creatinine 0.76 Estim Creat Clear Calc 99.8 Estimated GFR > 60 POC Glucose 422 H* 282 H Random Glucose 286 H Estimat Average Glucose 321 Hemoglobin A1c % 12.8 H Calcium 9.6 Total Bilirubin 0.8 AST 28 ALT 31 Alkaline Phosphatase 110 Total Protein 6.7 Albumin 4.0 Triglycerides 172 H Cholesterol 141 LDL Cholesterol, Calc 59 HDL Cholesterol 48 Vitamin B12 991 H TSH 0.29 L Thyroxine (T4) 7.5 Hold Red Top Urine Color Urine Appearance Urine pH Ur Specific [place] Urine Protein Urine Glucose (UA) Urine Ketones Urine Blood Urine Nitrite Ur Leukocyte Esterase Urine RBC Urine WBC Ur Squamous Epith Cells Urine Bacteria Hyaline Casts Salicylates Urine Opiates Screen Ur Buprenorphine Scrn Ur Oxycodone Screen Urine Methadone Screen Urine Fentanyl Screen Acetaminophen Ur Barbiturates Screen Ur Phencyclidine Scrn Ur Amphetamines Screen U Benzodiazepines Scrn Urine Cocaine Screen U Marijuana (THC) Screen Ethyl Alcohol 12/13/24 12/13/24 12/14/24 17:06 21:06 07:48 WBC RBC Hgb Hct MCV MCH MCHC RDW Plt Count MPV Immature Gran % (Auto) Neut % (Auto) Lymph % (Auto) [place] % (Auto) Eos % (Auto) Baso % (Auto) Lymph # (Auto) [place] # (Auto) Eos # (Auto) Baso # (Auto) Abs Immat Gran (auto) Absolute Neuts (auto) Absolute Nucleated RBC Nucleated RBC % (auto) Sodium Potassium Chloride Carbon Dioxide Anion Gap BUN Creatinine Estim Creat Clear Calc Estimated GFR POC Glucose 443 H* 371 H* 254 H Random Glucose Estimat Average Glucose Hemoglobin A1c % Calcium Total Bilirubin AST ALT Alkaline Phosphatase Total Protein Albumin Triglycerides Cholesterol LDL Cholesterol, Calc HDL Cholesterol Vitamin B12 TSH Thyroxine (T4) Hold Red Top Urine Color Urine Appearance Urine pH Ur Specific [place] Urine Protein Urine Glucose (UA) Urine Ketones Urine Blood Urine Nitrite Ur Leukocyte Esterase Urine RBC Urine WBC Ur Squamous Epith Cells Urine Bacteria Hyaline Casts Salicylates Urine Opiates Screen Ur Buprenorphine Scrn Ur Oxycodone Screen Urine Methadone Screen Urine Fentanyl Screen Acetaminophen Ur Barbiturates Screen Ur Phencyclidine Scrn Ur Amphetamines Screen U Benzodiazepines Scrn Urine Cocaine Screen U Marijuana (THC) Screen Ethyl Alcohol 12/14/24 12/14/24 12/14/24 10:15 11:57 16:39 WBC RBC Hgb Hct MCV MCH MCHC RDW Plt Count MPV Immature Gran % (Auto) Neut % (Auto) Lymph % (Auto) [place] % (Auto) Eos % (Auto) Baso % (Auto) Lymph # (Auto) [place] # (Auto) Eos # (Auto) Baso # (Auto) Abs Immat Gran (auto) Absolute Neuts (auto) Absolute Nucleated RBC Nucleated RBC % (auto) Sodium Potassium Chloride Carbon Dioxide Anion Gap BUN Creatinine Estim Creat Clear Calc Estimated GFR POC Glucose 283 H 276 H 234 H Random Glucose Estimat Average Glucose Hemoglobin A1c % Calcium Total Bilirubin AST ALT Alkaline Phosphatase Total Protein Albumin Triglycerides Cholesterol LDL Cholesterol, Calc HDL Cholesterol Vitamin B12 TSH Thyroxine (T4) Hold Red Top Urine Color Urine Appearance Urine pH Ur Specific [place] Urine Protein Urine Glucose (UA) Urine Ketones Urine Blood Urine Nitrite Ur Leukocyte Esterase Urine RBC Urine WBC Ur Squamous Epith Cells Urine Bacteria Hyaline Casts Salicylates Urine Opiates Screen Ur Buprenorphine Scrn Ur Oxycodone Screen Urine Methadone Screen Urine Fentanyl Screen Acetaminophen Ur Barbiturates Screen Ur Phencyclidine Scrn Ur Amphetamines Screen U Benzodiazepines Scrn Urine Cocaine Screen U Marijuana (THC) Screen Ethyl Alcohol 12/14/24 12/15/24 20:59 07:59 WBC RBC Hgb Hct MCV MCH MCHC RDW Plt Count MPV Immature Gran % (Auto) Neut % (Auto) Lymph % (Auto) [place] % (Auto) Eos % (Auto) Baso % (Auto) Lymph # (Auto) [place] # (Auto) Eos # (Auto) Baso # (Auto) Abs Immat Gran (auto) Absolute Neuts (auto) Absolute Nucleated RBC Nucleated RBC % (auto) Sodium Potassium Chloride Carbon Dioxide Anion Gap BUN Creatinine Estim Creat Clear Calc Estimated GFR POC Glucose 341 H 270 H Random Glucose Estimat Average Glucose Hemoglobin A1c % Calcium Total Bilirubin AST ALT Alkaline Phosphatase Total Protein Albumin Triglycerides Cholesterol LDL Cholesterol, Calc HDL Cholesterol Vitamin B12 TSH Thyroxine (T4) Hold Red Top Urine Color Urine Appearance Urine pH Ur Specific [place] Urine Protein Urine Glucose (UA) Urine Ketones Urine Blood Urine Nitrite Ur Leukocyte Esterase Urine RBC Urine WBC Ur Squamous Epith Cells Urine Bacteria Hyaline Casts Salicylates Urine Opiates Screen Ur Buprenorphine Scrn Ur Oxycodone Screen Urine Methadone Screen Urine Fentanyl Screen Acetaminophen Ur Barbiturates Screen Ur Phencyclidine Scrn Ur Amphetamines Screen U Benzodiazepines Scrn Urine Cocaine Screen U Marijuana (THC) Screen Ethyl Alcohol DS: Summary Hospital Course Hospital Course: per 2 admission note: HPI Subjective Notes: Paez Warning (given and shows udnerstanding), Conditional Voluntary and Section 12B Narrative: Mr. Nuñez is a 39 year-old male with hx of PCP, alcohol use and recent opioid use who self presented to [facility] ED reporting increased depression. He had reported hx of suicide attempts some years ago and reported he did not want to get to that point. His utox was positive for fentanyl, PCP. BAL was less than 10. Pt noted to have elevated BS up to 440. His A1C is 12% On the unit, pt reports loose stools, abdominal cramps, rhinorrhea. He reports using fentanyl. When asked about amount, he reports I don't know. This database report writer noted that from all the times he has been in the hospital this is the first time he has used opiods. This database report writer asked when did he start using but he was very evasive with his answers, again reporting he did not know. This database report writer offered either methadone or suboxone as taper or MAT. However, pt reports he had suboxone once and went into precipitated withdrawal and reports he has not tried methadone but reports he has heard withdrawal from methadone can be even worse. He signed a 3 day notice. He is in bed, unwell physically, which suspect is mostly related to opioid withdrawal than viral illness. He denies hx of visual or auditory hallucinations. He reports he sees psychiatric provider through [facility]. He reports he has been on abilify for some years and it has been helpful for his mood. He asks if this medication can be adjusted. He met with BRIGID Ware to discuss referrals for OP psychiatric services he declined other referrals. In terms of his medical health, and worsening management of DM, he reports taking medications as prescribed. He agreed to meet with hospitalist to discuss adjustments to his insulin regimen. Past Psychiatric History: Inpt: none OP: [facility], Marlena James Past medication trials: abilify Medical Evaluation Reviewed: Yes PMFSH Medical History Ingrown hair Abscess Diabetes Depression Surgical History H/O circumcision Precis: Mr. Nuñez is a 39 year-old male with hx of mostly PCP, recent use of fentanyl (unclear extend and duration as he will not disclose this information but this is the first time he is positive in more than 11 times since 2020 he has been in our ED). He initially reported depression and suicidal. He does denies any suicidal ideation. He signed a 3 day notice. He currently presents with symptoms consistent with opioid withdrawal including rhinorrhea, loose stools, abdominal cramps, muscle aches. He declines MAT. He did agree to meet with addiction medicine to further discussed treatment options. His DM is also uncontrolled with A1C 12% He agreed to meet with hospitalist to discuss adjustments to medication regimen. He is vague and limited historian to explore at more depth his underlying mental illness. He does report he has been on abilify for some years with good effect and asks if it can be increased. He has OP psych services and hopes to continue it. 12/13: Increase abilify 10mg po daily. Add comfort meds for opioid withdrawal- baclofen, loperamide, bentyl for abdominal cramps 12/14 continue current medications. BP low, elevated HR, negative Ortho HOTN. encourage to drink at least 1 L of fluids. No further medication changes at this time. Pt had signed 3 day, looking forward to be discharged on 12/16/2024. schedule trazodone 50mg po qhs. 12/15: stable, safe. medications reviewed, reconciled, prescribed. discharging tomorrow upon expiry of 3-day notice. 12/16: remains safe and stable. discharged on expiry of 3-day as he is not committable. Time Spent with Patient Time attestation: Total time managing care of this patient today __35__ minutes. Discharge Plan Discharge Anticipated Discharge Date/Time: 12/16/24 11:00 Patient Disposition: Home, Self-Care Discharge Diagnosis: Depressive Disorder NOS Opioid Use Disorder PCP Use Disorder Diabetes Mellitus Referrals: Lorenza Marie (Therapy) [Other] - 12/19/24 10:00 am (IN OFFICE APPOINTMENT) Marlena Rodriguez (Psychiatry) [Other] - 01/12/25 11:40 am (IN OFFICE APPOINTMENT) Ely Lundberg MD [Primary Care Provider] - 12/21/24 9:15 am (12-14-24 Your follow up appt has been scheduled with Dr. Ely Lundberg on 12-21-24 @ 9:15am.) Discharge Medications: New trazodone 50 mg Tablet 50 mg PO BEDTIME 30 Days Qty: 30 0RF baclofen 10 mg Tablet 10 mg PO BID 30 Days Qty: 60 0RF aripiprazole 10 mg Tablet 10 mg PO DAILY 30 Days Qty: 30 0RF naloxone [Narcan] 4 mg/actuation spray,non-aerosol 4 mg intranasal Q2M PRN (Reason: opioid overdose) Qty: 2 0RF Rx Instructions: spray 1 dose into ONE nostril; alternate nostrils w each dose until help arrives Continued nicotine (polacrilex) 2 mg gum 1 gum PO Q2H PRN (Reason: Nicotine Cravings) rosuvastatin 20 mg tablet 1 tab PO QAM quetiapine 25 mg tablet 12.5 mg PO BID PRN (Reason: Anxiety) hydroxyzine HCl 50 mg tablet 50 mg PO BEDTIME PRN (Reason: Insomnia) Novolin R FlexPen 100 unit/mL (3 mL) insulin pen 8 unit SUBCUT TIDWMEAL Rx Instructions: Take 8 units with meals (breakfast, lunch and dinner) Changed insulin glargine-yfgn 100 unit/mL (3 mL) insulin pen 36 unit SUBCUT BEDTIME 30 Days Qty: 10.8 0RF Discontinued multivitamin Tablet 1 tab PO QAM aripiprazole 5 mg tablet 5 mg PO DAILY Discharge Orders: Discharge Order (Routine); Ordered 12/16/24 Ordered By: Juanito Sultana Diet: Diabetic diet Activity on Discharge: As tolerated Stand Alone Forms: Patient Portal Discharge page, Community Support Print Language: Setswana Care Plan Goals: remain safe, stable, and sober in the outpatient treatment setting Health Concerns: Diabetes Mellitus Plan of Treatment: take medications as prescribed, attend appointments as scheduled Assessment: not at imminent risk of harm to self or others Discharge Date/Time: 12/16/24 10:12
[2024-12-15 11:47] LABS: Glucose, Whole Blood 409 mg/dL (60-115)
[2024-12-15 12:34] LABS: Glucose, Whole Blood 422 mg/dL (60-115)
[2024-12-15 17:09] LABS: Glucose, Whole Blood 324 mg/dL (60-115)
[2024-12-15 20:22] LABS: Glucose, Whole Blood 371 mg/dL (60-115)
[2024-12-15] MEDS: Nicotine Polacrilex 2 MG GUM BUCCAL (20:34)
[2024-12-15 21:30] VITALS: PULSE 83; RESP 18; TEMP 37.2; O2SAT 97
[2024-12-15] MEDS: Insulin Glargine,Hum.rec.anlog 100 UNIT/ML 10 ML VIAL 42 UNIT SUBCUT (22:12)
[2024-12-15] MEDS: hydrOXYzine HCL 50 MG TABLET PO (22:13)
[2024-12-16 07:55] VITALS: BP 109/70; PULSE 109; RESP 16; TEMP 36.6; O2SAT 98
[2024-12-16 08:06] LABS: Glucose, Whole Blood 269 mg/dL (60-115)
[2024-12-16] MEDS: Atorvastatin Calcium 80 MG TABLET PO (08:51)
[2024-12-16] MEDS: Baclofen 10 MG TABLET PO (08:51)
[2024-12-16] MEDS: Acetaminophen 325 MG TABLET 650 MG PO (08:51)
[2024-12-16] MEDS: ARIPiprazole 10 MG TABLET PO (08:52)
[2024-12-16] MEDS: INSULIN REGULAR HUMAN 100 UNIT/ML 8 EACH SUBCUT (08:52)
[2024-12-16] MEDS: Multivitamin TABLET 1 TAB PO (08:52)
== END 2024-12-16 10:12 | disposition home or self-care (01) | DRG 881 ==
LOC: HO.ED 18:21 → HO.PADLT16 19:47
PROVIDERS: Physician Assistant Medical; Admitting Provider Social Worker; Emergency Provider Emergency Medicine; PCP Internal Medicine; Visit Provider Psychiatry & Neurology Psychiatry
DX: F32.A Depression, unspecified (principal); F16.20 Hallucinogen dependence, uncomplicated; F11.13 Opioid abuse with withdrawal; E11.9 Type 2 diabetes mellitus without complications; F17.210 Nicotine dependence, cigarettes, uncomplicated; Z71.6 Tobacco abuse counseling; Z79.4 Long term (current) use of insulin; Z79.899 Other long term (current) drug therapy
CPT/HCPCS: 36415; 80053; 80061; 80143; 80179; 80307; 81001; 82607; 82947; 83036; 84436; 84443; 85025; 93005; 99285; S9485

== ENCOUNTER → 2024-12-12 18:55 | Outpatient (BNV) | payer MEDICARE, MEDICAID, SELFPAY | PROVIDERS: Admitting Provider Social Worker; Emergency Provider Emergency Medicine; PCP Internal Medicine; Visit Provider Social Worker | DX: F39 Unspecified mood [affective] disorder (principal); F11.10 Opioid abuse, uncomplicated; F16.20 Hallucinogen dependence, uncomplicated | CPT/HCPCS: 90792; 99232 ==

== ENCOUNTER 2024-12-19 19:34 | Emergency (ER) | payer MEDICARE, MEDICAID, SELFPAY ==
[2024-12-19 19:37] VITALS: PULSE 96; O2SAT 98; BMI 15.0
[2024-12-19] MEDS: Acetaminophen 325 MG TABLET 975 MG PO (19:52)
[2024-12-19 20:10] LABS: MANUAL DIFF FLAG NO
[2024-12-19 20:18] LABS: Basophils Percent Auto 0.5 % (0-2); Eosinophils Absolute Auto 0.1 X10*3/uL (0.0-0.4); Eosinophils Percent Auto 1.2 % (0-4); Hematocrit 44.8 % (42.0-52.0); Hemoglobin 14.6 g/dl (14.0-18.0); Imm Gran Abs Auto 0.01 X10*3/uL (0.00-0.03); Imm Gran Pct Auto 0.2 % (0.0-0.4); Lymphocytes Absolute Auto 2.1 X10*3/uL (1.2-4.9); Lymphocytes Percent Auto 35.3 % (20-40); Mean Corpuscular HGB Conc 32.6 g/dl (31.0-36.0); Mean Corpuscular Hemoglobin 28.3 pg (27.0-33.0); Mean Corpuscular Volume 86.8 fL (80.0-98.0); Mean Platelet Volume 10.6 fL (9.4-12.4); Monocytes Absolute Auto 0.6 X10*3/uL (0.1-1.2); Monocytes Percent Auto 9.4 % (2-11); Neutrophils Absolute Auto 3.3 x10*3/uL (2.0-8.3); Neutrophils Percent Auto 53.4 % (45-73); Platelet Count 174 X10*3/uL (160-400); Red Blood Count 5.16 X10*6/uL (4.60-5.80); White Blood Count 6.1 X10*3/uL (4.8-10.8)
[2024-12-19 20:28] LABS: Acetaminophen LAB < 3 mcg/mL (<30); Salicylate < 5.0 mg/dL (15-30)
[2024-12-19 20:31] LABS: Alanine Aminotransferase 28 U/L (0-40); Albumin Level 4.3 g/dL (3.5-5.0); Alkaline Phosphatase 111 U/L (39-117); Anion Gap 13 (12-20); Aspartate Amino Transferase 23 U/L (5-37); Bilirubin Total 1.1 mg/dL (0.0-1.0); Blood Urea Nitrogen 7 mg/dL (9-16); Calcium 9.3 mg/dL (8.4-10.2); Carbon Dioxide 25 mmol/L (22-29); Chloride 104 mmol/L (96-108); Creatinine Clr Calc Pharmacy 102.5; Estimated Glomerular Filt Rate > 60; Ethanol < 10 mg/dL; Glucose Random 277 mg/dL (60-115); Potassium 3.8 mmol/L (3.3-5.1); Sodium 138 mmol/L (135-145)
[2024-12-19 20:48] LABS: Influenza A PCR NEGATIVE (Negative); Influenza B PCR NEGATIVE (Negative); Resp Syncy Virus RNA Qual PCR NEGATIVE (Negative); SARS COV2 PCR INHOUSE NEGATIVE (Negative)
--- NOTE | 2024-12-19 21:04 | ED.PSYCH ---
HPI - Psych General Chief Complaint: ETOH/Substance Use Stated Complaint: psych eval, found walking around naked, ?drug use Time Seen by Provider: 12/19/24 19:42 Source: patient Limitations: other (suspect intoxication) History of Present Illness ED Provider: Purnima Ivy PA-C HPI Narrative: 39-year-old male with a history of mood disorder, polysubstance abuse, diabetes and depression presents after PCP use. Patient admits to using PCP overnight. The patient was found naked walking in the street when he was picked up by EMS. Related Data Home Medications ?Medication ?Instructions ?Recorded ?Confirmed nicotine (polacrilex) 2 mg gum 1 gum PO Q2H PRN Nicotine Cravings 03/01/22 12/12/24 rosuvastatin 20 mg tablet 1 tab PO QAM 12/30/22 12/12/24 hydroxyzine HCl 50 mg tablet 50 mg PO BEDTIME PRN Insomnia 12/12/24 12/12/24 insulin regular human 100 unit/mL 8 unit subcut TIDWMEAL 12/12/24 12/12/24 (3 mL) subcutaneous pen (Novolin R FlexPen) quetiapine 25 mg tablet 12.5 mg PO BID PRN Anxiety 12/12/24 12/12/24 Previous Rx's ?Medication ?Instructions ?Recorded aripiprazole 10 mg tablet 10 mg PO DAILY 30 days #30 tabs 12/15/24 baclofen 10 mg tablet 10 mg PO BID 30 days #60 tabs 12/15/24 insulin glargine-yfgn 100 unit/mL 36 unit (0.36 mL) subcut BEDTIME 12/15/24 (3 mL) subcutaneous pen 30 days #10.8 mL naloxone 4 mg/actuation nasal 4 mg intranasal Q2M PRN opioid 12/15/24 spray (Narcan) overdose #2 ea trazodone 50 mg tablet 50 mg PO BEDTIME 30 days #30 tabs 12/15/24 Allergies Allergy/AdvReac Type Severity Reaction Status Date / Time haloperidol Allergy Mild ITCHING Verified 12/19/24 19:46 Review of Systems Review of Systems: Unable to obtain as the patient not willing to engage in conversation so as to document detailed history Yes all other systems are reviewed and are negative PMFSH Past Medical History Attestation statement: The following information was validated with the patient. Medical History Ingrown hair Abscess Diabetes Depression Surgical History H/O circumcision Family History Family History Mother No problems noted. Father No problems noted. Social History Social History Household Members: Unknown / Unable to assess Do you presently have visiting nurse or other home services: No Alcohol intake: current Alcohol intake frequency: holidays/special occasions only Alcohol type: beer and hard liquor Patient Tobacco Use Status: Current everyday Tobacco user Tobacco use type: Cigarette Cigarette Packs Per Day: 1 Cigarettes Per Day: 20.0 Years Smoked: 15 Second Hand Smoke Exposure: No Substance Use Type: Opiates Advance Directives: No Advance Directives Information Provided: Yes Do you have a plan to hurt others: No Plan service: No Current occupational status: unemployed and disabled Sexual orientation: Straight/Heterosexual Physical Exam Vital Signs: Vital Signs: Last Vital Signs Temp 98.0 F 12/20/24 00:37 Pulse 117 H 12/20/24 00:37 Resp 19 12/20/24 00:37 BP 107/66 12/20/24 00:37 Pulse Ox 98 12/20/24 00:37 O2 Del Method Room Air 12/20/24 00:37 BMI result Body Mass Index 15.0 Const: Other: Awake Orientation/consciousness: patient oriented x3 Resp: Effort & Inspection: normal respiratory effort Cardio: Other: Normal peripheral perfusion Skin: Other: Warm dry no rash Neuro: General: patient oriented x3, gait normal, no focal motor deficits and CN's II-XI intact bilaterally Psych: Other: Somewhat uncooperative Course Reevaluation(s) Reevaluation #1: The patient is now clinically sober, he does not require a care team consult. Time: 00:45 Medications Administered Discontinued Medications Generic Name Dose Route Start Last Admin Trade Name Freq PRN Reason Stop Dose Admin Acetaminophen 975 mg 12/19/24 19:49 12/19/24 19:52 Acetaminophen 325 Mg Tablet PO 12/19/24 19:50 975 mg ONCE ONE Administration Ibuprofen 600 mg 12/19/24 22:43 12/19/24 22:58 Ibuprofen 600 Mg Tablet PO 12/19/24 22:44 600 mg ONCE ONE Administration Medical Decision Making Medical Decision Making MDM Narrative: 39-year-old male with a history of mood disorder, polysubstance abuse, diabetes and depression presents after PCP use. Patient admits to using PCP overnight. The patient was found naked walking in the street when he was picked up by EMS. Problem: Mood disorder, polysubstance abuse, diabetes History: Limited from patient I have considered the following differential diagnoses: Decompensated psychiatric illness, SI, HI, drug/alcohol intoxication Plan: Screening labs including drug screen and ethanol are obtained, the patient will be seen in the care team. We do not have a great history from him at this point I have independently reviewed the following tests: Labs: No leukocytosis, not anemic, no electrolyte abnormalities, ethanol negative, aspirin and acetaminophen negative, drug screen pending no electrolyte abnormalities noted Lab Data 12/19/24 20:05 12/19/24 20:05 Labs: Lab Results 12/19/24 Range/Units 20:05 WBC 6.1 (4.8-10.8) X10*3/uL RBC 5.16 (4.60-5.80) X10*6/uL Hgb 14.6 (14.0-18.0) g/dl Hct 44.8 (42.0-52.0) % MCV 86.8 (80.0-98.0) fL MCH 28.3 (27.0-33.0) pg MCHC 32.6 (31.0-36.0) g/dl RDW 13.0 (11.0-16.0) % Plt Count 174 (160-400) X10*3/uL MPV 10.6 (9.4-12.4) fL Immature Gran % (Auto) 0.2 (0.0-0.4) % Neut % (Auto) 53.4 (45-73) % Lymph % (Auto) 35.3 (20-40) % [place] % (Auto) 9.4 (2-11) % Eos % (Auto) 1.2 (0-4) % Baso % (Auto) 0.5 (0-2) % Lymph # (Auto) 2.1 (1.2-4.9) X10*3/uL [place] # (Auto) 0.6 (0.1-1.2) X10*3/uL Eos # (Auto) 0.1 (0.0-0.4) X10*3/uL Baso # (Auto) 0.0 (0.0-0.2) X10*3/uL Abs Immat Gran (auto) 0.01 (0.00-0.03) X10*3/uL Absolute Neuts (auto) 3.3 (2.0-8.3) x10*3/uL Absolute Nucleated RBC 0.000 (0.0-0.012) X10*3/uL Nucleated RBC % (auto) 0.0 (0.0-0.2) /100WBC Sodium 138 (135-145) mmol/L Potassium 3.8 (3.3-5.1) mmol/L Chloride 104 (96-108) mmol/L Carbon Dioxide 25 (22-29) mmol/L Anion Gap 13 (12-20) BUN 7 L (9-16) mg/dL Creatinine 0.68 (0.5-1.4) mg/dL Estim Creat Clear Calc 102.5 Estimated GFR > 60 Random Glucose 277 H (60-115) mg/dL Calcium 9.3 (8.4-10.2) mg/dL Magnesium 2.0 (1.6-2.6) mg/dL Total Bilirubin 1.1 H (0.0-1.0) mg/dL AST 23 (5-37) U/L ALT 28 (0-40) U/L Alkaline Phosphatase 111 (39-117) U/L Total Protein 7.0 (6.5-8.0) g/dL Albumin 4.3 (3.5-5.0) g/dL Salicylates < 5.0 L (15-30) mg/dL Acetaminophen < 3 (<30) mcg/mL Ethyl Alcohol < 10 mg/dL Influenza Type A (PCR) NEGATIVE (Negative) Influenza Type B (PCR) NEGATIVE (Negative) RSV RNA Qual (PCR) NEGATIVE (Negative) SARS-CoV-2 RNA (RT-PCR) NEGATIVE (Negative) Discharge Plan Discharge Clinical Impression: Phencyclidine (PCP) use disorder, moderate Patient Disposition: Home, Self-Care Additional Instructions: You were monitored in the emergency department, for your safety, until you were clinically sober. Follow up with primary care as needed. Prescriptions: No Action nicotine (polacrilex) 2 mg gum 1 gum PO Q2H PRN (Reason: Nicotine Cravings) rosuvastatin 20 mg tablet 1 tab PO QAM quetiapine 25 mg tablet 12.5 mg PO BID PRN (Reason: Anxiety) hydroxyzine HCl 50 mg tablet 50 mg PO BEDTIME PRN (Reason: Insomnia) Novolin R FlexPen 100 unit/mL (3 mL) insulin pen 8 unit SUBCUT TIDWMEAL Rx Instructions: Take 8 units with meals (breakfast, lunch and dinner) trazodone 50 mg Tablet 50 mg PO BEDTIME 30 Days Qty: 30 0RF baclofen 10 mg Tablet 10 mg PO BID 30 Days Qty: 60 0RF aripiprazole 10 mg Tablet 10 mg PO DAILY 30 Days Qty: 30 0RF insulin glargine-yfgn 100 unit/mL (3 mL) insulin pen 36 unit SUBCUT BEDTIME 30 Days Qty: 10.8 0RF naloxone [Narcan] 4 mg/actuation spray,non-aerosol 4 mg intranasal Q2M PRN (Reason: opioid overdose) Qty: 2 0RF Rx Instructions: spray 1 dose into ONE nostril; alternate nostrils w each dose until help arrives Print Language: Japanese
[2024-12-19] MEDS: Ibuprofen 600 MG TABLET PO (22:58)
[2024-12-20 00:37] VITALS: BP 107/66; PULSE 117; RESP 19; TEMP 36.7; O2SAT 98
[2024-12-20 00:50] VITALS: BP 107/66; PULSE 117; RESP 19; TEMP 36.7; O2SAT 98
== END 2024-12-20 00:52 | disposition home or self-care (01) ==
PROVIDERS: Physician Assistant Medical; Emergency Provider Emergency Medicine
DX: F16.90 Hallucinogen use, unspecified, uncomplicated (principal); F39 Unspecified mood [affective] disorder; E11.9 Type 2 diabetes mellitus without complications; F32.A Depression, unspecified; Z79.4 Long term (current) use of insulin; Z79.899 Other long term (current) drug therapy; Z03.818 Encounter for observation for suspected exposure to other biological agents ruled out
CPT/HCPCS: 0241U; 80053; 80143; 80179; 80307; 83735; 85025; 99284

== ENCOUNTER 2025-01-28 06:13 | Emergency (ER) | payer MEDICARE, MEDICAID, SELFPAY ==
--- NOTE | ~2025-01-28 | CT_ITS ---
CLINICAL HISTORY: abd pain severe diffuse CT abdomen and pelvis with contrast Comparison: 06/23/2024 Findings: No consolidation or effusion. No hydronephrosis. Contracted gallbladder. Apparent circumferential wall thickening (up to 10 mm) of the wall of a nondistended right lower abdominal small bowel loop on series 3 image 43, may be artifactual/due to underdistention versus less likely due to enteritis. Correlate clinically. No bowel obstruction. Distended urinary bladder. Enlarged prostate measuring 5.3 cm in width. Incompletely evaluated appendix. Evaluated portion is unremarkable. Rest of the abdominopelvic viscera are unremarkable. No acute fracture. IMPRESSION: Apparent circumferential wall thickening (up to 10 mm) of the wall of a nondistended right lower abdominal small bowel loop on series 3 image 43, may be artifactual/due to underdistention versus less likely due to enteritis. Correlate clinically. Enlarged prostate. This document has been electronically signed by: Sadie Yanez MD on 01/28/2025 11:26:21
[2025-01-28 06:25] LABS: Glucose, Whole Blood 290 mg/dL (60-115)
[2025-01-28 06:26] VITALS: BP 126/87; PULSE 94; O2SAT 100
[2025-01-28 06:29] VITALS: BP 110/65; PULSE 74; RESP 19; TEMP 36.7; O2SAT 98; BMI 19.5
[2025-01-28] MEDS: Ketorolac Tromethamine 15 MG/ML VIAL IVPUSH (07:35)
[2025-01-28] MEDS: 0.9 % Sodium Chloride 1,000 ML 999 ML IV (07:35)
[2025-01-28] MEDS: ondansetron HCL 4 MG/2 ML VIAL IVPUSH (07:35)
[2025-01-28 08:07] VITALS: BP 97/59; PULSE 88; RESP 16; TEMP 36.6; O2SAT 99
--- NOTE | 2025-01-28 08:21 | ED.GENADULT ---
HPI - General Adult General Chief complaint: General Medical Stated complaint: HYPERGLYCEMIA Time Seen by Provider: 01/28/25 07:16 Source: patient Mode of arrival: ambulatory Limitations: no limitations History of Present Illness ED Provider: RUSSELL Boggs HPI narrative: This is a 39-year-old male past medical history significant for opiate use disorder, PCP, diabetes type 1 presenting to the emergency department with complaints of abdominal pain that is been ongoing for years, unchanged no associated nausea, vomiting, diarrhea, changes in stool, fevers, chills. He also reports he is feeling suicidal with no particular plan. He tells me he is also looking to detox from opiates and PCP. He last use yesterday. No recent alcohol use. When I asked him if he has been hyperglycemic he says he does not know. Patient denies chest pain, shortness of breath, nausea, vomiting, headache, vision changes, dizziness, weakness, blood in stool or vomit. Related Data Home Medications ?Medication ?Instructions ?Recorded ?Confirmed nicotine (polacrilex) 2 mg gum 1 gum PO Q2H PRN Nicotine Cravings 03/01/22 12/12/24 rosuvastatin 20 mg tablet 1 tab PO QAM 12/30/22 12/12/24 hydroxyzine HCl 50 mg tablet 50 mg PO BEDTIME PRN Insomnia 12/12/24 12/12/24 insulin regular human 100 unit/mL 8 unit subcut TIDWMEAL 12/12/24 12/12/24 (3 mL) subcutaneous pen (Novolin R FlexPen) quetiapine 25 mg tablet 12.5 mg PO BID PRN Anxiety 12/12/24 12/12/24 Previous Rx's ?Medication ?Instructions ?Recorded aripiprazole 10 mg tablet 10 mg PO DAILY 30 days #30 tabs 12/15/24 baclofen 10 mg tablet 10 mg PO BID 30 days #60 tabs 12/15/24 insulin glargine-yfgn 100 unit/mL 36 unit (0.36 mL) subcut BEDTIME 12/15/24 (3 mL) subcutaneous pen 30 days #10.8 mL naloxone 4 mg/actuation nasal 4 mg intranasal Q2M PRN opioid 12/15/24 spray (Narcan) overdose #2 ea trazodone 50 mg tablet 50 mg PO BEDTIME 30 days #30 tabs 12/15/24 Allergies Allergy/AdvReac Type Severity Reaction Status Date / Time haloperidol Allergy Mild ITCHING Verified 01/28/25 06:45 Review of Systems Review of Systems: Yes all other systems are reviewed and are negative [facility] Past Medical History Attestation statement: The following information was validated with the patient. Source: old records reviewed and nursing notes reviewed Medical History Ingrown hair Abscess Diabetes Depression Surgical History H/O circumcision Family History Family History Mother No problems noted. Father No problems noted. Social History Social History Household Members: Unknown / Unable to assess Do you presently have visiting nurse or other home services: No Alcohol intake: current Alcohol intake frequency: holidays/special occasions only Alcohol type: beer and hard liquor Patient Tobacco Use Status: Current everyday Tobacco user Tobacco use type: Cigarette Cigarette Packs Per Day: 1 Cigarettes Per Day: 20.0 Years Smoked: 15 Second Hand Smoke Exposure: No Substance Use Type: Opiates Advance Directives: No service: No Current occupational status: unemployed and disabled Sexual orientation: Straight/Heterosexual Physical Exam ED Vital Signs: Vital Signs - 24 hr 01/28/25 06:29 01/28/25 08:07 01/28/25 11:51 Temperature 98.0 F 97.8 F 97.9 F Pulse Rate 74 88 83 Respiratory Rate 19 16 18 Blood Pressure 110/65 97/59 L 110/76 Pulse Oximetry 98 99 100 Oxygen Delivery Method Room Air Room Air Room Air BMI result Body Mass Index 19.5 vss Appearance: Alert.? Oriented X3.? No acute distress.? Head: Normocephalic, atraumatic, no step-offs or deformities Eyes: Pupils equal, round and reactive to light.? Neck: Normal inspection.? Neck supple.? CVS: Normal heart rate and rhythm.? Pulses normal.? Respiratory: No respiratory distress.? Breath sounds normal.? Abdomen: Soft and nontender.? Skin: Skin warm and dry.? Normal skin color.? Normal skin turgor.? Extremities: No lower extremity edema.? No calf ttp. 5/5 strength to bilateral upper and lower extremities Neuro: Oriented X 3.? No motor deficit.? No sensory deficit. CN 2-12 intact Course Reevaluation(s) Reevaluation #1: CBC no acute findings needing intervention. Normocytic anemia noted however appears to be around his baseline. Chemistry with mild elevation in BUN, he is receiving IV fluids. Random glucose 251. No anion gap normal beta hydroxybutyrate normal VBG unlikely HHS or DKA. Will repeat point of care. Mild elevations in transaminases however patient does have polysubstance abuse history and alcohol history this is likely in the setting of alcohol use. Lipase normal. Flu, COVID, RSV negative. CT abdomen and pelvis pending. Time: 10:36 Reevaluation #2: Patient's CT abdomen pelvis showing apparent since circumferential wall thickening of the wall of the nondistended right lower abdominal small bowel loop likely enteritis I do not suspect that this is bacterial, pain has been ongoing for years. He should follow-up with GI. He also does not have leukocytosis, fever, tachycardia or anything to suggest an acute process. This can be followed up on an outpatient basis. Time: 11:31 Reevaluation #3: Patient was cleared by care team. He is not suicidal or homicidal. Not meeting criteria for inpatient admission. He is most interested in detox. He will speak to the investment recovery technician. In the meantime, patient will be placed into observation to allow more time to be evaluated by recovery at time observation was started patient common cooperative no acute distress will continue to monitor. Time: 12:43 Additional Reevaluation(s): No PCP detox centers available. He recieved all the recovery resources including the comprehensive care center. Given a list of shelters in the area. Patient will be dc home. Medications Administered Discontinued Medications Generic Name Dose Route Start Last Admin Trade Name Freq PRN Reason Stop Dose Admin Al Hydroxide/Mg Hydroxide 15 ml 01/28/25 11:31 01/28/25 11:52 Magnesium Hydrox/Alum Hydrox 30 Ml Oral.Susp PO 01/28/25 11:32 15 ml ONCE ONE Administration Sodium Chloride 1,000 mls @ 999 mls/hr 01/28/25 07:30 01/28/25 08:44 Ns IV 01/28/25 08:30 Infused .Q1H1M RONNIE Infusion Insulin Human Lispro 5 unit 01/28/25 10:36 01/28/25 11:09 Insulin Lispro 100 Unit/Ml 3 Ml Vial SUBCUT 01/28/25 10:37 5 unit ONCE ONE Administration Iohexol 100 ml 01/28/25 10:14 01/28/25 10:14 Iohexol 350 Mg/Ml 100 Ml Infus..Btl IV 01/28/25 10:15 85 ml ONCE ONE Administration Ketorolac Tromethamine 15 mg 01/28/25 07:25 01/28/25 07:35 Ketorolac Tromethamine 15 Mg/Ml Vial IVPUSH 01/28/25 07:26 15 mg ONCE ONE Administration Ondansetron HCl 4 mg 01/28/25 07:25 01/28/25 07:35 Ondansetron Hcl 4 Mg/2 Ml Vial IVPUSH 01/28/25 07:26 4 mg ONCE ONE Administration Medical Decision Making Medical Decision Making [facility] Narrative: 0825 39 year old male presents w/ SI and abdominal pain ( diffuse) for years. PE diffuse abd pain Hx and pe concerning for possible abd pain from diabetic gastroparesis vs viral illness vs opiate w/drawl vs ibs vs ibd . Unlikely DKA, HHS,acute abdomen, appendicits, cholecystits, pancreatitis . Suicidal ideation likely in the setting of depression. No signs of acute psychosis. Plan medical clearance evaluation by care team Differential Diagnosis Differential Diagnoses: The differential diagnosis associated with the presentation includes (Hx and pe concerning for possible abd pain from diabetic gastroparesis vs viral illness vs opiate w/drawl vs ibs vs ibd . Unlikely DKA, HHS,acute abdomen, appendicits, cholecystits, pancreatitis . Suicidal ideation likely in the setting of depression. No signs of acute psychosis.) Admission/Observation Consideration of admission/observation: Escalation of care including admission/observation considered Lab Data [facility] Lab Attestation statement: I reviewed the patient's lab results. 01/28/25 09:15 01/28/25 09:15 Labs: Lab Results 01/28/25 01/28/25 01/28/25 Range/Units 06:19 09:14 09:15 WBC 4.9 (4.8-10.8) X10*3/uL RBC 4.71 (4.60-5.80) X10*6/uL Hgb 13.6 L (14.0-18.0) g/dl Hct 40.7 L (42.0-52.0) % MCV 86.4 (80.0-98.0) fL MCH 28.9 (27.0-33.0) pg MCHC 33.4 (31.0-36.0) g/dl RDW 13.1 (11.0-16.0) % Plt Count 162 (160-400) X10*3/uL MPV 11.1 (9.4-12.4) fL Immature Gran % (Auto) 0.2 (0.0-0.4) % Neut % (Auto) 50.7 (45-73) % Lymph % (Auto) 38.6 (20-40) % [place] % (Auto) 7.6 (2-11) % Eos % (Auto) 2.7 (0-4) % Baso % (Auto) 0.2 (0-2) % Lymph # (Auto) 1.9 (1.2-4.9) X10*3/uL [place] # (Auto) 0.4 (0.1-1.2) X10*3/uL Eos # (Auto) 0.1 (0.0-0.4) X10*3/uL Baso # (Auto) 0.0 (0.0-0.2) X10*3/uL Abs Immat Gran (auto) 0.01 (0.00-0.03) X10*3/uL Absolute Neuts (auto) 2.5 (2.0-8.3) x10*3/uL Absolute Nucleated RBC 0.000 (0.0-0.012) X10*3/uL Nucleated RBC % (auto) 0.0 (0.0-0.2) /100WBC VBG pH (7.32-7.43) VBG pCO2 mmHg VBG pO2 mmHg VBG HCO3 (22-26) mmol/L VBG O2 Saturation % VBG Base Excess mmol/L Sodium 137 (135-145) mmol/L Potassium 4.2 (3.3-5.1) mmol/L Chloride 107 (96-108) mmol/L Carbon Dioxide 25 (22-29) mmol/L Anion Gap 9 L (12-20) BUN 18 H (9-16) mg/dL Creatinine 0.67 (0.5-1.4) mg/dL Estim Creat Clear Calc 113.8 Estimated GFR > 60 POC Glucose 290 H (60-115) mg/dL Random Glucose 251 H (60-115) mg/dL Calcium 8.7 D (8.4-10.2) mg/dL Magnesium 1.8 (1.6-2.6) mg/dL Total Bilirubin 0.4 (0.0-1.0) mg/dL AST 70 H (5-37) U/L ALT 42 H (0-40) U/L Alkaline Phosphatase 133 H (39-117) U/L Total Protein 6.0 L (6.5-8.0) g/dL Albumin 3.5 (3.5-5.0) g/dL Lipase (8-78) U/L Beta-Hydroxybutyrate 0.14 (0.02-0.27) mmol/L Urine Opiates Screen (Not Detect) Ur Buprenorphine Scrn (Not Detect) ng/mL Ur Oxycodone Screen (Not Detect) ng/mL Urine Methadone Screen (Not Detect) ng/mL Urine Fentanyl Screen (Not Detect) Ur Barbiturates Screen (Not Detect) Ur Phencyclidine Scrn (Not Detect) Ur Amphetamines Screen (Not Detect) U Benzodiazepines Scrn (Not Detect) Urine Cocaine Screen (Not Detect) U Marijuana (THC) Screen (Not Detect) Ethyl Alcohol < 10 mg/dL Influenza Type A (PCR) NEGATIVE (Negative) Influenza Type B (PCR) NEGATIVE (Negative) RSV RNA Qual (PCR) NEGATIVE (Negative) SARS-CoV-2 RNA (RT-PCR) NEGATIVE (Negative) 01/28/25 01/28/25 01/28/25 Range/Units 09:16 09:21 10:41 WBC (4.8-10.8) X10*3/uL RBC (4.60-5.80) X10*6/uL Hgb (14.0-18.0) g/dl Hct (42.0-52.0) % MCV (80.0-98.0) fL MCH (27.0-33.0) pg MCHC (31.0-36.0) g/dl RDW (11.0-16.0) % Plt Count (160-400) X10*3/uL MPV (9.4-12.4) fL Immature Gran % (Auto) (0.0-0.4) % Neut % (Auto) (45-73) % Lymph % (Auto) (20-40) % [place] % (Auto) (2-11) % Eos % (Auto) (0-4) % Baso % (Auto) (0-2) % Lymph # (Auto) (1.2-4.9) X10*3/uL [place] # (Auto) (0.1-1.2) X10*3/uL Eos # (Auto) (0.0-0.4) X10*3/uL Baso # (Auto) (0.0-0.2) X10*3/uL Abs Immat Gran (auto) (0.00-0.03) X10*3/uL Absolute Neuts (auto) (2.0-8.3) x10*3/uL Absolute Nucleated RBC (0.0-0.012) X10*3/uL Nucleated RBC % (auto) (0.0-0.2) /100WBC VBG pH 7.40 (7.32-7.43) VBG pCO2 45 mmHg VBG pO2 38 mmHg VBG HCO3 28 H (22-26) mmol/L VBG O2 Saturation 68.0 % VBG Base Excess 3.0 mmol/L Sodium (135-145) mmol/L Potassium (3.3-5.1) mmol/L Chloride (96-108) mmol/L Carbon Dioxide (22-29) mmol/L Anion Gap (12-20) BUN (9-16) mg/dL Creatinine (0.5-1.4) mg/dL Estim Creat Clear Calc Estimated GFR POC Glucose (60-115) mg/dL Random Glucose (60-115) mg/dL Calcium (8.4-10.2) mg/dL Magnesium (1.6-2.6) mg/dL Total Bilirubin (0.0-1.0) mg/dL AST (5-37) U/L ALT (0-40) U/L Alkaline Phosphatase (39-117) U/L Total Protein (6.5-8.0) g/dL Albumin (3.5-5.0) g/dL Lipase 18 (8-78) U/L Beta-Hydroxybutyrate (0.02-0.27) mmol/L Urine Opiates Screen Not Detected (Not Detect) Ur Buprenorphine Scrn Not Detected (Not Detect) ng/mL Ur Oxycodone Screen Not Detected (Not Detect) ng/mL Urine Methadone Screen Not Detected (Not Detect) ng/mL Urine Fentanyl Screen Not Detected (Not Detect) Ur Barbiturates Screen Not Detected (Not Detect) Ur Phencyclidine Scrn POSITIVE H (Not Detect) Ur Amphetamines Screen Not Detected (Not Detect) U Benzodiazepines Scrn Not Detected (Not Detect) Urine Cocaine Screen Not Detected (Not Detect) U Marijuana (THC) Screen Not Detected (Not Detect) Ethyl Alcohol mg/dL Influenza Type A (PCR) (Negative) Influenza Type B (PCR) (Negative) RSV RNA Qual (PCR) (Negative) SARS-CoV-2 RNA (RT-PCR) (Negative) 01/28/25 Range/Units 10:43 WBC (4.8-10.8) X10*3/uL RBC (4.60-5.80) X10*6/uL Hgb (14.0-18.0) g/dl Hct (42.0-52.0) % MCV (80.0-98.0) fL MCH (27.0-33.0) pg MCHC (31.0-36.0) g/dl RDW (11.0-16.0) % Plt Count (160-400) X10*3/uL MPV (9.4-12.4) fL Immature Gran % (Auto) (0.0-0.4) % Neut % (Auto) (45-73) % Lymph % (Auto) (20-40) % [place] % (Auto) (2-11) % Eos % (Auto) (0-4) % Baso % (Auto) (0-2) % Lymph # (Auto) (1.2-4.9) X10*3/uL [place] # (Auto) (0.1-1.2) X10*3/uL Eos # (Auto) (0.0-0.4) X10*3/uL Baso # (Auto) (0.0-0.2) X10*3/uL Abs Immat Gran (auto) (0.00-0.03) X10*3/uL Absolute Neuts (auto) (2.0-8.3) x10*3/uL Absolute Nucleated RBC (0.0-0.012) X10*3/uL Nucleated RBC % (auto) (0.0-0.2) /100WBC VBG pH (7.32-7.43) VBG pCO2 mmHg VBG pO2 mmHg VBG HCO3 (22-26) mmol/L VBG O2 Saturation % VBG Base Excess mmol/L Sodium (135-145) mmol/L Potassium (3.3-5.1) mmol/L Chloride (96-108) mmol/L Carbon Dioxide (22-29) mmol/L Anion Gap (12-20) BUN (9-16) mg/dL Creatinine (0.5-1.4) mg/dL Estim Creat Clear Calc Estimated GFR POC Glucose 249 H (60-115) mg/dL Random Glucose (60-115) mg/dL Calcium (8.4-10.2) mg/dL Magnesium (1.6-2.6) mg/dL Total Bilirubin (0.0-1.0) mg/dL AST (5-37) U/L ALT (0-40) U/L Alkaline Phosphatase (39-117) U/L Total Protein (6.5-8.0) g/dL Albumin (3.5-5.0) g/dL Lipase (8-78) U/L Beta-Hydroxybutyrate (0.02-0.27) mmol/L Urine Opiates Screen (Not Detect) Ur Buprenorphine Scrn (Not Detect) ng/mL Ur Oxycodone Screen (Not Detect) ng/mL Urine Methadone Screen (Not Detect) ng/mL Urine Fentanyl Screen (Not Detect) Ur Barbiturates Screen (Not Detect) Ur Phencyclidine Scrn (Not Detect) Ur Amphetamines Screen (Not Detect) U Benzodiazepines Scrn (Not Detect) Urine Cocaine Screen (Not Detect) U Marijuana (THC) Screen (Not Detect) Ethyl Alcohol mg/dL Influenza Type A (PCR) (Negative) Influenza Type B (PCR) (Negative) RSV RNA Qual (PCR) (Negative) SARS-CoV-2 RNA (RT-PCR) (Negative) Independent Interpretation I performed an independent interpretation of an: CT Scan Radiology Impression Discussion of test interpretation with radiology: I have reviewed the radiologist's reading. External Record Review External record reviewed: Inpatient record, Office record, Outpatient record, Prior outpatient labs, Prior outpatient radiology, Primary care record and Outside ED record Chronic Conditions Patient?s care impacted by: Other (see hpi ) Social Determinants Patient?s care significantly limited by Social Determinants of Health including: Inadequate housing, Low income, Alcoholism and drug addiction in family, Problems related to primary support group, Unemployment, Problems related to employment and Other Social Determinant of Health Critical Care Time Critical Care Time Critical Care Time: Yes Total Critical Care Time: 35 Attestation: I attest to this time spent taking care of the patient, obtaining history, physical, reviewing labs, imaging, treatment of patients condition +/- specialist/hospitalist consult +/- procedure Discharge Plan Discharge Clinical Impression: Diabetes, Phencyclidine (PCP) use disorder, moderate, Abdominal pain, Enteritis, Suicidal ideation Patient Disposition: Still a Patient Instructions: What is Insulin (ED), Abdominal Pain (ED), Diabetes and Nutrition (ED) Additional Instructions: Take your medications as prescribed. If you were prescribed antibiotics today, it is important that you take your medication to their entirety, do not skip any doses, do not finish them early. Follow-up with your primary care provider this week. Return to the emergency department with new or worsening symptoms. Such as fevers, chills, chest pain, shortness of breath, nausea, vomiting, dizziness, headache, vision changes, lethargy In case of emergency call 911 Prescriptions: No Action nicotine (polacrilex) 2 mg gum 1 gum PO Q2H PRN (Reason: Nicotine Cravings) rosuvastatin 20 mg tablet 1 tab PO QAM quetiapine 25 mg tablet 12.5 mg PO BID PRN (Reason: Anxiety) hydroxyzine HCl 50 mg tablet 50 mg PO BEDTIME PRN (Reason: Insomnia) Novolin R FlexPen 100 unit/mL (3 mL) insulin pen 8 unit SUBCUT TIDWMEAL Rx Instructions: Take 8 units with meals (breakfast, lunch and dinner) trazodone 50 mg Tablet 50 mg PO BEDTIME 30 Days Qty: 30 0RF baclofen 10 mg Tablet 10 mg PO BID 30 Days Qty: 60 0RF aripiprazole 10 mg Tablet 10 mg PO DAILY 30 Days Qty: 30 0RF insulin glargine-yfgn 100 unit/mL (3 mL) insulin pen 36 unit SUBCUT BEDTIME 30 Days Qty: 10.8 0RF naloxone [Narcan] 4 mg/actuation spray,non-aerosol 4 mg intranasal Q2M PRN (Reason: opioid overdose) Qty: 2 0RF Rx Instructions: spray 1 dose into ONE nostril; alternate nostrils w each dose until help arrives Referrals: [facility] [Provider Group] - 3 days Ely Lundberg MD [Primary Care Provider] - 2 days Stand Alone Forms: Work/School Release Print Language: Belarusian
[2025-01-28 09:20] LABS: MANUAL DIFF FLAG NO
[2025-01-28 09:23] LABS: Basophils Percent Auto 0.2 % (0-2); Eosinophils Absolute Auto 0.1 X10*3/uL (0.0-0.4); Eosinophils Percent Auto 2.7 % (0-4); Hematocrit 40.7 % (42.0-52.0); Hemoglobin 13.6 g/dl (14.0-18.0); Imm Gran Abs Auto 0.01 X10*3/uL (0.00-0.03); Imm Gran Pct Auto 0.2 % (0.0-0.4); Lymphocytes Absolute Auto 1.9 X10*3/uL (1.2-4.9); Lymphocytes Percent Auto 38.6 % (20-40); Mean Corpuscular HGB Conc 33.4 g/dl (31.0-36.0); Mean Corpuscular Hemoglobin 28.9 pg (27.0-33.0); Mean Corpuscular Volume 86.4 fL (80.0-98.0); Mean Platelet Volume 11.1 fL (9.4-12.4); Monocytes Absolute Auto 0.4 X10*3/uL (0.1-1.2); Monocytes Percent Auto 7.6 % (2-11); Neutrophils Absolute Auto 2.5 x10*3/uL (2.0-8.3); Neutrophils Percent Auto 50.7 % (45-73); Platelet Count 162 X10*3/uL (160-400); Red Blood Count 4.71 X10*6/uL (4.60-5.80); Red Cell Distribution Width 13.1 % (11.0-16.0); White Blood Count 4.9 X10*3/uL (4.8-10.8)
[2025-01-28 09:25] LABS: VBG HCO3 28 mmol/L (22-26); VBG pCO2 45 mmHg; VBG pO2 38 mmHg
[2025-01-28 09:27] LABS: Venous Blood Gas Refer to POC result
[2025-01-28 09:34] LABS: Lipase 18 U/L (8-78)
[2025-01-28 09:48] LABS: Alanine Aminotransferase 42 U/L (0-40); Albumin Level 3.5 g/dL (3.5-5.0); Alkaline Phosphatase 133 U/L (39-117); Anion Gap 9 (12-20); Aspartate Amino Transferase 70 U/L (5-37); Beta-Hydroxybutyrate 0.14 mmol/L (0.02-0.27); Bilirubin Total 0.4 mg/dL (0.0-1.0); Blood Urea Nitrogen 18 mg/dL (9-16); Calcium 8.7 mg/dL (8.4-10.2); Carbon Dioxide 25 mmol/L (22-29); Chloride 107 mmol/L (96-108); Creatinine Clr Calc Pharmacy 113.8; Estimated Glomerular Filt Rate > 60; Glucose Random 251 mg/dL (60-115); Magnesium 1.8 mg/dL (1.6-2.6); Potassium 4.2 mmol/L (3.3-5.1); Sodium 137 mmol/L (135-145)
[2025-01-28 10:10] LABS: Influenza A PCR NEGATIVE (Negative); Influenza B PCR NEGATIVE (Negative); Resp Syncy Virus RNA Qual PCR NEGATIVE (Negative); SARS COV2 PCR INHOUSE NEGATIVE (Negative)
[2025-01-28] MEDS: iohexoL 350 MG/ML 100 ML INFUS..BTL IV (10:14)
[2025-01-28 10:46] LABS: Glucose, Whole Blood 249 mg/dL (60-115)
[2025-01-28 11:06] LABS: Amphetamine Screen Urine Not Detected (Not Detect); Barbiturates, Urine Not Detected (Not Detect); Benzodiazepines Screen Urine Not Detected (Not Detect); Buprenorphine Scr Not Detected (Not Detect); Cannabinoid Screen Urine Not Detected (Not Detect); Cocaine Screen Urine Not Detected (Not Detect); Fentanyl, urine Not Detected (Not Detect); Methadone Screen, Urine Not Detected (Not Detect); Opiate Screen Urine Not Detected (Not Detect); Oxycodone Screen Urine Not Detected (Not Detect); Phencyclidine Screen Urine POSITIVE (Not Detect)
[2025-01-28] MEDS: Insulin Lispro 100 UNIT/ML 3 ML VIAL SUBCUT (11:09)
[2025-01-28 11:15] LABS: Ethanol < 10 mg/dL
[2025-01-28 11:51] VITALS: BP 110/76; PULSE 83; RESP 18; TEMP 36.6; O2SAT 100
[2025-01-28] MEDS: Magnesium Hydrox/Alum Hydrox 30 ML ORAL.SUSP 15 ML PO (11:52)
--- NOTE | 2025-01-28 12:46 | MHC.CARE ---
Pt does not meet the criteria for IPLOC and will be referred to the recovery team. Provider in agreement.
--- NOTE | 2025-01-28 13:14 | PC.NURSE ---
pt able to tolerate food and drink. no nausea, no vomiting.
[2025-01-28 13:55] VITALS: BP 110/76; PULSE 83; RESP 18; TEMP 36.6; O2SAT 100
== END 2025-01-28 13:55 | disposition still patient (30) ==
PROVIDERS: Physician Assistant; Emergency Provider Emergency Medicine; PCP Internal Medicine
DX: R45.851 Suicidal ideations (principal); F16.20 Hallucinogen dependence, uncomplicated; F11.10 Opioid abuse, uncomplicated; E11.9 Type 2 diabetes mellitus without complications; K52.9 Noninfective gastroenteritis and colitis, unspecified; R10.9 Unspecified abdominal pain; Z03.818 Encounter for observation for suspected exposure to other biological agents ruled out; F17.210 Nicotine dependence, cigarettes, uncomplicated; Z79.02 Long term (current) use of antithrombotics/antiplatelets; Z79.4 Long term (current) use of insulin; Z79.899 Other long term (current) drug therapy
CPT/HCPCS: 0241U; 36415; 74177; 80053; 80307; 82010; 82803; 82947; 83690; 83735; 85025; 96361; 96374; 96375; 99284; J1885; J2405; Q9967; S9485

== ENCOUNTER → 2025-01-28 07:25 | Outpatient (BNV) | payer MEDICARE, MEDICAID, SELFPAY | PROVIDERS: Emergency Provider Emergency Medicine; PCP Internal Medicine; Visit Provider Radiology Diagnostic Radiology | DX: R10.9 Unspecified abdominal pain (principal) ==

== ENCOUNTER 2025-01-29 23:46 | Emergency (ER) | payer MEDICARE, MEDICAID, SELFPAY ==
[2025-01-29 23:50] VITALS: BP 104/78; PULSE 96; O2SAT 99
--- NOTE | 2025-01-30 00:01 | PC.NURSE ---
pt not in waiting room at this time. ems report taken and pt is not to be found.
[2025-01-30 00:20] VITALS: BP 104/65; PULSE 99; RESP 16; TEMP 36.4; O2SAT 99; BMI 19.1
--- NOTE | 2025-01-30 00:43 | ED.GENADULT ---
HPI - General Adult General Chief complaint: Psychiatric Symptoms Stated complaint: 08/18 ab pain, hx kidney stones & diabetes Time Seen by Provider: 01/30/25 00:43 History of Present Illness ED Provider: Lolis BELTRAN narrative: The patient is a 39-year-old male with a history of alcohol use and opioid use disorder who presents complaining of pains all over his body. He complains of a headache, abdominal pain, pains in his legs and pains in his feet. He says his whole body hurts. He says he last use drugs 2 days ago. He says that he used PCP. He does not know what else he might have taken. He also used alcohol 1-2 days ago. He says he has been staying at a friend's house and today he was feeling very bad and so called an ambulance and was brought to the hospital. At triage he said that he wanted to speak with the care team because of suicidal thoughts. He has no particular plan. He denies any assault or injury. Related Data Home Medications ?Medication ?Instructions ?Recorded ?Confirmed nicotine (polacrilex) 2 mg gum 1 gum PO Q2H PRN Nicotine Cravings 03/01/22 12/12/24 rosuvastatin 20 mg tablet 1 tab PO QAM 12/30/22 12/12/24 hydroxyzine HCl 50 mg tablet 50 mg PO BEDTIME PRN Insomnia 12/12/24 12/12/24 insulin regular human 100 unit/mL 8 unit subcut TIDWMEAL 12/12/24 12/12/24 (3 mL) subcutaneous pen (Novolin R FlexPen) quetiapine 25 mg tablet 12.5 mg PO BID PRN Anxiety 12/12/24 12/12/24 Previous Rx's ?Medication ?Instructions ?Recorded aripiprazole 10 mg tablet 10 mg PO DAILY 30 days #30 tabs 12/15/24 baclofen 10 mg tablet 10 mg PO BID 30 days #60 tabs 12/15/24 insulin glargine-yfgn 100 unit/mL 36 unit (0.36 mL) subcut BEDTIME 12/15/24 (3 mL) subcutaneous pen 30 days #10.8 mL naloxone 4 mg/actuation nasal 4 mg intranasal Q2M PRN opioid 12/15/24 spray (Narcan) overdose #2 ea trazodone 50 mg tablet 50 mg PO BEDTIME 30 days #30 tabs 12/15/24 Allergies Allergy/AdvReac Type Severity Reaction Status Date / Time haloperidol Allergy Mild ITCHING Verified 01/30/25 00:22 Review of Systems Review of Systems: Yes all other systems are reviewed and are negative [facility] Past Medical History Medical History Ingrown hair Abscess Diabetes Depression Surgical History H/O circumcision Family History Family History Mother No problems noted. Father No problems noted. Social History Social History Household Members: Unknown / Unable to assess Do you presently have visiting nurse or other home services: No Alcohol intake: current Alcohol intake frequency: holidays/special occasions only Alcohol type: beer and hard liquor Patient Tobacco Use Status: Current everyday Tobacco user Tobacco use type: Cigarette Cigarette Packs Per Day: 1 Cigarettes Per Day: 20.0 Years Smoked: 15 Smoked in Last 30 Days: No Second Hand Smoke Exposure: No Use of substances other than those prescribed or required for medical reasons: Yes Substance Use Type: Opiates Advance Directives: No Advance Directives Information Provided: Yes Do you have a plan to hurt others: No Plan service: No Current occupational status: unemployed and disabled Sexual orientation: Straight/Heterosexual Physical Exam ED Vital Signs: Vital Signs - 24 hr 01/30/25 00:20 Temperature 97.5 F Pulse Rate 99 Respiratory Rate 16 Blood Pressure 104/65 Pulse Oximetry 99 Oxygen Delivery Method Room Air BMI result Body Mass Index 19.1 Const Other: The patient was lying prone on the stretcher with a pillow over his head. He responded to verbal stimuli. He is awake and alert and complaining of pains over much of his body. He is a slim 39-year-old. He does not appear obviously acutely ill although he seems anxious. HENMT Other: No signs of trauma to the head or the face. No raccoon eyes. No mckeon sign. The face is symmetrical. Mucous membranes are moist. Eyes General: appearance normal, both eyes and all related structures Eyelids: Yes eyelids normal Conjunctivae: conjunctivae normal Pupils: Equal, round and reactive pupils present EOM: EOMs intact bilaterally Neck Neck: Yes full ROM and Yes no JVD Resp Effort & Inspection: normal respiratory effort Auscultation: clear to auscultation bilaterally Cardio Rate: regular rate Rhythm: regular rhythm Heart sounds: S1 normal heart sound present and S2 normal heart sound present GI Other: The abdomen is soft and nontender Skin Other: Skin is pale and dry and unremarkable. General skin exam: no rashes or lesions noted Neuro Other: The patient is awake and alert. He seems oriented and appropriate although he has an anxious affect. Cranial nerves 2-12 are intact. He moves his extremities normally and appropriately. He has normal strength and sensation in his extremities and normal coordination. No focal neurological deficit. Cranial nerves: Yes Equal, round and reactive pupils present Extrem Other: I do not appreciate any peripheral edema or soft tissue swelling to the lower legs or the feet. Calves are soft and nontender. No asymmetry. Feet seem well-perfused. Psych Other: The patient has a histrionic demeanor. He states that he is feeling depressed and suicidal. He does not have a flat affect. Medical Decision Making Medical Decision Making MDM Narrative: The patient is a 39-year-old male with a history of a mood disorder and PCP abuse who says that he called an ambulance because he was feeling unwell and because he was feeling depressed and suicidal. He complains of multiple body pains including pains in his head, back, and his legs. He also complains of feeling that his feet are swollen although there is no apparent swelling on my exam. He has a histonic demeanor. The patient was briefly psychiatrically hospitalized in December. He has a history of multiple ER visits. He was last seen here 2 days ago for chronic abdominal pain. The patient complains of a lot of general body discomfort which suggests possible opioid withdrawal symptoms. However reviewing his past visits and his previous toxicology screens he has only occasionally tested positive for fentanyl. He has not tested positive for opioids or oxycodone. This makes me wonder if he has a true opioid addiction. Additionally the patient says that he drinks alcohol and I also considered the possibility that he might be having alcohol withdrawal symptoms but reviewing his previous records does not show evidence of significant alcoholism. However, the patient has had multiple toxicology screens since July of 2021 and on each of them he has tested positive for PCP. The patient's medical testing does not suggest any acute medical process. I think the patient is presentation is primarily related to his behavioral health issues and his substance use issues. The patient will be given a dose of lorazepam, ibuprofen, and acetaminophen. I think the patient is medically clear for disposition by the care team. I will plan on keeping the patient in the emergency department until he can be seen by the care team for additional recommendations from their evaluation. The patient will therefore be placed in physician observation pending care team recommendations. Lab Data 01/30/25 01:18 01/30/25 01:18 Labs: Lab Results 01/30/25 Range/Units 01:18 WBC 5.7 (4.8-10.8) X10*3/uL RBC 5.07 (4.60-5.80) X10*6/uL Hgb 14.5 (14.0-18.0) g/dl Hct 43.9 (42.0-52.0) % MCV 86.6 (80.0-98.0) fL MCH 28.6 (27.0-33.0) pg MCHC 33.0 (31.0-36.0) g/dl RDW 13.0 (11.0-16.0) % Plt Count 182 (160-400) X10*3/uL MPV 10.5 (9.4-12.4) fL Immature Gran % (Auto) 0.2 (0.0-0.4) % Neut % (Auto) 55.0 (45-73) % Lymph % (Auto) 35.1 (20-40) % [place] % (Auto) 8.1 (2-11) % Eos % (Auto) 1.4 (0-4) % Baso % (Auto) 0.2 (0-2) % Lymph # (Auto) 2.0 (1.2-4.9) X10*3/uL [place] # (Auto) 0.5 (0.1-1.2) X10*3/uL Eos # (Auto) 0.1 (0.0-0.4) X10*3/uL Baso # (Auto) 0.0 (0.0-0.2) X10*3/uL Abs Immat Gran (auto) 0.01 (0.00-0.03) X10*3/uL Absolute Neuts (auto) 3.1 (2.0-8.3) x10*3/uL Absolute Nucleated RBC 0.000 (0.0-0.012) X10*3/uL Nucleated RBC % (auto) 0.0 (0.0-0.2) /100WBC Sodium 136 (135-145) mmol/L Potassium 4.4 (3.3-5.1) mmol/L Chloride 103 (96-108) mmol/L Carbon Dioxide 25 (22-29) mmol/L Anion Gap 12 (12-20) BUN 13 (9-16) mg/dL Creatinine 0.76 (0.5-1.4) mg/dL Estim Creat Clear Calc 98.1 Estimated GFR > 60 Random Glucose 265 H (60-115) mg/dL Calcium 9.4 D (8.4-10.2) mg/dL Magnesium 1.7 (1.6-2.6) mg/dL Total Bilirubin 1.2 H (0.0-1.0) mg/dL Direct Bilirubin 0.3 (0.0-0.5) mg/dL AST 24 (5-37) U/L ALT 34 (0-40) U/L Alkaline Phosphatase 94 (39-117) U/L Total Creatine Kinase 112 (38-174) U/L Total Protein 6.4 L (6.5-8.0) g/dL Albumin 3.7 (3.5-5.0) g/dL Salicylates < 5.0 L (15-30) mg/dL Urine Opiates Screen Not Detected (Not Detect) Ur Buprenorphine Scrn Not Detected (Not Detect) ng/mL Ur Oxycodone Screen Not Detected (Not Detect) ng/mL Urine Methadone Screen Not Detected (Not Detect) ng/mL Urine Fentanyl Screen Not Detected (Not Detect) Acetaminophen < 3 (<30) mcg/mL Ur Barbiturates Screen Not Detected (Not Detect) Ur Phencyclidine Scrn POSITIVE H (Not Detect) Ur Amphetamines Screen Not Detected (Not Detect) U Benzodiazepines Scrn Not Detected (Not Detect) Urine Cocaine Screen Not Detected (Not Detect) U Marijuana (THC) Screen Not Detected (Not Detect) Ethyl Alcohol < 10 mg/dL Influenza Type A (PCR) NEGATIVE (Negative) Influenza Type B (PCR) NEGATIVE (Negative) RSV RNA Qual (PCR) NEGATIVE (Negative) SARS-CoV-2 RNA (RT-PCR) NEGATIVE (Negative) Discharge Plan Discharge Clinical Impression: Depression, Phencyclidine (PCP) use disorder, moderate Patient Disposition: Still a Patient Prescriptions: No Action nicotine (polacrilex) 2 mg gum 1 gum PO Q2H PRN (Reason: Nicotine Cravings) rosuvastatin 20 mg tablet 1 tab PO QAM quetiapine 25 mg tablet 12.5 mg PO BID PRN (Reason: Anxiety) hydroxyzine HCl 50 mg tablet 50 mg PO BEDTIME PRN (Reason: Insomnia) Novolin R FlexPen 100 unit/mL (3 mL) insulin pen 8 unit SUBCUT TIDWMEAL Rx Instructions: Take 8 units with meals (breakfast, lunch and dinner) trazodone 50 mg Tablet 50 mg PO BEDTIME 30 Days Qty: 30 0RF baclofen 10 mg Tablet 10 mg PO BID 30 Days Qty: 60 0RF aripiprazole 10 mg Tablet 10 mg PO DAILY 30 Days Qty: 30 0RF insulin glargine-yfgn 100 unit/mL (3 mL) insulin pen 36 unit SUBCUT BEDTIME 30 Days Qty: 10.8 0RF naloxone [Narcan] 4 mg/actuation spray,non-aerosol 4 mg intranasal Q2M PRN (Reason: opioid overdose) Qty: 2 0RF Rx Instructions: spray 1 dose into ONE nostril; alternate nostrils w each dose until help arrives Interventions: [place]-Suicide Risk Severity Scale Last Done: 01/30/25 02:04 Print Language: Portuguese
--- NOTE | 2025-01-30 00:56 | PC.NURSE ---
this rn assumed care of pt, pt a&ox4, respirations even and unlabored. pt reports onset of bilateral foot pain and urethral burning x3 days. pt denies blood in urination. pt also reports he has been SI for some times, denies plan and is unsure of triggers. pt changed into green gown, provider at bedside, vss.
[2025-01-30 01:26] LABS: MANUAL DIFF FLAG NO
[2025-01-30 01:27] LABS: Basophils Percent Auto 0.2 % (0-2); Eosinophils Absolute Auto 0.1 X10*3/uL (0.0-0.4); Eosinophils Percent Auto 1.4 % (0-4); Hematocrit 43.9 % (42.0-52.0); Hemoglobin 14.5 g/dl (14.0-18.0); Imm Gran Abs Auto 0.01 X10*3/uL (0.00-0.03); Imm Gran Pct Auto 0.2 % (0.0-0.4); Lymphocytes Percent Auto 35.1 % (20-40); Mean Corpuscular Hemoglobin 28.6 pg (27.0-33.0); Mean Corpuscular Volume 86.6 fL (80.0-98.0); Mean Platelet Volume 10.5 fL (9.4-12.4); Monocytes Absolute Auto 0.5 X10*3/uL (0.1-1.2); Monocytes Percent Auto 8.1 % (2-11); Neutrophils Absolute Auto 3.1 x10*3/uL (2.0-8.3); Platelet Count 182 X10*3/uL (160-400); Red Blood Count 5.07 X10*6/uL (4.60-5.80); White Blood Count 5.7 X10*3/uL (4.8-10.8)
[2025-01-30 01:37] LABS: Amphetamine Screen Urine Not Detected (Not Detect); Barbiturates, Urine Not Detected (Not Detect); Benzodiazepines Screen Urine Not Detected (Not Detect); Buprenorphine Scr Not Detected (Not Detect); Cannabinoid Screen Urine Not Detected (Not Detect); Cocaine Screen Urine Not Detected (Not Detect); Fentanyl, urine Not Detected (Not Detect); Methadone Screen, Urine Not Detected (Not Detect); Opiate Screen Urine Not Detected (Not Detect); Oxycodone Screen Urine Not Detected (Not Detect); Phencyclidine Screen Urine POSITIVE (Not Detect)
[2025-01-30 01:50] LABS: Alanine Aminotransferase 34 U/L (0-40); Albumin Level 3.7 g/dL (3.5-5.0); Alkaline Phosphatase 94 U/L (39-117); Anion Gap 12 (12-20); Aspartate Amino Transferase 24 U/L (5-37); Bilirubin Direct 0.3 mg/dL (0.0-0.5); Bilirubin Total 1.2 mg/dL (0.0-1.0); Blood Urea Nitrogen 13 mg/dL (9-16); Calcium 9.4 mg/dL (8.4-10.2); Carbon Dioxide 25 mmol/L (22-29); Chloride 103 mmol/L (96-108); Creatinine Clr Calc Pharmacy 98.1; Estimated Glomerular Filt Rate > 60; Ethanol < 10 mg/dL; Glucose Random 265 mg/dL (60-115); Magnesium 1.7 mg/dL (1.6-2.6); Potassium 4.4 mmol/L (3.3-5.1); Sodium 136 mmol/L (135-145); Total Protein 6.4 g/dL (6.5-8.0)
[2025-01-30 02:04] LABS: Influenza A PCR NEGATIVE (Negative); Influenza B PCR NEGATIVE (Negative); Resp Syncy Virus RNA Qual PCR NEGATIVE (Negative); SARS COV2 PCR INHOUSE NEGATIVE (Negative)
[2025-01-30 02:16] LABS: Acetaminophen LAB < 3 mcg/mL (<30); Salicylate < 5.0 mg/dL (15-30)
[2025-01-30] MEDS: Ibuprofen 400 MG TABLET PO (02:37)
[2025-01-30] MEDS: LORazepam 1 MG TABLET 2 MG PO (02:37)
[2025-01-30] MEDS: Acetaminophen 325 MG TABLET 975 MG PO (02:37)
[2025-01-30 06:00] VITALS: BP 101/66; PULSE 88; RESP 16; TEMP 36.6; O2SAT 97
[2025-01-30 08:30] VITALS: BP 90/62; PULSE 88; RESP 18; TEMP 36.9; O2SAT 98
--- NOTE | 2025-01-30 10:01 | MHC.CARE ---
Patient evaluated by the CARE Team, he denied suicidal thoughts, plan or intention and stated he is interested in detox, was referred to the bottom scrubber. ED provider Dr. Nixon updated.
--- NOTE | 2025-01-30 10:56 | MHC.RECOVRN ---
Met with pt in [id number] after cleared by CARE Team and request for ATS. Pt laying on stretcher, eyes closed, wakes to touch. Pt reports PCP use, 1 bag daily, as well as cocaine use, 1 gram daily, IN. Last PCP use 2 days ago, last cocaine use 3 days ago. Pt denies using other substances. Pt reports last ATS was in November at [facility]. Pts UDS positive for PCP only. Discussed ATS level of care with pt, pt is not appropriate for ATS at this time. Pt is interested in [facility]. Pt aware that it is unlikely for CSS admission from the ED due to CSSs have waitlists. Pt reports he has a place to stay where he will be able to follow up with CSS facilities for bed availability. Pt denies other questions or concerns for t/w. CSS referrals to be sent.
--- NOTE | 2025-01-30 13:20 | MHC.RECOVRN ---
Addendum entered by Nevaeh Salgado 01/30/25 14:32: RN aware pt is cleared for discharge. Original Note: Pts referral has been sent to [facility]. Pt to follow up regarding bed availability daily after discharge, contact information is on discharge paperwork.
[2025-01-30 14:25] VITALS: BP 104/63; PULSE 122; RESP 16; TEMP 36.7; O2SAT 98
[2025-01-30 16:30] VITALS: BP 104/63; PULSE 122; RESP 16; TEMP 36.7; O2SAT 98
--- NOTE | 2025-01-30 16:30 | PC.NURSE ---
Unable to locate Pts belongings at time of D/C Search of BH lockers, [place], and linen closet search multiple times. Pt provided with donated clothing for d/c. director government who secured belongings will be contacted upon arrival to next shift. Please see additional notes from ED Techs.
--- NOTE | 2025-01-30 16:34 | MHC.EDTECH ---
This pct was looking for patients clothes where the chart said they were listed by another tech but there were no clothes found where the tech said they were me and two other staff members looked for the patients clothes in all the areas we keep patients belongings and there was no belongings found where the staff member who charted on them said they were. RN Aware
== END 2025-01-30 16:30 | disposition home or self-care (01) ==
PROVIDERS: Emergency Provider Emergency Medicine; PCP Internal Medicine
DX: R45.851 Suicidal ideations (principal); F33.1 Major depressive disorder, recurrent, moderate; F16.10 Hallucinogen abuse, uncomplicated; R10.2 Pelvic and perineal pain; E11.9 Type 2 diabetes mellitus without complications; M79.10 Myalgia, unspecified site; R51.9 Headache, unspecified; F17.210 Nicotine dependence, cigarettes, uncomplicated; Z51.81 Encounter for therapeutic drug level monitoring; Z03.818 Encounter for observation for suspected exposure to other biological agents ruled out; Z79.899 Other long term (current) drug therapy; Z79.4 Long term (current) use of insulin
CPT/HCPCS: 0241U; 36415; 80048; 80076; 80143; 80179; 80307; 82550; 83735; 85025; 87086; 99285; S9485

== ENCOUNTER 2025-02-20 02:08 | Emergency (ER) | payer MEDICARE, MEDICAID, SELFPAY ==
--- NOTE | 2025-02-20 02:22 | ECG_ITS ---
Test Reason : COCAINE USE Blood Pressure : */* mmHG Vent. Rate : 80 BPM Atrial Rate : 80 BPM P-R Int : 136 ms QRS Dur : 80 ms QT Int : 358 ms P-R-T Axes : 51 86 56 degrees QTcB Int : 412 ms Normal sinus rhythm Normal ECG When compared with ECG of 12-Dec-2024 13:41, No significant change was found Referred By: Generic ED Physician Electronically Signed By: AGNES MORENO MD
[2025-02-20 02:23] VITALS: BP 100/69; PULSE 90; O2SAT 97; BMI 22.6
[2025-02-20 02:32] VITALS: BP 100/60; PULSE 90; RESP 16; TEMP 36.8; O2SAT 99
--- NOTE | 2025-02-20 02:33 | PC.NURSE ---
Pt aox3, calm and cooperative, reporting SI with no plan. Pt changed into hospital attire by security and this telegraphic typewriter installer. Belongings placed in charles port shelf 4. 1:1 sitter at bedside for safety. Monitoring is ongoing.
--- NOTE | 2025-02-20 02:51 | ED_ITS ---
HPI - Psych General Chief Complaint: Psychiatric Symptoms Stated Complaint: SI Time Seen by Provider: 02/20/25 02:34 Source: patient Mode of arrival: ambulatory Limitations: no limitations History of Present Illness ED Provider: HPI Narrative: Patient's history of depression and use of cocaine and PCP comes here for increased depression feeling suicidal with no plan says that he has a family issues that making him think that way also does have chronic foot pain from peripheral neuropathy Related Data Home Medications ?Medication ?Instructions ?Recorded ?Confirmed nicotine (polacrilex) 2 mg gum 1 gum PO Q2H PRN Nicotine Cravings 03/01/22 02/20/25 rosuvastatin 20 mg tablet 1 tab PO QAM 12/30/22 02/20/25 hydroxyzine HCl 50 mg tablet 50 mg PO BEDTIME PRN Insomnia 12/12/24 02/20/25 insulin regular human 100 unit/mL 8 unit subcut TIDWMEAL 12/12/24 02/20/25 (3 mL) subcutaneous pen (Novolin R FlexPen) quetiapine 25 mg tablet 12.5 mg PO BID PRN Anxiety 12/12/24 02/20/25 gabapentin 600 mg tablet 600 mg PO TID 02/20/25 02/20/25 insulin glargine 100 unit/mL (3 40 unit subcut BEDTIME 02/20/25 02/20/25 mL) subcutaneous pen (Lantus Solostar U-100 Insulin) melatonin 3 mg tablet 9 mg PO BEDTIME PRN insomnia 02/20/25 02/20/25 thiamine HCl (vitamin B1) 100 mg 100 mg PO BID 02/20/25 02/20/25 tablet Previous Rx's ?Medication ?Instructions ?Recorded aripiprazole 10 mg tablet 10 mg PO DAILY 30 days #30 tabs 12/15/24 baclofen 10 mg tablet 10 mg PO BID 30 days #60 tabs 12/15/24 trazodone 50 mg tablet 50 mg PO BEDTIME 30 days #30 tabs 12/15/24 Allergies Allergy/AdvReac Type Severity Reaction Status Date / Time haloperidol Allergy Mild ITCHING Verified 02/20/25 02:26 Review of Systems 2 Review of Systems: Yes all other systems are reviewed and are negative PMFSH Past Medical History Medical History Ingrown hair Abscess Diabetes Depression Surgical History H/O circumcision Family History Family History Mother No problems noted. Father No problems noted. Social History Social History Household Members: Unknown / Unable to assess Do you presently have visiting nurse or other home services: No Alcohol intake: current Alcohol intake frequency: does not drink Alcohol type: beer and hard liquor Patient Tobacco Use Status: Current everyday Tobacco user Tobacco use type: Cigarette Cigarette Packs Per Day: 1 Cigarettes Per Day: 20.0 Years Smoked: 15 Smoked in Last 30 Days: Yes Second Hand Smoke Exposure: No Use of substances other than those prescribed or required for medical reasons: Yes Substance Use Type: Crack/Cocaine Substance Use Type Other:: PCP Substance Use Frequency: Chronic Longstanding Last Used Substance: Just Prior to Admission Advance Directives: No Advance Directives Information Provided: No Do you have a plan to hurt others: No Plan service: No Current occupational status: unemployed and disabled Sexual orientation: Straight/Heterosexual Physical Exam 2 Vital Signs: Vital Signs: Last Vital Signs Temp 98.3 F 02/20/25 09:09 Pulse 90 02/20/25 09:09 Resp 16 02/20/25 09:09 BP 100/60 02/20/25 09:09 Pulse Ox 99 02/20/25 09:09 O2 Del Method Room Air 02/20/25 09:09 BMI result Body Mass Index 22.6 Appearance: Alert. Oriented X3. No acute distress. Eyes: PERRLA, No Nystagmus ENT: Pharynx normal. Oral Mucosa moist Neck: Normal inspection. Neck supple. CVS: Normal heart rate and rhythm. Pulses normal. Respiratory: No respiratory distress. Equal air entry bilateral, no wheezing/rales/rhonchi Abdomen: Soft and nontender. Bowel sounds are present, no mass palpable, no CVA tenderness Skin: Skin warm and dry. Normal skin color. Normal skin turgor. Extremities: No lower extremity edema. No calf tenderness psych: Depressed mood suicidal with no plan no homicidal no delusional Neuro: Oriented X 3. No motor deficit. No sensory deficit.No cerebellar signs , cranial nerves II-XII intact Course Course Course Narrative: Time: 08:22 Date: 02/20/25 Provider: Sheba Ross DO Physician observation ended at 822am. Patient has been cleared for discharge by the CARE team. Will follow up as an outpatient. Very upset that they couldn't get him housing walked out without paperwork Medications Administered Discontinued Medications Generic Name Dose Route Start Last Admin Trade Name Aminta PRN Reason Stop Dose Admin Insulin Human Lispro 0 unit 02/20/25 07:30 02/20/25 07:30 Insulin Lispro 100 Unit/Ml 3 Ml Vial SUBCUT Not Given QIDACHS RONNIE Protocol Medical Decision Making Medical Decision Making MDM Narrative: Patient's history of depression and use a PCP and cocaine feel more depressed with suicidal feeling with no plan will get care team consult for evaluation Lab Data MDM Lab Attestation statement: I reviewed the patient's lab results. 02/20/25 03:01 02/20/25 03:01 Labs: Lab Results 02/20/25 02/20/25 Range/Units 03:01 07:27 WBC 5.3 (4.8-10.8) X10*3/uL RBC 4.91 (4.60-5.80) X10*6/uL Hgb 13.9 L (14.0-18.0) g/dl Hct 42.1 (42.0-52.0) % MCV 85.7 (80.0-98.0) fL MCH 28.3 (27.0-33.0) pg MCHC 33.0 (31.0-36.0) g/dl RDW 13.0 (11.0-16.0) % Plt Count 190 (160-400) X10*3/uL MPV 10.1 (9.4-12.4) fL Immature Gran % (Auto) 0.2 (0.0-0.4) % Neut % (Auto) 41.7 L (45-73) % Lymph % (Auto) 46.9 H (20-40) % [place] % (Auto) 7.8 (2-11) % Eos % (Auto) 3.0 (0-4) % Baso % (Auto) 0.4 (0-2) % Lymph # (Auto) 2.5 (1.2-4.9) X10*3/uL [place] # (Auto) 0.4 (0.1-1.2) X10*3/uL Eos # (Auto) 0.2 (0.0-0.4) X10*3/uL Baso # (Auto) 0.0 (0.0-0.2) X10*3/uL Abs Immat Gran (auto) 0.01 (0.00-0.03) X10*3/uL Absolute Neuts (auto) 2.2 (2.0-8.3) x10*3/uL Absolute Nucleated RBC 0.000 (0.0-0.012) X10*3/uL Nucleated RBC % (auto) 0.0 (0.0-0.2) /100WBC Sodium 140 (135-145) mmol/L Potassium 4.1 (3.3-5.1) mmol/L Chloride 107 (96-108) mmol/L Carbon Dioxide 25 (22-29) mmol/L Anion Gap 12 (12-20) BUN 12 (9-16) mg/dL Creatinine 0.70 (0.5-1.4) mg/dL Estim Creat Clear Calc 124.7 Estimated GFR > 60 POC Glucose 142 H (60-115) mg/dL Random Glucose 205 H (60-115) mg/dL Calcium 9.2 (8.4-10.2) mg/dL Total Bilirubin 0.6 (0.0-1.0) mg/dL AST 24 (5-37) U/L ALT 22 (0-40) U/L Alkaline Phosphatase 90 (39-117) U/L Total Protein 6.0 L (6.5-8.0) g/dL Albumin 3.7 (3.5-5.0) g/dL Ethyl Alcohol < 10 mg/dL Discharge Plan Discharge Clinical Impression: Depression, Suicidal ideation Patient Disposition: Home, Self-Care Instructions: Depression (ED) Additional Instructions: You were seen in our Emergency Department today for treatment of a behavioral health issue. It is important after your visit that you follow up with either your behavioral health provider or a primary care doctor within 7 days.? If you have trouble finding a therapist you can reach out to [address] [phone] The National Suicide and Crisis Lifeline can be reached 7 days a week 24 hours a day.? Call 988 to speak with someone.? Return for any worsening symptoms or concerns such as thoughts of self harm or harm to others. Please call 911 if you feel your mental health is worsening.? Prescriptions: No Action nicotine (polacrilex) 2 mg gum 1 gum PO Q2H PRN (Reason: Nicotine Cravings) rosuvastatin 20 mg tablet 1 tab PO QAM quetiapine 25 mg tablet 12.5 mg PO BID PRN (Reason: Anxiety) hydroxyzine HCl 50 mg tablet 50 mg PO BEDTIME PRN (Reason: Insomnia) Novolin R FlexPen 100 unit/mL (3 mL) insulin pen 8 unit SUBCUT TIDWMEAL Rx Instructions: Take 8 units with meals (breakfast, lunch and dinner) trazodone 50 mg Tablet 50 mg PO BEDTIME 30 Days Qty: 30 0RF baclofen 10 mg Tablet 10 mg PO BID 30 Days Qty: 60 0RF aripiprazole 10 mg Tablet 10 mg PO DAILY 30 Days Qty: 30 0RF gabapentin 600 mg tablet 600 mg PO TID thiamine HCl (vitamin B1) 100 mg tablet 100 mg PO BID melatonin 3 mg tablet 9 mg PO BEDTIME PRN (Reason: insomnia) insulin glargine [Lantus Solostar U-100 Insulin] 100 unit/mL (3 mL) insulin pen 40 unit subcut BEDTIME Interventions: [place]-Suicide Risk Severity Scale Last Done: 02/20/25 02:28 ED Discharge Assessment Last Done: 02/20/25 09:09 Discharge Date/Time: 02/20/25 09:10 Print Language: [place]
[2025-02-20 03:05] LABS: MANUAL DIFF FLAG NO
[2025-02-20 03:06] LABS: Basophils Percent Auto 0.4 % (0-2); Eosinophils Absolute Auto 0.2 X10*3/uL (0.0-0.4); Hematocrit 42.1 % (42.0-52.0); Hemoglobin 13.9 g/dl (14.0-18.0); Imm Gran Abs Auto 0.01 X10*3/uL (0.00-0.03); Imm Gran Pct Auto 0.2 % (0.0-0.4); Lymphocytes Absolute Auto 2.5 X10*3/uL (1.2-4.9); Lymphocytes Percent Auto 46.9 % (20-40); Mean Corpuscular Hemoglobin 28.3 pg (27.0-33.0); Mean Corpuscular Volume 85.7 fL (80.0-98.0); Mean Platelet Volume 10.1 fL (9.4-12.4); Monocytes Absolute Auto 0.4 X10*3/uL (0.1-1.2); Monocytes Percent Auto 7.8 % (2-11); Neutrophils Absolute Auto 2.2 x10*3/uL (2.0-8.3); Neutrophils Percent Auto 41.7 % (45-73); Platelet Count 190 X10*3/uL (160-400); Red Blood Count 4.91 X10*6/uL (4.60-5.80); White Blood Count 5.3 X10*3/uL (4.8-10.8)
[2025-02-20 03:21] LABS: Alanine Aminotransferase 22 U/L (0-40); Albumin Level 3.7 g/dL (3.5-5.0); Alkaline Phosphatase 90 U/L (39-117); Anion Gap 12 (12-20); Aspartate Amino Transferase 24 U/L (5-37); Bilirubin Total 0.6 mg/dL (0.0-1.0); Blood Urea Nitrogen 12 mg/dL (9-16); Calcium 9.2 mg/dL (8.4-10.2); Carbon Dioxide 25 mmol/L (22-29); Chloride 107 mmol/L (96-108); Creatinine Clr Calc Pharmacy 124.7; Estimated Glomerular Filt Rate > 60; Ethanol < 10 mg/dL; Glucose Random 205 mg/dL (60-115); Potassium 4.1 mmol/L (3.3-5.1); Sodium 140 mmol/L (135-145)
--- NOTE | 2025-02-20 06:31 | PC.NURSE ---
Pt has been sleeping at the bedside since arrival. No apparent distress noted. Breaths are even regular and unlabored. 1:1 sitter at bedside for safety. Pending care team eval. Monitoring is ongoing.
[2025-02-20 07:30] LABS: Glucose, Whole Blood 142 mg/dL (60-115)
--- NOTE | 2025-02-20 08:11 | MHC.CARE ---
Pt denies SI, HI, and A/V/H. He requested housing and declined to speak with the recovery team in regard to his ongoing substance use. PCP tore hospital gown off and asked to be discharged. Pt does not meet the criteria for a higher level of care and does not present as an imminent risk. Provider in agreement with D/C.
[2025-02-20 09:09] VITALS: BP 100/60; PULSE 90; RESP 16; TEMP 36.8; O2SAT 99
== END 2025-02-20 09:10 | disposition home or self-care (01) ==
PROVIDERS: Emergency Provider Internal Medicine
DX: R45.851 Suicidal ideations (principal); F33.1 Major depressive disorder, recurrent, moderate; F14.10 Cocaine abuse, uncomplicated; M79.672 Pain in left foot; M79.671 Pain in right foot; Z51.81 Encounter for therapeutic drug level monitoring; Z79.899 Other long term (current) drug therapy; F17.210 Nicotine dependence, cigarettes, uncomplicated
CPT/HCPCS: 36415; 80053; 80307; 82947; 85025; 93005; 99285; S9485

== ENCOUNTER → 2025-02-20 02:22 | Outpatient (BNV) | payer MEDICARE, MEDICAID, SELFPAY | PROVIDERS: Emergency Provider Internal Medicine; Visit Provider Internal Medicine Cardiovascular Disease | DX: F14.10 Cocaine abuse, uncomplicated (principal) | CPT/HCPCS: 93010 ==

== ENCOUNTER 2025-03-02 22:29 | Emergency (ER) | payer MEDICARE, MEDICAID, SELFPAY ==
[2025-03-02 22:34] VITALS: BP 107/66; PULSE 103; RESP 19; TEMP 36.4; O2SAT 98; BMI 21.0
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
--- OUTSIDE RECORDS SUMMARY | 2025-03-03 01:49 | XMS_ITS | Encounter Summary ---
Author Organization [employer] Address [address] [place] [address] [address] [place] [address] Care Team Providers Care Junior Network Engineer Name Role Phone Ely Lundberg MD Primary Care Provider [phone] Felicita Tabares PharmD Unavailable [phone] Reason for Referral * Consultation (Routine) - Closed Specialty Diagnoses / Procedures Referred By John weiner Referred To Contact Nutrition Diagnoses Type 1 diabetes mellitus with hyperglycemia (CMS/HCC) Ely Lundberg MD [address] [place] [address] Phone: tel: fax: Referral ID Status Reason Start Date Expiration Date V isits Requested Visits Authorized [id number] Closed Consult and Treat 12/21/2024 12/21/2025 1 1 Encounter Details Date Type Department Care Team ([facility] Contact Info) Description 12/21/2024 Orders Only [facility] & PEDS [address] [place], [place] [id number] Ely Lundberg MD [address] [place], [place] [id number] Type 1 diabetes mellitus with hyperglycemia (CMS/HCC) (Primary Dx); Mental disorder Social History Tobacco Use Types Packs/Day Years [...] from getting things needed for daily living? No 12/21/2024 Utilities Answer Date Recorded In the past 12 months, has t he electric, gas, oil or water company threatened to shut off services in your home? No 01/12/2024 Depression Answer Date Recorded Patient Health Questionnaire-2 Score 2 12/21/2024 Internet Access Answer Date Recorded Internet Access Q1 Yes 12/21/2024 Internet Access Q2 Not on file 12/21/2024 Sex and Gender Information Value Date Recorded Sex Assigned at Male 09/08/2022 10:18 AM EDT Legal Sex Male 10:18 AM EDT Gender Identity Male 09/08/2022 10:18 AM EDT Sexual Orientation Straight 09/08/2022 10 :18 AM EDT documented as of this encounter Plan of Treatment Upcoming Encounters Date Type Department Care Team (Late st Contact Info) Description 04/21/2025 3:00 PM EDT Office Visit [facility] ADULT DENTAL [address] [place] [address] Briseyda Rosales [address] [place] [address] Scheduled Referrals Name Type Priority Associated Diagnoses Orde r Schedule Referral to Nutrition Therapy Outpatient Referral Routine Type 1 diabetes mellitus with hyperglycemia (CMS/HCC) Expected: 12/21/2024 (Approximate), Expires: 12/21/2025 documented as of this encounter Goals Goal Patient Goal Type Associated Problems Recent Progress Patient-Stated? Author Hemoglobin A1c < 7 Result Component 12.7( 5 9:10 AM EST) No Jose Manuel Houser, Timothy documented as of this encounter Visit Diagnoses Diagnosis Type 1 diabetes mellitus with hyperglycemia ([facility])- Primary Mental disorder Unspecified nonpsychotic mental disorder documented in this encounter Additional Health Concerns Assessment Noted Time PHQ-9 Depression Total Score: 8 01/20/20 24 11:40 AM EDT documented as of this encounter Care Teams Junior Network Engineer Relationship Specialty Start Date End Date Ely Lundberg MD [address] [place] [id number] PCP - General Internal Medicine 10/27/13 Felicita Tabares PharmD [address] [place] [address] Pharmacist Internal Medicine 01/03/25 documented as of this encounter
--- OUTSIDE RECORDS SUMMARY | 2025-03-03 01:49 | XMS_ITS | Clinical Summary ---
Author Organization [employer] Address [address] [place] [address] Care Team Providers Care Insurance Claim Representative Name Role Phone Ely Lundberg MD Primary Care Provider [phone] Felicita Tabares PharmD Unavailable [phone] Allergies Active Allergy Reactions Criticality Noted Date Comments Haloperidol Hives Low 04/12/2013 Medications * This document contains information received from the source organization and may not represent a complete record from that organization. Alcohol Swabs (Alcohol Prep) pads Apply 1 pad to skin 4 times every day Active Blood Pressure kit Use daily Active Blood Glucose Monitoring Suppl (FreeStyle Lite) device Inject under the skin if needed. Use as instructed Active FREESTYLE LITE test stripIndications :Type 1 diabetes mellitus with hyperglycemia ([facility]) TEST BLOOD SUGAR THREE TIMES DAILY 100 strip 023 Active TRUEplus Lancets 33G miscIndications: Type 1 diabetes mellitus with hyperglycemia (CMS/HCC) TEST BLOOD SUGAR THREE TIMES DAILY 100 each 11 023 Active naloxone (Narcan) 4 mg/0.1 mL nasal spray Active QUEtiapine (SEROquel) 25 MG tablet TAKE 1 TABLET BY MOUTH TWICE DAILY IN THE MORNING AND IN THE EVENING Active hydrOXYzine HCl (Atarax) 50 MG tablet Take 50 mg by mouth if needed at bedtime. 024 Active rosuvastatin (Crestor) 20 MG tabletIndication s:Mixed hyperlipidemia TAKE 1 TABLET BY MOUTH EVERY MORNING 90 tablet 1 Active insulin pen needle (B-D ULTRAFINE III SHORT PEN) 31G X 8 mm miscIndications: Type 1 diabetes mellitus with hyperglycemia ([facility]) Use as instructed 100 each Active ARIPiprazole (Abilify) 10 MG tablet Take 1 tablet by mouth Once per day. Active baclofen (Lioresal) 10 MG tablet Take 1 tablet (10 mg) by mouth 2 times daily. 30 tablet Active traZODone (Desyrel) 50 MG tabletIndication s:Mental disorder Take 1 tablet (50 mg) by mouth at bedtime. 30 tablet 2 Active Continuous Glucose Sensor (FreeStyle Erin 3 Plus Sensor) misc 1 each every 15 days. 2 each Active thiamine (Vitamin B-1) 100 MG tablet Take 1 tablet by mouth 2 times daily. Active pyridoxine (Vitamin B-6) 50 MG tablet Take 1 tablet by mouth Once per day. Active nicotine polacrilex (Nicorette) 2 MG gum Chew 2 mg every 2 (two) hours if needed for smoking cessation. Active melatonin 3 MG tablet Take 3 tablets by mouth if needed at bedtime for sleep. Active gabapentin (Neurontin) 600 MG tablet Take 1 tablet by mouth 3 times daily. Active insulin glargine (Lantus) 100 UNIT/ML pen Inject 40 Units under the skin at bedtime. Active insulin regular (NovoLIN R FlexPen) 100 UNIT/ML pen Inject 8 units subcutaneously with breakfast.Inject 12 units subcutaneously with lunch.Inject 10 units subcutaneously with dinner Active Banophen 50 MG capsule Take 100 mg by mouth at bedtime. 023 2024 Discontinued(M ed list cleanup (will not trigger notification to Pharmacy)) gabapentin (Neurontin) 100 MG capsuleIndicatio ns:Tingling in extremities TAKE 1 CAPSULE BY MOUTH EVERY 8 HOURS 90 capsule 024 2024 Discontinued(M ed list cleanup (will not trigger notification to Pharmacy)) insulin regular (NovoLIN R FlexPen) 100 UNIT/ML penIndications:T ype 1 diabetes mellitus with hyperglycemia (CMS/[facility]) Inject 8 Units under the skin with breakfast, with lunch, and with evening meal. 15 mL 4 024 2024 Discontinued(M ed list cleanup (will not trigger notification to Pharmacy)) insulin glargine (Lantus SoloStar) 100 UNIT/ML pen Inject 36 units every night 15 mL 2 025 2024 Discontinued(M ed list cleanup (will not trigger notification to Pharmacy)) Melatonin 3 MG tablet dispersible Take 3 tablets by mouth if needed at bedtime (SLEEP). 2024 Discontinued(M ed list cleanup (will not trigger notification to Pharmacy)) acetaminophen (Tylenol) 325 MG tablet Take 2 tablets by mouth every 8 (eight) hours if needed for moderate pain. 025 2024 insulin regular (HumuLIN R,NovoLIN R) 100 UNIT/ML injection Inject 8 units subcutaneously with breakfast.Inject 12 units subcutaneously with lunch.Inject 10 units subcutaneously with dinner 2024 Discontinued(E ntered in error) Hospital, Clinic, or Other Facility Administered Medication Ordered Dose Route Frequency Start Date End Date Status insulin regular (HumuLIN R,NovoLIN R) injection 15 UnitsIndications:Type 1 diabetes mellitus with hyperglycemia ([facility]) 15 Units SC Once 09/29/2024 A ctive Active Problems Problem Noted Date Diagnosed Date Homicidal ideation 12/21/2024 Homelessness 12/21/2024 Diabetic ketoacidosis 09/16/2024 Abnormal liver function tests 03/03/2022 Diabetes mellitus 06/08/2015 History of drug abuse 06/07/2013 Mental disorder 06/07/2013 Encounters * This document contains information received from the source organization and may not represent a complete record from that organization. Date Type Department Care Team Description 02/22/2025 Outside Procedure [facility] [address] [place] [address] Juan A Torresn, OD Presbyopia (Primary Dx) 02/20/2025 9:00 AM EDT Office Visit [facility] [address] [place] [address] Juan A Torresn, OD Myopia of both eyes (Primary Dx) 01/30/2025 Orders Only GENERIC EXTERNAL DATA DEPARTMENT Provider, Generic External Data 01/28/2025 Orders Only GENERIC EXTERNAL DATA DEPARTMENT Provider, Generic External Data 01/24/[address] [facility] [address] [place] [address] Felicita Tabares PharmD 01/20/2025 Population Health Risk Score [facility] (C3) Department [address] [phone] Provider, Population Health Generic 01/03/2025 Travel 12/21/2024 9:15 AM EST Office Visit [facility] [address] [place] [address] Ely Lundberg MD Tinea pedis of both feet (Primary Dx); Type 1 diabetes mellitus with hyperglycemia (CMS/HCC); Abrasion; Mental disorder 12/21/2024 Orders Only [facility] [address] [place] [address] Ely Lundberg MD Type 1 diabetes mellitus with hyperglycemia (CMS/HCC) (Primary Dx); Mental disorder 12/21/2024 Travel 12/20/2024 Patient Outreach [facility] [address] [place] [phone] Gokul Hahn Recovery Supports 12/20/[address] [facility] [address] [place] [address] Ely Lundberg MD Chart Prep 12/20/2024 Patient Outreach [address] [address] [facility] Recovery Supports 12/19/2024 Orders Only GENERIC EXTERNAL DATA DEPARTMENT Provider, Generic External Data 12/14/2024 Patient Outreach [facility] [address] [place] [phone] Ely Lundberg MD Transition Of Care (Tcm) (HDF scheduled) 12/12/2024 Orders Only GENERIC EXTERNAL DATA DEPARTMENT Provider, Generic External Data 12/12/2024 Patient Outreach [facility] [address] [place] [phone] Huy Vazquez Recovery Supports from Last 3 Months Immunizations Name Administration Dates Next Due Hep A, Adult 03/05/2009 Hep B, adult 03/05/2009,12/11/2008 Influenza injectable quadriv alent IIV4 with preservative 08/05/2018,10/22/2017 Influenza injectable quadriv alent preservative free 09/28/2022,08/04/2022,09/24/2021 Influenza, IIV3, injectable 09/13/2014 Influenza, seasonal, injecta ble, preservative free 01/03/2025 MMR 06/02/2016,04/24/2016 Moderna Covid-19 Vaccine 12+ 04/03/2021,03/06/20 21 Pfizer Covid-19 Vaccine 12+ 01/03/2025 Pneumococcal Conjugate PCV 20 03/10/2022 Pneumococcal Polysaccharide PPSV23 06/10/2011 Tdap 07/26/2024,01/04/2020,05/26/2016 Varicella 04/24/2016 Family History Medical History Relation [...] Sign Reading Time Taken Comments Blood Pressure 113/76 12/21/2024 8:48 AM EST Pulse 80 12/21/2024 8:48 AM EST Temperature 36.6 ??C (97.8 ??F) 12/21/2024 8:48 AM ES T Respiratory Rate 20 12/21/2024 8:48 AM EST Oxygen Saturation 99% 12/21/2024 8:48 AM EST Inhaled Oxygen Concentration - - Weight 56.1 kg (123 lb 9.6 oz) 12/21/2024 8:48 A M EST Height 162.6 cm (5' 4 ) 12/21/2024 8:48 AM EST Body Mass Index 21.22 12/21/2024 8:48 AM EST Plan of Treatment Upcoming Encounters Date Type Department Care Team (Late st Contact Info) Description 04/21/2025 3:00 PM EDT Office Visit [facility] [address] [place] [address] Bobby, Briseyda [address] [place] [address] Health Maintenance Due Date Last Done Comments Diabetes: Foot Exam 02/11/1994 Family Planning (PISQ) 02/11/1999 Hepatitis B Vaccines (3 of 3 - 19+ 3-dose series) 06/10/2009 03/05/2009, 12/11/2008 Diabetes: Urine Protein Screening 06/11/2023 06/11/2022 Dental Prophylaxis 04/30/2024 10/29/2023, 1 11/12/2021, 09/26/2019, Additional history exists Dental Oral Exam 03/17/2025 09/16/2024, , 09/12/2022, Additional history exists Diabetes: Hemoglobin A1C 03/20/2025 025, 09/01/2024, 01/20/2024, Additional history exists Eye Exam 08/15/2025 08/15/2024, 05/2024, 08/15/2024, Additional history exists Lipid Panel 09/01/2025 09/01/2024, 06/11/2022 Dental X-Ray: Bitewings 09/17/2025 09/16/20 24, 10/29/2023, 09/12/2022, Additional history exists Alcohol/Substance Use Screening 12/21/2025 12/21/2024 Depression Screening 12/21/2025 12/21/2024, 01/20/20 SDOH Screening 12/21/2025 12/21/2024 Tobacco Screening 12/21/2025 12/21/2024 Dental X-Ray: Full Mouth 10/30/2026 023, 09/12/2022, [...] 09/01/2024 , 10/07/2022, 07/09/2022, Additional history exists COVID-19 Vaccine Completed 01/03/2025, , 03/06/2021 Influenza Vaccine Completed 01/03/2025, , 08/04/2022, Additional history exists HIB Vaccines Aged Out [...] Hemoglobin A1c < 7 Result Component 12.7( 9:10 AM EST) No Jose Manuel Houser, Timothy Procedures Procedure Name Priority Date/Time Associated Diagnosis Comments ACETAMINOPHEN LEVEL Routine 01/30/2025 1 :18 AM EDT SALICYLATE Routine 01/30/2025 1:18 AM EDT ETHANOL Routine 01/30/2025 1:18 AM EDT CREATINE KINASE, TOTAL Routine 01/30/2025 1:18 AM EDT MAGNESIUM Routine 01/30/2025 1:18 AM EDT BASIC METABOLIC PANEL Routine 01/30/2025 1:18 AM EDT HEPATIC FUNCTION PANEL Routine 01/30/2025 1:18 AM EDT DRUG MONITOR, PANEL 1, SCREEN, URINE Routine 01/30/2025 1:18 AM EDT CULTURE, URINE, ROUTINE Routine 01/30/2025 1:18 AM EDT SARS COV2/INFLUENZA A/B AND RSV RNA QL NAAT Routine 01/30/2025 1:[address] ABDOMEN PELVIS W CONTRAST Routine 01/28/2025 11:26 AM EDT GLUCOSE, WHOLE BLOOD Routine 01/28/2025 10:43 AM EDT DRUG MONITOR, PANEL 1, SCREEN, URINE Routine 01/28/2025 10:41 AM EDT VENOUS BLOOD GAS Routine 01/28/2025 9:21 AM EDT LIPASE Routine 01/28/2025 9:16 AM EDT ETHANOL Routine 01/28/2025 9:15 AM EDT BETA-HYDROXYBUTYRATE Routine 01/28/2025 9:15 AM EDT MAGNESIUM Routine 01/28/2025 9:15 AM EDT COMPREHENSIVE METABOLIC PANEL Routine 01/28/2025 9:15 AM EDT CBC WITH AUTO DIFFERENTIAL Routine 01/28/2025 9:15 AM EDT SARS COV2/INFLUENZA A/B AND RSV RNA QL NAAT Routine 01/28/2025 9:14 AM EDT GLUCOSE, WHOLE BLOOD Routine 01/28/2025 6:19 AM EDT POCT GLUCOSE Routine 01/03/2025 2:54 PM EST Type 1 diabetes mellitus with hyperglycemia (CMS/HCC) POCT GLYCATED HEMOGLOBIN, TOTAL Routine 12/21/2024 9:10 AM EST Type 1 diabetes mellitus with hyperglycemia (CMS/HCC) POCT GLUCOSE Routine 12/21/2024 9:10 AM EST Type 1 diabetes mellitus with hyperglycemia (CMS/HCC) ETHANOL Routine 12/19/2024 8:05 PM EST MAGNESIUM Routine 12/19/2024 8:05 PM EST COMPREHENSIVE METABOLIC PANEL Routine 12/19/2024 8:05 PM EST ACETAMINOPHEN LEVEL Routine 12/19/2024 8 :05 PM EST SALICYLATE Routine 12/19/2024 8:05 PM EST SARS COV2/INFLUENZA A/B AND RSV RNA QL NAAT Routine 12/19/2024 8:05 PM EST GLUCOSE, WHOLE BLOOD Routine 12/12/2024 4:41 PM EST ETHANOL Routine 12/12/2024 1:21 PM EST COMPREHENSIVE METABOLIC PANEL Routine 12/12/2024 1:21 PM EST ACETAMINOPHEN LEVEL Routine 12/12/2024 1 :21 PM EST SALICYLATE Routine 12/12/2024 1:21 PM EST HOLD RED TOP Routine 12/12/2024 1:21 PM EST CBC WITH AUTO DIFFERENTIAL Routine 12/12/2024 1:21 PM EST DRUG MONITOR, PANEL 1, SCREEN, URINE Routine 12/12/2024 1:20 PM EST URINALYSIS, COMPLETE Routine 12/12/2024 1:20 PM EST BITEWINGS - 4 RADIOGRAPHIC IMAGES Routine 09/16/2024 1:30 PM EST PERIODIC ORAL EVALUATION - ESTABLISHED PATIENT Routine 09/16/2024 1:30 PM EST HEPATITIS C ANTIBODY Routine 09/01/2024 3:20 PM EDT Weight loss HIV 1/2 ANTIGEN/ANTIBODY, FOURTH GENERATION W/RFL Routine 09/01/2024 3:20 PM EDT Weight loss LIPID PANEL, STANDARD Routine 09/01/2024 3:20 PM EDT Type 1 diabetes mellitus with hyperglycemia (CMS/HCC) Annual physical exam PROPHYLAXIS - ADULT Routine 10/29/2023 9 :00 AM EST INTRAORAL - COMPLETE SERIES OF RADIOGRAPHIC IMAGES Routine 10/29/2023 9:00 AM EST ALBUMIN, RANDOM URINE W/CREATININE Routine 06/11/2022 8:35 AM EDT from Last 3 Months or Most Recently Relevant to Health Maintenance Results * Ethanol (01/30/2025 1:18 AM EDT) Only the most recent of4 resultswithin the time period is included. ETHANOL (MG/DL) IN SER/PLAS <10 mg/dL [facility] Comment:Serum/plasma ethanol results are to be used formedical/treatment purposes only. 01/30/2025 1:18 AM EDT 01/30/2025 1:24 AM EDT us Generic External Data Provider LAB BLOOD ORDERAB LES Final Result [facility] [address] [place] [phone] * SARS-CoV-2 RNA, Influenza A/B, and RSV RNA, Ql NAAT (01/30/2025 1:18 AM EDT) Only the most recent of3 resultswithin the time period is included. Influenza A PCR NEGATIVE Negative [facility] Influenza B PCR NEGATIVE Negative [facility] Resp Syncy Virus RNA Qual PCR NEGATIVE Negative [facility] SARS COV2 PCR NEGATIVE Negative [facility] Comment:All test results mus t be correlated with clinical findings.Negative results do not preclude SARS-CoV2, influenza Avirus, influenza B virus and/or RSV infectionand should not be used as the sole basis for treatment orother patient management decisions. Negative results must becombined with clinical observations, patient history, andepidemiological information.This test has not been evaluated for monitoring treatment ofinfection.This test has been authorized by the FDA under an EmergencyUse Authorization (EUA) for use by authorized laboratories.Testing performed on the [employer] GeneXpert utilizingreal-time RT-PCR.All SARS CoV2 and positive influenza A/B results arereported to [facility]. 01/30/2025 1:18 AM EDT 01/30/2025 1:24 AM EDT us Generic External Data Provider LAB MICROBIOLOGY - GENERAL ORDERABLES Final Result [facility] [address] [place] [address] [phone] * (ABNORMAL) Drug Monitoring, Panel 1, Screen, Urine (01/30/2025 1:18 AM EDT) Only the most recent of3 resultswithin the time period is included. Opiate Screen Urine Not Detected Not Detect [facility] Comment:Opiate cut-off is 30 0 ng/mL.Positive results are unconfirmed and should not be used fornon-medical purposes. Barbiturates, Urine Not Detected Not Detect [facility] Comment:Barbiturate cut-off is 200 ng/mL.Positive results are unconfirmed and should not be used fornon-medical purposes. Phencyclidine Screen Urine POSITIVE(A) Not Detect [facility] Comment:Phencyclidine cut-of f is 25 ng/mL.Positive results are unconfirmed and should not be used fornon-medical purposes. Amphetamine Screen Urine Not Detected Not Detect [facility] Comment:Amphetamine cut-off is 1000 ng/mL.Positive results are unconfirmed and should not be used fornon-medical purposes. Benzodiazepines Screen Urine Not Detected Not Detect [facility] Comment:Benzodiazepine cut-o ff is 200 ng/mL.Positive results are unconfirmed and should not be used fornon-medical purposes. Cocaine Screen Urine Not Detected Not Detect [facility] Comment:Cocaine cut-off is 3 00 ng/mL.Positive results are unconfirmed and should not be used fornon-medical purposes. Cannabinoid Screen Urine Not Detected Not Detect [facility] Comment:Cannabinoid cut-off is 50 ng/mL.Positive results are unconfirmed and should not be used fornon-medical purposes. Methadone Screen, Urine Not Detected Not Detect ng/mL [facility] Comment:Methadone cut-off is 300 ng/mL.Positive results are unconfirmed and should not be used fornon-medical purposes. FENTANYL URINE Not Detected Not Detect [facility] Comment:Fentanyl cut-off is 1 ng/mL.Positive results are unconfirmed and should not be used fornon-medical purposes. Oxycodone Urine Screen Not Detected Not Detect ng/mL [facility] Comment:Oxycodone cut-off is 100 ng/mL.Positive results are unconfirmed and should not be used fornon-medical purposes. Buprenorphine Screen Not Detected Not Detect ng/mL [facility] Comment:Buprenorphine cut-of f is 5 ng/mL.Positive results are unconfirmed and should not be used fornon-medical purposes. 01/30/2025 1:18 AM EDT 01/30/2025 1:24 AM EDT Generic External Data Provider LAB URINE ORDERAB LES Final Result Performing Organization Address City/[facility] Co de Phone Number [facility] [address] [place] [phone] * Culture, Urine, Routine (01/30/2025 1:18 AM EDT) Urine Urine specimen obtained by clean catch procedure / Unknown 01/30/2025 1:18 AM EDT 01/30/2025 1:24 AM EDT Comment:[facility] Narrative [facility] - 01/31/2025 10:50 AM EDT Urine Culture Report Result Urine Culture < 10,000 cfu/ml Specimen Source: Urine clean catch [employer] External Data Provider LAB MICROBIOLOGY - GENERAL ORDERABLES Final Result Performing Organization Address [facility] de Phone Number [facility] [address] [place] [phone] * Magnesium (01/30/2025 1:18 AM EDT) Only the most recent of3 resultswithin the time period is included. Magnesium 1.7 1.6 - 2.6 mg/dL [facility] 01/30/2025 1:18 AM EDT 01/30/2025 1:24 AM EDT Generic External Data Provider LAB BLOOD ORDERAB LES Final Result Performing Organization Address [facility] de Phone Number [facility] [address] [place] [phone] * Creatine Kinase, Total (01/30/2025 1:18 AM EDT) Creatine Kinase Total 112 38 - 174 U/L [facility] 01/30/2025 1:18 AM EDT 01/30/2025 1:24 AM EDT Generic External Data Provider LAB BLOOD ORDERAB LES Final Result Performing Organization Address [facility] Phone Number [facility] [address] [place] [phone] * Acetaminophen level (01/30/2025 1:18 AM EDT) Only the most recent of3 resultswithin the time period is included. Acetaminophen LAB <3 <30 mcg/mL [facility] 01/30/2025 1:18 AM EDT 01/30/2025 1:24 AM EDT Generic External Data Provider LAB BLOOD ORDERAB LES Final Result Performing Organization Address [facility] de Phone Number [facility] [address] [place] [phone] * (ABNORMAL) Salicylate (01/30/2025 1:18 AM EDT) Only the most recent of3 resultswithin the time period is included. Salicylate <5.0(L) 15 - 30 mg/dL [facility] 01/30/2025 1:18 AM EDT 01/30/2025 1:24 AM EDT us Generic External Data Provider LAB BLOOD ORDERAB LES Final Result Performing Organization Address [facility]/ZIP Co de Phone Number [facility] [address] [place] [phone] * (ABNORMAL) Hepatic Function Panel (01/30/2025 1:18 AM EDT) Bilirubin, Total 1.2(H) 0.0 - 1.0 mg/dL [facility] Bilirubin, Direct 0.3 0.0 - 0.5 mg/dL [facility] Aspartate Amino Transferase 24 5 - 37 U/L [facility] Alanine Aminotransferase 34 0 - 40 U/L [facility] Total Protein 6.4(L) 6.5 - 8.0 g/dL [facility] Albumin Level 3.7 3.5 - 5.0 g/dL [facility] Alkaline Phosphatase 94 39 - 117 U/L [facility] 01/30/2025 1:18 AM EDT 01/30/2025 1:24 AM EDT us Generic External Data Provider LAB BLOOD ORDERAB LES Final Result Performing Organization Address [facility] Co de Phone Number [facility] [address] [place] [phone] * (ABNORMAL) Basic Metabolic Panel (01/30/2025 1:18 AM EDT) Sodium 136 135 - 145 mmol/L [facility] Potassium 4.4 3.3 - 5.1 mmol/L [facility] Chloride 103 96 - 108 mmol/L [facility] Carbon Dioxide 25 22 - 29 mmol/L [facility] Anion Gap 12 12 - 20 [facility] Urea Nitrogen (BUN) 13 9 - 16 mg/dL [facility] Creatinine, Serum 0.76 0.5 - 1.4 mg/dL [facility] Creatinine Clr Calc Pharmacy 98.1 [facility] Comment:eGFR (calculated fro m the MDRD study equation) and eCrCl(calculated from the Cockcroft-Gault equation) are based ondifferent parameters and may not yield comparable results.If eCrCl result is absurd, please check patient'sheight/weight. Estimated Glomerular Filt Rate >60 [facility] Comment:Chronic Kidney Disea se: Estimated GFR < 60 mL/min/1.19x9Fcnhaz Kidney Disease: Estimated GFR < 15 mL/min/1.73m2 Glucose 265(H) 60 - 115 mg/dL [facility] Calcium 9.4 8.4 - 10.2 mg/dL [facility] 01/30/2025 1:18 AM EDT 01/30/2025 1:24 AM EDT us Generic External Data Provider LAB BLOOD ORDERAB LES Final Result Performing Organization Address City/State/[facility] Co de Phone Number [facility] [address] [place] [phone] * CT Abdomen Pelvis w/ Contrast (01/28/2025 11:26 AM EDT) Anatomical Region Laterality Modality Body, Pelvis, Abdomen Computed T omography 01/28/2025 11:2 6 AM EDT Narrative 01/28/2025 11:29 AM EDT ? [facility] ?[address] ?[place] [address] ? CT Scan Report ? Signed ? Patient: Nuñez,Eliud ?MR#: [id number] ?? [id number] ? : 1985 ?Acct:[id number] ? Age/Sex: 39 / M ?ADM Date: 03/22/25 ? Loc: HO.ED ? Attending Dr: ? Ordering Physician: Flakita,Susanita PA ?? Date of Service: 01/28/25 ?? Procedure(s): CT abdomen pelvis w IV con ?? Accession Number(s): [id number] ? cc: Ely Lundberg MD; Akhil Boggs ? Report Number: ?? [id number]: Total DLP = ??299.00 mGy-cm ? CLINICAL HISTORY: abd pain severe diffuse ? CT abdomen and pelvis with contrast ? Comparison: 06/23/2024 ? Findings: ?? No consolidation or effusion. ?? No hydronephrosis. ?? Contracted gallbladder. ?? Apparent circumferential wall thickening (up to 10 mm) of the wall of a ?? nondistended right lower abdominal small bowel loop on series 3 image 43, ?? may be artifactual/due to underdistention versus less likely due to ?? enteritis. Correlate clinically. ?? No bowel obstruction. ?? Distended urinary bladder. Enlarged prostate measuring 5.3 cm in width. ?? Incompletely evaluated appendix. Evaluated portion is unremarkable. ?? Rest of the abdominopelvic viscera are unremarkable. ?? No acute fracture. ? IMPRESSION: ? Apparent circumferential wall thickening (up to 10 mm) of the wall of a ?? nondistended right lower abdominal small bowel loop on series 3 image 43, ?? may be artifactual/due to underdistention versus less likely due to ?? enteritis. Correlate clinically. ? Enlarged prostate. ? This document has been electronically signed by: Sadie Yanez MD on ?? 01/28/2025 11:26:21 ? Dictated By: ?Sadie Yanez MD ? Signed By: ?<Electronically signed by Sadie Yanez MD in [place]> ? 01/28/25 1127 ? DD/ 1126 ? TD/TT: 01/28/25 1126 ? Product Technician: ? Procedure Note Karla, Image - 01/28/[address] [address] [address] Scan Report Signed Patient: Eliud NuñezMR#: [id number] : 1985Acct:[id number] Age/Sex: 39 / MADM Date: 01/28/25 Loc: HO.ED Attending Dr: Ordering Physician: Akhil Boggs Date of Service: 01/28/25 Procedure(s): CT abdomen pelvis w IV con Accession Number(s): [id number] cc: Ely Lundberg MD; Akhil Boggs Report Number: [id number]: Total DLP = 299.00 mGy-cm CLINICAL HISTORY: abd pain severe diffuse CT abdomen and pelvis with contrast Comparison: 06/23/2024 Findings: No consolidation or effusion. No hydronephrosis. Contracted gallbladder. Apparent circumferential wall thickening (up to 10 mm) of the wall of a nondistended right lower abdominal small bowel loop on series 3 image 43, may be artifactual/due to underdistention versus less likely due to enteritis. Correlate clinically. No bowel obstruction. Distended urinary bladder. Enlarged prostate measuring 5.3 cm in width. Incompletely evaluated appendix. Evaluated portion is unremarkable. Rest of the abdominopelvic viscera are unremarkable. No acute fracture. IMPRESSION: Apparent circumferential wall thickening (up to 10 mm) of the wall of a nondistended right lower abdominal small bowel loop on series 3 image 43, may be artifactual/due to underdistention versus less likely due to enteritis. Correlate clinically. Enlarged prostate. This document has been electronically signed by: Sadie Yanez MD on 01/28/2025 11:26:21 Dictated By: Sadie Yanez MD Signed By: <Electronically signed by Sadie Yanez MD in OV> 01/28/25 1127 DD/ 1126 TD/TT: 01/28/25 1126 Product Technician: [facility] External Provider IMG CT PROCEDURES Edited Result - Final * (ABNORMAL) Glucose, Whole Blood (01/28/2025 10:43 AM EDT) Only the most recent of3 resultswithin the time period is included. Glucose, Whole Blood 249(H) 60 - 115 mg/dL [facility] Comment:METER #: [id number] 01/28/2025 10:4 3 AM EDT 01/28/2025 10:46 AM EDT Generic External Data Provider LAB BLOOD ORDERAB LES Final Result [facility] [address] [place] [phone] * (ABNORMAL) VENOUS BLOOD GAS (01/28/2025 9:21 AM EDT) VBG pH 7.40 7.32 - 7.43 [facility] Comment:METER #: [id number] additional_comment: Keshawn fuller VBG PCO2 45 mmHg [facility] Comment:METER #: [id number] additional_comment: Keshawn fuller VBG PO2 38 mmHg [facility] Comment:METER #: [id number] additional_comment: Keshawn fuller VBG Base Excess 3.0 mmol/L [facility] Comment:METER #: [id number] additional_comment: Keshawn fuller VBG HCO3 28(H) 22 - 26 mmol/L [facility] Comment:METER #: [id number] additional_comment: Keshawn fuller O2 Sat, Ramesh 68.0 % [facility] Comment:METER #: [id number] additional_comment: Keshawn fuller 01/28/2025 9:21 AM EDT 01/28/2025 9:25 AM EDT us Generic External Data Provider LAB BLOOD ORDERAB LES Final Result Performing Organization Address [facility] Co de Phone Number [facility] [address] [place] [phone] * Lipase (01/28/2025 9:16 AM EDT) Lipase 18 8 - 78 U/L [facility] 01/28/2025 9:16 AM EDT 01/28/2025 9:19 AM EDT us Generic External Data Provider LAB BLOOD ORDERAB LES Final Result Performing Organization Address [facility] Co de Phone Number [facility] [address] [place] [address] [phone] * Beta-Hydroxybutyrate (01/28/2025 9:15 AM EDT) Pathologist [facility] Beta-Hydroxybut yrate 0.14 0.02 - 0.27 mmol/L [facility] 01/28/2025 9:15 AM EDT 01/28/2025 9:19 AM EDT us Generic External Data Provider LAB BLOOD ORDERAB LES Final Result [facility] [address] [place] [phone] * (ABNORMAL) CBC auto differential (01/28/2025 9:15 AM EDT) Only the most recent of2 resultswithin the time period is included. [facility] White Blood Count 4.9 4.8 - 10.8 X10*3/uL [facility] Red Blood Count 4.71 4.60 - 5.80 X10*6/uL [facility] Hemoglobin 13.6(L) 14.0 - 18.0 g/dl [facility] Hematocrit 40.7(L) 42.0 - 52.0 % [facility] Mean Corpuscular Volume 86.4 80.0 - 98.0 fL [facility] Mean Corpuscular Hemoglobin 28.9 27.0 - 33.0 pg [facility] Mean Corpuscular HGB Conc 33.4 31.0 - 36.0 g/dl [facility] Red Cell Distribution Width 13.1 11.0 - 16.0 % [facility] Platelet Count 162 160 - 400 X10*3/uL [facility] Mean Platelet Volume 11.1 9.4 - 12.4 fL [facility] Neutrophils Percent Auto 50.7 45 - 73 % [facility] Imm Gran Pct Auto 0.2 0.0 - 0.4 % [facility] Lymphocytes Percent Auto 38.6 20 - 40 % [facility] Monocytes Percent Auto 7.6 2 - 11 % [facility] Eosinophils Percent Auto 2.7 0 - 4 % [facility] Basophils Percent Auto 0.2 0 - 2 % [facility] NRBC Pct Auto 0.0 0.0 - 0.2 /100WBC [facility] Neutrophils Absolute Auto 2.5 2.0 - 8.3 x10*3/uL [facility] Imm Gran Abs Auto 0.01 0.00 - 0.03 X10*3/uL [facility] Lymphocytes Absolute Auto 1.9 1.2 - 4.9 X10*3/uL [facility] Monocytes Absolute Auto 0.4 0.1 - 1.2 X10*3/uL [facility] Eosinophils Absolute Auto 0.1 0.0 - 0.4 X10*3/uL [facility] Basophils Absolute Auto 0.0 0.0 - 0.2 X10*3/uL [facility] NRBC Abs Auto 0.000 0.0 - 0.012 X10*3/uL [facility] 01/28/2025 9:15 AM EDT 01/28/2025 9:19 AM EDT us Generic External Data Provider LAB BLOOD ORDERAB LES Final Result [facility] [address] [place] [phone] * (ABNORMAL) Comprehensive Metabolic Panel (01/28/2025 9:15 AM EDT) Only the most recent of3 resultswithin the time period is included. Sodium 137 135 - 145 mmol/L [facility] Potassium 4.2 3.3 - 5.1 mmol/L [facility] Chloride 107 96 - 108 mmol/L [facility] Carbon Dioxide 25 22 - 29 mmol/L [facility] Anion Gap 9(L) 12 - 20 [facility] Urea Nitrogen (BUN) 18(H) 9 - 16 mg/dL [facility] Creatinine, Serum 0.67 0.5 - 1.4 mg/dL [facility] Creatinine Clr Calc Pharmacy 113.8 [facility] Comment:eGFR (calculated fro m the MDRD study equation) and eCrCl(calculated from the Cockcroft-Gault equation) are based ondifferent parameters and may not yield comparable results.If eCrCl result is absurd, please check patient'sheight/weight. Estimated Glomerular Filt Rate >60 [facility] Comment:Chronic Kidney Disea se: Estimated GFR < 60 mL/min/[id number] Kidney Disease: Estimated GFR < 15 mL/min/1.73m2 Glucose 251(H) 60 - 115 mg/dL [facility] Calcium 8.7 8.4 - 10.2 mg/dL [facility] Bilirubin, Total 0.4 0.0 - 1.0 mg/dL [facility] Aspartate Amino Transferase 70(H) 5 - 37 U/L [facility] Alanine Aminotransferase 42(H) 0 - 40 U/L [facility] Total Protein 6.0(L) 6.5 - 8.0 g/dL [facility] Albumin Level 3.5 3.5 - 5.0 g/dL [facility] Alkaline Phosphatase 133(H) 39 - 117 U/L [facility] 01/28/2025 9:15 AM EDT 01/28/2025 9:19 AM EDT us Generic External Data Provider LAB BLOOD ORDERAB LES Final Result [facility] [address] [place] [phone] * (ABNORMAL) POCT glucose manually resulted (01/03/2025 2:54 PM EST) Only the most recent of2 resultswithin the time period is included. Glucose Blood, POC 237(A) 60 - 200 mg/dL QC Media Lot # [id number] Lot# Expiration Date Blood Capillary blood specimen / Unknown 01/03/2025 2:54 PM EST us Ely Lundberg MD POINT OF CARE TEST ENTER/ED IT ORDERABLES Final Result * (ABNORMAL) POCT HGB A1C (12/21/2024 9:10 AM EST) Pathologist [facility] Hemoglobin A1C 12.7(A) 4.0 - 6.0 % QC Media Lot # [id number] Lot# Expiration Date ,119 Blood 12/21/2024 9:10 AM EST us Ely Lundberg MD POINT OF CARE TEST ENTER/ED IT ORDERABLES Final Result * Hold Red (12/12/2024 1:21 PM EST) Pathologist [facility] Hold Red See Note [facility] Comment:Specimen held untest ed for 24 hours; Call to requestChemistry testing. 12/12/2024 1:21 PM EST 12/12/2024 1:43 PM EST Generic External Data Provider LAB BLOOD ORDERAB LES Final Result [facility] [address] [place] [address] [phone] * (ABNORMAL) Urinalysis Complete (12/12/2024 1:20 PM EST) Color Urine Yellow [facility] Appearance Urine Clear [facility] PH 6.0 5.0 - 9.0 [facility] Glucose Urine UA >=1000(A) Negative mg/dL [facility] Urine Blood Negative Negative [facility] Specific [place] - Urine >=1.030(H) 1.005 - 1.025 [facility] Urine Protein Negative Neg-Trace mg/dL [facility] Urine Ketones 80 Negative mg/dL [facility] Nitrite Urine Negative Negative [facility] Leukocyte Esterase Urine Negative Negative [facility] RBC Urine 0-2 0 - 2 /HPF [facility] Urine WBC 0-5 0 - 5 /HPF [facility] Urine Squamous Epithelial Cell 0-2 0 - 2 /HPF [facility] Urine Bacteria None Seen None Seen [facility] Hyaline Casts, Urine 0-2 0 - 2 /LPF [facility] 12/12/2024 1:20 PM EST 12/12/2024 1:32 PM EST us Generic External Data Provider LAB URINE ORDERAB LES Final Result Performing Organization Address [facility]/ZIP Co de Phone Number [facility] [address] [place] [phone] * Hepatitis C Ab (09/01/2024 3:20 PM EDT) Hepatitis C Antibody Nonreactive Nonreactive [facility] Comment:Antibodies to HCV no t detected; does not exclude early acuteHCV infection. Blood Venous blood specimen / Unknown 09/01/2024 3:20 PM EDT 09/01/2024 4:56 PM EDT us Ely Lundberg MD LAB BLOOD ORDERABLES Final Result Performing Organization Address [facility] Co de Phone Number [facility] [address] [place] [phone] * HIV-1/2 Antigen and Antibodies, Fourth Generation, with Reflexes (09/01/2024 3:20 PM EDT) HIV AB/AG Nonreactive Nonreactive [facility] Comment:HIV-1 p24 Ag and/or HIV-1/HIV-2 Ab not detected.A test result that is nonreactive does not exclude thepossibility of exposure to or infection with HIV-1 and/orHIV-2. Nonreactive results in this assay for individualswith prior exposure to HIV-1 and/or HIV-2 may be due toantigen and antibody levels that are below the limit ofdetection of this assay.The [employer] HIV Ag/Ab Combo assay result andsupplemental assay results should be interpreted inconjunction with the patient's clinical presentation,history and other laboratory results. If the results areinconsistent with clinical evidence, additional testing issuggested to confirm the result. Blood Venous blood specimen / Unknown 09/01/2024 3:20 PM EDT 09/01/2024 4:56 PM EDT Ely Lundberg MD LAB BLOOD ORDERABLES Final Result Performing Organization Address City/[facility]/ZIP Co de Phone Number [facility] [address] [place] [phone] * Lipid Panel, Standard (09/01/2024 3:20 PM EDT) Triglycerides 50 <150 mg/dL [facility] Comment:Desirable Triglyceri de: less than 150 mg/dLBorderline High Triglyceride 150-199 mg/dLHigh Triglyceride: 200-499 mg/dLVery High Triglyceride: greater than or equal to 5OO mg/dL Cholesterol 115 <200 mg/dL [facility] Comment:Desirable Cholestero l: less than 200 mg/dLBorderline High Cholesterol: 200-239 mg/dLHigh Cholesterol: greater than 239 mg/dL LDL Cholesterol Calculated 43 <100 mg/dL [facility] Comment:Desirable LDL: less than 100 mg/dLNear Optimal/Above Optimal LDL: 110- 129 mg/dLBorderline High LDL: 130-159 mg/dLHigh LDL: 160-189 mg/dLVery High LDL: greater than or equal to 190 mg/dL HDL Cholesterol 62 >40 mg/dL [facility] Comment:Desirable HDL: great er than 40 mg/dL Note: This HDL assay may give artificially low results in patients with liver disease. Blood Venous blood specimen / Unknown 09/01/2024 3:20 PM EDT 09/01/2024 4:56 PM EDT us Ely Lundberg MD LAB BLOOD ORDERABLES Final Result Performing Organization Address City/[facility]/ZIP Co de Phone Number [facility] [address] [place] [phone] * ALBUMIN, RANDOM URINE W/CREATININE (06/11/2022 [...] [facility] 06/11/2022 8:35 AM EDT Ely Lundberg MD LAB URINE ORDERABLES Final Result [facility] [address] from Last 3 Months or Most Recently Relevant to Health Maintenance Insurance [facility] STANDARD MEDICARE D[facility]AL-[facility] MEDICAID STAND ADULT Care Teams Insurance Claim Representative Relationship Specialty Start Date End Date Ely Lundberg MD [address] [place] [address] PCP - General Internal Medicine 10/27/13 Felicita Tabares PharmD [address] [place] [phone] Pharmacist Internal Medicine 01/03/25
--- OUTSIDE RECORDS SUMMARY | 2025-03-03 01:49 | XMS_ITS | Encounter Summary ---
Author Organization [facility] Address [address] [facility] 7 [place] [address] Care Team Providers Care Occupational Medicine Specialist Name Role Phone Ely Lundberg MD Primary Care Provider [phone] Felicita Tabares PharmD Unavailable [phone] Encounter Details Date Type Department Care Team (Latest Contact Info) Description 06/03/2019 Abstract [facility] CONVERSIONS Dental, Provider, DDS Social History Tobacco [...] Upcoming Encounters Date Type Department Care Team ( st Contact Info) Description 04/21/2025 3:00 PM EDT Office Visit [facility] ADULT DENTAL [address] [place] [address] Bobby Briseyda [address] [place] [address] documented as of this encounter Visit Diagnoses Not on filedocumented in this encounter Care Teams Occupational Medicine Specialist Relationship Specialty Start Date End Date Ely Lundberg MD [address] [place] [address] PCP - General Internal Medicine 10/27/13 Felicita Tabares, PharmD [address] [place] [address] Pharmacist Internal Medicine 01/03/25 documented as of this encounter
--- OUTSIDE RECORDS SUMMARY | 2025-03-03 01:49 | XMS_ITS | Encounter Summary ---
Author Organization [employer] Address [address] [facility] [address] 7[address] [place] [address] Care Team Providers Care Pyrotechnist Name Role Phone Ely Lundberg MD Primary Care Provider [phone] Felicita Tabares PharmD Unavailable [phone] Reason for Visit * Reason Onset Date Comments Results 09/05/2024 Encounter Details Date Type Department Care Team ([facility] st Contact Info) Description 09/05/2024 Telephone [facility] MEDICINE [address] [place] [address] Ely Lundberg MD [address] [place] [address] Results Social History Tobacco Use Types Packs/Day [...] returning call for lab results Callback number [phone] documented in this encounter Plan of Treatment Upcoming Encounters Date Type Department Care Team (Late st Contact Info) Description 04/21/2025 3:00 PM EDT Office Visit [facility] ADULT DENTAL [address] [place] [address] oBbby Briseyda [address] [place] [address] documented as of this encounter Goals Goal Patient Goal Type Associated Problems Recent Progress Patient-Stated? Author Hemoglobin A1c < 7 Result Component 12.7( 9:10 AM EST) No Jose Manuel Houser, PharmD documented as of this encounter Visit Diagnoses Not on filedocumented in this encounter Additional Health Concerns Assessment Noted Time PHQ-9 Depression Total Score: 8 01/20/20 24 11:40 AM EDT documented as of this encounter Care Teams Pyrotechnist Relationship Specialty Start Date End Date Ely Lundberg MD [address] [place] [address] PCP - General Internal Medicine 10/27/13 Felicita Tabares PharmD [address] [place] [address] Pharmacist Internal Medicine 01/03/25 documented as of this encounter
--- OUTSIDE RECORDS SUMMARY | 2025-03-03 01:49 | XMS_ITS | Encounter Summary ---
Author Organization [employer] Address [address] [facility] 7 [place] [address] Care Team Providers Care Django Developer Name Role Phone Ely Lundberg MD Primary Care Provider Felicita Tabares PharmD Unavailable [phone] Encounter Details Date Type Department Care Team (Late st Contact Info) Description 11/16/[address] [facility] MEDICINE [address] [place] [address] Ely Lundberg MD [address] [place], [place] [phone] Encounter for counseling before starting and about [...] Description 04/21/2025 3:00 PM EDT Office Visit [facility] ADULT DENTAL [address] [place] [address] Briseyda Rosales [address] [place] [address] documented as of this encounter Goals Goal Patient Goal Type Associated Problems Recent Progress Patient-Stated? Author Hemoglobin A1c < 7 Result Component 12.7(02/12/202 5 9:10 AM EST) No Jose Manuel Houser, PharmMeme documented as of this encounter Visit Diagnoses Diagnosis Encounter for counseling before starting and about pre-exposure prophylaxis for HIV- Primary documented in this encounter Care Teams Django Developer Relationship Specialty Start Date End Date Ely Lundberg MD [address] [place] [address] PCP - General Internal Medicine 10/27/13 Felicita Tabares, Timothy [address] [place] [address] Pharmacist Internal Medicine 01/03/25 documented as of this encounter
--- OUTSIDE RECORDS SUMMARY | 2025-03-03 01:49 | XMS_ITS | Encounter Summary ---
Author Organization [employer] Address [address] [facility] 7t [place] [address] Care Team Providers Care Antenna Specialist Name Role Phone Ely Lundberg MD Primary Care Provider Felicita Tabares PharmD Unavailable [phone] Reason for Visit * Reason Comments Med Refill Encounter Details Date Type Department Care Team ([facility] Contact Info) Description 10/16/2024 Refill [facility] [address] [place] [address] Ely Lundberg MD [address] [place], [place] [phone] Social History Tobacco Use Types Packs/Day Years [...] Description 04/21/2025 3:00 PM EDT Office Visit [facility] ADULT DENTAL [address] [place] [address] Bobby Briseyda [address] [place] [address] documented as of this encounter Goals Goal Patient Goal Type Associated Problems Recent Progress Patient-Stated? Author Hemoglobin A1c < 7 Result Component 12.7( 9:10 AM EST) No Jose Manuel Houser PharmD documented as of this encounter Visit Diagnoses Not on filedocumented in this encounter Additional Health Concerns Assessment Noted Time PHQ-9 Depression Total Score: 8 01/20/20 24 11:40 AM EDT documented as of this encounter Care Teams Antenna Specialist Relationship Specialty Start Date End Date Ely Lundberg MD [address] [place] [address] PCP - General Internal Medicine 10/27/13 Felicita Tabares PharmD [address] [place] [address] Pharmacist Internal Medicine 01/03/25 documented as of this encounter
--- OUTSIDE RECORDS SUMMARY | 2025-03-03 01:49 | XMS_ITS | Encounter Summary ---
Author Organization [employer] Address [address] [facility] [facility] [address] 7[address] [place] [address] Care Team Providers Care Body Corporate Manager Name Role Phone Ely Lundberg MD Primary Care Provider Felicita Tabares PharmD Unavailable [phone] Reason for Visit * Reason Onset Date Comments Med Refill 11/30/2024 Encounter Details Date Type Department Care Team ([facility] Contact Info) Description 11/30/2024 Telephone [facility] MEDICINE [address] [place] [address] Ely Lundberg MD [address] [place], [place] [phone] Med Refill Social History Tobacco Use Types [...] the past 12 months, has t he [employer], gas, oil or water company threatened to [...] medications have refills. Please advise patientto call [facility] and transfer medications. * Telephone [...] 100 UNIT/ML pen To be sent to: [facility], [place], [place] - [address] [place] [address] Pt is at a Rehab in [place] for about a Month and pt needs these medications to be sent to the Pharmacy over there. documented in this encounter Plan of Treatment Upcoming Encounters Date Type Department Care Team (Late st Contact Info) Description 04/21/2025 3:00 PM EDT Office Visit [facility] ADULT DENTAL [address] [place] [address] Briseyda Rosales [address] [place] [address] documented as of this encounter Goals Goal [...] documented as of this encounter Care Teams Body Corporate Manager Relationship Specialty Start Date End Date Ely Lundberg MD [address] [place] [phone] PCP - General Internal Medicine 10/27/13 Felicita Tabares PharmD [address] [place] [address] Pharmacist Internal Medicine 01/03/25 documented as of this encounter
--- OUTSIDE RECORDS SUMMARY | 2025-03-03 01:49 | XMS_ITS | Encounter Summary ---
Author Organization [employer] Address [address] [facility] 7 [place] [address] Care Team Providers Care Documentation Specialist Name Role Phone Ely Lundberg MD Primary Care Provider [phone] Felicita Tabares PharmD Unavailable [phone] Encounter Details Date Type Department Care Team (Late Contact Info) Description 10/15/2022 Orders Only [facility] MEDICINE [address] [place] [address] Ely Lundberg MD [address] [place] [address] Type 1 diabetes mellitus with hyperglycemia (CMS/HCC) [...] Description 04/21/2025 3:00 PM EDT Office Visit [facility] ADULT DENTAL [address] [place] [address] Briseyda Rosales [address] [place] [address] documented as of this encounter Goals Goal Patient Goal Type Associated Problems Recent Progress Patient-Stated? Author Hemoglobin A1c < 7 Result Component 12.7( 5 9:10 AM EST) No Jose Manuel Houser, Timothy documented as of this encounter Visit Diagnoses Diagnosis Type 1 diabetes mellitus with hyperglycemia (CMS/[facility])- Primary documented in this encounter Care Teams Documentation Specialist Relationship Specialty Start Date End Date Ely Lundberg MD [address] [place] [address] PCP - General Internal Medicine 10/27/13 Felicita Tabares PharmD [address] [place] [address] Pharmacist Internal Medicine 01/03/25 documented as of this encounter
--- OUTSIDE RECORDS SUMMARY | 2025-03-03 01:49 | XMS_ITS | Encounter Summary ---
Author Organization [employer] [facility] Address [address] [facility] 7 [place] [address] Care Team Providers Care Ecommerce Merchandising Manager Name Role Phone Ely Lundberg MD Primary Care Provider Felicita Tabares PharmD Unavailable [phone] Encounter Details Date Type Department Care Team (Latest Contact Info) Description 09/12/2022 Abstract [facility] CONVERSIONS Dental, Provider, DDS Social [...] Description 04/21/2025 3:00 PM EDT Office Visit [facility] ADULT DENTAL [address] [place] [address] Bobby, Briesyda [address] [place] [address] documented as of this encounter Visit Diagnoses Not on filedocumented in this encounter Care Teams Ecommerce Merchandising Manager Relationship Specialty Start Date End Date Ely Lundberg MD [address] [place] [address] PCP - General Internal Medicine 10/27/13 Felicita Tabares, PharmD [address] [place] [address] Pharmacist Internal Medicine 01/03/25 documented as of this encounter
--- OUTSIDE RECORDS SUMMARY | 2025-03-03 01:49 | XMS_ITS | Encounter Summary ---
Author Organization [employer] Address [address] [facility] [address] [place] [address] Care Team Providers Care Media Traffic Manager Name Role Phone Ely Lundberg MD Primary Care Provider [phone] Felicita Tabares PharmD Unavailable [phone] Encounter Details Date Type Department Care Team ([facility] Contact Info) Description 03/31/2024 Orders Only [facility] MED & PEDS [address] [place], [place] [phone] Ely Lundberg MD [address] [place] [address] Social History Tobacco Use Types Packs/Day Years [...] Description 04/21/2025 3:00 PM EDT Office Visit [facility] ADULT DENTAL [address] [place] [address] Bobby, Briseyda [address] [place] [address] documented as of this encounter Goals Goal Patient Goal Type Associated Problems Recent Progress Patient-Stated? Author Hemoglobin A1c < 7 Result Component 12.7( 9:10 AM EST) No DellogJose Manuel sams, PharmD documented as of this encounter Procedures [...] Whole Blood 120(H) 60 - 115 mg/dL [facility] Comment:METER #: [id number] 06/04/2024 6:49 AM EDT 06/04/2024 6:52 AM EDT us Generic External Data Provider LAB BLOOD ORDERAB LES Final Result [facility] [address] [place] [address] [phone] * XR Ribs 3 Views Left w/ Chest (04/19/2024 3:08 PM EDT) Anatomical Region Laterality Modality Radiographic Jovana ging 04/19/2024 3:08 PM EDT Narrative 04/20/2024 1:37 PM EDT ? [facility] ?[address] ?[place] [address] ?XRay Report ? Signed ? Patient: Eliud Nuñez ?MR#: [id number] ?? 1461 ? : 1985 ?Acct:[id number] ? Age/Sex: 39 / M ?ADM Date: 04/19/24 ? Loc: HO.ED ? Attending Dr: ? Ordering Physician: Allie Haider ?? Date of Service: 04/19/24 ?? Procedure(s): XR ribs LT min 3V w CXR1V ?? Accession Number(s): [id number] ? cc: Ely Lundberg MD; Allie Haider [...] 1333 ? DD/ 1508 ? TD/TT: ? All Round Butcher: ? Procedure Note Donfarater, Image - 04/20/[address] [address] XRay Report Signed Patient: Eliud NuñezMR#: [id number] 1461 : 1985Acct:[id number] Age/Sex: 39 / MADM Date: 04/19/24 Loc: HO.ED Attending Dr: Ordering Physician: Allie Haider Date of Service: 04/19/24 Procedure(s): XR ribs LT min 3V w CXR1V Accession Number(s): [id number] cc: Ely Lundberg MD; Allie Haider EXAMINATION: [...] in OV> 04/20/24 1333 DD/ 1508 TD/TT: All Round Butcher: us [facility] External Provider IMG XR PROCEDURES Final Result * XR Knee 1-2 Views Left (04/19/2024 3:08 PM EDT) Anatomical Region Laterality Modality Lower Extremities, Knee Left Radiogra phic Imaging 04/19/2024 3:08 PM EDT Narrative 04/20/2024 1:35 PM EDT ? [facility] ?[address] ?[place] [address] ?XRay Report ? Signed ? Patient: Nuñez,Eliud ?MR#: [id number] ?? 1461 ? : 1985 ?Acct:[id number] ? Age/Sex: 39 / M ?ADM Date: 04/19/24 ? Loc: HO.ED ? Attending Dr: ? Ordering Physician: Dayo Pizano MD ?? Date of Service: 04/19/24 ?? Procedure(s): XR knee LT 2V ?? Accession Number(s): [id number] ? cc: Ely Lundberg MD; Dayo Pizano [...] 1332 ? DD/ 1508 ? TD/TT: ? All Round Butcher: ? Procedure Note Karla, Image - 04/20/[address] [address] XRay Report Signed Patient: Eliud NuñezMR#: [id number] 1461 : 1985Acct:[id number] Age/Sex: 39 / MADM Date: 04/19/24 Loc: HO.ED Attending Dr: Ordering Physician: Dayo Pizano MD Date of Service: 04/19/24 Procedure(s): XR knee LT 2V Accession Number(s): [id number] cc: Ely Lundberg MD; Dayo Pizano MD [...] in OV> 04/20/24 1332 DD/ 1508 TD/TT: All Round Butcher: [facility] External Provider IMG XR PROCEDURES Final Result * XR Shoulder 2+ Views Left (04/19/2024 3:08 PM EDT) Anatomical Region Laterality Modality Upper Extremities, Shoulder Left Radi ographic Imaging 04/19/2024 3:08 PM EDT Narrative 04/20/2024 1:32 PM EDT ? [facility] ?[address] ?[place] [address] ?XRay Report ? Signed ? Patient: Eliud Nuñez ?MR#: [id number] ?? 1461 ? : 1985 ?Acct:[id number] ? Age/Sex: 39 / M ?ADM Date: 04/19/24 ? Loc: HO.ED ? Attending Dr: ? Ordering Physician: Dayo Pizano MD ?? Date of Service: 04/19/24 ?? Procedure(s): XR shoulder LT min 2V ?? Accession Number(s): [id number] ? cc: Ely Lundberg MD; Dayo Pizano [...] 1328 ? DD/ 1508 ? TD/TT: ? All Round Butcher: ? Procedure Note Karla, Kwesi - 04/20/[address] [address] XRay Report Signed Patient: Eliud NuñezMR#: [id number] 1461 : 1985Acct:[id number] Age/Sex: 39 / MADM Date: 04/19/24 Loc: HO.ED Attending Dr: Ordering Physician: Dayo Pizano MD Date of Service: 04/19/24 Procedure(s): XR shoulder LT min 2V Accession Number(s): [id number] cc: Ely Lundberg MD; Dyao Pizano MD EXAMINATION: XR SHOULDER, LEFT CLINICAL [...] in OV> 04/20/24 1328 DD/ 1508 TD/TT: All Round Butcher: [facility] External Provider IMG XR PROCEDURES Final Result * Glucose, Whole Blood (04/19/2024 2:32 PM EDT) Glucose, Whole Blood 68 60 - 115 mg/dL [facility] Comment:METER #: [id number] 04/19/2024 2:32 PM EDT 04/19/2024 2:35 PM EDT us Generic External Data Provider LAB BLOOD ORDERAB LES Final Result [facility] [address] [place] [address] [phone] documented in this encounter Visit Diagnoses Not on filedocumented in this encounter Additional Health Concerns Assessment Noted Time PHQ-9 Depression Total Score: 8 01/20/20 24 11:40 AM EDT documented as of this encounter Care Teams Media Traffic Manager Relationship Specialty Start Date End Date Ely Lundberg MD [address] [place] [phone] PCP - General Internal Medicine 10/27/13 Felicita Tabares PharmD [address] [place] [address] Pharmacist Internal Medicine 01/03/25 documented as of this encounter
--- OUTSIDE RECORDS SUMMARY | 2025-03-03 01:49 | XMS_ITS | Encounter Summary ---
Author Organization [employer] Address [address] [facility] [address] [place] [address] Care Team Providers Care Diamond Picker Name Role Phone Ely Lundberg MD Primary Care Provider Felicita Tabares PharmD Unavailable [phone] Encounter Details Date Type Department Care Team (Late Contact Info) Description 12/03/[address] [facility] CHC MED & PEDS [address] [place], [place] [phone] Ely Lundberg MD [address] [place] [address] Social History Tobacco Use Types Packs/Day Years [...] Encounters Date Type Department Care Team (Late Contact Info) Description 04/21/2025 3:00 PM EDT Office Visit [facility] ADULT DENTAL [address] [place], [place] [phone] Gregorio Rosalesaris [address] [place] [address] documented as of this encounter Goals Goal Patient Goal Type Associated Problems Recent Progress Patient-Stated? Author Hemoglobin A1c < 7 Result Component 12.7( 9:10 AM EST) No Dellogono, Jose Manuel, PharmD documented as of this encounter Visit Diagnoses Not on filedocumented in this encounter Care Teams Diamond Picker Relationship Specialty Start Date End Date Ely Lundberg MD [address] [place] [phone] PCP - General Internal Medicine 10/27/13 Felicita Tabares PharmD [address] [place] [phone] Pharmacist Internal Medicine 01/03/25 documented as of this encounter
[2025-03-03 01:53] LABS: Glucose, Whole Blood 68 mg/dL (60-115)
--- NOTE | 2025-03-03 01:53 | PC.NURSE ---
pt blood sugar 68. given sandwich and des claudio per request
[2025-03-03] MEDS: Diphth,Pertus(ACell),Tet Adult 0.5 ML SYRINGE IM (01:54)
[2025-03-03] MEDS: Acetaminophen 325 MG TABLET 975 MG PO (01:55)
--- NOTE | 2025-03-03 02:12 | PC.NURSE ---
repeat glucose 106
[2025-03-03 02:13] VITALS: BP 111/60; PULSE 85; RESP 17; TEMP 36.6; O2SAT 99
[2025-03-03 02:13] LABS: Glucose, Whole Blood 106 mg/dL (60-115)
== END 2025-03-03 02:13 | disposition home or self-care (01) ==
PROVIDERS: Emergency Provider Emergency Medicine Emergency Medical Services; PCP Internal Medicine
DX: S01.112A Laceration without foreign body of left eyelid and periocular area, initial encounter (principal); S06.0X0A Concussion without loss of consciousness, initial encounter; Y04.2XXA Assault by strike against or bumped into by another person, initial encounter; E11.9 Type 2 diabetes mellitus without complications; F16.20 Hallucinogen dependence, uncomplicated; F11.10 Opioid abuse, uncomplicated; F17.210 Nicotine dependence, cigarettes, uncomplicated; Z23 Encounter for immunization; Z79.4 Long term (current) use of insulin; Y93.9 Activity, unspecified; Y92.9 Unspecified place or not applicable; Y99.9 Unspecified external cause status
CPT/HCPCS: 82947; 90471; 90715; 99283; 99284

== ENCOUNTER 2025-03-07 15:06 | Emergency (ER) | payer MEDICARE, MEDICAID, SELFPAY ==
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
[2025-03-07 15:25] VITALS: BP 116/67; PULSE 115; RESP 20; TEMP 36.2; O2SAT 99; BMI 20.6
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
[2025-03-07 16:30] LABS: MANUAL DIFF FLAG NO
[2025-03-07 16:33] LABS: Basophils Percent Auto 0.3 % (0-2); Eosinophils Absolute Auto 0.1 X10*3/uL (0.0-0.4); Eosinophils Percent Auto 1.9 % (0-4); Hematocrit 43.9 % (42.0-52.0); Hemoglobin 14.6 g/dl (14.0-18.0); Imm Gran Abs Auto 0.01 X10*3/uL (0.00-0.03); Imm Gran Pct Auto 0.2 % (0.0-0.4); Lymphocytes Absolute Auto 1.6 X10*3/uL (1.2-4.9); Lymphocytes Percent Auto 27.9 % (20-40); Mean Corpuscular HGB Conc 33.3 g/dl (31.0-36.0); Mean Corpuscular Hemoglobin 28.4 pg (27.0-33.0); Mean Corpuscular Volume 85.4 fL (80.0-98.0); Mean Platelet Volume 10.2 fL (9.4-12.4); Monocytes Absolute Auto 0.5 X10*3/uL (0.1-1.2); Monocytes Percent Auto 8.1 % (2-11); Neutrophils Absolute Auto 3.6 x10*3/uL (2.0-8.3); Neutrophils Percent Auto 61.6 % (45-73); Platelet Count 200 X10*3/uL (160-400); Red Blood Count 5.14 X10*6/uL (4.60-5.80); Red Cell Distribution Width 13.1 % (11.0-16.0); White Blood Count 5.8 X10*3/uL (4.8-10.8)
[2025-03-07 16:51] LABS: Alanine Aminotransferase 22 U/L (0-40); Alkaline Phosphatase 109 U/L (39-117); Anion Gap 14 (12-20); Aspartate Amino Transferase 21 U/L (5-37); Bilirubin Total 0.5 mg/dL (0.0-1.0); Blood Urea Nitrogen 15 mg/dL (9-16); Calcium 9.1 mg/dL (8.4-10.2); Carbon Dioxide 23 mmol/L (22-29); Chloride 103 mmol/L (96-108); Creatinine Clr Calc Pharmacy 107.5; Estimated Glomerular Filt Rate > 60; Ethanol < 10 mg/dL; Glucose Random 389 mg/dL (60-115); Potassium 4.8 mmol/L (3.3-5.1); Sodium 135 mmol/L (135-145); Total Protein 6.7 g/dL (6.5-8.0)
--- NOTE | 2025-03-07 20:39 | PC.NURSE ---
Safety search done by Security at bedside.
--- NOTE | 2025-03-07 20:40 | PC.NURSE ---
Pt A&Ox3, denies SI/HI, requesting detox.
--- OUTSIDE RECORDS SUMMARY | 2025-03-07 20:45 | XMS_ITS | Encounter Summary ---
Author Organization [employer] Address [address] [facility] 7t [place] [address] Care Team Providers Care Corrugator Operator Name Role Phone Ely Lundberg MD Primary Care Provider [phone] Felicita Tabares PharmD Unavailable [phone] Encounter Details Date Type Department Care Team ([facility] Contact Info) Description 03/31/2024 Orders Only [facility] CHC MED & PEDS [address] [place], [place] [phone] Ely Lundberg MD [address] [place] [address] Social History Tobacco Use Types Packs/Day Years [...] Care Team (Late st Contact Info) Description 03/30/2025 9:00 AM EDT Office Visit [facility] CHC MED & PEDS [address] [place] [address] Ely Lundberg MD [address] [place] [address] 04/21/2025 3:00 PM EDT Office Visit [facility] ADULT DENTAL [address] [place], [place] [phone] Bobby, Briseyda [address] [place] [address] documented as of this encounter Goals Goal [...] Whole Blood 120(H) 60 - 115 mg/dL [facility] Comment:METER #: [id number] 06/04/2024 6:49 AM EDT 06/04/2024 6:52 AM EDT us Generic External Data Provider LAB BLOOD ORDERAB LES Final Result [facility] [address] [place], [place] [phone] * XR Ribs 3 Views Left w/ Chest (04/19/2024 3:08 PM EDT) Anatomical Region Laterality Modality Radiographic Jovana ging 04/19/2024 3:08 PM EDT Narrative 04/20/2024 1:37 PM EDT ? [facility] ?[address] ?[place] [address] ?XRay Report ? Signed ? Patient: Nuñez,Eliud ?MR#: [id number] ?? 1461 ? : 1985 ?Acct:[id number] ? Age/Sex: 39 / M ?ADM Date: 04/19/24 ? Loc: HO.ED ? Attending Dr: ? Ordering Physician: Allie Haider ?? Date of Service: 04/19/24 ?? Procedure(s): XR ribs LT min 3V w CXR1V ?? Accession Number(s): [id number] ? cc: Ely Lundberg MD; Allie Haider [...] 1333 ? DD/ 1508 ? TD/TT: ? Manager Bakery: ? Procedure Note Kwesi Acosta - 04/20/[address] [address] XRay Report Signed Patient: Eliud NuñezMR#: [id number] 1461 : 1985Acct:[id number] Age/Sex: 39 / MADM Date: 04/19/24 Loc: HO.ED Attending Dr: Ordering Physician: Allie Haider Date of Service: 04/19/24 Procedure(s): XR ribs LT min 3V w CXR1V Accession Number(s): [id number] cc: Ely Lundberg MD; Allie Haider EXAMINATION: [...] in OV> 04/20/24 1333 DD/ 1508 TD/TT: Manager Bakery: [facility] External Provider IMG XR PROCEDURES Final Result * XR Knee 1-2 Views Left (04/19/2024 3:08 PM EDT) Anatomical Region Laterality Modality Lower Extremities, Knee Left [facility] 04/19/2024 3:08 PM EDT Narrative 04/20/2024 1:35 PM EDT ? [facility] ?[address] ?[place] [address] ?XRay Report ? Signed ? Patient: Nuñez,Eliud ?MR#: [id number] ?? 1461 ? : 1985 ?Acct:[id number] ? Age/Sex: 39 / M ?ADM Date: 04/19/24 ? Loc: HO.ED ? Attending Dr: ? Ordering Physician: Dayo Pizano MD ?? Date of Service: 04/19/24 ?? Procedure(s): XR knee LT 2V ?? Accession Number(s): [id number] ? cc: Ely Lundberg MD; Dayo Pizano [...] 1332 ? DD/ 1508 ? TD/TT: ? Manager Bakery: ? Procedure Note Karla, Image - 04/20/[address] [address] XRay Report Signed Patient: Eliud NuñezMR#: [id number] 1461 : 1985Acct:[id number] Age/Sex: 39 / MADM Date: 04/19/24 Loc: HO.ED Attending Dr: Ordering Physician: Dayo Pizano MD Date of Service: 04/19/24 Procedure(s): XR knee LT 2V Accession Number(s): [id number] cc: Ely Lundberg MD; Dayo Pizano MD [...] in OV> 04/20/24 1332 DD/ 1508 TD/TT: Manager Bakery: [facility] External Provider IMG XR PROCEDURES Final Result * XR Shoulder 2+ Views Left (04/19/2024 3:08 PM EDT) Anatomical Region Laterality Modality Upper Extremities, Shoulder Left Radi ographic Imaging 04/19/2024 3:08 PM EDT Narrative 04/20/2024 1:32 PM EDT ? [facility] ?[address] ?[place] [address] ?XRay Report ? Signed ? Patient: Joaquin,Eliud ?MR#: [id number] ?? 1461 ? : 1985 ?Acct:[id number] ? Age/Sex: 39 / M ?ADM Date: 04/19/24 ? Loc: HO.ED ? Attending Dr: ? Ordering Physician: Dayo Pizano MD ?? Date of Service: 04/19/24 ?? Procedure(s): XR shoulder LT min 2V ?? Accession Number(s): [id number] ? cc: Ely Lundberg MD; Dayo Pizano [...] 1328 ? DD/ 1508 ? TD/TT: ? Manager Bakery: ? Procedure Note Donotkyrainterpreter, Image - 04/20/[address] [address] XRay Report Signed Patient: Eliud NuñezMR#: [id number] 1461 : 1985Acct:[id number] Age/Sex: 39 / MADM Date: 04/19/24 Loc: .ED Attending Dr: Ordering Physician: Dayo Pizano MD Date of Service: 04/19/24 Procedure(s): XR shoulder LT min 2V Accession Number(s): [id number] cc: Ely Lundberg MD; Dayo Pizano MD [...] in OV> 04/20/24 1328 DD/ 1508 TD/TT: Manager Bakery: [facility] External Provider IMG XR PROCEDURES Final Result * Glucose, Whole Blood (04/19/2024 2:32 PM EDT) Glucose, Whole Blood 68 60 - 115 mg/dL [facility] Comment:METER #: [id number] 04/19/2024 2:32 PM EDT 04/19/2024 2:35 PM EDT us Generic External Data Provider LAB BLOOD ORDERAB LES Final Result [facility] [address] [place] [address] [phone] documented in this encounter Visit Diagnoses Not on filedocumented in this encounter Additional Health Concerns Assessment Noted Time PHQ-9 Depression Total Score: 8 01/20/20 24 11:40 AM EDT documented as of this encounter Care Teams Corrugator Operator Relationship Specialty Start Date End Date Ely Lundberg MD [address] [place] [address] PCP - General Internal Medicine 10/27/13 Felicita Tabares PharmD [address] [place] [address] Pharmacist Internal Medicine 01/03/25 documented as of this encounter
--- OUTSIDE RECORDS SUMMARY | 2025-03-07 20:45 | XMS_ITS | Encounter Summary ---
Author Organization [employer] Address [address] [place] [address] 7 [place] [address] Care Team Providers Care Printed Circuit Boards Contact Printer Name Role Phone Ely Lundberg MD Primary Care Provider Felicita Tabares PharmD Unavailable [phone] Reason for Referral * Consultation (Routine) - Closed Specialty Diagnoses / Procedures Referred By John weiner Referred To Contact Nutrition Diagnoses Type 1 diabetes mellitus with hyperglycemia (CMS/HCC) Ely Lundberg MD [address] [place] [address] Phone: tel: fax: Referral ID Status Reason Start Date Expiration Date V isits Requested Visits Authorized [id number] Closed Consult and Treat 12/21/2024 12/21/2025 1 1 Encounter Details Date Type Department Care Team ([facility] Contact Info) Description 12/21/2024 Orders Only [facility] CHC MED & PEDS [address] [place], [place] [phone] Ely Lundberg MD [address] [place], [place] [phone] Type 1 diabetes mellitus with hyperglycemia (CMS/HCC) [...] Description 03/30/2025 9:00 AM EDT Office Visit [facility] CHC MED & PEDS [address] [place] [address] Ely Lundberg MD [address] [place] [address] 04/21/2025 3:00 PM EDT Office Visit [facility] ADULT DENTAL [address] [place] [address] Bobby Briseyda [address] [place] [address] Scheduled Referrals Name Type Priority Associated Diagnoses Orde r Schedule Referral to Nutrition Therapy Outpatient Referral Routine Type 1 diabetes mellitus with hyperglycemia ([facility]) Expected: 12/21/2024 (Approximate), Expires: 12/21/2025 documented as of this encounter Goals Goal Patient Goal Type Associated Problems Recent Progress Patient-Stated? Author Hemoglobin A1c < 7 Result Component 12.7( 5 9:10 AM EST) No Jose Manuel Houser, MoisesD documented as of this encounter Visit Diagnoses Diagnosis Type 1 diabetes mellitus with hyperglycemia ([facility])- Primary Mental disorder Unspecified nonpsychotic mental disorder documented in this encounter Additional Health Concerns Assessment Noted Time PHQ-9 Depression Total Score: 8 01/20/20 24 11:40 AM EDT documented as of this encounter Care Teams Printed Circuit Boards Contact Printer Relationship Specialty Start Date End Date Ely Lundberg MD [address] [place] [address] PCP - General Internal Medicine 10/27/13 Felicita Tabares PharmD [address] [place] [address] Pharmacist Internal Medicine 01/03/25 documented as of this encounter
--- OUTSIDE RECORDS SUMMARY | 2025-03-07 20:45 | XMS_ITS | Encounter Summary ---
Author Organization [employer] Address [address] [facility] [address] [place] [address] Care Team Providers Care Barrel Ribs Solderer Name Role Phone Ely Lundberg MD Primary Care Provider Felicita Tabares PharmD Unavailable [phone] Encounter Details Date Type Department Care Team ([facility] Contact Info) Description 11/16/2022 Orders Only [facility] [address] [place] [address] Ely Lundberg MD [address] [place], [place] [phone] Encounter for counseling before starting and about [...] Department Care Team (Late Contact Info) Description 03/30/2025 9:00 AM EDT Office Visit [facility] CHC MED & PEDS [address] [place] [address] Ely Lundberg MD [address] [place], [place] [phone] 04/21/2025 3:00 PM EDT Office Visit [facility] ADULT DENTAL [address] [place] [address] Briseyda Rosales [address] [place] [address] documented as of this encounter Goals Goal Patient Goal Type Associated Problems Recent Progress Patient-Stated? Author Hemoglobin A1c < 7 Result Component 12.7( 5 9:10 AM EST) No Jose Manuel Houser, PharmD documented as of this encounter Visit Diagnoses Diagnosis Encounter for counseling before starting and about pre-exposure prophylaxis for HIV- Primary documented in this encounter Care Teams Barrel Ribs Solderer Relationship Specialty Start Date End Date Ely Lundberg MD [address] [place] [address] PCP - General Internal Medicine 10/27/13 Felicita Tabares PharmD [address] [place] [address] Pharmacist Internal Medicine 01/03/25 documented as of this encounter
--- OUTSIDE RECORDS SUMMARY | 2025-03-07 20:45 | XMS_ITS | Encounter Summary ---
Author Organization [employer] [facility] Address [address] [facility] 7 [place] [address] Care Team Providers Care Egg Producer Name Role Phone Ely Lundberg MD Primary Care Provider Felicita Tabares PharmD Unavailable [phone] Encounter Details Date Type Department Care Team (Latest Contact Info) Description 09/12/2022 Abstract [facility] CONVERSIONS Dental, Provider, DDS Social History Tobacco [...] Care Team ( st Contact Info) Description 03/30/2025 9:00 AM EDT Office Visit [facility] CHC MED & PEDS [address] [place] [address] Ely Lundberg MD [address] [place] [address] 04/21/2025 3:00 PM EDT Office Visit [facility] ADULT DENTAL [address] [place] [address] Gregorio Rosalesaris [address] [place] [address] documented as of this encounter Visit Diagnoses Not on filedocumented in this encounter Care Teams Egg Producer Relationship Specialty Start Date End Date Ely Lundberg MD [address] [place] [address] PCP - General Internal Medicine 10/27/13 Felicita Tabares PharmD [address] [place] [address] Pharmacist Internal Medicine 01/03/25 documented as of this encounter
--- OUTSIDE RECORDS SUMMARY | 2025-03-07 20:45 | XMS_ITS | Encounter Summary ---
Author Organization [employer] [facility] Address [address] [facility] 7 [place] [address] Care Team Providers Care Hole Digger Truck Driver Name Role Phone Ely Lundberg MD Primary Care Provider Felicita Tabares PharmD Unavailable [phone] Encounter Details Date Type Department Care Team (Latest Contact Info) Description 06/03/2019 Abstract [facility] CONVERSIONS Dental, Provider, DDS Social History [...] [facility] [address] [place] [address] Ely Lundberg MD [address] [place] [address] 04/21/2025 3:00 PM EDT Office Visit [facility] ADULT DENTAL [address] [place] [address] Gregorio Rosalesaris [address] [place] [address] documented as of this encounter Visit Diagnoses Not on filedocumented in this encounter Care Teams Hole Digger Truck Driver Relationship Specialty Start Date End Date Ely Lundberg MD [address] [place] [address] PCP - General Internal Medicine 10/27/13 Felicita Tabares PharmD [address] [place] [address] Pharmacist Internal Medicine 01/03/25 documented as of this encounter
--- OUTSIDE RECORDS SUMMARY | 2025-03-07 20:45 | XMS_ITS | Clinical Summary ---
Author Organization [employer] Address [address] [place] [address] Care Team Providers Care Printing Plate Clerk Name Role Phone Ely Lundberg MD Primary Care Provider [phone] Felicita Tabares PharmD Unavailable Allergies Active Allergy Reactions Criticality Noted Date [...] stripIndications :Type 1 diabetes mellitus with hyperglycemia ([facility]) TEST BLOOD SUGAR THREE TIMES DAILY 100 strip 11 023 Active TRUEplus Lancets 33G miscIndications: Type 1 diabetes mellitus with hyperglycemia ([facility]) TEST BLOOD SUGAR THREE TIMES DAILY 100 [...] Type 1 diabetes mellitus with hyperglycemia (CMS/HCC) Use as instructed 100 each 11 Active ARIPiprazole (Abilify) 10 MG tablet Take [...] penIndications:T ype 1 diabetes mellitus with hyperglycemia (CMS/HCC) Inject [...] 15 UnitsIndications:Type 1 diabetes mellitus with hyperglycemia ([facility]) 15 Units SC Once 09/29/2024 A ctive [...] organization. Date Type Department Care Team Description 03/07/2025 Orders Only GENERIC EXTERNAL DATA DEPARTMENT Provider, Generic External Data 03/03/2025 Telephone [facility] [address] [place] [address] Alexandra Lua, Timothy 03/03/2025 Orders Only GENERIC EXTERNAL DATA DEPARTMENT Provider, Generic External Data 02/22/2025 Outside Procedure [facility] [address] [place] [address] Brian, Sylvia, OD Presbyopia (Primary Dx) 02/20/2025 9:00 AM EDT Office Visit [facility] [address] [place] [address] Sylvia Torres, OD Myopia of both eyes (Primary Dx) 01/30/2025 Orders Only GENERIC EXTERNAL DATA DEPARTMENT Provider, Generic External Data 01/28/2025 Orders Only GENERIC EXTERNAL DATA DEPARTMENT Provider, Generic External Data 01/24/2025 Telephone [facility] [address] [place] [address] Felicita Tabares PharmD 01/20/[address] [facility] () Department [address] [place] [phone] Provider, Population Health Generic 01/03/2025 Travel 12/21/2024 9:15 AM EST Office Visit [facility] [address] [place] [address] Ely Lundberg MD Tinea pedis of both feet (Primary Dx); Type 1 diabetes mellitus with hyperglycemia (CMS/HCC); Abrasion; Mental disorder 12/21/2024 Orders Only [facility] [address] [place] [address] Ely Lundberg MD Type 1 diabetes mellitus with hyperglycemia (CMS/HCC) (Primary Dx); Mental disorder 12/21/2024 Travel 12/20/2024 Patient Outreach [facility] [address] [place] [phone] Gokul Hahn Recovery Supports 12/20/2024 Telephone [facility] [address] [place] [address] Ely Lundberg MD Chart Prep 12/20/2024 Patient Outreach [facility] [address] [place] [phone] James Montgomery Recovery Supports 12/19/2024 Orders Only GENERIC EXTERNAL DATA DEPARTMENT Provider, Generic External Data 12/14/2024 Patient Outreach [address] [address] Ely Lundberg MD Transition Of Care (Tcm) (HDF scheduled) 12/12/2024 Orders Only GENERIC EXTERNAL DATA DEPARTMENT Provider, Generic External Data 12/12/2024 Patient Outreach [facility] [address] [place], [place] [phone] Huy Vazquez Recovery Supports from Last 3 [...] Description 03/30/2025 9:00 AM EDT Office Visit [facility] [address] [place] [address] Ely Lundberg MD [address] [place] [address] 04/21/2025 3:00 PM EDT Office Visit [facility] [address] [place] [address] Gregorio Rosalesaris [address] [place] [address] Health Maintenance Due Date Last Done Comments [...] 12/21/2025 12/21/2024 Depression Screening 12/21/2025 12/21/2024, 01/20/20 24 SDOH Screening 12/21/2025 12/21/2024 Tobacco Screening 12/21/2025 12/21/2024 Dental X-Ray: Full Mouth 10/30/2026 023, 09/12/2022, 06/03/2019, Additional history exists Zoster Vaccines (1 of 2) 02/11/2034 DTaP/Tdap/Td Vaccines (5 - Td or Tdap) 03/03/2035 03/03/2025, 07/26/2024, 01/04/2020, Additional history exists RSV Patients and Patients Aged 60 years [...] Priority Date/Time Associated Diagnosis Comments ETHANOL Routine 03/07/2025 4:18 PM EDT COMPREHENSIVE METABOLIC PANEL Routine 03/07/2025 4:18 PM EDT CBC WITH AUTO DIFFERENTIAL Routine 03/07/2025 4:18 PM EDT GLUCOSE, WHOLE BLOOD Routine 03/03/2025 2:07 AM EDT GLUCOSE, WHOLE BLOOD Routine 03/03/2025 1:49 AM EDT ACETAMINOPHEN LEVEL Routine 01/30/2025 1 :18 AM [...] Relevant to Health Maintenance Results * Ethanol (03/07/2025 4:18 PM EDT) Only the most recent of5 resultswithin the time period is included. ETHANOL (MG/DL) IN SER/PLAS <10 mg/dL [facility] Comment:Serum/plasma ethanol results are to be used formedical/treatment purposes only. 03/07/2025 4:18 PM EDT 03/07/2025 4:29 PM EDT us Generic External Data Provider LAB BLOOD ORDERAB LES Final Result [facility] [address] [place], [place] [phone] * CBC auto differential (03/07/2025 4:18 PM EDT) Only the most recent of3 resultswithin the time period is included. White Blood Count 5.8 4.8 - 10.8 X10*3/uL [facility] Red Blood Count 5.14 4.60 - 5.80 X10*6/uL [facility] Hemoglobin 14.6 14.0 - 18.0 g/dl [facility] Hematocrit 43.9 42.0 - 52.0 % [facility] Mean Corpuscular Volume 85.4 80.0 - 98.0 fL [facility] Mean Corpuscular Hemoglobin 28.4 27.0 - 33.0 pg [facility] Mean Corpuscular HGB Conc 33.3 31.0 - 36.0 g/dl [facility] Red Cell Distribution Width 13.1 11.0 - 16.0 % [facility] Platelet Count 200 160 - 400 X10*3/uL [facility] Mean Platelet Volume 10.2 9.4 - 12.4 fL [facility] Neutrophils Percent Auto 61.6 45 - 73 % [facility] Imm Gran Pct Auto 0.2 0.0 - 0.4 % [facility] Lymphocytes Percent Auto 27.9 20 - 40 % [facility] Monocytes Percent Auto 8.1 2 - 11 % [facility] Eosinophils Percent Auto 1.9 0 - 4 % [facility] Basophils Percent Auto 0.3 0 - 2 % [facility] NRBC Pct Auto 0.0 0.0 - 0.2 /100WBC [facility] Neutrophils Absolute Auto 3.6 2.0 - 8.3 x10*3/uL [facility] Imm Gran Abs Auto 0.01 0.00 - 0.03 X10*3/uL [facility] Lymphocytes Absolute Auto 1.6 1.2 - 4.9 X10*3/uL [facility] Monocytes Absolute Auto 0.5 0.1 - 1.2 X10*3/uL [facility] Eosinophils Absolute Auto 0.1 0.0 - 0.4 X10*3/uL [facility] Basophils Absolute Auto 0.0 0.0 - 0.2 X10*3/uL [facility] NRBC Abs Auto 0.000 0.0 - 0.012 X10*3/uL [facility] 03/07/2025 4:18 PM EDT 03/07/2025 4:29 PM EDT us Generic External Data Provider LAB BLOOD ORDERAB LES Final Result [facility] [address] [place] [phone] * (ABNORMAL) Comprehensive Metabolic Panel (03/07/2025 4:18 PM EDT) Only the most recent of4 resultswithin the time period is included. Sodium 135 135 - 145 mmol/L [facility] Potassium 4.8 3.3 - 5.1 mmol/L [facility] Comment:Slight Hemolysis.Int erpret result with caution. Chloride 103 96 - 108 mmol/L [facility] Carbon Dioxide 23 22 - 29 mmol/L [facility] Anion Gap 14 12 - 20 [facility] Urea Nitrogen (BUN) 15 9 - 16 mg/dL [facility] Creatinine, Serum 0.74 0.5 - 1.4 mg/dL [facility] Creatinine Clr Calc Pharmacy 107.5 [facility] Comment:eGFR (calculated fro m the MDRD study equation) and eCrCl(calculated from the Cockcroft-Gault equation) are based ondifferent parameters and may not yield comparable results.If eCrCl result is absurd, please check patient'sheight/weight. Estimated Glomerular Filt Rate >60 [facility] Comment:Chronic Kidney Disea se: Estimated GFR < 60 mL/min/1.56s3Fajqxz Kidney Disease: Estimated GFR < 15 mL/min/1.73m2 Glucose 389(HH) 60 - 115 mg/dL [facility] Comment:Critical value for t est(s): GLUR Results called to and readback by: ALFREDA Person calling: EJ Date: 03/07/25Time: 1650 Calcium 9.1 8.4 - 10.2 mg/dL [facility] Bilirubin, Total 0.5 0.0 - 1.0 mg/dL [facility] Aspartate Amino Transferase 21 5 - 37 U/L [facility] Comment:Slight Hemolysis.Int erpret result with caution. Alanine Aminotransferase 22 0 - 40 U/L [facility] Total Protein 6.7 6.5 - 8.0 g/dL [facility] Albumin Level 4.0 3.5 - 5.0 g/dL [facility] Alkaline Phosphatase 109 39 - 117 U/L [facility] 03/07/2025 4:18 PM EDT 03/07/2025 4:29 PM EDT us Generic External Data Provider LAB BLOOD ORDERAB LES Final Result Performing Organization Address [facility] Co de Phone Number [facility] [address] [place] [phone] * Glucose, Whole Blood (03/03/2025 2:07 AM EDT) Only the most recent of5 resultswithin the time period is included. Glucose, Whole Blood 106 60 - 115 mg/dL [facility] Comment:METER #: [id number] 03/03/2025 2:07 AM EDT 03/03/2025 2:13 AM EDT us Generic External Data Provider LAB BLOOD ORDERAB LES Final Result Performing Organization Address [facility]/ZIP Co de Phone Number [facility] [address] [place] [phone] * SARS-CoV-2 RNA, Influenza A/B, and RSV RNA, Ql NAAT (01/30/2025 1:18 AM EDT) Only the most recent of3 resultswithin the time period is included. Influenza A PCR NEGATIVE Negative [facility] Influenza B PCR NEGATIVE Negative [facility] Resp Syncy Virus RNA Qual PCR NEGATIVE Negative [facility] SARS COV2 PCR NEGATIVE Negative [facility] Comment:All test results mus t [...] use by authorized laboratories.Testing performed on the [email or web address] GeneXpert utilizingreal-time RT-PCR.All SARS CoV2 and positive influenza A/B results arereported to [facility]. 01/30/2025 1:18 AM EDT 01/30/2025 1:24 AM EDT Generic External Data Provider LAB MICROBIOLOGY - GENERAL ORDERABLES Final Result [facility] [address] [place] [phone] * (ABNORMAL) Drug Monitoring, Panel 1, Screen, Urine (01/30/2025 1:18 AM EDT) Only the most recent of3 resultswithin the time period is included. Opiate Screen Urine Not Detected Not Detect [facility] Comment:Opiate cut-off is 30 0 ng/mL.Positive results are unconfirmed and should not be used fornon-medical purposes. Barbiturates, Urine Not Detected Not Detect [facility] Comment:Barbiturate cut-off is 200 ng/mL.Positive results are unconfirmed and should not be used fornon-medical purposes. Phencyclidine Screen Urine POSITIVE(A) Not Detect [facility] Comment:Phencyclidine cut-of f is 25 ng/mL.Positive results are unconfirmed and should not be used fornon-medical purposes. Amphetamine Screen Urine Not Detected Not Detect [facility] Comment:Amphetamine cut-off is 1000 ng/mL.Positive results are unconfirmed and should not be used fornon-medical purposes. Benzodiazepines Screen Urine Not Detected Not Detect [facility] Comment:Benzodiazepine cut-o ff is 200 ng/mL.Positive results are unconfirmed and should not be used fornon-medical purposes. Cocaine Screen Urine Not Detected Not Detect [facility] Comment:Cocaine cut-off is 3 00 ng/mL.Positive results are unconfirmed and should not be used fornon-medical purposes. Cannabinoid Screen Urine Not Detected Not Detect [facility] Comment:Cannabinoid cut-off is 50 ng/mL.Positive results are unconfirmed and should not be used fornon-medical purposes. Methadone Screen, Urine Not Detected Not Detect ng/mL [facility] Comment:Methadone cut-off is 300 ng/mL.Positive results are unconfirmed and should not be used fornon-medical purposes. FENTANYL URINE Not Detected Not Detect [facility] Comment:Fentanyl cut-off is 1 ng/mL.Positive results are unconfirmed and should not be used fornon-medical purposes. Oxycodone Urine Screen Not Detected Not Detect ng/mL [facility] Comment:Oxycodone cut-off is 100 ng/mL.Positive results are unconfirmed and should not be used fornon-medical purposes. Buprenorphine Screen Not Detected Not Detect ng/mL [facility] Comment:Buprenorphine cut-of f is 5 ng/mL.Positive results are unconfirmed and should not be used fornon-medical purposes. 01/30/2025 1:18 AM EDT 01/30/2025 1:24 AM EDT us Generic External Data Provider LAB URINE ORDERAB LES Final Result [facility] [address] [place] [address] [phone] * Culture, Urine, Routine (01/30/2025 1:18 AM EDT) Urine Urine specimen obtained by clean catch procedure / Unknown 01/30/2025 1:18 AM EDT 01/30/2025 1:24 AM EDT Comment:[facility] Narrative [facility] - 01/31/2025 10:50 AM EDT Urine Culture Report Result Urine Culture < 10,000 cfu/ml Specimen Source: Urine clean catch Generic External Data Provider LAB MICROBIOLOGY - GENERAL ORDERABLES Final Result Performing Organization Address [facility] Co de Phone Number [facility] [address] [place] [phone] * Magnesium (01/30/2025 1:18 AM EDT) Only the most recent of3 resultswithin the time period is included. Magnesium 1.7 1.6 - 2.6 mg/dL [facility] 01/30/2025 1:18 AM EDT 01/30/2025 1:24 AM EDT Generic External Data Provider LAB BLOOD ORDERAB LES Final Result Performing Organization Address [facility] Co de Phone Number [facility] [address] [place] [phone] * Creatine Kinase, Total (01/30/2025 1:18 AM EDT) Creatine Kinase Total 112 38 - 174 U/L [facility] 01/30/2025 1:18 AM EDT 01/30/2025 1:24 AM EDT Generic External Data Provider LAB BLOOD ORDERAB LES Final Result Performing Organization Address [facility] Co de Phone Number [facility] [address] [place] [phone] * Acetaminophen level (01/30/2025 1:18 AM EDT) Only the most recent of3 resultswithin the time period is included. Acetaminophen LAB <3 <30 mcg/mL [facility] 01/30/2025 1:18 AM EDT 01/30/2025 1:24 AM EDT Generic External Data Provider LAB BLOOD ORDERAB LES Final Result Performing Organization Address [facility] Co de Phone Number [facility] [address] [place] [phone] * (ABNORMAL) Salicylate (01/30/2025 1:18 AM EDT) Only the most recent of3 resultswithin the time period is included. Salicylate <5.0(L) 15 - 30 mg/dL [facility] 01/30/2025 1:18 AM EDT 01/30/2025 1:24 AM EDT Generic External Data Provider LAB BLOOD ORDERAB LES Final Result Performing Organization Address [facility] Co de Phone Number [facility] [address] [place] [phone] * (ABNORMAL) Hepatic Function Panel (01/30/2025 1:18 AM EDT) Bilirubin, Total 1.2(H) 0.0 - 1.0 mg/dL [facility] Bilirubin, Direct 0.3 0.0 - 0.5 mg/dL [facility] Aspartate Amino Transferase 24 5 - 37 U/L [facility] Alanine Aminotransferase 34 0 - 40 U/L [facility] Total Protein 6.4(L) 6.5 - 8.0 g/dL [facility] Albumin Level 3.7 3.5 - 5.0 g/dL [facility] Alkaline Phosphatase 94 39 - 117 U/L [facility] 01/30/2025 1:18 AM EDT 01/30/2025 1:24 AM EDT us Generic External Data Provider LAB BLOOD ORDERAB LES Final Result Performing Organization Address [facility]/ZIP Co de Phone Number [facility] [address] [place] [phone] * (ABNORMAL) Basic Metabolic Panel (01/30/2025 1:18 AM EDT) Sodium 136 135 - 145 mmol/L [facility] Potassium 4.4 3.3 - 5.1 mmol/L [facility] Chloride 103 96 - 108 mmol/L [facility] Carbon Dioxide 25 22 - 29 mmol/L [facility] Anion Gap 12 12 - 20 [facility] Urea Nitrogen (BUN) 13 9 - 16 mg/dL [facility] Creatinine, Serum 0.76 0.5 - 1.4 mg/dL [facility] Creatinine Clr Calc Pharmacy 98.1 [facility] Comment:eGFR (calculated fro m the MDRD study equation) and eCrCl(calculated from the Cockcroft-Gault equation) are based ondifferent parameters and may not yield comparable results.If eCrCl result is absurd, please check patient'sheight/weight. Estimated Glomerular Filt Rate >60 [facility] Comment:Chronic Kidney Disea se: Estimated GFR < 60 mL/min/1.30s8Yryaef Kidney Disease: Estimated GFR < 15 mL/min/1.73m2 Glucose 265(H) 60 - 115 mg/dL [facility] Calcium 9.4 8.4 - 10.2 mg/dL [facility] 01/30/2025 1:18 AM EDT 01/30/2025 1:24 AM EDT us Generic External Data Provider LAB BLOOD ORDERAB LES Final Result Performing Organization Address [facility]/ZIP Co de Phone Number [facility] [address] [place] [phone] * CT Abdomen Pelvis w/ Contrast (01/28/2025 11:26 AM EDT) Anatomical Region Laterality Modality Body, Pelvis, Abdomen Computed T omography 01/28/2025 11:2 6 AM EDT Narrative 01/28/2025 11:29 AM EDT ? [facility] ?[address] ?[place] [address] ? CT Scan Report ? Signed ? Patient: Nuñez,Eliud ?MR#: [id number] ?? [id number] ? : 1985 ?Acct:[id number] ? Age/Sex: 39 / M ?ADM Date: 01/28/25 ? Loc: HO.ED ? Attending Dr: ? Ordering Physician: Akhil Boggs ?? Date of Service: 01/28/25 ?? Procedure(s): CT abdomen pelvis w IV con ?? Accession Number(s): [id number] ? cc: Eyl Lundberg MD; Akhil Boggs ? Report Number: ?? [id number]: Total DLP = ??299.00 mGy-cm ? CLINICAL [...] DD/ 1126 ? TD/TT: 01/28/25 1126 ? Scuba Diving Instructor: ? Procedure Note Donotuseinterpreter, Image - 01/28/[address] [place] [address] [address] Scan Report Signed Patient: Eliud NuñezMR#: [id number] : 1985Acct:[id number] Age/Sex: 39 / MADM Date: 01/28/25 Loc: HO.ED Attending Dr: Ordering Physician: Akhil Boggs Date of Service: 01/28/25 Procedure(s): CT abdomen pelvis w IV con Accession Number(s): [id number] cc: Ely Lundberg MD; Akhil Boggs Report Number: [id number]: Total DLP = 299.00 mGy-cm CLINICAL HISTORY: [...] by Sadie Yanez MD in OV> 01/28/25 112 DD/ 25 TD/TT: 01/28/251125 Scuba Diving Instructor: [facility] External Provider IMG CT PROCEDURES Edited Result - Final * (ABNORMAL) VENOUS BLOOD GAS (01/28/2025 9:21 AM EDT) VBG pH 7.40 7.32 - 7.43 [facility] Comment:METER #: [id number] additional_comment: Cb jonny VBG PCO2 45 mmHg [facility] Comment:METER #: [id number] additional_comment: Cb dayanadj VBG PO2 38 mmHg [facility] Comment:METER #: [id number] additional_comment: Cb jonny VBG Base Excess 3.0 mmol/L [facility] Comment:METER #: [id number] additional_comment: Keshawn fuller VBG HCO3 28(H) 22 - 26 mmol/L [facility] Comment:METER #: [id number] additional_comment: Keshawn fuller O2 Sat, Ramesh 68.0 % [facility] Comment:METER #: [id number] additional_comment: Cb jonny 01/28/2025 9:21 AM EDT 01/28/2025 9:25 AM EDT us Generic External Data Provider LAB BLOOD ORDERAB LES Final Result Performing Organization Address City/[facility] Co de Phone Number [facility] [address] [place] [phone] * Lipase (01/28/2025 9:16 AM EDT) Lipase 18 8 - 78 U/L [facility] 01/28/2025 9:16 AM EDT 01/28/2025 9:19 AM EDT Generic External Data Provider LAB BLOOD ORDERAB LES Final Result Performing Organization Address [facility]/State/ZIP Co de Phone Number [facility] [address] [place] [phone] * Beta-Hydroxybutyrate (01/28/2025 9:15 AM EDT) [facility] Beta-Hydroxybut yrate 0.14 0.02 - 0.27 mmol/L [facility] 01/28/2025 9:15 AM EDT 01/28/2025 9:19 AM EDT Generic External Data Provider LAB BLOOD ORDERAB LES Final Result [facility] [address] [place] [phone] * (ABNORMAL) POCT glucose manually resulted (01/03/2025 2:54 PM EST) Only the most recent of2 resultswithin the time period is included. [facility] Glucose Blood, POC 237(A) 60 - 200 mg/dL QC Media Lot # [id number] Lot# Expiration Date Blood Capillary blood specimen / Unknown 01/03/2025 2:54 PM EST Ely Lundberg MD POINT OF CARE TEST ENTER/ED IT ORDERABLES Final Result * (ABNORMAL) POCT HGB A1C (12/21/2024 9:10 AM EST) [facility] Hemoglobin A1C 12.7(A) 4.0 - 6.0 % QC Media Lot # [id number] Lot# Expiration Date Blood 12/21/2024 9:10 AM EST Ely Lundberg MD POINT OF CARE TEST ENTER/ED IT ORDERABLES Final Result * Hold Red (12/12/2024 1:21 PM EST) [facility] Hold Red See Note [facility] Comment:Specimen held untest ed for 24 hours; Call to requestChemistry testing. 12/12/2024 1:21 PM EST 12/12/2024 1:43 PM EST Generic External Data Provider LAB BLOOD ORDERAB LES Final Result Performing Organization Address [facility] Co de Phone Number [facility] [address] [place] [phone] * (ABNORMAL) Urinalysis Complete (12/12/2024 1:20 PM EST) Color Urine Yellow [facility] Appearance Urine Clear [facility] PH 6.0 5.0 - 9.0 [facility] Glucose Urine UA >=1000(A) Negative mg/dL [facility] Urine Blood Negative Negative [facility] Specific Mcbrides - Urine >=1.030(H) 1.005 - 1.025 [facility] Urine Protein Negative Neg-Trace mg/dL [facility] Urine Ketones 80 Negative mg/dL [facility] Nitrite Urine Negative Negative [facility] Leukocyte Esterase Urine Negative Negative [facility] RBC Urine 0-2 0 - 2 /HPF [facility] Urine WBC 0-5 0 - 5 /HPF [facility] Urine Squamous Epithelial Cell 0-2 0 - 2 /HPF [facility] Urine Bacteria None Seen None Seen [facility] Hyaline Casts, Urine 0-2 0 - 2 /LPF [facility] 12/12/2024 1:20 PM EST 12/12/2024 1:32 PM EST us Generic External Data Provider LAB URINE ORDERAB LES Final Result Performing Organization Address [facility]/ZIP Co de Phone Number [facility] [address] [place] [phone] * Hepatitis C Ab (09/01/2024 3:20 PM EDT) Hepatitis C Antibody Nonreactive Nonreactive [facility] Comment:Antibodies to HCV no t detected; does not exclude early acuteHCV infection. Blood Venous blood specimen / Unknown 09/01/2024 3:20 PM EDT 09/01/2024 4:56 PM EDT us Ely Lundberg MD LAB BLOOD ORDERABLES Final Result Performing Organization Address [facility]/ZIP Co de Phone Number [facility] [address] [place] [address] [phone] * HIV-1/2 Antigen and Antibodies, Fourth Generation, with Reflexes (09/01/2024 3:20 PM EDT) Pathologist [facility] HIV AB/AG Nonreactive Nonreactive [facility] Comment:HIV-1 p24 Ag and/or HIV-1/HIV-2 Ab not detected.A test result that is nonreactive does not exclude thepossibility of exposure to or infection with HIV-1 and/orHIV-2. Nonreactive results in this assay for individualswith prior exposure to HIV-1 and/or HIV-2 may be due toantigen and antibody levels that are below the limit ofdetection of this assay.The [employer] HIV Ag/Ab Combo assay result andsupplemental assay results should be interpreted inconjunction with the patient's clinical presentation,history and other laboratory results. If the results areinconsistent with clinical evidence, additional testing issuggested to confirm the result. Blood Venous blood specimen / Unknown 09/01/2024 3:20 PM EDT 09/01/2024 4:56 PM EDT us Ely Lundberg MD LAB BLOOD ORDERABLES Final Result Performing Organization Address [facility]/ZIP Co de Phone Number [facility] [address] [place] [address] [phone] * Lipid Panel, Standard (09/01/2024 3:20 PM EDT) Triglycerides 50 <150 mg/dL [facility] Comment:Desirable Triglyceri de: less than 150 mg/dLBorderline High Triglyceride 150-199 mg/dLHigh Triglyceride: 200-499 mg/dLVery High Triglyceride: greater than or equal to 5OO mg/dL Cholesterol 115 <200 mg/dL [facility] Comment:Desirable Cholestero l: less than 200 mg/dLBorderline High Cholesterol: 200-239 mg/dLHigh Cholesterol: greater than 239 mg/dL LDL Cholesterol Calculated 43 <100 mg/dL [facility] Comment:Desirable LDL: less than 100 mg/dLNear Optimal/Above Optimal LDL: 110- 129 mg/dLBorderline High LDL: 130-159 mg/dLHigh LDL: 160-189 mg/dLVery High LDL: greater than or equal to 190 mg/dL HDL Cholesterol 62 >40 mg/dL [facility] Comment:Desirable HDL: great er than 40 mg/dL Note: This HDL assay may give artificially low results in patients with liver disease. Blood Venous blood specimen / Unknown 09/01/2024 3:20 PM EDT 09/01/2024 4:56 PM EDT us Ely Lundberg MD LAB BLOOD ORDERABLES Final Result [facility] [address] [place] [address] [phone] * ALBUMIN, RANDOM URINE W/CREATININE (06/11/2022 [...] Lundberg MD LAB URINE ORDERABLES Final Result [facility] [address] [place] [address], from Last 3 Months or Most Recently Relevant to Health Maintenance Insurance [facility] STANDARD MEDICARE DENTAL-[facility] MEDICAID STAND ADULT Care Teams Printing Plate Clerk Relationship Specialty Start Date End Date Ely Lundberg MD [address] [place] [id number] PCP - General Internal Medicine 10/27/13 Felicita Tabares PharmD [address] [place] [phone] Pharmacist Internal Medicine 01/03/25
--- OUTSIDE RECORDS SUMMARY | 2025-03-07 20:45 | XMS_ITS | Encounter Summary ---
Author Organization [employer] Address [address] [facility] [address] 7[address] [place] [address] Care Team Providers Care Siding Installer Name Role Phone Ely Lundberg MD Primary Care Provider [phone] Felicita Tabares PharmD Unavailable [phone] Encounter Details Date Type Department Care Team ([facility] Contact Info) Description 03/07/2025 Orders Only GENERIC EXTERNAL DATA [...] Description 03/30/2025 9:00 AM EDT Office Visit [facility] CHC MED & PEDS [address] [place] [address] Ely Lundberg MD [address] [place], [place] [phone] 04/21/2025 3:00 PM EDT Office Visit [facility] ADULT DENTAL [address] [place] [address] Bobby, Briseyda [address] [place] [address] documented as of this encounter Goals Goal Patient Goal Type Associated Problems Recent Progress Patient-Stated? Author Hemoglobin A1c < 7 Result Component 12.7( 9:10 AM EST) No Jose Manuel Houser, PharmD documented as of this encounter Procedures Procedure Name Priority Date/Time Associated Diagnosis Comments ETHANOL Routine 03/07/2025 4:18 PM EDT CBC WITH AUTO DIFFERENTIAL Routine 03/07/2025 4:18 PM EDT COMPREHENSIVE METABOLIC PANEL Routine 03/07/2025 4:18 PM EDT documented in this encounter Results * Ethanol (03/07/2025 4:18 PM EDT) ETHANOL (MG/DL) IN SER/PLAS <10 mg/dL [facility] Comment:Serum/plasma ethanol results are to be used formedical/treatment purposes only. 03/07/2025 4:18 PM EDT 03/07/2025 4:29 PM EDT us Generic External Data Provider LAB BLOOD ORDERAB LES Final Result [facility] [address] [place] [phone] * (ABNORMAL) Comprehensive Metabolic Panel (03/07/2025 4:18 PM EDT) Sodium 135 135 - 145 mmol/L [facility] Potassium 4.8 3.3 - 5.1 mmol/L [facility] Comment:Slight Hemolysis.Int erpret result with caution. Chloride 103 96 - 108 mmol/L [facility] Carbon Dioxide 23 22 - 29 mmol/L [facility] Anion Gap 14 12 - 20 [facility] Urea Nitrogen (BUN) 15 9 - 16 mg/dL [facility] Creatinine, Serum 0.74 0.5 - 1.4 mg/dL [facility] Creatinine Clr Calc Pharmacy 107.5 [facility] Comment:eGFR (calculated fro m the MDRD study equation) and eCrCl(calculated from the Cockcroft-Gault equation) are based ondifferent parameters and may not yield comparable results.If eCrCl result is absurd, please check patient'sheight/weight. Estimated Glomerular Filt Rate >60 [facility] Comment:Chronic Kidney Disea se: Estimated GFR < 60 mL/min/1.10m5Tcwexp Kidney Disease: Estimated GFR < 15 mL/min/1.73m2 Glucose 389(HH) 60 - 115 mg/dL [facility] Comment:Critical value for t est(s): GLUR Results called to and readback by: ALFREDA Person calling: EJ Date: 03/07/25Time: 1650 Calcium 9.1 8.4 - 10.2 mg/dL [facility] Bilirubin, Total 0.5 0.0 - 1.0 mg/dL [facility] Aspartate Amino Transferase 21 5 - 37 U/L [facility] Comment:Slight Hemolysis.Int erpret result with caution. Alanine Aminotransferase 22 0 - 40 U/L [facility] Total Protein 6.7 6.5 - 8.0 g/dL [facility] Albumin Level 4.0 3.5 - 5.0 g/dL [facility] Alkaline Phosphatase 109 39 - 117 U/L [facility] 03/07/2025 4:18 PM EDT 03/07/2025 4:29 PM EDT us Generic External Data Provider LAB BLOOD ORDERAB LES Final Result [facility] [address] [place] [phone] * CBC auto differential (03/07/2025 4:18 PM EDT) White Blood Count 5.8 4.8 - 10.8 X10*3/uL [facility] Red Blood Count 5.14 4.60 - 5.80 X10*6/uL [facility] Hemoglobin 14.6 14.0 - 18.0 g/dl [facility] Hematocrit 43.9 42.0 - 52.0 % [facility] Mean Corpuscular Volume 85.4 80.0 - 98.0 fL [facility] Mean Corpuscular Hemoglobin 28.4 27.0 - 33.0 pg [facility] Mean Corpuscular HGB Conc 33.3 31.0 - 36.0 g/dl [facility] Red Cell Distribution Width 13.1 11.0 - 16.0 % [facility] Platelet Count 200 160 - 400 X10*3/uL [facility] Mean Platelet Volume 10.2 9.4 - 12.4 fL [facility] Neutrophils Percent Auto 61.6 45 - 73 % [facility] Imm Gran Pct Auto 0.2 0.0 - 0.4 % [facility] Lymphocytes Percent Auto 27.9 20 - 40 % [facility] Monocytes Percent Auto 8.1 2 - 11 % [facility] Eosinophils Percent Auto 1.9 0 - 4 % [facility] Basophils Percent Auto 0.3 0 - 2 % [facility] NRBC Pct Auto 0.0 0.0 - 0.2 /100WBC [facility] Neutrophils Absolute Auto 3.6 2.0 - 8.3 x10*3/uL [facility] Imm Gran Abs Auto 0.01 0.00 - 0.03 X10*3/uL [facility] Lymphocytes Absolute Auto 1.6 1.2 - 4.9 X10*3/uL [facility] Monocytes Absolute Auto 0.5 0.1 - 1.2 X10*3/uL [facility] Eosinophils Absolute Auto 0.1 0.0 - 0.4 X10*3/uL [facility] Basophils Absolute Auto 0.0 0.0 - 0.2 X10*3/uL [facility] NRBC Abs Auto 0.000 0.0 - 0.012 X10*3/uL [facility] 03/07/2025 4:18 PM EDT 03/07/2025 4:29 PM EDT us Generic External Data Provider LAB BLOOD ORDERAB LES Final Result Performing Organization Address City/State/[facility] Co de Phone Number [facility] [address] [place] [phone] [phone] documented in this encounter Visit Diagnoses Not on filedocumented in this encounter Additional Health Concerns Assessment Noted Time PHQ-9 Depression Total Score: 8 01/20/20 24 11:40 AM EDT documented as of this encounter Care Teams Siding Installer Relationship Specialty Start Date End Date Ely Lundberg MD [address] [place] [phone] PCP - General Internal Medicine 10/27/13 Felicita Tabares PharmD [address] [place] [address] Pharmacist Internal Medicine 01/03/25 documented as of this encounter
--- OUTSIDE RECORDS SUMMARY | 2025-03-07 20:45 | XMS_ITS | Encounter Summary ---
Author Organization [employer] Address [address] [facility] 7t [place] [address] Care Team Providers Care Recycling Or Rubbish Collector Name Role Phone Ely Lundberg MD Primary Care Provider Felicita Tabares PharmD Unavailable [phone] Encounter Details Date Type Department Care Team ([facility] Contact Info) Description 10/15/2022 Orders Only [facility] MEDICINE [address] [place] [address] Ely Lundberg MD [address] [place], [place] [phone] Type 1 diabetes mellitus with hyperglycemia (CMS/HCC) [...] Description 03/30/2025 9:00 AM EDT Office Visit [facility] CHC MED & PEDS [address] [place], [place] [phone] Ely Lundberg MD [address] [place] [address] 04/21/2025 3:00 PM EDT Office Visit [facility] ADULT DENTAL [address] [place] [address] Gregorio Rosalesaris [address] [place] [address] documented as of this encounter Goals Goal Patient Goal Type Associated Problems Recent Progress Patient-Stated? Author Hemoglobin A1c < 7 Result Component 12.7( 9:10 AM EST) No Jose Manuel Houser, PharmD documented as of this encounter Visit Diagnoses Diagnosis Type 1 diabetes mellitus with hyperglycemia (CMS/[facility])- Primary documented in this encounter Care Teams Recycling Or Rubbish Collector Relationship Specialty Start Date End Date Ely Lundberg MD [address] [place] [address] PCP - General Internal Medicine 10/27/13 Felicita Tabares PharmD [address] [place] [address] Pharmacist Internal Medicine 01/03/25 documented as of this encounter
--- OUTSIDE RECORDS SUMMARY | 2025-03-07 20:45 | XMS_ITS | Encounter Summary ---
Author Organization [employer] Address [address] [facility] [address] 7t [place] [address] Care Team Providers Care Operations Team Leader Name Role Phone Ely Lundberg MD Primary Care Provider Felicita Tabares PharmD Unavailable [phone] Reason for Visit * Reason Onset Date Comments Med Refill 11/30/2024 Encounter Details Date Type Department Care Team ([facility] st Contact Info) Description 11/30/2024 Telephone [facility] MEDICINE [address] [place] [address] Ely Lundberg MD [address] [place] [address] Med Refill Social History Tobacco Use Types [...] medications have refills. Please advise patientto call [facility] Pharmacy and transfer medications. * Telephone [...] 100 UNIT/ML pen To be sent to: [facility], [place], [place] - [address] [place] [address] Pt is at a Rehab in [place] for about a Month and pt needs these medications to be sent to the Pharmacy over there. documented in this encounter Plan of Treatment Upcoming Encounters Date Type Department Care Team (Late st Contact Info) Description 03/30/2025 9:00 AM EDT Office Visit [facility] CHC MED & PEDS [address] [place] [address] Ely Lundberg MD [address] [place] [address] 04/21/2025 3:00 PM EDT Office Visit [facility] ADULT DENTAL [address] [place] [address] Bobby, Briseyda [address] [place] [address] documented as of this encounter Goals Goal [...] documented as of this encounter Care Teams Operations Team Leader Relationship Specialty Start Date End Date lEy Lundberg MD [address] [place] [address] PCP - General Internal Medicine 10/27/13 Felicita Tabares PharmD [address] [place] [address] Pharmacist Internal Medicine 01/03/25 documented as of this encounter
--- OUTSIDE RECORDS SUMMARY | 2025-03-07 20:45 | XMS_ITS | Encounter Summary ---
Author Organization [employer] Address [address] [place] [address] 7 [place] [address] Care Team Providers Care Chiropractic Care Name Role Phone Eyl Lundberg MD Primary Care Provider Felicita Tabares PharmD Unavailable [phone] Encounter Details Date Type Department Care Team (Late Contact Info) Description 12/03/2022 Telephone [facility]EDS [address] [place] [address] Ely Lundberg MD [address] [place], [place] [phone] Social History Tobacco Use Types Packs/Day Years [...] Upcoming Encounters Date Type Department Care Team ([facility] Contact Info) Description 03/30/2025 9:00 AM EDT Office Visit [facility] CHC MED & PEDS [address] [place], [place] [phone] Ely Lundberg MD [address] [place] [address] 04/21/2025 3:00 PM EDT Office Visit [facility] ADULT DENTAL [address] [place], [place] [phone] Briseyda Rosales [address] [place] [address] documented as of this encounter Goals Goal Patient Goal Type Associated Problems Recent Progress Patient-Stated? Author Hemoglobin A1c < 7 Result Component 12.7( 5 9:10 AM EST) No Jose Manuel Houser, PharmD documented as of this encounter Visit Diagnoses Not on filedocumented in this encounter Care Teams Chiropractic Care Relationship Specialty Start Date End Date Ely Lundberg MD [address] [place] [address] PCP - General Internal Medicine 10/27/13 Felicita Tabares PharmD [address] [place] [address] Pharmacist Internal Medicine 01/03/25 documented as of this encounter
--- OUTSIDE RECORDS SUMMARY | 2025-03-07 20:45 | XMS_ITS | Encounter Summary ---
Author Organization [employer] Address [address] [facility] [address] 7t [place] [address] Care Team Providers Care Furnace Process Supervisor Name Role Phone Ely Lundberg MD Primary Care Provider [phone] Felicita Tabares PharmD Unavailable [phone] Encounter Details Date Type Department Care Team ([facility] Contact Info) Description 03/03/2025 Orders Only GENERIC EXTERNAL DATA DEPARTMENT [...] Description 03/30/2025 9:00 AM EDT Office Visit [facility] CHC MED & PEDS [address] [place] [address] Ely Lundberg MD [address] [place], [place] [phone] 04/21/2025 3:00 PM EDT Office Visit [facility] ADULT DENTAL [address] [place] [address] Bobby, Briseyda [address] [place] [address] documented as of this encounter Goals Goal Patient Goal Type Associated Problems Recent Progress Patient-Stated? Author Hemoglobin A1c < 7 Result Component 12.7( 9:10 AM EST) No Jose Manuel Houser, PharmD documented as of this encounter Procedures Procedure Name Priority Date/Time Associated Diagnosis Comments GLUCOSE, WHOLE BLOOD Routine 03/03/2025 2:07 AM EDT GLUCOSE, WHOLE BLOOD Routine 03/03/2025 1:49 AM EDT documented in this encounter Results * Glucose, Whole Blood (03/03/2025 2:07 AM EDT) Glucose, Whole Blood 106 60 - 115 mg/dL [facility] Comment:METER #: [id number] 03/03/2025 2:07 AM EDT 03/03/2025 2:13 AM EDT us Generic External Data Provider LAB BLOOD ORDERAB LES Final Result Performing Organization Address [facility] Co de Phone Number [facility] [address] [place] [address] [phone] * Glucose, Whole Blood (03/03/2025 1:49 AM EDT) Glucose, Whole Blood 68 60 - 115 mg/dL [facility] Comment:METER #: [id number] 03/03/2025 1:49 AM EDT 03/03/2025 1:53 AM EDT us Generic External Data Provider LAB BLOOD ORDERAB LES Final Result Performing Organization Address [facility] de Phone Number [facility] [address] [place] [address] [phone] documented in this encounter Visit Diagnoses Not on filedocumented in this encounter Additional Health Concerns Assessment Noted Time PHQ-9 Depression Total Score: 8 01/20/20 24 11:40 AM EDT documented as of this encounter Care Teams Furnace Process Supervisor Relationship Specialty Start Date End Date Ely Lundberg MD [address] [place] [address] PCP - General Internal Medicine 10/27/13 Felicita Tabares PharmD [address] [place] [address] Pharmacist Internal Medicine 01/03/25 documented as of this encounter
--- OUTSIDE RECORDS SUMMARY | 2025-03-07 20:45 | XMS_ITS | Encounter Summary ---
Author Organization [employer] Address [address] [facility] [address] 7[address] [place] [address] Care Team Providers Care Rod Cup Filler Name Role Phone Ely Lundberg MD Primary Care Provider [phone] Felicita Tabares PharmD Unavailable [phone] Reason for Visit * Reason Comments Med Refill Encounter Details Date Type Department Care Team ([facility] st Contact Info) Description 10/16/2024 Refill [facility] MEDICINE [address] [place] [address] Ely Lundberg MD [address] [place], [place] [phone] Social History Tobacco Use Types Packs/Day Years [...] Description 03/30/2025 9:00 AM EDT Office Visit [facility] CHC MED & PEDS [address] [place] [address] Ely Lundberg MD [address] [place] [address] 04/21/2025 3:00 PM EDT Office Visit [facility] ADULT DENTAL [address] [place] [address] Bobby, Briseyda [address] [place] [address] documented as of this encounter Goals Goal [...] documented as of this encounter Care Teams Rod Cup Filler Relationship Specialty Start Date End Date Ely Lundberg MD [address] [place] [address] PCP - General Internal Medicine 10/27/13 Felicita Tabares, Timothy [address] [place] [address] Pharmacist Internal Medicine 01/03/25 documented as of this encounter
--- OUTSIDE RECORDS SUMMARY | 2025-03-07 20:45 | XMS_ITS | Encounter Summary ---
Author Organization [employer] Address [address] [facility] [address] [place] [address] Care Team Providers Care Civil Engineering Professional Name Role Phone Ely Lundberg MD Primary Care Provider [phone] Felicita Tabares PharmD Unavailable [phone] Encounter Details Date Type Department Care Team ([facility] st Contact Info) Description 03/03/2025 Telephone [facility] MEDICINE [address] [place] [address] Alexandra Lua, PharmD [address] [place] [address] Social History Tobacco Use Types Packs/Day Years [...] encounter Miscellaneous Notes * Telephone Encounter - Alexandra Lua PharmD - 03/03/2025 5:23 PM EDT Patient has No-showed previous 4 visits scheduled with pharmacy team. Referral closed. documented in this encounter Plan of Treatment Upcoming Encounters Date Type Department Care Team (Late st Contact Info) Description 03/30/2025 9:00 AM EDT Office Visit [facility] CHC MED & PEDS [address] [place] [address] Ely Lundberg MD [address] [place] [address] 04/21/2025 3:00 PM EDT Office Visit [facility] ADULT DENTAL [address] [place], [place] [phone] Gregorio Rosalesaris [address] [place] [address] documented as of this encounter Goals Goal [...] documented as of this encounter Care Teams Civil Engineering Professional Relationship Specialty Start Date End Date Ely Lundberg MD [address] [place] [address] PCP - General Internal Medicine 10/27/13 Felicita Tabares, Timothy [address] [place] [address] Pharmacist Internal Medicine 01/03/25 documented as of this encounter
--- OUTSIDE RECORDS SUMMARY | 2025-03-07 20:45 | XMS_ITS | Encounter Summary ---
Author Organization [employer] Address [address] [facility] [address] [place] [address] Care Team Providers Care Synthetic Plasterer Name Role Phone Ely Lundberg MD Primary Care Provider [phone] Felicita Tabares PharmD Unavailable [phone] Reason for Visit * Reason Onset Date Comments Results 09/05/2024 Encounter Details Date Type Department Care Team ([facility] st Contact Info) Description 09/05/2024 Telephone [facility] MEDICINE [address] [place] [address] Ely Lundberg MD [address] [place] [address] Results Social History Tobacco Use Types Packs/Day [...] returning call for lab results Callback number [phone] documented in this encounter Plan of Treatment Upcoming Encounters Date Type Department Care Team (Late st Contact Info) Description 03/30/2025 9:00 AM EDT Office Visit [facility] CHC MED & PEDS [address] [place] [address] Ely Lundberg MD [address] [place] [address] 04/21/2025 3:00 PM EDT Office Visit [facility] ADULT DENTAL [address] [place], [place] [phone] Gregorio Rosalesaris [address] [place] [address] documented as of this encounter Goals Goal [...] documented as of this encounter Care Teams Synthetic Plasterer Relationship Specialty Start Date End Date Ely Lundberg MD [address] [place] [address] PCP - General Internal Medicine 10/27/13 Felicita Tabares PharmD [address] [place] [address] Pharmacist Internal Medicine 01/03/25 documented as of this encounter
[2025-03-07] MEDS: 0.9 % Sodium Chloride 1,000 ML 999 ML IV (22:04)
[2025-03-07] MEDS: Ketorolac Tromethamine 15 MG/ML VIAL IVPUSH (22:08)
[2025-03-07 22:14] LABS: Glucose, Whole Blood 225 mg/dL (60-115)
[2025-03-07] MEDS: Insulin Lispro 100 UNIT/ML 3 ML VIAL SUBCUT (22:15)
[2025-03-07] MEDS: Insulin Glargine,Hum.rec.anlog 100 UNIT/ML 10 ML VIAL 40 UNIT SUBCUT (22:17)
--- NOTE | 2025-03-07 22:22 | PC.NURSE ---
Pt medicated per MAR for 8/10 rib and toe pain. 4 units Lispro given for POC 225. 20G IV placed in R lateral forearm 1L NS infusing at this time. pt to have next POC at 2320 Primary RN aware
[2025-03-07 22:54] LABS: Influenza A PCR NEGATIVE (Negative); Influenza B PCR NEGATIVE (Negative); Resp Syncy Virus RNA Qual PCR NEGATIVE (Negative); SARS COV2 PCR INHOUSE NEGATIVE (Negative)
[2025-03-07 23:38] LABS: Glucose, Whole Blood 91 mg/dL (60-115)
[2025-03-08] MEDS: Glucose Gel 15 GM GEL..GRAM. PO (00:05)
--- NOTE | 2025-03-08 00:06 | PC.NURSE ---
pt states he feels as if his sugar is low, pt appears sweaty. pt poc 48. pt given juice, sandwich and prn glucose gel. dr. fernández aware. plan to recheck poc in 15 minutes.
[2025-03-08 00:08] LABS: Glucose, Whole Blood 48 mg/dL (60-115)
--- NOTE | 2025-03-08 00:30 | PC.NURSE ---
MD Padilla aware of improved poc.
[2025-03-08 00:34] LABS: Glucose, Whole Blood 177 mg/dL (60-115)
[2025-03-08 02:36] VITALS: BP 97/59; PULSE 82; RESP 16; TEMP 36.7; O2SAT 97
--- NOTE | 2025-03-08 02:38 | PC.NURSE ---
MD aware of body aches and BP.
[2025-03-08] MEDS: Ketorolac Tromethamine 15 MG/ML VIAL IVPUSH (02:56)
[2025-03-08] MEDS: LORazepam 1 MG TABLET 2 MG PO (02:56)
[2025-03-08 07:06] LABS: Glucose, Whole Blood 124 mg/dL (60-115)
--- NOTE | 2025-03-08 09:54 | PHA.MEDREC ---
Pharmacy Consult ? Medication Reconciliation Pharmacy has completed the medication reconciliation. Spoke with pt at bed side. He know his medications when going down the list. He states Lantus 40mg at bedtime, and Novolin 8 units TIDWM. He states he did not increase his Seroquel on 03/02, and is still cutting the dose to 12.5mg BID prn for anxiety.
[2025-03-08 11:09] LABS: Appearance Urine Clear; Color Urine Yellow; Glucose Urine UA >=1000 mg/dL (Negative); Leukocyte Esterase Urine Negative (Negative); Nitrite Urine Negative (Negative); PH 6.5 (5.0-9.0); Specific Gravity - Urine >= 1.030 (1.005-1.025); UMIC TRIGGER UA YES; Urine Blood Negative (Negative); Urine Ketones Negative (Negative); Urine Protein Negative (Neg-Trace)
[2025-03-08 11:11] LABS: Bacteria Urine None Seen (None Seen); RBC Urine 0-2 /HPF (0-2); Squamous Epithelial Cell Urine 0-2 /HPF (0-2); WBC Urine 0-5 /HPF (0-5)
[2025-03-08 11:20] LABS: Amphetamine Screen Urine Not Detected (Not Detect); Barbiturates, Urine Not Detected (Not Detect); Benzodiazepines Screen Urine Not Detected (Not Detect); Buprenorphine Scr Not Detected (Not Detect); Cannabinoid Screen Urine POSITIVE (Not Detect); Cocaine Screen Urine Not Detected (Not Detect); Fentanyl, urine Not Detected (Not Detect); Methadone Screen, Urine Not Detected (Not Detect); Opiate Screen Urine Not Detected (Not Detect); Oxycodone Screen Urine Not Detected (Not Detect); Phencyclidine Screen Urine POSITIVE (Not Detect)
[2025-03-08 12:05] VITALS: BP 128/59; PULSE 62; RESP 16; TEMP 36.9; O2SAT 100
== END 2025-03-08 12:05 | disposition home or self-care (01) ==
PROVIDERS: Emergency Medicine Emergency Medical Services; Physician Assistant; Emergency Provider Emergency Medicine; PCP Internal Medicine
DX: F19.10 Other psychoactive substance abuse, uncomplicated (principal); E11.9 Type 2 diabetes mellitus without complications; E78.5 Hyperlipidemia, unspecified; Z79.899 Other long term (current) drug therapy; Z79.4 Long term (current) use of insulin; Z03.818 Encounter for observation for suspected exposure to other biological agents ruled out
CPT/HCPCS: 0241U; 36415; 71101; 80053; 80307; 81001; 82550; 82947; 85025; 96361; 96374; 96375; 99285; J1885; S9485

== ENCOUNTER → 2025-03-07 21:18 | Outpatient (BNV) | payer MEDICARE, MEDICAID, SELFPAY | PROVIDERS: Emergency Provider Emergency Medicine Emergency Medical Services; PCP Internal Medicine; Visit Provider Student in an Organized Health Care Education/Training Program | DX: R07.81 Pleurodynia (principal) | CPT/HCPCS: 71101 ==

== ENCOUNTER 2025-10-02 20:50 | Emergency (ER) | payer MEDICARE, MEDICAID, SELFPAY ==
--- NOTE | 2025-10-02 | ECG_ITS ---
Test Reason : cp Blood Pressure : */* mmHG Vent. Rate : 86 BPM Atrial Rate : 86 BPM P-R Int : 140 ms QRS Dur : 80 ms QT Int : 346 ms P-R-T Axes : 51 82 48 degrees QTcB Int : 414 ms Normal sinus rhythm Normal ECG When compared with ECG of 20-Feb-2025 02:56, No significant change was found Referred By: Generic ED Physician Electronically Signed By: Ashok Bass
--- NOTE | ~2025-10-02 | XR_ITS ---
CLINICAL HISTORY: cough 1 view chest x-ray Comparison: CR/SR - XR CHEST 1V - 06/03/22 07:42 EDT Findings: No consolidation or effusion. Heart size is normal. No acute fracture. IMPRESSION: 1. No acute findings. This document has been electronically signed by: Jan Salgado MD on 10/02/2025 21:33:29
[2025-10-02 20:56] VITALS: BP 108/76; PULSE 80; O2SAT 98
[2025-10-02 21:01] VITALS: BP 104/65; PULSE 92; RESP 18; TEMP 36.4; O2SAT 100; BMI 20.7
[2025-10-02 21:34] LABS: MANUAL DIFF FLAG NO
--- NOTE | 2025-10-02 21:34 | ED_ITS ---
HPI - General Adult General Chief complaint: General Medical Stated complaint: Cough, chest discomfort over 3 days Time Seen by Provider: 10/02/25 21:34 Source: patient and EMS Mode of arrival: EMS Limitations: no limitations History of Present Illness ED Provider: Dr. Kamryn Manriquez HPI narrative: 40-year-old male with insulin-dependent diabetes mellitus and a history of substance use disorder who presents with 3 days of left-sided chest pain, dry cough, headache, malaise, and fatigue. The pain is sharp/heavy, localized to the left anterior chest, worsened by coughing, deep inspiration, and when lying flat, and reproducible with palpation. He reports intermittent mild dyspnea earlier today but none at present. He denies fevers. Cough is dry with no sputum production. He notes hoarse/deeper voice and ?frog in throat.? Headaches are worse on awakening; he has avoided acetaminophen except for one recent dose due to concern for liver toxicity. GI symptoms include nausea specifically triggered by eating and constipation, with the patient reporting that he sometimes cannot have a bowel movement for 2?3 days. He denies vomiting or diarrhea. The patient admits to smoking PCP every other day (sometimes daily) and drinking alcohol on weekends and some weekdays; he describes occasional mild tremor if he does not drink but ?not really? significant withdrawal. He is non-compliant with his insulin but did take a dose earlier today. He began taking NyQuil about 4 days ago; he feels these helped his chest discomfort. Possible sick contact noted (?someone around him was coughing?). No recent travel. Related Data Home Medications ?Medication ?Instructions ?Recorded ?Confirmed nicotine (polacrilex) 2 mg gum 1 gum PO Q2H PRN Nicoti ne Cravings 03/01/22 03/08/25 rosuvastatin 20 mg tablet 1 tab PO QAM 12/30/22 hydroxyzine HCl 50 mg tablet 50 mg PO BEDTIME PRN Inso mnia 12/12/24 03/08/25 insulin regular human 100 unit/mL 8 unit subcut TIDWME AL 12/12/24 03/08/25 (3 mL) subcutaneous pen (Novolin R FlexPen) quetiapine 25 mg tablet 12.5 mg PO BID PRN Anxiety 0 12/12/24 03/08/25 gabapentin 600 mg tablet 600 mg PO TID PRN Pain 02/2003/08/25 insulin glargine 100 unit/mL (3 40 unit subcut BEDTIME 02/20/25 03/08/25 mL) subcutaneous pen (Lantus Solostar U-100 Insulin) melatonin 3 mg tablet 9 mg PO BEDTIME PRN insomnia 02/20/25 03/08/25 thiamine HCl (vitamin B1) 100 mg 100 mg PO BID 5 03/08/25 tablet baclofen 10 mg tablet 10 mg PO BID PRN muscle spas ms 03/08/25 03/08/25 pyridoxine (vitamin B6) 50 mg 50 mg PO DAILY 03/08/25 03/08/25 tablet trazodone 50 mg tablet 50 mg PO BEDTIME PRN Insomni a 03/08/25 03/08/25 Previous Rx's ?Medication ?Instructions ?Recorded aripiprazole 10 mg tablet 10 mg PO DAILY 30 days #30 t abs 12/15/24 albuterol sulfate 90 mcg/actuation 2 inh inhalation Q4 H PRN shortness 10/03/25 breath activated powder inhaler of breath #1 ea Allergies Allergy/AdvReac Type Severity Reaction Status Date / Time haloperidol Allergy Mild ITCHING Verified 10/02/25 21:05 Review of Systems 2 Review of Systems: as per HPI, full review of systems performed and negative but for the above mentioned pertinent positives and negatives. [facility]LY [facility] Past Medical History Medical History Ingrown hair Abscess Diabetes Depression Surgical History H/O circumcision Family History Family History Mother No problems noted. Father No problems noted. Social History Social History Household Members: Unknown / Unable to assess Do you presently have visiting nurse or other home services: No Alcohol intake: current Alcohol intake frequency: a few times a week Alcohol type: beer Patient Tobacco Use Status: Current everyday Tobacco user Tobacco use type: Cigarette Cigarette Packs Per Day: 1 Cigarettes Per Day: 20.0 Years Smoked: 15 Second Hand Smoke Exposure: No Use of substances other than those prescribed or required for medical reasons: Yes Substance Use Type: Crack/Cocaine, Marijuana and Other Substance Use Type Other:: PCP Substance Use Frequency: Weekly Substance Use Frequency Other:: 1 Last Used Substance: Days (ago) Any prior treatment program specific to substance use: No Advance Directives: No Advance Directives Information Provided: Yes Do you have a plan to hurt others: No Plan service: No Current occupational status: unemployed and disabled Sexual orientation: Straight/Heterosexual Physical Exam ED Exam Exam: GENERAL: Ill-Appearing, appears uncomfortable. SKIN: Normal skin color for ethnicity, warm, dry, no rashes noted. HEENT:? Normocephalic, atraumatic, no stridor, dry mucous membranes, dentition intact, EOMI. NECK: Soft, supple, full ROM, midline structures nontender, no step-offs, no deformities, no lymphadenopathy. CHEST: Heart regular rhythm, no murmurs, symmetric chest rise and fall. PULMONARY: Clear to auscultation bilaterally, diminished at the bases, no labored breathing, no wheezes/rhales/rhonchi, occasional bronchospastic cough. ABDOMINAL: Soft, nondistended, nontender, positive bowel sounds in all quadrants. : Deferred. MUSCULOSKELETAL: Normal tone, full range of motion, no deformities, no peripheral edema. NEURO: Alert and oriented x3, CN II through XII intact, equal strength and sensation bilateral upper and lower extremities, no focal neurologic deficits.? PSYCHIATRIC: Flat affect, fluid speech, good eye contact and appropriate demeanor. Vital Signs: Vital Signs - 24 hr 10/02/25 21:01 10/03/25 02:11 Temperature 97.6 F 97.8 F Pulse Rate 92 101 H Respiratory Rate 18 14 Blood Pressure 104/65 102/53 L Pulse Oximetry 100 97 Oxygen Delivery Method Room Air Room Air BMI result Body Mass Index 20.7 Medications Administered Discontinued Medications Generic Name Dose Route Start Last Admin Trade Name Freq PRN Reason Stop Dose Admin Acetaminophen 650 mg 10/02/25 23:55 10/03/25 00:13 Acetaminophen 325 Mg Tablet PO 10/02/25 23:56 650 mg ONCE ONE Administration Albuterol/Ipratropium 3 ml 10/03/25 00:32 10/03/25 01:10 Albuterol/Iprat 2.5/0.5mg 3 Ml Ampul.Neb INHALE 10/03/25 00:33 3 ml ONCE ONE Administration Guaifenesin/Codeine Phosphate 5 ml 10/03/25 00:33 10/03/25 00:43 Guaifen/Codeine Sf 200/20/10ml 10 Ml Liquid PO 10/03/25 00:34 5 ml ONCE ONE Administration Sodium Chloride 1,000 mls @ 999 mls/hr 10/02/25 22:00 10/02/25 23:09 Ns IV 10/02/25 23:00 Infused .Q1H1M RONNIE Infusion Lactated Ringer's 1,000 mls @ 999 mls/hr 10/02/25 23:55 10/03/25 01:33 Lr IV 10/03/25 00:55 Infused .Q1H1M ONE Infusion Medical Decision Making Medical Decision Making MDM Narrative: 40-year-old male with insulin-dependent DM, substance use disorder, and poor medication adherence presenting with chest pain associated with cough and URI symptoms. Work-up notable for clear CXR, negative flu/COVID, and markedly elevated serum glucose. Chest pain is musculoskeletal/pleuritic in nature and likely secondary to frequent coughing from an upper respiratory infection. Hyperglycemia likely due to insulin non-compliance and dehydration. Problem #1: Upper respiratory infection (likely viral) Assessment: 3 days of cough, hoarseness, negative flu/COVID, clear CXR; consistent with uncomplicated URI. Plan: * Symptomatic treatment. * Encourage oral hydration. Problem #2: Hyperglycemia / Diabetes mellitus ? insulin-dependent, non-compliant Assessment: Initial BG >500 mg/dL; patient admits missing doses. Currently receiving IV fluids; no evidence of DKA. Plan: * Continue IV fluids (second liter ordered). * Recheck blood glucose prior to disposition. * Reinforce importance of regular insulin use. Problem #3: Substance use disorder (PCP and alcohol) Assessment: Daily/opyqi-yboms-yot PCP use; regular alcohol consumption; counseling provided regarding health risks. Plan: * Brief counseling in ED regarding risks to heart, lungs, liver, and overall health. Disposition: Pending repeat glucose and completion of second liter IV fluids; anticipate discharge home with supportive care instructions. Blood sugar improving with fluids. Patient remains slightly tachycardic though he has had PCP today as well as several albuterol treatments. His cough improved after the albuterol. Discussed use of albuterol inhaler for coughing fits at home. Encouraged cessation of PCP for overall health. Encouraged return to the emergency department for treatment with his addictions. Patient understands and agrees with plan for discharge. Discharged home in stable condition. Differential Diagnosis Differential Diagnoses: The differential diagnosis associated with the presentation includes (as above) Admission/Observation Consideration of admission/observation: Escalation of care including admission/observation considered Lab Data MDM Lab Attestation statement: I reviewed the patient's lab results. 10/02/25 21:20 10/02/25 21:20 Labs: Lab Results 10/02/25 10/02/25 10/02/25 Range/Units 21:20 21:32 21:38 WBC 5.3 (4.8-10.8) X10*3/uL RBC 5.20 (4.60-5.80) X10*6/uL Hgb 14.7 (14.0-18.0) g/dl Hct 44.7 (42.0-52.0) % MCV 86.0 (80.0-98.0) fL MCH 28.3 (27.0-33.0) pg MCHC 32.9 (31.0-36.0) g/dl RDW 13.4 (11.0-16.0) % Plt Count 152 L (160-400) X10*3/uL MPV 11.6 (9.4-12.4) fL Immature Gran % (Auto) 0.2 (0.0-0.4) % Neut % (Auto) 49.1 (45-73) % Lymph % (Auto) 41.9 H (20-40) % [place] % (Auto) 6.5 (2-11) % Eos % (Auto) 1.5 (0-4) % Baso % (Auto) 0.8 (0-2) % Lymph # (Auto) 2.2 (1.2-4.9) X10*3/uL [place] # (Auto) 0.3 (0.1-1.2) X10*3/uL Eos # (Auto) 0.1 (0.0-0.4) X10*3/uL Baso # (Auto) 0.0 (0.0-0.2) X10*3/uL Abs Immat Gran (auto) 0.01 (0.00-0.03) X10*3/uL Absolute Neuts (auto) 2.6 (2.0-8.3) x10*3/uL Absolute Nucleated RBC 0.000 (0.0-0.012) X10*3/uL Nucleated RBC % (auto) 0.0 (0.0-0.2) /100WBC Hold Purple Top SEE NOTE VBG pH 7.41 (7.32-7.43) VBG pCO2 53 mmHg VBG pO2 38 mmHg VBG HCO3 34 H (22-26) mmol/L VBG O2 Saturation 63.0 % VBG Base Excess 7.8 mmol/L Sodium 138 (135-145) mmol/L Potassium 3.9 (3.3-5.1) mmol/L Chloride 100 (96-108) mmol/L Carbon Dioxide 29 (22-29) mmol/L Anion Gap 13 (12-20) BUN 14 (9-16) mg/dL Creatinine 1.01 (0.5-1.4) mg/dL Estim Creat Clear Calc 79.0 Estimated GFR > 60 POC Glucose (60-115) mg/dL Random Glucose 513 H* (60-115) mg/dL Calcium 9.3 (8.4-10.2) mg/dL Total Bilirubin 0.6 (0.0-1.0) mg/dL AST 17 (5-37) U/L ALT 16 (0-40) U/L Alkaline Phosphatase 145 H (39-117) U/L Total Protein 6.4 L (6.5-8.0) g/dL Albumin 4.2 (3.5-5.0) g/dL Urine Color Yellow Urine Appearance Clear Urine pH 7.0 (5.0-9.0) Ur Specific [place] >= 1.030 H (1.005-1.025) Urine Protein Negative (Neg-Trace) mg/dL Urine Glucose (UA) >=1000 H (Negative) mg/dL Urine Ketones 15 (Negative) mg/dL Urine Blood Negative (Negative) Urine Nitrite Negative (Negative) Ur Leukocyte Esterase Negative (Negative) Urine RBC 0-2 (0-2) /HPF Urine WBC 0-5 (0-5) /HPF Ur Squamous Epith Cells 0-2 (0-2) /HPF Urine Bacteria None Seen (None Seen) Hyaline Casts 0-2 (0-2) /LPF Urine Opiates Screen Not Detected (Not Detect) Ur Buprenorphine Scrn Not Detected (Not Detect) ng/mL Ur Oxycodone Screen Not Detected (Not Detect) ng/mL Urine Methadone Screen Not Detected (Not Detect) ng/mL Urine Fentanyl Screen Not Detected (Not Detect) Ur Barbiturates Screen Not Detected (Not Detect) Ur Phencyclidine Scrn POSITIVE H (Not Detect) Ur Amphetamines Screen Not Detected (Not Detect) U Benzodiazepines Scrn Not Detected (Not Detect) Urine Cocaine Screen Not Detected (Not Detect) U Marijuana (THC) Screen Not Detected (Not Detect) Influenza Type A (PCR) NEGATIVE (Negative) Influenza Type B (PCR) NEGATIVE (Negative) RSV RNA Qual (PCR) NEGATIVE (Negative) SARS-CoV-2 RNA (RT-PCR) NEGATIVE (Negative) 10/02/25 10/03/25 Range/Units 23:38 02:09 WBC (4.8-10.8) X10*3/uL RBC (4.60-5.80) X10*6/uL Hgb (14.0-18.0) g/dl Hct (42.0-52.0) % MCV (80.0-98.0) fL MCH (27.0-33.0) pg MCHC (31.0-36.0) g/dl RDW (11.0-16.0) % Plt Count (160-400) X10*3/uL MPV (9.4-12.4) fL Immature Gran % (Auto) (0.0-0.4) % Neut % (Auto) (45-73) % Lymph % (Auto) (20-40) % [place] % (Auto) (2-11) % Eos % (Auto) (0-4) % Baso % (Auto) (0-2) % Lymph # (Auto) (1.2-4.9) X10*3/uL [place] # (Auto) (0.1-1.2) X10*3/uL Eos # (Auto) (0.0-0.4) X10*3/uL Baso # (Auto) (0.0-0.2) X10*3/uL Abs Immat Gran (auto) (0.00-0.03) X10*3/uL Absolute Neuts (auto) (2.0-8.3) x10*3/uL Absolute Nucleated RBC (0.0-0.012) X10*3/uL Nucleated RBC % (auto) (0.0-0.2) /100WBC Hold Purple Top VBG pH (7.32-7.43) VBG pCO2 mmHg VBG pO2 mmHg VBG HCO3 (22-26) mmol/L VBG O2 Saturation % VBG Base Excess mmol/L Sodium (135-145) mmol/L Potassium (3.3-5.1) mmol/L Chloride (96-108) mmol/L Carbon Dioxide (22-29) mmol/L Anion Gap (12-20) BUN (9-16) mg/dL Creatinine (0.5-1.4) mg/dL Estim Creat Clear Calc Estimated GFR POC Glucose 317 H 288 H (60-115) mg/dL Random Glucose (60-115) mg/dL Calcium (8.4-10.2) mg/dL Total Bilirubin (0.0-1.0) mg/dL AST (5-37) U/L ALT (0-40) U/L Alkaline Phosphatase (39-117) U/L Total Protein (6.5-8.0) g/dL Albumin (3.5-5.0) g/dL Urine Color Urine Appearance Urine pH (5.0-9.0) Ur Specific [place] (1.005-1.025) Urine Protein (Neg-Trace) mg/dL Urine Glucose (UA) (Negative) mg/dL Urine Ketones (Negative) mg/dL Urine Blood (Negative) Urine Nitrite (Negative) Ur Leukocyte Esterase (Negative) Urine RBC (0-2) /HPF Urine WBC (0-5) /HPF Ur Squamous Epith Cells (0-2) /HPF Urine Bacteria (None Seen) Hyaline Casts (0-2) /LPF Urine Opiates Screen (Not Detect) Ur Buprenorphine Scrn (Not Detect) ng/mL Ur Oxycodone Screen (Not Detect) ng/mL Urine Methadone Screen (Not Detect) ng/mL Urine Fentanyl Screen (Not Detect) Ur Barbiturates Screen (Not Detect) Ur Phencyclidine Scrn (Not Detect) Ur Amphetamines Screen (Not Detect) U Benzodiazepines Scrn (Not Detect) Urine Cocaine Screen (Not Detect) U Marijuana (THC) Screen (Not Detect) Influenza Type A (PCR) (Negative) Influenza Type B (PCR) (Negative) RSV RNA Qual (PCR) (Negative) SARS-CoV-2 RNA (RT-PCR) (Negative) ABG Data Attestation ABG: I personally reviewed and interpreted this ABG as follows: Interpretation: No evidence of metabolic acidosis Independent Interpretation I performed an independent interpretation of an: EKG Interpretation: My independent interpretation of the ECG reveals normal sinus rhythm with rate of 86, normal axis, normal intervals, no ST elevations or depressions to suggest ischemic changes, relatively unchanged from previous on 02/20/25. My independent interpretation of the chest x-ray reveals no consolidations, pulmonary edema, pleural effusion, pneumothorax, obvious bony abnormalities. Radiology Impression Discussion of test interpretation with radiology: I have reviewed the radiologist's reading. Independent Historian Clinical information obtained from an independent historian. History obtained from or confirmed by: EMS External Record Review External record reviewed: Inpatient record Chronic Conditions Patient?s care impacted by: Diabetes and Other (Substance use disorder) Social Determinants Patient?s care significantly limited by Social Determinants of Health including: Problems related to primary support group and Other Social Determinant of Health Discharge Plan Discharge Clinical Impression: Viral upper respiratory infection, Hyperglycemia due to diabetes mellitus, Acute chest pain, Acute costochondritis, Phencyclidine (PCP) use disorder, moderate Patient Disposition: Home, Self-Care Instructions: Costochondritis (ED), Upper Respiratory Infection (ED) Additional Instructions: DIAGNOSIS & TREATMENT: You were seen in the Emergency Department for your chest discomfort. We performed an EKG, laboratory work and chest xray which did not reveal any acute abnormalities that would explain your symptoms. FURTHER CARE: We have not found any emergent physical exam or lab abnormalities that would require admission to the hospital today. Many people who come to the ER with chest discomfort do not leave with a specific diagnosis at the end of their visit. In the Emergency Department we try to make sure that there is no emergent problem that needs admission to the hospital or antibiotics right now. This does not mean that your evaluation is complete--please be sure to follow up with your regular doctor as additional testing as an outpatient may be indicated. Please be certain to drink plenty of fluids over the next several days. WHEN YOU SHOULD BE SEEN NEXT: It is important after your visit that you follow up with either your behavioral health provider or a primary care doctor within 7 days.? If you have trouble finding a therapist you can reach out to [address] [phone] The National Suicide and Crisis Lifeline can be reached 7 days a week 24 hours a day.? Call 988 to speak with someone.? Return for any worsening symptoms or concerns such as thoughts of self harm or harm to others. Please call 911 if you feel your mental health is worsening.? WHEN TO RETURN TO THE ED: Monitor your symptoms closely and return to the emergency department immediately for any new/worsening symptoms including: Worsening chest pain, difficulty breathing, fevers greater than 100 degrees, passing out, any new symptom that concerns you. Call 911 with any medical emergency. Prescriptions: New albuterol sulfate 90 mcg/actuation aerosol powdr breath activated 2 inh inhalation Q4H PRN (Reason: shortness of breath) Qty: 1 0RF No Action nicotine (polacrilex) 2 mg gum 1 gum PO Q2H PRN (Reason: Nicotine Cravings) rosuvastatin 20 mg tablet 1 tab PO QAM quetiapine 25 mg tablet 12.5 mg PO BID PRN (Reason: Anxiety) hydroxyzine HCl 50 mg tablet 50 mg PO BEDTIME PRN (Reason: Insomnia) Novolin R FlexPen 100 unit/mL (3 mL) insulin pen 8 unit SUBCUT TIDWMEAL Rx Instructions: Take 8 units with meals (breakfast, lunch and dinner) aripiprazole 10 mg Tablet 10 mg PO DAILY 30 Days Qty: 30 0RF gabapentin 600 mg tablet 600 mg PO TID PRN (Reason: Pain) thiamine HCl (vitamin B1) 100 mg tablet 100 mg PO BID melatonin 3 mg tablet 9 mg PO BEDTIME PRN (Reason: insomnia) insulin glargine [Lantus Solostar U-100 Insulin] 100 unit/mL (3 mL) insulin pen 40 unit subcut BEDTIME trazodone 50 mg tablet 50 mg PO BEDTIME PRN (Reason: Insomnia) baclofen 10 mg tablet 10 mg PO BID PRN (Reason: muscle spasms) pyridoxine (vitamin B6) 50 mg tablet 50 mg PO DAILY Print Language: Spanish
[2025-10-02 21:35] LABS: Hematocrit 44.7 % (42.0-52.0); Hemoglobin 14.7 g/dl (14.0-18.0); Imm Gran Abs Auto 0.01 X10*3/uL (0.00-0.03); Imm Gran Pct Auto 0.2 % (0.0-0.4); Lymphocytes Absolute Auto 2.2 X10*3/uL (1.2-4.9); Mean Corpuscular HGB Conc 32.9 g/dl (31.0-36.0); Mean Corpuscular Hemoglobin 28.3 pg (27.0-33.0); Mean Corpuscular Volume 86.0 fL (80.0-98.0); NRBC Abs Auto 0.000 X10*3/uL (0.0-0.012); NRBC Pct Auto 0.0 /100WBC (0.0-0.2); Platelet Count 152 X10*3/uL (160-400); Red Blood Count 5.20 X10*6/uL (4.60-5.80); White Blood Count 5.3 X10*3/uL (4.8-10.8)
[2025-10-02 21:38] LABS: VBG HCO3 34 mmol/L (22-26); VBG O2 % Saturation 63.0 %
[2025-10-02 21:40] LABS: Venous Blood Gas Refer to POC result
[2025-10-02 21:47] LABS: Appearance Urine Clear; Glucose Urine UA >=1000 mg/dL (Negative); PH 7.0 (5.0-9.0); Specific Gravity - Urine >= 1.030 (1.005-1.025); UMIC TRIGGER UA YES
[2025-10-02 21:53] LABS: Alanine Aminotransferase 16 U/L (0-40); Albumin Level 4.2 g/dL (3.5-5.0); Alkaline Phosphatase 145 U/L (39-117); Anion Gap 13 (12-20); Aspartate Amino Transferase 17 U/L (5-37); Blood Urea Nitrogen 14 mg/dL (9-16); Calcium 9.3 mg/dL (8.4-10.2); Carbon Dioxide 29 mmol/L (22-29); Chloride 100 mmol/L (96-108); Creatinine Clr Calc Pharmacy 79.0; Estimated Glomerular Filt Rate > 60; Potassium 3.9 mmol/L (3.3-5.1); Sodium 138 mmol/L (135-145); Total Protein 6.4 g/dL (6.5-8.0)
[2025-10-02 21:58] LABS: Cannabinoid Screen Urine Not Detected (Not Detect)
[2025-10-02 22:11] LABS: Resp Syncy Virus RNA Qual PCR NEGATIVE (Negative); SARS COV2 PCR INHOUSE NEGATIVE (Negative)
--- NOTE | 2025-10-02 23:26 | PC.NURSE ---
report to Afshan DODGE
[2025-10-02 23:46] LABS: Glucose, Whole Blood 317 mg/dL (60-115)
[2025-10-03] MEDS: Lactated Ringers 1,000 ML 999 ML IV (00:10)
[2025-10-03] MEDS: guaiFEN/Codeine SF 200/20/10ML 10 ML LIQUID 5 ML PO (00:43)
[2025-10-03] MEDS: Albuterol/Iprat 2.5/0.5MG 3 ML AMPUL.NEB INHALE (01:10)
[2025-10-03 02:11] VITALS: BP 102/53; PULSE 101; RESP 14; TEMP 36.6; O2SAT 97
[2025-10-03 02:13] LABS: Glucose, Whole Blood 288 mg/dL (60-115)
[2025-10-03 03:40] VITALS: BP 102/53; PULSE 101; RESP 14; TEMP 36.6; O2SAT 97
== END 2025-10-03 03:50 | disposition home or self-care (01) ==
PROVIDERS: Emergency Provider Emergency Medicine; PCP Internal Medicine
DX: J06.9 Acute upper respiratory infection, unspecified (principal); E11.65 Type 2 diabetes mellitus with hyperglycemia; R07.9 Chest pain, unspecified; M94.0 Chondrocostal junction syndrome [Tietze]; F16.99 Hallucinogen use, unspecified with unspecified hallucinogen-induced disorder; Z03.818 Encounter for observation for suspected exposure to other biological agents ruled out; Z79.4 Long term (current) use of insulin; R05.9 Cough, unspecified; R51.9 Headache, unspecified; F32.A Depression, unspecified; Z79.899 Other long term (current) drug therapy
CPT/HCPCS: 36415; 71045; 80053; 80307; 81001; 82803; 82947; 85025; 87637; 93005; 94640; 96360; 96361; 99284; 99285; J7120

== ENCOUNTER → 2025-10-02 21:12 | Outpatient (BNV) | payer OTHER, MEDICARE, MEDICAID, SELFPAY | PROVIDERS: Emergency Provider Emergency Medicine; PCP Internal Medicine; Visit Provider Radiology Diagnostic Radiology | DX: R05.9 Cough, unspecified (principal) | CPT/HCPCS: 71045 ==

== ENCOUNTER → 2025-10-02 21:33 | Outpatient (BNV) | payer MEDICARE, MEDICAID, SELFPAY | PROVIDERS: Emergency Provider Emergency Medicine; PCP Internal Medicine; Visit Provider Internal Medicine Cardiovascular Disease | DX: R07.9 Chest pain, unspecified (principal) | CPT/HCPCS: 93010 ==